=== PATIENT | female | born 2000 | race Hispanic/Latino ===

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

== ENCOUNTER 2023-02-23 15:10 | Inpatient (IN) | payer SELFPAY ==
--- OUTSIDE RECORDS SUMMARY | 2023-02-23 15:19 | XMS REPORT | Continuity of Care Document ---
:2000 Author Organization [facility] t Address [address] [place] [address] Care Team Providers Name Role Phone Pcp, Patient Does Not Have A Primary Care Physician [phone] CONCEPCION ALDANA Attending Clinician Unavailable 2, [facility] Attending Clinician Unavailable Concepcion Aldana MD Attending Clinician Doctor Unassigned, [place] Attending Clinician Unavailable JEANCARLOS ROQUE Attending Clinician Unavailable JEANCARLOS ROQUE Attending Clinician Unavailable Jose Angel Aragon MD Attending Clinician 1, Lk Nst Room Attending Clinician Unavailable MARILU ROOT Attending Clinician Unavailable MARILU ROOT Attending Clinician Unavailable Room, [facility] Nst Attending Clinician Unavailable 3, [facility] Room Attending Clinician Unavailable Mike Hernandez MD Attending Clinician MIKE HERNANDEZ Attending Clinician Unavailable Nurse, [facility] Attending Clinician Unavailable Ultrasound, [facility] Attending Clinician Unavailable Umberto Farrar MD Attending Clinician UMBERTO FARRAR Attending Clinician Unavailable Pob, [facility] Lab Main Attending Clinician Unavailable Zoila Henry MA Attending Clinician Unavailable Freddy CAMERON, Shania Tavera Attending Clinician Unavailable 1, [facility] Room Attending Clinician Unavailable Jayesh Larios MD Attending Clinician [phone] JAYESH LARIOS Attending Clinician Unavailable NOHEMI CANALES Attending Clinician Unavailable Nohemi Canales MD Attending Clinician Maame Alonso RN Attending Clinician Unavailable Faculty, [facility] Attending Clinician Unavailable Emmanuel Holley MD Attending Clinician EMMANUEL HOLLEY Attending Clinician Unavailable JOSHUA LEWIS Attending Clinician Unavailable LILY Attending Clinician Unavailable PETRONA LUONG S Attending Clinician Unavailable Petrona Emery S Attending Clinician Tony Attending Clinician Unavailable Wan Dorado Attending Clinician Unavailable ALEXA FINE Attending Clinician Unavailable Alexa Fine MD Attending Clinician Provider, [facility] Attending Clinician Unavailable Keily Atkinson Attending Clinician KEILY OLIVIER Attending Clinician Unavailable Joshua Lewis PA-C Attending Clinician JOSEFA BEAR Attending Clinician Unavailable CONCEPCION ALDANA Admitting Clinician Unavailable Concepcion Aldana MD Admitting Clinician NOHEMI CANALES Admitting Clinician Unavailable LILY Admitting Clinician Unavailable Tony Admitting Clinician Unavailable Wan Dorado Admitting Clinician Unavailable Payers Payer Name Policy Type Policy Number Effective Date Expiration Date [facility] [id number] 2019 CHOICE MEDICAID 00:00:00 [facility] [id number] [facility] (MEDICAID REPLACEMENT - HMO) [facility] [place] [facility] [id number] [address] [facility] 00:00:00 Problems Condition Condition Condition Status Onset Resolution Last Treating Co mments Source Name Details Category Date Date Treatment Clinician Date Diet Diet Disease Active Univers controlled controlled 3-23 it y of gestation[place] gestation[place] l diabetes l diabetes 00 Me dical mellitus mellitus Branch (GDM) in (GDM) in third third trimester trimester 39 weeks 39 weeks Disease Active Unive rs gestation gestation 3-23 ity of of of 00:00: [place] 00 [facility] Liveborn Liveborn Disease Active Unive rs , of , of 3-23 it y of [place] alt[place] 00:[place] , , 00 [place] dical born in born in [facility] by by delivery delivery Obesity in Obesity in Disease Active U nivers , , 3-07 it y of antepartum antepartum 00:00[place] , third , third 00 Medical trimester trimester Bran ch Diet Diet Disease Active Univers controlled controlled 1-27 it y of gestationa gestationa 00:[place] diabetes l diabetes 00 Me dical mellitus mellitus Branch (GDM), (GDM), antepartum antepartum Anemia of Anemia of Disease Active Uni vers mother in mother in 1-27 ity of , , [place] antepartum antepartum 00 [facility] Branch High-risk High-risk Disease Active 2021-04 Uni vers 0-07 ity of in third in third 00:00: [place] trimester trimester 00 [facility] Hx of Hx of Disease Active Univers preeclamps preeclamps 8-29 it y of ia, prior [place], prior 00:[place] , , 00 Me dical currently currently Bran ch , , third third trimester trimester Obesity Obesity Disease Active Univers (BMI (BMI 3-15 ity of 30-39.9) 30-39.9) 00:00: [place] 00 [facility] COVID-19 COVID-19 Disease Active 2019-04 Unive rs virus virus 1-03 ity of infection [place] 00:00[place] 00 [place] Allergies, Adverse Reactions, Alerts Allergy Allergy Status Severity Reaction(s) Onset Inactive Treating Comm ents Source Name Type Date Date Clinician cefaclor DA Active [facility]WELLING 2020-0 [facility] [place] sulfamet DA Active MO SWELLING 1-0 [facility] hoxazole 3-11 [facility] [place] trimetho DA Active MO SWELLING 1-0 [facility] prim 3-11 [facility] 00:[facility] [place] cefaclor DA Active U 1-0 [facility] 3-11 [facility] 00:[facility]: [facility] 00 l [...] Date Stop Date Quantity Comments Source ASSERTION 2021-10-10 University of 00:00:00 [place] [facility] History SDOH University o f Alcohol Std Drinks [place] [facility] History SDOH University o f Alcohol Binge [place] [facility] Gender identity [facility] [place] [facility] Sexual orientation Univer sity of [place] [facility] History SDOH University o f Alcohol Comment [place] Med ical [facility] History of tobacco Passive smoker Un iversity of use [place] [facility] History of Social 2022-12-04 2022-12-04 Univers ity of function 00:00:00 00:00:00 [place] [facility] Exposure to 2022-08-23 2022-09-02 Not sure [facility] SARS-CoV-2 (event) 00:00:00 13:04:00 [facility] Alcohol intake 2022-06-27 2022-06-27 Lifetime University of 00:00:00 00:00:00 non-drinker [facility] (finding) [place] Tobacco use and 2021-11-06 2021-11-06 Smokeless Universit y of exposure 00:00:00 00:00:00 tobacco non-user [facility] dical [place] History SDOH 2019-12-20 2019-12-20 1 University o f Alcohol Frequency 00:00:00 00:00:00 [facility] edical [place] Sex Assigned At [birth year] Universit y of 00:00:00 00:00:00 [facility] Smoking Status Start Date Stop Date Source Never smoked tobacco [facility] Medications Ordered Filled Start Stop Current Ordering Indication Dosage Frequency Signature Comments Components Source Medication Medication Date Date Medication? Clinician (SIG) Name Name copper 2022- No [id number] 1{IUD} Uni vers (PARAGARD T 5-17 05-17 ity of 380A) IUD 1 22:30: 21:43 [place] Intra 00 :00 Medical Uterine Branch Device copper 2022- No [id number] 1{IUD} 1 Intra Univers (PARAGARD T 5-17 05-17 Uterine ity of 380A) IUD 1 22:30: 21:43 Device, [place] Intra 00 :00 Intrauteri Medical Uterine ne, ONCE, Branch Device 1 dose, On Thu08/20/22 at 1730, Routine copper 2022- No [id number] 1{IUD} Uni vers (PARAGARD T 5-17 05-17 ity of 380A) IUD 1 22:30: 21:43 [place] Intra 00 :00 Medical Uterine Branch Device copper 2022- No [id number] 1{IUD} 1 Intra Univers (PARAGARD T 5-17 05-17 Uterine ity of 380A) IUD 1 22:30: 21:43 Device, [place] Intra 00 :00 Intrauteri Medical Uterine ne, ONCE, Branch Device 1 dose, On Thu08/20/22 at 1730, Routine copper 2022- No [id number] 1{IUD} Uni vers (PARAGARD T 5-17 05-17 ity of 380A) IUD 1 22:30: 21:43 [place] Intra 00 :00 Medical Uterine Branch Device copper 2022- No [id number] 1{IUD} 1 Intra Univers (PARAGARD T 5-17 05-17 Uterine ity of 380A) IUD 1 22:30: 21:43 Device, [place] Intra 00 :00 Intrauteri Medical Uterine ne, ONCE, Branch Device 1 dose, On Thu08/20/22 at 1730, Routine copper 0 Yes by Univers (PARAGARD T 5-17 Intrauteri it y of 380A 00:00: ne route. [place] INTRAUTERIN 00 Medical E) Branch copper 0 Yes by Univers (PARAGARD T 5-17 Intrauteri it y of 380A 00:00: ne route. [place] INTRAUTERIN 00 Medical E) Branch copper 2022-0 Yes by Univers (PARAGARD T 5-17 Intrauteri it y of 380A 00:00: ne route. [place] INTRAUTERIN 00 Medical E) Branch copper 0 Yes by Univers (PARAGARD T 5-17 Intrauteri it y of 380A 00:00: ne route. [place] INTRAUTERIN 00 Medical E) Branch copper 2022-0 Yes by Univers (PARAGARD T 5-17 Intrauteri it y of 380A 00:00: ne route. [place] INTRAUTERIN 00 Medical E) Branch copper 2022-0 Yes by Univers (PARAGARD T 5-17 Intrauteri it y of 380A 00:00: ne route. [place] INTRAUTERIN 00 Medical E) Branch Nitrofurant 0 Yes [id number] 100mg Take 1 Univers oin&Nit. 5-09 capsule by ity o f Macrocryst 00:00: mouth in [place] 100 mg 00 the Medical capsule morning Branch and 1 capsule in the evening. Nitrofurant 0 2022- No [id number] 100mg Take 1 Univers oin&Nit. 5-09 05-17 capsule by ity of Macrocryst 00:00: 00:00 mouth in [place] 100 mg 00 :00 the Medical capsule morning Branch and 1 capsule in the evening. Nitrofurant 0 2022- No [id number] 100mg Take 1 Univers oin&Nit. 08-12 capsule by ity of Macrocryst 00:00: 00:00 mouth in [place] 100 mg 00 :00 the Medical capsule morning Branch and 1 capsule in the evening. Nitrofurant 2023-0 2023- No [id number] 100mg Take 1 Univers oin&Nit. 08-12 capsule by ity of Macrocryst 00:00: 00:00 mouth in [place] 100 mg 00 :00 the Medical capsule and 1 capsule in the evening. ibuprofen 2023-0 Yes 600mg 600 mg, Univ ers (IBU) 3-25 Oral, Q6H, ity of tablet 600 03:00: First dose [place] mg 00 on Thu Medical 06/27/22 at Branch 2200, Until Discontinu ed, Routine ibuprofen 2023-0 Yes 600mg 600 mg, Univ ers (IBU) 3-25 Oral, Q6H, ity of tablet 600 03:00: First dose [place] mg 00 on Thu Medical 06/27/22 at Branch 2200, Until Discontinu ed, Routine HYDROcodone 2023-0 Yes 2{tbl} 2 tablet, Univers -acetaminop 3-25 Oral, ity of hen (NORCO 01:00: Q6HPRN, [place] 5) 5-325 mg 00 Starting Medi stephanie tablet 2 on Fri Branch tablet 06/27/22 at 1999, Until Discontinu ed, Routine, Pain (scale 7-10), Alternate with Ibuprofen HYDROcodone 2023-0 Yes 1{tbl} 1 tablet, Univers -acetaminop 3-25 Oral, ity of hen (NORCO 01:00: Q6HPRN, [place] 5) 5-325 mg 00 Starting Medi stephanie tablet 1 on Fri Branch tablet 06/27/22 at 1999, Until Discontinu ed, Routine, Pain (scale 4-6), Alternate with Ibuprofen HYDROcodone 2023-0 Yes 2{tbl} 2 tablet, Univers -acetaminop 3-25 Oral, ity of hen (NORCO 01:00: Q6HPRN, [place] 5) 5-325 mg 00 Starting Medi stephanie tablet 2 on Fri Branch tablet 06/27/22 at 1999, Until Discontinu ed, Routine, Pain (scale 7-10), Alternate with Ibuprofen HYDROcodone 2022-0 Yes 1{tbl} 1 tablet, [facility] -acetaminop 3-25 Oral, ity of hen (NORCO 01:00: Q6HPRN, [place] 5) 5-325 mg 00 Starting Medi stephanie tablet 1 on Thu Branch tablet 06/27/22 at 2000, Until Discontinu ed, Routine, Pain (scale 4-6), Alternate with Ibuprofen gabapentin 2022-0 Yes 300mg 300 mg, Uni vers (NEURONTIN) 3-24 Oral, TID, it y of capsule 300 13:00: First dose [place] mg 00 on Thu Medical 06/27/22 at Branch 0800, Until Discontinu ed, Routine gabapentin 2022-0 Yes 300mg 300 mg, Uni vers (NEURONTIN) 3-24 Oral, TID, it y of capsule 300 13:00: First dose [place] mg 00 on Thu Medical 06/27/22 at Branch 0800, Until Discontinu ed, Routine ASPIRIN 2022-0 2022- No Take by [facility] ORAL 06-27 mouth. ity of 08:32: 00:00 [place] 43 :00 [facility] PNV 2022-0 2022- No Take by Univers no.95/kari 06-27 mouth. ity o f 08:32: 00:00 [place] fum/folic 43 :00 [facility] ( ORAL) ASPIRIN 2022-0 2022- No Take by [facility] ORAL 06-27 mouth. ity of 08:32: 00:00 [place] 43 :00 [facility] PNV 2022-0 2022- No Take by Univers no.95/kari 06-27 mouth. ity o f 08:32: 00:00 [place] fum/folic 43 :00 [facility] ( ORAL) acetaminoph 2022-0 2022- No 1000mg 1,000 mg, Univers en ADULT 06-27 IV ity of (OFIRMEV) 07:00: 21:31 Infusion, [place] injection 00 :00 at 400 Medical 1,000 mg mL/hr [place] Administer over 15 Minutes, Q6H, 3 doses, First dose (after last modificati on) on Thu06/27/22 at 0200, Last dose on Thu06/27/22 at 1200, Routine
Indicatio n: Perioperat shayan Patient ketorolac 2022-0 2022- No 30mg 30 mg, Unive rs (TORADOL) 06-2724 Slow IV ity of injection 03:00: 22:59 Push, Q6H, [place] 30 mg 00 :00 4 doses, Medical First dose Branch on Thu06/26/22 at 2200, Last dose on Thu06/27/22 at 1200, Routine lactated 2022-0 2022- No 1000mL at 125 [facility] ers ringers IV 06-27 03-24 mL/hr, ity of infusion 02:00: 03:54 1,000 mL, [place] 1,000 mL 00 :55 IV Medical Infusion, Branch ONCE, 1 dose, On Thu06/26/22 at 2100, Routine diphenhydrA 2022-0 Yes 25mg 25 mg, Univ ers MINE 06-27 Slow IV ity of (BENADRYL) 01:12: Push, [place] injection 17 Q6HPRN, Medical 25 mg Starting Branch on Thu06/26/22 at 2011, Until Discontinu ed, Routine, Itching diphenhydrA 2022-0 Yes 25mg 25 mg, Univ ers MINE 06-27 Oral, ity of (BENADRYL) 01:12: Q6HPRN, [place] tablet 25 17 Starting Medica l mg on Carin Branch 06/26/22 at 2011, Until Discontinu ed, Routine, Sleep, Itching ondansetron 2022-0 Yes 4mg 4 mg, Slow Univers (ZOFRAN 24 IV Push, ity of (PF)) 01:12: Q8HPRN, [place] injection 4 17 Starting Medi stephanie mg on [place] Branch 06/26/22 at 2011, Until Discontinu ed, Routine, Nausea and Vomiting (N/V) bisacodyL 2022-0 Yes 10mg 10 mg, Univer s (DULCOLAX) 06-27 Rectal, ity of suppository 01:12: QDAILYPRN, [place] 10 mg 17 Starting Medical on [place] Branch 06/26/22 at 2011, Until Discontinu ed, Routine, Constipati on simethicone 2022-0 Yes 160mg 160 mg, Un carole (GAS RELIEF 3-24 Oral, ity of (SIMETHICON 01:12: PC+HSPRN, [place] E)) 17 Starting Medical chewable on [facility] Branch tablet 160 06/26/22 at mg 2011, Until Discontinu ed, Routine, Gas diphenhydrA 2023-0 Yes 25mg 25 mg, Univ ers MINE 3-24 Slow IV ity of (BENADRYL) 01:12: Push, [place] injection 17 Q6HPRN, Medical 25 mg Starting Branch on Carin 06/26/22 at 2011, Until Discontinu ed, Routine, Itching diphenhydrA 2023-0 Yes 25mg 25 mg, Univ ers MINE 3-24 Oral, ity of (BENADRYL) 01:12: Q6HPRN, [place] tablet 25 17 Starting Medica l mg on [facility] Branch 06/26/22 at 2011, Until Discontinu ed, Routine, Sleep, Itching ondansetron 3-0 Yes 4mg 4 mg, Slow Univers (ZOFRAN 3-24 IV Push, ity of (PF)) 01:12: Q8HPRN, [place] injection 4 17 Starting Medi stephanie mg on [facility] Branch 06/26/22 at 2011, Until Discontinu ed, Routine, Nausea and Vomiting (N/V) bisacodyL 3-0 Yes 10mg 10 mg, Univer s (DULCOLAX) 3-24 Rectal, ity of suppository 01:12: QDAILYPRN, [place] 10 mg 17 Starting Medical on [facility] Branch 06/26/22 at 2011, Until Discontinu ed, Routine, Constipati on simethicone 2023-0 Yes 160mg 160 mg, Un carole (GAS RELIEF 3-24 Oral, ity of (SIMETHICON 01:12: PC+HSPRN, [place] E)) 17 Starting Medical chewable on [facility] Branch tablet 160 06/26/22 at mg 2011, Until Discontinu ed, Routine, Gas docusate 2023-0 Yes 200mg 200 mg, Unive rs (COLACE) 3-24 Oral, ity of capsule 200 01:12: QDAILYPRN, [place] mg 16 Starting Medical on [facility] Branch 06/26/22 at 2011, Until Discontinu ed, Routine, Constipati on magnesium 2023-0 Yes 30mL 30 mL, Univer s hydroxide 3-24 Oral, ity of (MILK OF 01:12: QDAILYPRN, [place] MAGNESIA) 16 Starting Medica l 400 mg/5 mL on [place] Branch suspension 06/26/22 at 30 mL 2011, Until Discontinu ed, Routine, Constipati on lactated 2023-0 Yes 1000mL at 125 Unive rs ringers IV 3-24 mL/hr, ity of infusion 01:12: 1,000 mL, [place] 1,000 mL 16 IV Medical Infusion, Branch PRN, 1 dose, Starting on Carin 06/26/22 at 2011, Until Discontinu ed, Routine docusate 3-0 Yes 200mg 200 mg, Unive rs (COLACE) 3-24 Oral, ity of capsule 200 01:12: QDAILYPRN, [place] mg 16 Starting Medical on [place] Branch 06/26/22 at 2011, Until Discontinu ed, Routine, Constipati on magnesium 3-0 Yes 30mL 30 mL, Univer s hydroxide 3-24 Oral, ity of (MILK OF 01:12: QDAILYPRN, [place] MAGNESIA) 16 Starting Medica l 400 mg/5 mL on [place] Branch suspension 06/26/22 at 30 mL 2011, Until Discontinu ed, Routine, Constipati on lactated 3-0 Yes 1000mL at 125 Unive rs ringers IV 3-24 mL/hr, ity of infusion 01:12: 1,000 mL, [place] 1,000 mL 16 IV Medical Infusion, Branch PRN, 1 dose, Starting on Carin 06/26/22 at 2011, Until Discontinu ed, Routine morpHINE PF 2022- No Epidural, Univers (DURAMORPH- 06-2724 ONCE INTRA i ty of PF) 01:12: 01:17 PROCEDURE, [place] injection 00 :18 Starting Medica l on [place] Branch 06/26/22 at 2011, Until [place]in 06/26/22 at 2017, Routine, Intra-op morpHINE PF 2022-2022- No Epidural, Univers (DURAMORPH- 06-27-24 ONCE INTRA i ty of PF) 01:12: 01:17 PROCEDURE, [place] injection 00 :18 Starting Medica l on [place] Branch 06/26/22 at 2012, Until [place]in 06/26/22 at 2017, Routine, Intra-op ceFAZolin 2022- No 2000mg 2,000 mg, Univers (ANCEF) 06-27 IV ity of 2,000 mg in 01:00: 00:26 Piggyback, [place] NaCl 0.9% 00 :00 Q8H ABX, 1 Medi stephanie (NS) 100 mL dose, Branch MINI-BAG First dose on Carin 06/26/22 at 2000, Administer over 30 Minutes, 100 mL
Reas on for Anti-Infec tive: Surgical Prophylaxi s
Surgi stephanie Prophylaxi s: Abdominal< br>Duratio n of therapy: within 24 hours of surgery acetaminoph 2022- No IV Unive rs en ADULT 06-27 Infusion, ity o f (OFIRMEV) 00:50: 01:17 Administer [place] injection 00 :18 over 15 Medical Minutes, Branch ONCE INTRA PROCEDURE, Starting on Carin 06/26/22 at 1950, Until [place] 06/26/22 at 2017, Routine, Intra-op acetaminoph 2022- No IV Unive rs en ADULT 06-27 Infusion, ity o f (OFIRMEV) 00:50: 01:17 Administer [place] injection 00 :18 over 15 Medical Minutes, Branch ONCE INTRA PROCEDURE, Starting on Car[place] 06/26/22 at 1950, Until Carin 06/26/22 at 2017, Routine, Intra-op PHENYLephri 2022- No Slow IV Un carole ne 1000 06-27 Push, ONCE ity o f mcg/10 mL 00:38: 01:17 INTRA [place] in 0.9% 00 :18 PROCEDURE, Medica l NaCl Starting Branch syringe on Carin 06/26/22 at 1938, Until Carin 06/26/22 at 2017, Routine, Intra-op PHENYLephri 2022- No Slow IV Un carole ne 1000 06-27 Push, ONCE ity o f mcg/10 mL 00:38: 01:17 INTRA [place] in 0.9% 00 :18 PROCEDURE, Medica l NaCl Starting Branch syringe on Carin 06/26/22 at 1938, Until 06/26/23 at 2017, Routine, Intra-op azithromyci 2022- No IV Unive rs n 06-27 Piggyback, ity of (ZITHROMAX) 00:29: 01:17 CONTINUOUS [place] 500 mg in 00 :18 PRN, Medical NaCl 0.9% Starting Branch (NS) 250 mL on Carin IV 06/26/22 at piggyback 1929, Until Carin 06/26/22 at 2016, Administer over 60 Minutes, 250 mL, Intra-op azithromyci 2022- No IV Unive rs n 06-27 Piggyback, ity of (ZITHROMAX) 00:29: 01:17 CONTINUOUS [place] 500 mg in 00 :18 PRN, Medical NaCl 0.9% Starting Branch (NS) 250 mL on Carin IV 06/26/22 at piggyback 1929, Until Carin 06/26/22 at 2017, Administer over 60 Minutes, 250 mL, Intra-op LR 1000 mL 2022- No IV Univer s + oxytocin 06-27 Infusion, ity of 40 units 40 00:27: 01:17 CONTINUOUS [place] unit/ 1,000 00 :18 PRN, Medical mL IV Starting Branch Solution on Carin 06/26/22 at 1927, Until Carin 06/26/22 at 2017, Routine, Intra-op LR 1000 mL 2022- No IV Univer s + oxytocin 06-27 Infusion, ity of 40 units 40 00:27: 01:17 CONTINUOUS [place] unit/ 1,000 00 :18 PRN, Medical mL IV Starting Branch Solution on Carin 06/26/22 at 1927, Until Carin 06/26/22 at 2017, Routine, Intra-op lactated 2022-0 2022- No IV Univers ringers IV 06-27 Infusion, ity of infusion 00:16: 01:17 CONTINUOUS [place] 00 :18 PRN, Medical Starting Branch on Carin 06/26/22 at 1916, Until Carin 06/26/22 at 2017, Routine, Intra-op lactated 2022-0 2022- No IV Univers ringers IV 06-27 Infusion, ity of infusion 00:16: 01:17 CONTINUOUS [place] 00 :18 PRN, Medical Starting Branch on Carin 06/26/22 at 1916, Until Carin 06/26/22 at 2017, Routine, Intra-op ondansetron 2022- No Slow IV Un carole (ZOFRAN 3-24 03-24 Push, ONCE ity o f (PF)) 00:09: 01:17 INTRA [place] injection 00 :18 PROCEDURE, Medi stephanie Starting Branch on [facility] 06/26/22 at 1909, Until Carin 06/26/22 at 2017, Routine, Intra-op ondansetron 2022- No Slow IV Un carole (ZOFRAN 3-24 03-24 Push, ONCE ity o f (PF)) 00:09: 01:17 INTRA [place] injection 00 :18 PROCEDURE, [facility] stephanie Starting Branch on [facility] 06/26/22 at 1909, Until [facility] 06/26/22 at 2017, Routine, Intra-op ibuprofen Yes [id number] 800mg Take 1 Univers 800 mg 3-24 tablet by ity of tablet 00:00: mouth [place] 00 every 8 Medical (eight) Branch hours. HYDROcodone Yes [id number] 1{tbl} Take 1 Un carole -acetaminop 3-24 tablet by ity of hen 5-325 00:00: mouth [place] mg tablet 00 every 6 Medical (six) Branch hours as needed for Pain (scale 4-6) (Alternate with Ibuprofen) . Indication s: acute pain Yes [id number] 1{tbl} Take 1 Univers vitamin 3-24 tablet by ity of w/FA tablet 00:00: mouth in [place] 00 the Medical morning. Branch docusate Yes [id number] 200mg Take 2 U nivers 100 mg 3-24 capsules ity of capsule 00:00: by mouth [place] 00 once daily Medical as needed Branch for Constipati on. ferrous Yes [id number] 325mg Take 1 Un [place] sulfate 325 3-24 tablet by ity of mg (65 mg 00:00: mouth in [place] iron) 00 the Medical tablet morning Branch and 1 tablet in the evening. gabapentin Yes [id number] 300mg Take 1 Univers 300 mg 3-24 capsule by ity of capsule 00:00: mouth in [place] 00 the Medical morning Branch and 1 capsule at noon and 1 capsule in the evening. ibuprofen 2022-0 Yes [id number] 800mg Take 1 Univers 800 mg 3-24 tablet by ity of tablet 00:00: mouth [place] 00 every 8 Medical (eight) Branch hours. HYDROcodone 2022-0 Yes [id number] 1{tbl} Take 1 Un carole -acetaminop 3-24 tablet by ity of hen 5-325 00:00: mouth [place] mg tablet 00 every 6 Medical (six) Branch hours as needed for Pain (scale 4-6) (Alternate with Ibuprofen) . Indication s: acute pain 2022-0 Yes [id number] 1{tbl} Take 1 Univers vitamin 3-24 tablet by ity of w/FA tablet 00:00: mouth in [place] 00 the Medical morning. Branch docusate 0 Yes [id number] 200mg Take 2 U nivers 100 mg 3-24 capsules ity of capsule 00:00: by mouth [place] 00 once daily Medical as needed Branch for Constipati on. ferrous 2022-0 Yes [id number] 325mg Take 1 Un [place] sulfate 325 3-24 tablet by ity of mg (65 mg 00:00: mouth in [facility] s iron) 00 the Medical tablet morning Branch and 1 tablet in the evening. gabapentin 0 Yes [id number] 300mg Take 1 Univers 300 mg 3-24 capsule by ity of capsule 00:00: mouth in [place] 00 the Medical morning Branch and 1 capsule at noon and 1 capsule in the evening. ibuprofen 2022-0 2022- No [id number] 800mg Take 1 Univers 800 mg 3-24 04-12 tablet by ity of tablet 00:00: 00:00 mouth [place] 00 :00 every 8 Medical (eight) Branch hours. HYDROcodone 2022-0 2022- No [id number] 1{tbl} Take 1 U nivers -acetaminop 3-24 04-12 tablet by it y of hen 5-325 00:00: 00:00 mouth [place] mg tablet 00 :00 every 6 Medical (six) Branch hours as needed for Pain (scale 4-6) (Alternate with Ibuprofen) . Indication s: acute pain 2022-0 2022- No [id number] 1{tbl} Take 1 Univers vitamin 3-24 04-12 tablet by ity of w/FA tablet 00:00: 00:00 mouth in [place] 00 :00 the Medical morning. Branch docusate 2022- No [id number] 200mg Take 2 Univers 100 mg 06-27 capsules ity of capsule 00:00: 00:00 by mouth [place] 00 :00 once daily Medical as needed Branch for Constipati on. ferrous No [id number] 325mg Take 1 U nivers sulfate 325 06-27 tablet by it y of mg (65 mg 00:00: 00:00 mouth in [place] iron) 00 :00 the Medical tablet morning Branch and 1 tablet in the evening. gabapentin No [id number] 300mg Take 1 Univers 300 mg 06-27 capsule by ity of capsule 00:00: 00:00 mouth in [place] 00 :00 the Medical morning Branch and 1 capsule at noon and 1 capsule in the evening. lidocaine No Epidural, Un carole 2% + 06-26 CONTINUOUS ity of epinephrine 23:40: 01:17 PRN, [place] 1:1000 + 00 :18 Starting Medical fentanyl 50 on Carin Branch mcg/mL 06/26/22 at 1840, Until Carin 06/26/22 at 2017, Routine, Intra-op lidocaine 2022- No Epidural, Un car[facility] 2% + 06-26 CONTINUOUS ity of epinephrine 23:40: 01:17 PRN, [place] 1:1000 + 00 :18 Starting Medical fentanyl 50 on [place] Branch mcg/mL 06/26/22 at 1840, Until Car[place] 06/26/22 at 2017, Routine, Intra-op PIB 2022- No Epidural, [facility] fentaNYL-ro 06-26 ONCE INTRA i ty of pivacaine 2 15:08: 01:17 PROCEDURE, [place] mcg/mL-0.1 00 :18 Starting Medic al % (PF) in on [place] Branch NS 200 mL 06/26/22 at epidural 1008, infusion Until [place] RTU 06/26/22 at 2017, Routine, Intra-op PIB 2022- No Epidural, [facility] fentaNYL-ro 3-23 03-24 ONCE INTRA i ty of pivacaine 2 15:08: 01:17 PROCEDURE, [place] mcg/mL-0.1 00 :18 Starting Medic al % (PF) in on [place] Branch NS 200 mL 06/26/22 at epidural 1008, infusion Until Carin RTU 06/26/22 at 2017, Routine, Intra-op lidocaine-e 2022-2022- No Epidural, [facility] pinephrine 06-26 ONCE INTRA it y of (XYLOCAINE 15:07: 01:17 PROCEDURE, [place] W/EPINEPHRI 00 :18 Starting Medi stephanie NE) 1.5 on [place] Branch %-1:200,000 06/26/22 at injection 1007, Until Carin 06/26/22 at 2017, Routine, Intra-op lidocaine-e 2022- No Epidural, [facility] pinephrine 06-26 ONCE INTRA it y of (XYLOCAINE 15:07: 01:17 PROCEDURE, [place] W/EPINEPHRI 00 :18 Starting Medi stephanie NE) 1.5 on [place] Branch %-1:200,000 06/26/22 at injection 1007, Until Carin 06/26/22 at 2017, Routine, Intra-op lidocaine 2022- No Infiltrati U nivers 1% 06-26 on, ONCE ity of (XYLOCAINE) 14:56: 01:17 INTRA [place] 100 mg/10 00 :18 PROCEDURE, Medi stephanie mL (1 %) Starting Branch injection on Carin 06/26/22 at 0956, Until [place]in 06/26/22 at 2017, Routine, Intra-op lidocaine 2022-0 2022- No Infiltrati U nivers 1% 06-26 on, ONCE ity of (XYLOCAINE) 14:56: 01:17 INTRA [place] 100 mg/10 00 :18 PROCEDURE, Medi stephanie mL (1 %) Starting Branch injection on Carin 06/26/22 at 0956, Until [place]in 06/26/22 at 2017, Routine, Intra-op magnesium 2022-2022- No 30mL 30 mL, Unive rs hydroxide 06-26 Oral, PRN, ity of (MILK OF 07:21: 07:24 1 dose, [place] MAGNESIA) 19 :00 Starting Medica l 400 mg/5 mL on [place] [facility] suspension 06/26/22 at 30 mL 0221, Until Carin 06/26/22 at 0224, Routine, Constipati on misoprostol 2022- No 50ug 50 mcg, Un [place] (CYTOTEC) 06-26 Oral, QID, ity of quarter-tab 06:30: 06:22 1 dose, [place] 50 mcg 00 :00 First dose Med ical on [place] Branch 06/26/22 at 0130, Routine terbutaline 2022- No .25mg 0.25 mg, Univers (BRETHINE) 06-26 Subcutaneo it y of injection 05:04: 01:15 [place], Q15MIN [place] 0.25 mg 21 :28 PRN, 3 Medical doses, Branch Starting on Carin 06/26/22 at 0004, Until Carin 06/26/22 at 2014, Routine, Tachysysto le with NRFHT lactated 2022- No 1000mL at 1-125 Un carole ringers IV 06-2624 mL/hr, ity of infusion 05:04: 01:15 1,000 mL, [place] 1,000 mL 21 :28 IV Medical Infusion, Branch TITRATE, Starting on Carin 06/26/22 at 0004, Until Carin 06/26/22 at 2014, Routine oxytocin 2022- No 2mU/min at 2-40 Un [place] (PITOCIN) 06-26- mL/hr, IV ity of 30 units in 05:04: 01:15 Infusion, [place] NS 500 mL 21 :28 TITRATE, Medica l IV infusion Starting Bran ch on Carin 06/26/22 at 0004, Until Carin 06/26/22 at 2014, Routine lactated 2022- No 500mL at 999 Unive rs ringers IV 06-26 03-24 mL/hr, 500 it y of infusion 05:04: 01:15 mL, IV [place] 500 mL 21 :28 Infusion, Medical PRN - SEE Branch INSTRUCTIO NS, Starting on Carin 06/26/22 at 0004, Until Carin 06/26/22 at 2014, Routine sodium 2022- No 30mL 30 mL, Univers citrate-cit 06-26 Oral, ity of yg acid 05:04: 23:39 PRE-PROCED [place] (BICITRA) 21 :00 URE ONCE, Medic al 500-334 1 dose, Branch mg/5 mL Starting solution 30 on Carin mL 06/26/22 at 0004, Until Discontinu ed, Routine, Surgery/Pr ocedure ASPIRIN 0 Yes Take by Univers ORAL 3-22 mouth. ity of 23:58: [address] PNV 0 Yes Take by Univers no.95/kari 3-22 mouth. ity of us 23:58: [place] fum/folic 17 Medical ac Branch ( ORAL) ASPIRIN Yes Take by Univers ORAL 3-22 mouth. ity of 23:58: [address] PNV Yes Take by Univers no.95/kari 3-22 mouth. ity of 23:58: [place] fum/folic Medical ac Branch ( ORAL) Blood-Gluco Yes Check Unive rs se Meter 2-10 blood ity of (ACCU-CHEK 00:00: sugar 4 [place] GUIDE 00 times Medical GLUCOSE daily Branch METER) [facility] [place] Blood-Gluco 0 Yes Check Unive rs se Meter 2-10 blood ity of (ACCU-CHEK 00:00: sugar 4 [place] GU[place] 00 times Medical GLUCOSE daily Branch METER) Mis Blood-Gluco 2022-0 Yes Check Unive rs se Meter 2-10 blood ity of (ACCU-CHEK 00:00: sugar 4 [place] GU[place] 00 times Medical GLUCOSE daily Branch METER) Misc Blood-Gluco 2022-0 Yes Check Unive rs se Meter 2-10 blood ity of (ACCU-CHEK 00:00: sugar 4 [place] GU[place] 00 times Medical GLUCOSE daily Branch METER) Misc Blood-Gluco 2022-0 Yes Check Unive rs se Meter 2-10 blood ity of (ACCU-CHEK 00:00: sugar 4 [place] GU[place] 00 times Medical GLUCOSE daily Branch METER) Misc Blood-Gluco 2022-0 Yes Check Unive rs se Meter 2-10 blood ity of (ACCU-CHEK 00:00: sugar 4 [place] GU[place] 00 times Medical GLUCOSE daily Branch METER) Misc Blood-Gluco 2023-0 Yes Check Unive rs se Meter 2-10 blood ity of (ACCU-CHEK 00:00: sugar 4 [place] GUIDE 00 times Medical GLUCOSE daily Branch METER) Misc Blood-Gluco 0 Yes Check Unive rs se Meter 2-10 blood ity of (ACCU-CHEK 00:00: sugar 4 [place] GUIDE 00 times Medical GLUCOSE daily Branch METER) Misc Blood-Gluco Yes Check Unive rs se Meter 2-10 blood ity of (ACCU-CHEK 00:00: sugar 4 [place] GUIDE 00 times Medical GLUCOSE daily Branch METER) Misc Blood-Gluco Yes Check Unive rs se Meter 2-10 blood ity of (ACCU-CHEK 00:00: sugar 4 [place] GUIDE 00 times Medical GLUCOSE daily Branch METER) Misc Blood-Gluco Yes Check Unive rs se Meter 2-10 blood ity of (ACCU-CHEK 00:00: sugar 4 [place] GUIDE 00 times Medical GLUCOSE daily Branch METER) Misc Blood-Gluco Yes Check Unive rs se Meter 2-10 blood ity of (ACCU-CHEK 00:00: sugar 4 [place] GUIDE 00 times Medical GLUCOSE daily Branch METER) Misc Blood-Gluco 0 Yes Check Unive rs se Meter 2-10 blood ity of (ACCU-CHEK 00:00: sugar 4 [place] GUIDE 00 times Medical GLUCOSE daily Branch METER) Misc Blood-Gluco Yes Check Unive rs se Meter 2-10 blood ity of (ACCU-CHEK 00:00: sugar 4 [place] GU[place] 00 times Medical GLUCOSE daily Branch METER) Misc Blood-Gluco 2022-0 Yes Check Unive rs se Meter 2-10 blood ity of (ACCU-CHEK 00:00: sugar 4 [place] GU[place] 00 times Medical GLUCOSE daily Branch METER) Misc Blood-Gluco 2022- No Check Univ ers se Meter 2-10 03-24 blood ity of (ACCU-CHEK 00:00: 00:00 sugar 4 [place] GUIDE 00 :00 times Medical GLUCOSE daily Branch METER) Misc Blood-Gluco 2022- No Check Univ ers se Meter 2-10 03-24 blood ity of (ACCU-CHEK 00:00: 00:00 sugar 4 [place] GUIDE 00 :00 times Medical GLUCOSE daily Branch METER) Mis PNV 2022-0 Yes Take by Univers no.95/kari 1-31 mouth. ity of us 14:30: [place] fum/folic 18 Medical ac Branch ( ORAL) PNV 2022-0 Yes Take by Univers no.95/kari 1-31 mouth. ity of us 14:30: [place] fum/folic 18 Medical ac Branch ( ORAL) PNV 2022-0 Yes Take by Univers no.95/kari 1-31 mouth. ity of us 14:30: [place] fum/folic 18 Medical ac Branch ( ORAL) PNV 2022-0 Yes Take by Univers no.95/kari 1-31 mouth. ity of us 14:30: [place] fum/folic 18 Medical ac Branch ( ORAL) PNV 2022-0 Yes Take by Univers no.95/kari 1-31 mouth. ity of us 14:30: [place] fum/folic 18 Medical ac Branch ( ORAL) PNV 2022-0 Yes Take by Univers no.95/kari 1-31 mouth. ity of us 14:30: [place] fum/folic 18 Medical ac Branch ( ORAL) PNV 2022-0 Yes Take by Univers no.95/kari 1-31 mouth. ity of us 14:30: [place] fum/folic 18 Medical ac Branch ( ORAL) PNV 2022-0 Yes Take by Univers no.95/kair 1-31 mouth. ity of us 14:30: [place] fum/folic 18 Medical ac Branch ( ORAL) PNV 2022-0 Yes Take by Univers no.95/kari 1-31 mouth. ity of us 14:30: [place] fum/folic 18 Medical ac Branch ( ORAL) PNV 2022-0 Yes Take by Univers no.95/kari 1-31 mouth. ity of us 14:30: [place] fum/folic 18 Medical ac Branch ( ORAL) PNV 2022-0 Yes Take by Univers no.95/kari 1-31 mouth. ity of us 14:30: [place] fum/folic 18 Medical ac Branch ( ORAL) PNV 2022-0 Yes Take by Univers no.95/kari 1-31 mouth. ity of us 14:30: [place] fum/folic 18 Medical ac Branch ( ORAL) PNV 2022-0 Yes Take by Univers no.95/kari 05-06 mouth. ity of us 14:30: [place] fum/folic 18 Medical ac Branch ( ORAL) PNV 2022-0 Yes Take by Univers no.95/kari 05-06 mouth. ity of us 14:30: [place] fum/folic 18 Medical ac Branch ( ORAL) PNV 2022-0 Yes Take by Univers no.95/kari 05-06 mouth. ity of us 14:30: [place] fum/folic 18 Medical ac Branch ( ORAL) lancets 33 2022-0 Yes Pt will Univ ers gauge Misc - check ity of 00:00: glucose [place] 00 levels 4 x Medical per day. Branch blood sugar 0 Yes Pt will Uni vers diagnostic 05-06 check ity of (ACCU-CHEK 00:00: glucose [place] GUIDE TEST 00 levels 4 x Med ical STRIPS) per day. Branch strip lancets 33 2022-0 Yes Pt will Univ ers gauge Misc - check ity of 00:00: glucose [place] 00 levels 4 x Medical per day. Branch blood sugar 0 Yes Pt will Uni vers diagnostic 05-06 check ity of (ACCU-CHEK 00:00: glucose [place] GUIDE TEST 00 levels 4 x Med ical STRIPS) per day. Branch strip lancets 33 2022-0 Yes Pt will Univ ers gauge Misc 1- check ity of 00:00: glucose [place] 00 levels 4 x Medical per day. Branch blood sugar 2022-0 Yes Pt will Uni vers diagnostic 05-06 check ity of (ACCU-CHEK 00:00: glucose [place] GUIDE TEST 00 levels 4 x Med ical STRIPS) per day. Branch strip lancets 33 2022-0 Yes Pt will Univ ers gauge Misc - check ity of 00:00: glucose [place] 00 levels 4 x Medical per day. Branch blood sugar 2022-0 Yes Pt will Uni vers diagnostic 05-06 check ity of (ACCU-CHEK 00:00: glucose [place] GUIDE TEST 00 levels 4 x Med ical STRIPS) per day. Branch strip lancets 33 2022-0 Yes Pt will Univ ers gauge Misc 1- check ity of 00:00: glucose [place] 00 levels 4 x Medical per day. Branch blood sugar 0 Yes Pt will Uni vers diagnostic 05-06 check ity of (ACCU-CHEK 00:00: glucose [place] GUIDE TEST 00 levels 4 x Med ical STRIPS) per day. Branch strip lancets 33 2022-0 Yes Pt will Univ ers gauge Misc 05-06 check ity of 00:00: glucose [place] 00 levels 4 x Medical per day. Branch blood sugar 0 Yes Pt will Uni vers diagnostic 05-06 check ity of (ACCU-CHEK 00:00: glucose [place] GUIDE TEST 00 levels 4 x Med ical STRIPS) per day. Branch strip lancets 33 2022-0 Yes Pt will Univ ers gauge Misc 05-06 check ity of 00:00: glucose [place] 00 levels 4 x Medical per day. Branch blood sugar 0 Yes Pt will Uni vers diagnostic 05-06 check ity of (ACCU-CHEK 00:00: glucose [place] GUIDE TEST 00 levels 4 x Med ical STRIPS) per day. Branch strip lancets 2022-0 Yes Pt will Univ ers gauge Misc 05-06 check ity of 00:00: glucose [place] 00 levels 4 x Medical per day. Branch blood sugar 0 Yes Pt will Uni vers diagnostic 05-06 check ity of (ACCU-CHEK 00:00: glucose [place] GUIDE TEST 00 levels 4 x Med ical STRIPS) per day. Branch strip lancets 33 2022-0 Yes Pt will Univ ers gauge Misc 05-06 check ity of 00:00: glucose [place] 00 levels 4 x Medical per day. Branch blood sugar 0 Yes Pt will Uni vers diagnostic 05-06 check ity of (ACCU-CHEK 00:00: glucose [place] GUIDE TEST 00 levels 4 x Med ical STRIPS) per day. Branch strip lancets 33 2022-0 Yes Pt will Univ ers gauge Misc 05-06 check ity of 00:00: glucose [place] 00 levels 4 x Medical per day. Branch blood sugar 0 Yes Pt will Uni vers diagnostic 05-06 check ity of (ACCU-CHEK 00:00: glucose [place] GUIDE TEST 00 levels 4 x Med ical STRIPS) per day. Branch strip lancets 33 2022-0 Yes Pt will Univ ers gauge Misc 05-06 check ity of 00:00: glucose [place] 00 levels 4 x Medical per day. Branch blood sugar 0 Yes Pt will Uni vers diagnostic 05-06 check ity of (ACCU-CHEK 00:00: glucose [place] GUIDE TEST 00 levels 4 x Med ical STRIPS) per day. Branch strip lancets 33 2022-0 Yes Pt will Univ ers gauge Misc 05-06 check ity of 00:00: glucose [place] 00 levels 4 x Medical per day. Branch blood sugar Yes Pt will Uni vers diagnostic 05-06 check ity of (ACCU-CHEK 00:00: glucose [place] GUIDE TEST 00 levels 4 x Med ical STRIPS) per day. Branch strip lancets 0 Yes Pt will Univ ers gauge Misc 05-06 check ity of 00:00: glucose [place] 00 levels 4 x Medical per day. Branch blood sugar Yes Pt will Uni vers diagnostic 05-06 check ity of (ACCU-CHEK 00:00: glucose [place] GUIDE TEST 00 levels 4 x Med ical STRIPS) per day. Branch strip lancets 0 Yes Pt will Univ ers gauge Misc 05-06 check ity of 00:00: glucose [place] 00 levels 4 x Medical per day. Branch blood sugar Yes Pt will Uni vers diagnostic 05-06 check ity of (ACCU-CHEK 00:00: glucose [place] GUIDE TEST 00 levels 4 x Med ical STRIPS) per day. Branch strip lancets 33 2022-0 Yes Pt will Univ ers gauge Misc 05-06 check ity of 00:00: glucose [place] 00 levels 4 x Medical per day. Branch blood sugar 0 Yes Pt will Uni vers diagnostic 05-06 check ity of (ACCU-CHEK 00:00: glucose [place] GUIDE TEST 00 levels 4 x Med ical STRIPS) per day. Branch strip Blood-Gluco Yes Use as Univ ers se Meter 05-06 directed ity of (ACCU-CHEK 00:00: [place] GUIDE 00 Medical GLUCOSE Branch METER) Misc lancets 33 0 Yes Pt will Univ ers gauge Misc 05-06 check ity of 00:00: glucose [place] 00 levels 4 x Medical per day. Branch blood sugar Yes Pt will Uni vers diagnostic 05-06 check ity of (ACCU-CHEK 00:00: glucose [place] GUIDE TEST 00 levels 4 x Med ical STRIPS) per day. Branch strip lancets 2022- No Pt will Uni vers gauge Misc 05-06 check ity of 00:00: 00:00 glucose [place] 00 :00 levels 4 x Medical per day. Branch blood sugar 2022- No Pt will Un [place]ole diagnostic 05-06 check ity of (ACCU-CHEK 00:00: 00:00 glucose [place] GUIDE TEST 00 :00 levels 4 x Med ical STRIPS) per day. Branch strip lancets 2022- No Pt will Uni vers gauge Misc 05-06 check ity of 00:00: 00:00 glucose [place] 00 :00 levels 4 x Medical per day. Branch blood sugar 2022- No Pt will Un car[facility] diagnostic 05-06 check ity of (ACCU-CHEK 00:00: 00:00 glucose [place] GUIDE TEST 00 :00 levels 4 x Med ical STRIPS) per day. Branch strip Blood-Gluco 2022- No Use as Uni vers se Meter 05-06 directed ity of (ACCU-CHEK 00:00: 00:00 [place] GUIDE 00 :00 Medical GLUCOSE Branch METER) [facility] [place] ferrous Yes [id number] 325mg Take 1 Un [place] sulfate 325 1-27 tablet by ity of mg (65 mg 00:00: mouth in [place] iron) 00 the Medical tablet morning Branch and 1 tablet in the evening. ferrous Yes [id number] 325mg Take 1 [place] sulfate 325 1-27 tablet by ity of mg (65 mg 00:00: mouth in [place] iron) 00 the Medical tablet morning Branch and 1 tablet in the evening. ferrous 0 Yes [id number] 325mg Take 1 [place] sulfate 325 1-27 tablet by ity of mg (65 mg 00:00: mouth in [place] iron) 00 the Medical tablet morning Branch and 1 tablet in the evening. ferrous Yes [id number] 325mg Take 1 [place] sulfate 325 1-27 tablet by ity of mg (65 mg 00:00: mouth in [place] iron) 00 the Medical tablet morning Branch and 1 tablet in the evening. ferrous 2022-0 Yes [id number] 325mg Take 1 [place] sulfate 325 1-27 tablet by ity of mg (65 mg 00:00: mouth in [place] iron) 00 the Medical tablet morning Branch and 1 tablet in the evening. ferrous 2022-0 Yes [id number] 325mg Take 1 [place] sulfate 325 1-27 tablet by ity of mg (65 mg 00:00: mouth in [place] iron) 00 the Medical tablet morning Branch and 1 tablet in the evening. ferrous 0 Yes [id number] 325mg Take 1 [place] sulfate 325 1-27 tablet by ity of mg (65 mg 00:00: mouth in [place] iron) 00 the Medical tablet morning Branch and 1 tablet in the evening. ferrous 0 Yes [id number] 325mg Take 1 [place] sulfate 325 1-27 tablet by ity of mg (65 mg 00:00: mouth in [place] iron) 00 the Medical tablet morning Branch and 1 tablet in the evening. ferrous 0 Yes [id number] 325mg Take 1 [place] sulfate 325 1-27 tablet by ity of mg (65 mg 00:00: mouth in [place] iron) 00 the Medical tablet morning Branch and 1 tablet in the evening. ferrous 0 Yes [id number] 325mg Take 1 [place] sulfate 325 1-27 tablet by ity of mg (65 mg 00:00: mouth in [place] iron) 00 the Medical tablet morning Branch and 1 tablet in the evening. ferrous 0 Yes [id number] 325mg Take 1 [place] sulfate 325 1-27 tablet by ity of mg (65 mg 00:00: mouth in [place] iron) 00 the Medical tablet morning Branch and 1 tablet in the evening. ferrous 0 Yes [id number] 325mg Take 1 [place] sulfate 325 1-27 tablet by ity of mg (65 mg 00:00: mouth in [place] iron) 00 the Medical tablet morning Branch and 1 tablet in the evening. ferrous 0 Yes [id number] 325mg Take 1 Un [place] sulfate 325 1-27 tablet by ity of mg (65 mg 00:00: mouth in [place] iron) 00 the Medical tablet morning Branch and 1 tablet in the evening. ferrous Yes [id number] 325mg Take 1 Un [place] sulfate 325 1-27 tablet by ity of mg (65 mg 00:00: mouth in [place] iron) 00 the Medical tablet morning Branch and 1 tablet in the evening. ferrous Yes [id number] 325mg Take 1 Un [place] sulfate 325 1-27 tablet by ity of mg (65 mg 00:00: mouth in [place] iron) 00 the Medical tablet morning Branch and 1 tablet in the evening. ferrous Yes [id number] 325mg Take 1 Un [place] sulfate 325 1-27 tablet by ity of mg (65 mg 00:00: mouth in [place] iron) 00 the Medical tablet morning Branch and 1 tablet in the evening. ferrous Yes [id number] 325mg Take 1 [place] sulfate 325 1-27 tablet by ity of mg (65 mg 00:00: mouth in [place] iron) 00 the Medical tablet morning Branch and 1 tablet in the evening. ferrous Yes [id number] 325mg Take 1 [place] sulfate 325 1-27 tablet by ity of mg (65 mg 00:00: mouth in [place] iron) 00 the Medical tablet morning Branch and 1 tablet in the evening. ferrous 2022- No [id number] 325mg Take 1 U nivers sulfate 325 1-27 03-24 tablet by it y of mg (65 mg 00:00: 00:00 mouth in [place] iron) 00 :00 the Medical tablet morning Branch and 1 tablet in the evening. ferrous 2022- No [id number] 325mg Take 1 U nivers sulfate 325 1-27 03-24 tablet by it y of mg (65 mg 00:00: 00:00 mouth in [place] iron) 00 :00 the Medical tablet morning Branch and 1 tablet in the evening. No known 2021-04 No No known Unive rs medications -04 medication it y of 16:19: s [place] 09 Medical Branch NaCl 0.9% 2021-04- No 500mL at 999 Univ ers (NS) bolus 0-08 10-08 mL/hr, 500 it y of infusion 03:30: 04:12 mL, IV [place] 500 mL 00 :00 Infusion, Medical ONCE, 1 Branch dose, On Thu01/10/22 at 2230, STAT PNV 2021-04 Yes Take by [facility] no.95/kari 0-07 mouth. ity of us 16:39: [place] fum/folic 23 Medical ac Branch ( ORAL) ASPIRIN 2021-04 Yes Take by Univers ORAL 0-07 mouth. ity of 16:39: [place] 23 Medical Branch PNV 2021-04 Yes Take by Univers no.95/kari 0-07 mouth. ity of us 16:39: [place] fum/folic 23 Medical ac Branch ( ORAL) ASPIRIN 2021-04 Yes Take by Univers ORAL 0-07 mouth. ity of 16:39: [place] 23 Medical Branch PNV 2021-04 Yes Take by Univers no.95/kari 0-07 mouth. ity of us 16:39: [place] fum/folic 23 Medical ac Branch ( ORAL) ASPIRIN 2021-04 Yes Take by Univers ORAL 0-07 mouth. ity of 16:39: [place] 23 Medical Branch PNV 2021-04 Yes Take by Univers no.95/kari 0-07 mouth. ity of us 16:39: [place] fum/folic 23 Medical ac Branch ( ORAL) ASPIRIN 2021-04 Yes Take by Univers ORAL 0-07 mouth. ity of 16:39: [place] 23 Medical Branch PNV 2021-04 Yes Take by Univers no.95/kari 0-07 mouth. ity of us 16:39: [place] fum/folic 23 Medical ac Branch ( ORAL) ASPIRIN 2021-04 Yes Take by Univers ORAL 0-07 mouth. ity of 16:39: [place] 23 Medical Branch PNV 2021-04 Yes Take by Univers no.95/kari 0-07 mouth. ity of us 16:39: [place] fum/folic 23 Medical ac Branch ( ORAL) ASPIRIN 2021-04 Yes Take by Univers ORAL 0-07 mouth. ity of 16:39: [place] 23 Medical Branch PNV 2021-04 Yes Take by Univers no.95/kari 0-07 mouth. ity of us 16:39: [place] fum/folic 23 Medical ac Branch ( ORAL) ASPIRIN 2021-04 Yes Take by Univers ORAL 0-07 mouth. ity of 16:39: [place] 23 Medical Branch PNV 2022-1 Yes Take by Univers no.95/kari 0-07 mouth. ity of us 16:39: [facility] [address] Medical ac Branch ( ORAL) ASPIRIN 2021-04 Yes Take by Univers ORAL 0-07 mouth. ity of 16:39: [place] [address] Medical Branch PNV 2021-04 Yes Take by Univers no.95/kari 0-07 mouth. ity of us 16:39: [facility] [address] Medical ac Branch ( ORAL) ASPIRIN 2021-04 Yes Take by Univers ORAL 0-07 mouth. ity of 16:39: [place] [address] Medical Branch PNV 2021-04 Yes Take by Univers no.95/kari 0-07 mouth. ity of us 16:39: [facility]olic Medical ac Branch ( ORAL) ASPIRIN 2021-04 Yes Take by Univers ORAL 0-07 mouth. ity of 16:39: [address] Branch PNV 2021-04 Yes Take by Univers no.95/kari 0-07 mouth. ity of us 16:39: [facility] [address] Medical ac Branch ( ORAL) ASPIRIN 2021-04 Yes Take by Univers ORAL 0-07 mouth. ity of 16:39: [address] Branch PNV 2021-04 Yes Take by Univers no.95/kari 0-07 mouth. ity of us 16:39: [facility] [address] Medical ac Branch ( ORAL) ASPIRIN 2021-04 Yes Take by Univers ORAL 0-07 mouth. ity of 16:39: [place] [address] Medical Branch ASPIRIN 2021-04 Yes Take by Univers ORAL 0-07 mouth. ity of 16:39: [place] [address] Medical Branch ASPIRIN 2021-04 Yes Take by Univers ORAL 0-07 mouth. ity of 16:39: [place] [address] Medical Branch ASPIRIN 2021- Yes Take by Univers ORAL 0-07 mouth. ity of 16:39: [place] [address] Medical Branch ASPIRIN 2021-04 Yes Take by Univers ORAL 0-07 mouth. ity of 16:39: [place] [address] Medical Branch ASPIRIN 2021-04 Yes Take by Univers ORAL 0-07 mouth. ity of 16:39: [place] [address] Medical Branch ASPIRIN 2021-04 Yes Take by Univers ORAL 0-07 mouth. ity of 16:39: [place] [address] Medical Branch ASPIRIN 2021- Yes Take by Univers ORAL 0-07 mouth. ity of 16:39: [place] [address] Medical Branch ASPIRIN 2021- Yes Take by Univers ORAL 0-07 mouth. ity of 16:39: [place] [address] Medical Branch ASPIRIN 2021- Yes Take by Univers ORAL 0-07 mouth. ity of 16:39: [place] [address] Medical Branch ASPIRIN 2021-04 Yes Take by Univers ORAL 0-07 mouth. ity of 16:39: [place] [address] Medical Branch ASPIRIN 2021-04 Yes Take by Univers ORAL 0-07 mouth. ity of 16:39: [place] [address] Medical Branch ASPIRIN 2021-04 Yes Take by Univers ORAL 0-07 mouth. ity of 16:39: [place] [address] Medical Branch ASPIRIN 2021- Yes Take by Univers ORAL 0-07 mouth. ity of 16:39: [place] [address] Medical Branch ASPIRIN 2021-04 Yes Take by Univers ORAL 0-07 mouth. ity of 16:39: [address] Branch ASPIRIN 2021-04 Yes Take by Univers ORAL 0-07 mouth. ity of 16:39: [address] PNV 2021-04 Yes Take by Univers no.95/kari 0-07 mouth. ity of us 16:39: [place] fum/folic 23 Medical ac Branch ( ORAL) ASPIRIN 2021-04 Yes Take by Univers ORAL 0-07 mouth. ity of 16:39: [address] PNV 2021-04 Yes Take by Univers no.95/kari 0-07 mouth. ity of us 16:39: [place] fum/folic 23 Medical ac Branch ( ORAL) ASPIRIN 2021-04 Yes Take by Univers ORAL 0-07 mouth. ity of 16:39: [address] PNV 2021-04 Yes Take by Univers no.95/kari 0-07 mouth. ity of us 16:39: [place] fum/folic 23 Medical ac Branch ( ORAL) ASPIRIN 2021-04 Yes Take by Univers ORAL 0-07 mouth. ity of 16:39: [address] Branch PNV 2021-04 Yes Take by Univers no.95/kari 0-07 mouth. ity of us 16:39: [place] fum/folic 23 Medical ac Branch ( ORAL) ASPIRIN 2021-04 Yes Take by Univers ORAL 0-07 mouth. ity of 16:39: [address] PNV 2021-04 Yes Take by Univers no.95/kari 0-07 mouth. ity of us 16:39: [place] fum/folic 23 Medical Branch ( ORAL) ASPIRIN 2021-04 Yes Take by Univers ORAL 0-07 mouth. ity of 16:39: [place] 23 Medical Branch No known 2021-0 No No known Unive rs medications 9-13 medication it y of 17:00: s [address] No known 2021-0 No No known Unive rs medications 9-13 medication it y of 17:00: [address] No known 2021-0 No No known Unive rs medications 9-13 medication it y of 17:00: s [address] No known 2021-0 No No known Unive rs medications 9-13 medication it y of 17:00: [address] Nitrofurant Yes TAKE 1 Univ ers oin&Nit. 8-03 CAPSULE BY ity o f Macrocryst 00:00: MOUTH [place] 100 mg 00 EVERY 12 Medical capsule HOURS FOR Branch 7 DAYS Nitrofurant Yes TAKE 1 Univ ers oin&Nit. 8-03 CAPSULE BY ity o f Macrocryst 00:00: MOUTH [place] 100 mg 00 EVERY 12 Medical capsule HOURS FOR Branch 7 DAYS Nitrofurant Yes TAKE 1 Univ ers oin&Nit. 8-03 CAPSULE BY ity o f Macrocryst 00:00: MOUTH [place] 100 mg 00 EVERY 12 Medical capsule HOURS FOR Branch 7 DAYS Nitrofurant 2021-0 2021- No TAKE 1 Uni vers oin&Nit. 8-03 09-13 CAPSULE BY [facility] of [facility] 00:00: 00:00 MOUTH [place] 100 mg 00 :00 EVERY 12 Medical capsule HOURS FOR Branch 7 DAYS Immunizations Ordered Filled Date Status Comments Source Immunization Name Immunization Name TDAP 2022-04-18 Completed [facility] 00:00:00 [facility] TDAP 2022-04-18 Completed [facility] 00:00:00 [facility] TDAP 2022-04-18 Completed [facility] 00:00:00 [facility] TDAP 2022-04-18 Completed [facility] 00:00:00 [facility] TDAP 2022-04-18 Completed [facility] 00:00:00 [facility] TDAP 2022-04-18 Completed [facility] 00:00:00 [facility] TDAP 2022-04-18 Completed [facility] 00:00:00 [facility] TDAP 2022-04-18 Completed [facility] 00:00:00 [facility] TDAP 2022-04-18 Completed [facility] 00:00:00 [facility] TDAP 2022-04-18 Completed [facility] 00:00:00 [facility] TDAP 2022-04-18 Completed [facility] 00:00:00 [facility] TDAP 2022-04-18 Completed [facility] 00:00:00 [facility] TDAP 2022-04-18 Completed [facility] 00:00:00 [facility] TDAP 2022-04-18 Completed [facility] 00:00:00 [facility] TDAP 2022-04-18 Completed [facility] 00:00:00 [facility] TDAP 2022-04-18 Completed [facility] 00:00:00 [facility] TDAP 2022-04-18 Completed [facility] 00:00:00 [facility] TDAP 2022-04-18 Completed [facility] 00:00:00 [facility] Branch TDAP 2022-04-18 Completed [facility] 00:00:00 [facility] TDAP 2022-04-18 Completed [facility] 00:00:00 [facility] TDAP 2022-04-18 Completed [facility] 00:00:00 [facility] TDAP 2022-04-18 Completed [facility] 00:00:00 [facility] TDAP 2022-04-18 Completed [facility] 00:00:00 [facility] TDAP 2022-04-18 Completed [facility] of 00:00:00 [facility] Branch TDAP 2022-04-18 Completed [facility] of 00:00:00 [facility] Branch TDAP 2022-04-18 Completed [facility] 00:00:00 [facility] TDAP 2022-04-18 Completed [facility] 00:00:00 [facility] TDAP 2022-04-18 Completed [facility] 00:00:00 [facility] TDAP 2022-04-18 Completed [facility] 00:00:00 [facility] TDAP 2022-04-18 Completed [facility] 00:00:00 [facility] TDAP 2022-04-18 Completed [facility] 00:00:00 [facility] TDAP 2022-04-18 Completed [facility] 00:00:00 [facility] TDAP 2022-04-18 Completed [facility] 00:00:00 [facility] TDAP 2022-04-18 Completed [facility] 00:00:00 [facility] TDAP 2022-04-18 Completed [facility] 00:00:00 [facility] TDAP 2022-04-18 Completed [facility] 00:00:00 [facility] Influenza Virus 2022-02-07 Completed [facility], 00:00:00 [place] [facility] Preserv and ABX Branch Free 6 MO-64 YRS Influenza Virus 2022-02-07 Completed [facility], 00:00:00 [place] [facility] Preserv and ABX Branch Free 6 MO-64 YRS Influenza Virus 2022-02-07 Completed [facility], 00:00:00 [place] [facility] Preserv and ABX Branch Free 6 MO-64 YRS Influenza Virus 2022-02-07 Completed [facility], 00:00:00 [place] [facility] Preserv and ABX Branch Free 6 MO-64 YRS Influenza Virus 2022-02-07 Completed [facility], 00:00:00 [place] [facility] Preserv and ABX Branch Free 6 MO-64 YRS Influenza Virus 2022-02-07 Completed [facility], 00:00:00 [place] [facility] Preserv and ABX Branch Free 6 MO-64 YRS Influenza Virus 2022-02-07 Completed [facility], 00:00:00 [place] [facility] Preserv and ABX Branch Free 6 MO-64 YRS Influenza Virus 2022-02-07 Completed [facility], 00:00:00 [place] [facility] Preserv and ABX Branch Free 6 MO-64 YRS Influenza Virus 2022-02-07 Completed [facility], 00:00:00 [place] [facility] Preserv and ABX Branch Free 6 MO-64 YRS Influenza Virus 2022-02-07 Completed [facility], 00:00:00 [place] [facility] Preserv and ABX Branch Free 6 MO-64 YRS Influenza Virus 2022-02-07 Completed [facility], 00:00:00 [place] [facility] Preserv and ABX Branch Free 6 MO-64 YRS Influenza Virus 2022-02-07 Completed [facility], 00:00:00 [place] [facility] Preserv and ABX Branch Free 6 MO-64 YRS Influenza Virus 2022-02-07 Completed [facility], 00:00:00 [place] [facility] Preserv and ABX Branch Free 6 MO-64 YRS Influenza Virus 2022-02-07 Completed [facility], 00:00:00 [place] [facility] Preserv and ABX Branch Free 6 MO-64 YRS Influenza Virus 2022-02-07 Completed [facility], 00:00:00 [place] [facility] Preserv and ABX Branch Free 6 MO-64 YRS Influenza Virus 2022-02-07 Completed [facility], 00:00:00 [place] [facility] Preserv and ABX Branch Free 6 MO-64 YRS Influenza Virus 2022-02-07 Completed [facility], 00:00:00 [place] [facility] Preserv and ABX Branch Free 6 MO-64 YRS Influenza Virus 2022-02-07 Completed [facility], 00:00:00 [place] [facility] Preserv and ABX Branch Free 6 MO-64 YRS Influenza Virus 2022-02-07 Completed [facility], 00:00:00 [place] [facility] Preserv and ABX Branch Free 6 MO-64 YRS Influenza Virus 2022-02-07 Completed [facility], 00:00:00 [place] [facility] Preserv and ABX Branch Free 6 MO-64 YRS Influenza Virus 2022-02-07 Completed [facility], 00:00:00 [place] [facility] Preserv and ABX Branch Free 6 MO-64 YRS Influenza Virus 2022-02-07 Completed [facility], 00:00:00 [place] [facility] Preserv and ABX Branch Free 6 MO-64 YRS Influenza Virus 2022-02-07 Completed [facility], 00:00:00 [place] [facility] Preserv and ABX Branch Free 6 MO-64 YRS Influenza Virus 2022-02-07 Completed [facility], 00:00:00 [place] [facility] Preserv and ABX Branch Free 6 MO-64 YRS Influenza Virus 2022-02-07 Completed [facility], 00:00:00 [place] [facility] Preserv and ABX Branch Free 6 MO-64 YRS Influenza Virus 2022-02-07 Completed [facility], 00:00:00 [place] [facility] Preserv and ABX Branch Free 6 MO-64 YRS Influenza Virus 2022-02-07 Completed [facility], 00:00:00 [place] [facility] Preserv and ABX Branch Free 6 MO-64 YRS Influenza Virus 2022-02-07 Completed [facility], 00:00:00 [place] [facility] Preserv and ABX Branch Free 6 MO-64 YRS Influenza Virus 2022-02-07 Completed [facility], 00:00:00 [place] [facility] Preserv and ABX Branch Free 6 MO-64 YRS Influenza Virus 2022-02-07 Completed [facility], 00:00:00 [place] [facility] Preserv and ABX Branch Free 6 MO-64 YRS Influenza Virus 2022-02-07 Completed [facility], 00:00:00 [place] [facility] Preserv and ABX Branch Free 6 MO-64 YRS Influenza Virus 2022-02-07 Completed [facility], 00:00:00 [place] [facility] Preserv and ABX Branch Free 6 MO-64 YRS Influenza Virus 2022-02-07 Completed [facility], 00:00:00 [place] [facility] Preserv and ABX Branch Free 6 MO-64 YRS Influenza Virus 2022-02-07 Completed [facility], 00:00:00 [place] [facility] Preserv and ABX Branch Free 6 MO-64 YRS Influenza Virus 2022-02-07 Completed [facility], 00:00:00 [place] [facility] d[facility] Preserv and ABX Branch Free 6 MO-64 YRS Influenza Virus 2022-02-07 Completed [facility], 00:00:00 [place] [facility] Preserv and ABX Branch Free 6 MO-64 YRS Influenza Virus 2022-02-07 Completed [facility], 00:00:00 [place] [facility] d[facility] Preserv and ABX Branch Free 6 MO-64 YRS Influenza Virus 2022-02-07 Completed [facility], 00:00:00 [place] [facility] Preserv and ABX Branch Free 6 MO-64 YRS Influenza Virus 2022-02-07 Completed [facility], 00:00:00 [place] [facility] Preserv and ABX Branch Free 6 MO-64 YRS (FLUCELVAX) Influenza Virus 2022-02-07 Completed [facility], 00:00:00 [place] [facility] Preserv and ABX Branch Free 6 MO-64 YRS (FLUCELVAX) Influenza Virus 2022-02-07 Completed [facility], 00:00:00 [place] [facility] Preserv and ABX Branch Free 6 MO-64 YRS (FLUCELVAX) Influenza Virus 2022-02-07 Completed [facility], 00:00:00 [place] [facility] Preserv and ABX Branch Free 6 MO-64 YRS (FLUCELVAX) Influenza Virus 2022-02-07 Completed [facility], 00:00:00 [place] [facility] Preserv and ABX Branch Free 6 MO-64 YRS (FLUCELVAX) Influenza Virus 2022-02-07 Completed [facility], 00:00:00 [place] [facility] Preserv and ABX Branch Free 6 MO-64 YRS Influenza Virus 2022-02-07 Completed [facility] y [facility], [...] and ABX Branch Free 6 MO-64 YRS (FLUCELVAX) Influenza Virus 2021-05-21 Completed [facility], 00:00:00 [place] [facility] Preserv and ABX Branch Free 6 MO-64 YRS (FLUCELVAX) Influenza Virus 2021-05-21 Completed [facility], 00:00:00 [place] [facility] Preserv and ABX Branch Free 6 MO-64 YRS (FLUCELVAX) Influenza Virus 2021-05-21 Completed [facility], 00:00:00 [place] [facility] Preserv and ABX Branch Free 6 MO-64 YRS (FLUCELVAX) Influenza Virus 2021-05-21 Completed [facility], 00:00:00 [place] [facility] Preserv and ABX Branch Free 6 MO-64 YRS (FLUCELVAX) Influenza Virus 2021-05-21 Completed Universit y of [...] y of [facility] .5 mL 00:00:00 [place] [facility] 6+ MO Branch (FLUZONE/FLULAVAL/F LUARIX) Influenza Virus 2020-01-10 Completed [facility] .5 mL 00:00:00 [facility] 6+ MO Branch (FLUZONE/FLULAVAL/F LUARIX) Influenza Virus 2020-01-10 Completed [facility] .5 mL 00:00:00 [facility] 6+ MO Branch (FLUZONE/FLULAVAL/F LUARIX) Influenza Virus 2020-01-10 Completed [facility] .5 mL 00:00:00 [facility] 6+ MO Branch (FLUZONE/FLULAVAL/F LUARIX) Influenza Virus 2020-01-10 Completed [facility] .5 mL 00:00:00 [facility] 6+ MO Branch (FLUZONE/FLULAVAL/F LUARIX) Influenza Virus 2020-01-10 Completed [facility] .5 mL 00:00:00 [place] [facility] 6+ MO Branch Influenza Virus 2020-01-10 Completed [facility] .5 mL 00:00:00 [facility] 6+ MO Branch Influenza Virus 2020-01-10 Completed [facility] .5 mL 00:00:00 [facility] 6+ MO Branch Influenza Virus 2020-01-10 Completed [facility] .5 mL 00:00:00 [facility] 6+ MO Branch Influenza Virus 2020-01-10 Completed [facility] .5 mL 00:00:00 [facility] 6+ MO Branch Influenza Virus 2020-01-10 Completed [facility] .5 mL 00:00:00 [facility] 6+ MO Branch Influenza Virus 2020-01-10 Completed [facility] .5 mL 00:00:00 [facility] 6+ MO Branch Influenza Virus 2020-01-10 Completed [facility] .5 mL 00:00:00 [facility] 6+ MO Branch Influenza Virus 2020-01-10 Completed [facility] .5 mL 00:00:00 [facility] 6+ MO Branch Influenza Virus 2020-01-10 Completed [facility] .5 mL 00:00:00 [facility] 6+ MO Branch Influenza Virus 2020-01-10 Completed [facility] .5 mL 00:00:00 [facility] 6+ MO Branch Influenza Virus 2020-01-10 Completed [facility] .5 mL 00:00:00 [facility] IM 6+ MO Branch Influenza Virus 2020-01-10 Completed [facility] y [facility] .5 mL 00:00:00 [facility] 6+ MO Branch Influenza Virus Unknown Completed [facility] y [facility] .5 mL [facility] 6+ MO Branch (FLUZONE/FLULAVAL/F LUARIX) Influenza Virus Unknown Completed [facility] y [facility] , [facility] dical Preserv and ABX Branch Free 6 MO-64 YRS (FLUCELVAX) Influenza Virus Unknown Completed [facility] , [facility] dical Preserv and ABX Branch Free 6 MO-64 YRS (FLUCELVAX) TDAP Unknown Completed [facility] Vital Signs Vital Name Observation Time Observation Value Comments Source Systolic blood 2022-12-04 18:39:00 136 mm[Hg] Univer sity of pressure [facility] Diastolic blood 2022-12-04 18:39:00 89 mm[facility]Hg[facility] Heart rate 2022-12-04 18:38:00 96 /min [facility] Respiratory rate 2022-12-04 18:38:00 18 /min [facility] 2022-12-04 18:38:00 162.6 cm [facility] Body weight 2022-12-04 18:38:00 81.557 kg [facility] BMI 2022-12-04 18:38:00 30.86 kg/m2 [facility] [place] [facility] Oxygen saturation in 2022-12-04 18:38:00 98 /min [facility] of Arterial blood by [facility] stephanie Pulse oximetry Branch Systolic blood 2022-09-02 18:26:00 121 mm[Hg] Univer sity of pressure [facility] Diastolic blood 2022-09-02 18:26:00 84 mm[Hg] Unive rsity of pressure [facility] Heart rate 2022-09-02 18:26:00 85 /min [facility] [place] [facility] Body temperature 2022-09-02 18:26:00 36.72 Ally Univ ersity of [place] [facility] Respiratory rate 2022-09-02 18:26:00 16 /min Univ ersity of [place] [facility] Body height 2022-09-02 18:26:00 162.6 cm [facility] [place] [facility] Body weight 2022-09-02 18:26:00 84.052 kg [facility] [place] [facility] BMI 2022-09-02 18:26:00 31.81 kg/m2 [facility] [place] [facility] Oxygen saturation in 2022-09-02 18:26:00 99 /min [facility] of Arterial blood by [facility] Pulse oximetry Branch Systolic blood 2022-08-20 20:35:00 120 mm[Hg] Univer sity of pressure [facility] Diastolic blood 2022-08-20 20:35:00 81 mm[Hg] Unive rsity of pressure [facility] Heart rate 2022-08-20 20:33:00 108 /min [facility] [place] [facility] Respiratory rate 2022-08-20 20:33:00 18 /min Univ ersity of [place] [facility] Body height 2022-08-20 20:33:00 162.6 cm [facility] [place] [facility] Body weight 2022-08-20 20:33:00 84.369 kg [facility] [place] [facility] BMI 2022-08-20 20:33:00 31.93 kg/m2 [facility] [place] [facility] Systolic blood 2022-08-12 21:02:00 135 mm[Hg] Univer sity of pressure [facility] Diastolic blood 2022-08-12 21:02:00 95 mm[Hg] Unive rsity of pressure [facility] Heart rate 2022-08-12 20:52:00 93 /min [facility] [place] [facility] Body temperature 2022-08-12 20:52:00 36.94 Ally Univ ersity of [place] [facility] Respiratory rate 2022-08-12 20:52:00 18 /min Univ ersity of [place] [facility] Body height 2022-08-12 20:52:00 162.6 cm [facility] [place] [facility] Body weight 2022-08-12 20:52:00 84.823 kg [facility] [place] [facility] BMI 2022-08-12 20:52:00 32.10 kg/m2 [facility] [place] [facility] Systolic blood 2022-07-16 21:45:00 123 mm[Hg] Univer sity of pressure [facility] Diastolic blood 2022-07-16 21:45:00 83 mm[Hg] Unive rsity of pressure [facility] Heart rate 2022-07-16 21:32:00 82 /min [facility] [place] [facility] Body temperature 2022-07-16 21:32:00 36.83 Ally [facility] ers[facility] [place] [facility] Respiratory rate 2022-07-16 21:32:00 18 /min Univ ersity of [place] [facility] Body height 2022-07-16 21:32:00 162.6 cm [facility] [place] [facility] Body weight 2022-07-16 21:32:00 86.183 kg [facility] [place] [facility] BMI 2022-07-16 21:32:00 32.61 kg/m2 [facility] [place] [facility] Systolic blood 2022-06-28 13:20:00 132 mm[Hg] Univer sity of pressure [facility] Diastolic blood 2022-06-28 13:20:00 73 mm[Hg] Unive rsity of pressure [facility] Heart rate 2022-06-28 13:20:00 82 /min [facility] [place] [facility] Body temperature 2022-06-28 13:20:00 36.39 Ally Univ ers[facility] [place] [facility] Respiratory rate 2022-06-28 13:20:00 18 /min Univ ersity of [facility] Branch Oxygen saturation in 2022-06-28 04:37:00 100 /min [facility] of Arterial blood by [facility] Pulse oximetry Branch Body height 2022-06-26 06:39:00 162.6 cm [facility] [place] [facility] Body weight 2022-06-26 06:39:00 98.612 kg [facility] [place] [facility] BMI 2022-06-26 06:39:00 37.32 kg/m2 [facility] [place] [facility] Respiratory rate 2022-06-27 01:11:00 23 /min Univ ersity [facility] [place] [facility] Heart rate 2022-06-27 03:30:00 88 /min [facility] [place] [facility] Oxygen saturation in 2022-06-27 03:30:00 99 /min [facility] Arterial blood by [facility] Pulse oximetry Branch Systolic blood 2022-06-27 03:15:00 132 mm[Hg] Univer sity of pressure [facility] Diastolic blood 2022-06-27 03:15:00 76 mm[Hg] Unive rsity of pressure [facility] Body temperature 2022-06-26 22:00:00 37 Ally Univ ers[facility] [place] [facility] Respiratory rate 2022-06-26 22:00:00 18 /min Univ ersity of [place] [facility] Body height 2022-06-26 06:39:00 162.6 cm [facility] [place] [facility] Body weight 2022-06-26 06:39:00 98.612 kg [facility] [place] [facility] BMI 2022-06-26 06:39:00 37.32 kg/m2 [facility] [place] [facility] Systolic blood 2022-06-24 14:00:00 130 mm[Hg] Univer sity of pressure [facility] Diastolic blood 2022-06-24 14:00:00 85 mm[Hg] Unive rsity of pressure [facility] Heart rate 2022-06-24 14:00:00 98 /min [facility] [place] [facility] Respiratory rate 2022-06-24 14:00:00 18 /min Univ ersity of [place] [facility] Body height 2022-06-24 14:00:00 160 cm [facility] [place] [facility] Body weight 2022-06-24 14:00:00 98.431 kg [facility] [place] [facility] BMI 2022-06-24 14:00:00 38.44 kg/m2 [facility] Systolic blood 2022-06-20 15:45:00 134 mm[Hg] Univer sity of pressure [place] [facility] Diastolic blood 2022-06-20 15:45:00 80 mm[Hg] Unive rsity of pressure [facility] Heart rate 2022-06-20 15:45:00 89 /min [facility] [place] [facility] Body temperature 2022-06-20 15:45:00 36.5 Ally Univ [facility] [place] [facility] Respiratory rate 2022-06-20 15:45:00 18 /min Univ ersity [facility] [place] [facility] Body height 2022-06-20 15:45:00 162.6 cm [facility] [place] [facility] Body weight 2022-06-20 15:45:00 97.07 kg [facility] [place] [facility] BMI 2022-06-20 15:45:00 36.73 kg/m2 [facility] Systolic blood 2022-06-17 14:04:00 114 mm[Hg] Univer sity of pressure [place] [facility] Diastolic blood 2022-06-17 14:04:00 74 mm[Hg] Unive rsity of pressure [place] [facility] Heart rate 2022-06-17 14:04:00 81 /min [facility] [place] [facility] Body temperature 2022-06-17 14:04:00 36.72 Ally Univ ers[facility] Respiratory rate 2022-06-17 14:04:00 16 /min Univ ersity of [place] [facility] Body height 2022-06-17 14:04:00 162.6 cm [facility] [place] [facility] Body weight 2022-06-17 14:04:00 97.433 kg [facility] [place] [facility] BMI 2022-06-17 14:04:00 36.87 kg/m2 [facility] [place] [facility] Systolic blood 2022-06-13 15:20:00 131 mm[Hg] Univer sity of pressure [place] [facility] Diastolic blood 2022-06-13 15:20:00 88 mm[Hg] Unive rsity of pressure [place] [facility] Heart rate 2022-06-13 15:20:00 84 /min [facility] [place] [facility] Body temperature 2022-06-13 15:20:00 36.44 Ally [facility] [place] [facility] Respiratory rate 2022-06-13 15:20:00 18 /min Univ ersity [facility] [place] [facility] Body height 2022-06-13 15:20:00 162.6 cm [facility] Body weight 2022-06-13 15:20:00 95.709 kg [facility] [place] [facility] BMI 2022-06-13 15:20:00 36.22 kg/m2 [facility] [place] [facility] Systolic blood 2022-06-10 15:16:00 113 mm[Hg] Univer sity of pressure [facility] Diastolic blood 2022-06-10 15:16:00 75 mm[Hg] Unive rsity of pressure [facility] Heart rate 2022-06-10 15:16:00 85 /min [facility] [place] [facility] Body temperature 2022-06-10 15:16:00 36.72 Ally Univ [facility] [place] [facility] Respiratory rate 2022-06-10 15:16:00 16 /min Univ ersity [facility] [place] [facility] Body height 2022-06-10 15:16:00 162.6 cm [facility] [place] [facility] Body weight 2022-06-10 15:16:00 96.163 kg [facility] [place] [facility] BMI 2022-06-10 15:16:00 36.39 kg/m2 [facility] [place] [facility] Systolic blood 2022-06-06 22:38:00 115 mm[Hg] Univer sity of pressure [facility] Diastolic blood 2022-06-06 22:38:00 75 mm[Hg] Unive rsity of pressure [facility] Heart rate 2022-06-06 22:37:00 102 /min [facility] [place] [facility] Body temperature 2022-06-06 22:37:00 36.61 Ally [facility] [place] [facility] Body height 2022-06-06 22:37:00 162.6 cm [facility] [place] [facility] Body weight 2022-06-06 22:37:00 96.435 kg [facility] [place] [facility] BMI 2022-06-06 22:37:00 36.49 kg/m2 [facility] [place] [facility] Systolic blood 2022-05-27 19:17:00 118 mm[Hg] Univer sity of pressure [facility] Diastolic blood 2022-05-27 19:17:00 79 mm[Hg] Unive rsity of pressure [facility] Heart rate 2022-05-27 19:17:00 88 /min [facility] [place] [facility] Body temperature 2022-05-27 19:17:00 36.56 Ally Univ [facility] [place] [facility] Respiratory rate 2022-05-27 19:17:00 16 /min Univ ersity [facility] [place] [facility] Body height 2022-05-27 19:17:00 162.6 cm [facility] [place] [facility] Body weight 2022-05-27 19:17:00 94.802 kg [facility] [place] [facility] BMI 2022-05-27 19:17:00 35.87 kg/m2 [facility] Systolic blood 2022-05-23 20:38:00 123 mm[Hg] Univer sity of pressure [facility] Diastolic blood 2022-05-23 20:38:00 76 mm[Hg] Unive rsity of pressure [facility] Heart rate 2022-05-23 20:38:00 93 /min [facility] Body temperature 2022-05-23 20:38:00 36.67 Ally [facility] Respiratory rate 2022-05-23 20:38:00 18 /min Univ ersity [facility] [place] [facility] Body height 2022-05-23 20:38:00 162.6 cm [facility] [place] [facility] Body weight 2022-05-23 20:38:00 94.802 kg [facility] [place] [facility] BMI 2022-05-23 20:38:00 35.87 kg/m2 [facility] Systolic blood 2022-05-20 19:25:00 127 mm[Hg] Univer sity of pressure [facility] Diastolic blood 2022-05-20 19:25:00 79 mm[Hg] Unive rsity of pressure [facility] Heart rate 2022-05-20 19:25:00 78 /min [facility] [place] [facility] Body temperature 2022-05-20 19:25:00 36.61 Ally [facility] [place] [facility] Respiratory rate 2022-05-20 19:25:00 16 /min Univ ersity of [facility] Body height 2022-05-20 19:25:00 162.6 cm [facility] [place] [facility] Body weight 2022-05-20 19:25:00 95.255 kg [facility] [place] [facility] BMI 2022-05-20 19:25:00 36.05 kg/m2 [facility] Systolic blood 2022-05-16 20:39:00 117 mm[Hg] Univer sity of pressure [facility] Diastolic blood 2022-05-16 20:39:00 76 mm[Hg] Unive rsity of pressure [facility] Heart rate 2022-05-16 20:39:00 81 /min [facility] [place] [facility] Body temperature 2022-05-16 20:39:00 36.67 Ally [facility] [place] [facility] Respiratory rate 2022-05-16 20:39:00 18 /min Univ ersity of [place] [facility] Body height 2022-05-16 20:39:00 162.6 cm [facility] Body weight 2022-05-16 20:39:00 94.53 kg Universi ty [facility] BMI 2022-05-16 20:39:00 35.77 kg/m2 [facility] Systolic blood 2022-05-06 19:43:00 124 mm[Hg] Univer [facility] Diastolic blood 2022-05-06 19:43:00 84 mm[Hg] Unive rsity [facility] Heart rate 2022-05-06 19:43:00 105 /min [facility] Body temperature 2022-05-06 19:43:00 36.78 Ally Univ [facility] Respiratory rate 2022-05-06 19:43:00 18 /min Univ [facility] Body height 2022-05-06 19:43:00 162.6 cm [facility] Body weight 2022-05-06 19:43:00 94.802 kg [facility] BMI 2022-05-06 19:43:00 35.87 kg/m2 [facility] Systolic blood 2022-05-02 22:27:00 122 mm[Hg] [facility] Diastolic blood 2022-05-02 22:27:00 81 mm[Hg] Unive rs[facility] Heart rate 2022-05-02 22:27:00 94 /min [facility] Body height 2022-05-02 22:27:00 162.6 cm [facility] Body weight 2022-05-02 22:27:00 93.441 kg [facility] BMI 2022-05-02 22:27:00 35.36 kg/m2 [facility] Systolic blood 2022-04-18 22:02:00 113 mm[Hg] [facility] Diastolic blood 2022-04-18 22:02:00 77 mm[Hg] Unive [facility] Heart rate 2022-04-18 22:02:00 67 /min [facility] Body temperature 2022-04-18 22:02:00 36.67 Ally [facility] Respiratory rate 2022-04-18 22:02:00 18 /min [facility] Body height 2022-04-18 22:02:00 162.6 cm [facility] Body weight 2022-04-18 22:02:00 93.985 kg [facility] BMI 2022-04-18 22:02:00 35.57 kg/m2 [facility] Systolic blood 2022-04-04 21:50:00 126 mm[Hg] [facility] Diastolic blood 2022-04-04 21:50:00 84 mm[Hg] Unive [facility] Heart rate 2022-04-04 21:50:00 88 /min [facility] Body temperature 2022-04-04 21:50:00 36.78 Ally [facility] Respiratory rate 2022-04-04 21:50:00 18 /min [facility] Body height 2022-04-04 21:50:00 162.6 cm [facility] Body weight 2022-04-04 21:50:00 91.354 kg [facility] BMI 2022-04-04 21:50:00 34.57 kg/m2 [facility] Systolic blood 2022-03-07 21:52:00 125 mm[Hg] [facility] Diastolic blood 2022-03-07 21:52:00 82 mm[Hg] [facility] Heart rate 2022-03-07 21:52:00 99 /min [facility] Body temperature 2022-03-07 21:52:00 36.72 Ally [facility] Respiratory rate 2022-03-07 21:52:00 18 /min [facility] Body height 2022-03-07 21:52:00 162.6 cm [facility] Body weight 2022-03-07 21:52:00 87.544 kg [facility] BMI 2022-03-07 21:52:00 33.13 kg/m2 [facility] Systolic blood 2022-02-07 21:16:00 120 mm[Hg] [facility] Diastolic blood 2022-02-07 21:16:00 80 mm[Hg] [facility] Heart rate 2022-02-07 21:16:00 86 /min [facility] Body temperature 2022-02-07 21:16:00 36.72 Ally [facility] Respiratory rate 2022-02-07 21:16:00 18 /min [facility] Body height 2022-02-07 21:16:00 162.6 cm [facility] Body weight 2022-02-07 21:16:00 84.369 kg [facility] BMI 2022-02-07 21:16:00 31.93 kg/m2 [facility] Systolic blood 2022-01-11 04:12:59 122 mm[Hg] [facility] Diastolic blood 2022-01-11 04:12:59 81 mm[Hg] [facility] Heart rate 2022-01-11 04:12:59 90 /min [facility] Body temperature 2022-01-11 04:12:59 36.72 Ally [facility] Respiratory rate 2022-01-11 04:12:59 16 /min [facility] Oxygen saturation in 2022-01-11 04:12:59 99 /min [facility] Arterial blood by [facility] Pulse oximetry Branch Body height 2022-01-11 01:36:00 162.6 cm [facility] Body weight 2022-01-11 01:36:00 80.287 kg [facility] BMI 2022-01-11 01:36:00 30.38 kg/m2 [facility] Systolic blood 2022-01-10 21:32:00 136 mm[Hg] Univer sity of [facility] Diastolic blood 2022-01-10 21:32:00 86 mm[Hg] Unive rsity of [facility] Heart rate 2022-01-10 21:32:00 94 /min [facility] Body temperature 2022-01-10 21:32:00 37.33 Ally Univ [facility] Body height 2022-01-10 21:32:00 160 cm [facility] Body weight 2022-01-10 21:32:00 80.65 kg [facility] BMI 2022-01-10 21:32:00 31.50 kg/m2 [facility] Systolic blood 2021-12-17 21:24:00 136 mm[Hg] [facility]iver [facility] Diastolic blood 2021-12-17 21:24:00 88 mm[Hg] Unive rsity of pressure [facility] Heart rate 2021-12-17 21:24:00 106 /min [facility] Body temperature 2021-12-17 21:24:00 36.83 Ally Univ [facility] Body height 2021-12-17 21:24:00 160 cm [facility] Body weight 2021-12-17 21:24:00 80.377 kg [facility] BMI 2021-12-17 21:24:00 31.39 kg/m2 [facility] [place] Procedures Procedure Date / Time Performing Clinician Source Performed DISCLOSURE AND CONSENT 2022-12-04 05:01:00 Doctor Unassigned, Un [facility] [facility] PROCEDURES - FEMALM POCT TEST 2022-12-04 00:00:00 Adum, Concepcion L [facility] DISCLOSURE AND CONSENT 2022-08-20 05:01:00 Doctor Unassigned, Un [facility] [place] [facility] [facility] PROCEDURES - FEMALM POCT TEST 2022-08-20 00:00:00 Adum, Concepcion Anderson [facility] URINE CULTURE 2022-08-12 21:34:00 Adum, Concepcion Anderson [facility] CBC WITH DIFF 2022-06-27 09:14:00 Adum, Concepcion Anderson [facility] CBC WITH DIFF 2022-06-27 09:14:00 Adum, Concepcion Cory [facility] POCT GLUCOSE (AUTOMATED) 2022-06-26 22:14:00 Adum, Concepcion Anderson [facility] POCT GLUCOSE (AUTOMATED) 2022-06-26 22:14:00 Adum, Concepcion Anderson [facility] POCT GLUCOSE (AUTOMATED) 2022-06-26 18:06:00 Adum, Concepcion Anderson [facility] POCT GLUCOSE (AUTOMATED) 2022-06-26 18:06:00 Adum, Concepcion Anderson [facility] SGOT (ASPARTATE AMINO 2022-06-26 16:11:00 Adum, Concepcion Anderson [facility]) Medical Branch CREATININE 2022-06-26 16:11:00 Adum, Concepcion Anderson [facility] ALANINE AMINO 2022-06-26 16:11:00 Adum, Concepcion Anderson [facility] TRANSFERASE(SGPT [facility] [place] URIC ACID 2022-06-26 16:11:00 Adum, Concepcion Anderson [facility] CBC WITH DIFF 2022-06-26 16:11:00 Adum, Concepcion Anderson [facility] SGOT (ASPARTATE AMINO 2022-06-26 16:11:00 Adum, Concepcion Anderson [facility]) Medical Branch CREATININE 2022-06-26 16:11:00 Adum, Concepcion Anderson [facility] ALANINE AMINO 2022-06-26 16:11:00 Adum, Concepcion Anderson [facility] TRANSFERASE(SGPT [facility] [place] URIC ACID 2022-06-26 16:11:00 Adum, Concepcion Anderson [facility] CBC WITH DIFF 2022-06-26 16:11:00 Adum, Concepcion Anderson [facility] CENTRAL NEURAXIAL BLOCK 2022-06-26 15:34:00 Akira Estes [facility] POCT GLUCOSE (AUTOMATED) 2022-06-26 14:01:00 Adum, Concepcion Anderson [facility] POCT GLUCOSE (AUTOMATED) 2022-06-26 14:01:00 Adum, [facility]) 2022-06-26 10:09:00 Adum, Concepcion Anderson [facility] POCT GLUCOSE (AUTOMATED) 2022-06-26 10:09:00 Adum, Concepcion Anderson [facility] CBC WITH DIFF 2022-06-26 06:01:00 Adum, Concepcion Anderson [facility] HEPATITIS B SURFACE 2022-06-26 06:01:00 Adum, Concepcion Anderson [facility] HB ABO GROUPING 2022-06-26 06:01:00 Adum, Concepcion Anderson [facility] ADC OR FARSHAD ONLY - RPR 2022-06-26 06:01:00 Adum, [facility]pcion [facility] CBC WITH DIFF 2022-06-26 06:01:00 Adum, Concepcion Anderson [facility] HEPATITIS B SURFACE 2022-06-26 06:01:00 Adum, Concepcion Anderson [facility] HB ABO GROUPING 2022-06-26 06:01:00 Adum, Concepcion Anderson [facility] ADC OR FARSHAD ONLY - RPR 2022-06-26 06:01:00 Adum, [facility]SE (AUTOMATED) 2022-06-26 05:53:00 Adum, [facility] PO[facility]SE (AUTOMATED) 2022-06-26 05:53:00 Adum, Concepcion Anderson [facility] NOTICE OF PRIVACY 2022-06-25 20:34:43 Doctor Unassigned, [facility] NOTICE OF PRIVACY 2022-06-25 20:34:43 Doctor Unassigned, [facility] PRACTICES [facility] CONSENT/REFUSAL FOR 2022-06-25 20:34:01 Doctor Unassigned, [facility] DIAGNOSIS AND TREATMENT [facility] CONSENT/REFUSAL FOR 2022-06-25 20:34:01 Doctor Unassigned, [facility] DIAGNOSIS AND TREATMENT [facility] ASSIGNMENT OF BENEFITS 2022-06-25 20:33:40 Doctor Unassigned, [facility] ASSIGNMENT OF BENEFITS 2022-06-25 20:33:40 Doctor Unassigned, [facility] Name Medical Branch NON-STRESS TEST 2022-06-24 15:04:27 Adum, Concepcion Anderson [facility] POCT URINALYSIS W/O 2022-06-24 00:00:00 Adum, Concepcion Anderson [facility] NON-STRESS TEST 2022-06-20 17:20:28 Roland [facility] <14 WEEKS US 2022-06-20 17:19:35 Roland [facility] <14 WEEKS US 2022-06-20 17:19:03 Roland [facility] POCT URINALYSIS W/O 2022-06-20 00:00:00 Roland [facility] NON-STRESS TEST 2022-06-17 14:42:03 Jeancarlos Roque [facility] NON-STRESS TEST 2022-06-14 05:25:08 Adum, Concepcion Anderson [facility] POCT URINALYSIS W/O 2022-06-13 00:00:00 Adum, Concepcion Anderson [facility] GRAVITY [facility] [place] SECOND AND THIRD 2022-06-11 19:52:00 Adum, Concepcion Anderson [facility] TRIMESTER ULTRASOUND Medical Bra [facility] NON-STRESS TEST 2022-06-10 16:00:31 Jeancarlos Roque Un [facility] NON-STRESS TEST 2022-06-09 01:58:29 Jeancarlos Roque Un [facility] NON-STRESS TEST 2022-06-06 23:29:33 Adum, Concepcion Castellanos [facility] DSU PRE-OP 2022-06-06 06:01:00 Doctor Unassigned, [facility] Name [facility] POCT URINALYSIS W/O 2022-06-06 00:00:00 Adum, Concepcion Anderson [facility] NON-STRESS TEST 2022-05-23 22:16:26 Adum, Concepcion Anderson [facility] POCT URINALYSIS W/O 2022-05-23 00:00:00 Adum, Concepcion Anderson [facility] NON-STRESS TEST 2022-05-21 00:26:00 Adum, Concepcion Anderson [facility] ASSIGNMENT OF BENEFITS 2022-05-20 19:01:27 Doctor Unassigned, [facility] POCT URINALYSIS W/O 2022-05-16 20:54:00 Adum, Concepcion Anderson [facility] POCT URINALYSIS 2022-05-02 22:29:00 Adum, Concepcion Anderson [facility] 2 HR GLUCOSE TOLERANCE 2022-05-01 18:33:00 Adum, Concepcion Chaves [facility] 1 HR GLUCOSE TOLERANCE 2022-05-01 17:41:00 [facility] 2022-05-01 16:36:00 Adum, Concepcion Anderson [facility] CBC WITH DIFF 2022-05-01 16:36:00 Adum, Concepcion Anderson [facility] HIV 1/2 AG-AB WITH REFLEX 2022-05-01 16:36:00 Adum, [facility] TDAP VACCINE, >11 YRS, IM 2022-04-18 22:13:55 Adum, Concepcion L [facility] POCT URINALYSIS W/O 2022-04-18 22:07:00 Adum, Concepcion Anderson [facility] SPECIFIC ALLRED [facility] [place] POCT URINALYSIS W/O 2022-04-04 22:05:00 Adum, Concepcion Anderson [facility] [place] POCT URINALYSIS W/O 2022-03-07 00:00:00 Adum, Concepcion Anderson [facility] NOTICE OF RESEARCH 2022-02-20 06:01:00 Doctor Unasssonia, [facility] PARTICIPATION [facility] FLU VACC (), 6 2022-02-07 21:27:41 Adum, Concepcion Anderson [facility] MO-66 YRS, .5ML, IM, QUAD Medica l Branch (FLUCELVAX) POCT URINALYSIS W/O 2022-02-07 21:19:00 Adum, Concepcion Anderson [facility] US PELVIS > 14 2022-01-11 03:10:29 Nohemi Canales [facility] BASIC METABOLIC PANEL 2022-01-11 02:32:00 Nohemi Canales [facility] (NA, K, CL, CO2, GLUCOSE, Medica l Branch BUN, CREATININE, CA) CBC WITH DIFF 2022-01-11 02:32:00 Nohemi Canales [facility] URINALYSIS 2022-01-11 02:32:00 Nohemi Canales [facility] CONSENT/REFUSAL FOR 2022-01-11 01:16:35 Doctor Thelma, [facility] DIAGNOSIS AND TREATMENT [facility] [place] POCT URINALYSIS W/O 2022-01-10 00:00:00 Adum, Concepcion Anderson [facility] [place] INSURANCE CORRESPONDENCE 2022-01-02 05:01:00 Doctor Thelma, [facility] Name [facility] [place] 1 HR GLUCOSE TOLERANCE 2021-12-20 16:26:00 Adtori, Concepcion Anderson [facility] TEST [facility] GLUCOSE FASTING 2021-12-20 15:16:00 Adum, Concepcion Anderson [facility] CBC WITH DIFF 2021-12-20 15:16:00 Adum, Concepcion Anderson [facility] SCANNED LAB RESULTS 2021-12-20 05:01:00 Doctor Unassigned, [facility] POCT URINALYSIS W/O 2021-12-17 00:00:00 Adum, Concepcion Anderson [facility] SPECIFIC GRAVITY [facility] URINE DRUG (IMMUNOASSAY) 2021-11-22 16:15:00 Adum, Concepcion Anderson [facility] COMPREHENSIVE DRUG Medical [facility] SCREEN URINE CULTURE 2021-11-22 16:15:00 Adum, Concepcion Anderson [facility] GLUCOSE 1 HOUR POST 2021-11-22 15:58:00 Adum, Concepcion Anderson [facility] LACTATE DEHYDROGENASE 2021-11-22 15:58:00 Adum, Concepcion Anderson [facility] URIC ACID 2021-11-22 15:58:00 Adum, Concepcion Anderson [facility] COMP. METABOLIC PANEL 2021-11-22 15:58:00 Adum, Concepcion Anderson [facility] ([id number]) [facility] TOTAL BETA HCG ASSAY 2021-11-22 15:58:00 Adum, Concepcion Anderson [facility] RUBELLA SCREEN IGG 2021-11-22 15:58:00 Adum, Concepcion Anderson [facility] VZV ANTIBODY SCREEN 2021-11-22 15:58:00 Adum, Concepcion Anderson [facility] HEPATITIS B SURFACE 2021-11-22 15:58:00 Adum, Concepcion Anderson [facility] ANTIGEN [facility] HCV ANTIBODY 2021-11-22 15:58:00 Adum, Concepcion Anderson [facility] HB ABO GROUPING 2021-11-22 15:58:00 Adum, Concepcion Anderson [facility] ADC OR FARSH[place] ONLY - RPR 2021-11-22 15:58:00 Adum, Concepcion Verduzco [facility] HIV 1/2 AG-AB WITH REFLEX 2021-11-22 15:58:00 Adum, Concepcion Verduzco [facility] Branch CREATININE U 24 HR 2021-11-22 10:00:00 [facility] PROTEIN QUANT U/24H 2021-11-22 10:00:00 Adum, Concepcion Roblesi ty [facility] CIVIL DRAFTING TECHNICIAN CLINIC ULTRASOUND 2021-11-19 05:01:00 Doctor Unassigned, [facility] Name [facility] CIVIL DRAFTING TECHNICIAN CLINIC ULTRASOUND 2021-11-06 05:01:00 Doctor Unassigned, [facility] Name [facility] [id number] 2020-06-15 00:00:00 MONMA.05 [facility] [id number] 2020-06-15 00:00:00 MONMA.05 [facility] [id number] 2020-06-15 00:00:00 MONMA.05 [facility] SECTION Adum, Concepcion Anderson [facility] SECTION Adum, Concepcion Anderson [facility] Encounters Start End Encounter Admission Attending Care Care Encounter Source Date/Time Date/Time Type Type Clinicians Facility Department ID 2021-02-[address] [facility] [id number] Univers 18:43:19 [facility] 2022-12-12 2022-12-12 Outpatient R ADUM, [facility] [id number] Univers 13:15:00 13:15:00 CONCEPCION [facility] 2022-12-11 2022-12-11 Outpatient R ADUM, [facility] [id number] Univers 13:15:00 13:15:00 CONCEPCION [facility] 2022-12-04 2022-12-04 Shop Tech 2, Adc Lab [facility] 1.2.840.114 [id number] Univers 14:15:00 14:30:00 Visit Concepcion Aldana [id number] Jomar [id number] Bri CARRASCO [id number] [address] 2022-12-04 2022-12-04 Outpatient R ADUM, [facility] [id number] Univers 13:30:00 14:06:43 CONCEPCION hernandez [facility] 2022-12-04 2022-12-04 Office Ad, [facility] 1.2.840.114 [id number] Univers 13:30:00 14:06:43 Visit Concepcion ANGULO 350.1.13.10 ity of [facility] [id number] [phone] Nd dical [address] 2022-12-04 2022-12-04 Orders Doctor GEOVANNA 1.2.840.114 [id number] Univers 00:00:00 00:00:00 Only Unassigned, EULALIO [id number] ity of [place] [facility] [id number] N[place] as [phone] [place] [address] Branch 2022-10-21 2022-10-21 Outpatient R AD, [facility] [id number] Univers 15:30:00 15:30:00 CONCEPCION hernandez [facility] 2022-10-09 2022-10-09 Outpatient R JEANCARLOS ROQUE [facility] B [id number] Univers 00:00:00 00:00:00 MYAJEANCARLOS [facility] 2022-09-29 2022-09-29 Outpatient R JEANCARLOS ROQUE [facility] B [id number] Univers 14:30:00 14:30:00 NAYJEANCARLOS MAHONEY [facility] 2022-09-02 2022-09-02 Outpatient R JEANCARLOS ROQUE [facility] B [id number] Univers 13:15:00 13:51:11 TRIKALLIJEANCARLOS MAHONEY [facility] 2022-09-02 2022-09-02 Office [facility] 1.2.840.114 [id number] Univers 13:15:00 13:51:11 Visit Jeancarlos ROYAL 350.1.13.10 it y of [id number] [id number] [facility] 134 Branch 2022-08-20 2022-08-20 Outpatient R ADUM, [facility] [id number] Univers 15:00:00 16:37:58 CONCEPCION itgenevieve of [facility] 2022-08-20 2022-08-20 Office Adum, [facility] [id number] Univers 15:00:00 16:37:58 Visit Concepcion ROYAL 350.1.13.10 i ty [id number] [id number] [address] 2022-08-20 2022-08-20 Orders Doctor GEOVANNA 1.2.840.114 [id number] Univers 00:00:00 00:00:00 Only Unassigned, EULALIO 350.1.13.10 ity of [place] [facility] [id number] Nithin as [id number] [address] 2022-08-12 2022-08-12 Outpatient R ADUM, [facility] [id number] Univers 15:45:00 16:43:18 CONCEPCION hernandez [facility] 2022-08-12 2022-08-12 Routine Adum, [facility] 1.2.840.114 [id number] Univers 15:45:00 16:43:18 Concepcion MUSELORNA 350.1.13.10 ity of Visit [id number] [id number] [address] 2022-07-16 2022-07-16 Outpatient R ADUM, [facility] [id number] Univers 15:45:00 16:52:08 CONCEPCION itgenevieve [facility] 2022-07-16 2022-07-16 Routine Adum, [facility] 1.2.840.114 [id number] Univers 15:45:00 16:52:08 Concepcion MUSELORNA 350.1.13.10 ity of Visit [id number] [id number] [address] 2022-07-16 2022-07-16 Outpatient R ADUM, [facility] [id number] Univers 15:45:00 15:45:00 CONCEPCION hernandez [facility] 2022-07-09 2022-07-09 Patient Doctor [facility] 1.2.840.114 [id number] Univers 00:00:00 00:00:00 Secure Msg Unassigned, KEV 350.1.13.10 ity of [place] [facility] 4.2.7.2.686 [facility] [phone] Nd dical [facility] 134 [facility] 2022-06-25 2022-06-28 Inpatient P [facility] S[facility] [id number] Univers 23:58:00 14:00:00 CONCEPCION ity of [facility] 2022-06-25 2022-06-28 Hospital [facility] 1.2.840.114 [id number] Univers 23:58:00 14:00:00 Encounter Concepcion ANGULO 350.1.13.10 ity of [facility] 4.2.7.2.686 [facility] [id number] [facility] 083 [place] 2022-06-26 2022-06-26 Anesthesia [facility] 1.2.840.114 [id number] Univers 09:50:00 20:17:00 Event Jose Angel Harrington KEV 350.1.13.10 ity of [facility] 4.2.7.2.686 [facility] [address] [id number] [facility] 013 [place] 2022-06-26 2022-06-26 Surgery AdAdena [facility] 1.2.840.114 [id number] Univers 00:00:00 00:00:00 Concepcion ANGULO 350.1.13.10 ity of [facility] 4.2.7.2.686 [facility] [id number] [facility] 013 [place] 2022-06-24 2022-06-24 Outpatient R ADUM, [facility] [id number] Univers 09:00:00 10:03:27 CONCEPCION hernandez of [facility] 2022-06-24 2022-06-24 Routine 1, Lkj Nst Room [facility] 1.2.840. 114 [id number] Univers 09:00:00 10:03:27 Adum, Concepcion ROYAL 350.1.13.10 ity of [place] [id number] [address] 2022-06-20 2022-06-20 Outpatient R NORIEGA-NIGEL, MARILU [facility] U TMB [id number] Univers 10:00:00 11:51:17 NORIEGA-NIGEL, MARILU ity [facility] 2022-06-20 2022-06-20 Routine Room, [facility] 1.2.840.1 [id number] Univers 10:00:00 11:51:17 Nae-Юлия Terrazassocory ANGULO 350.1. 13.10 ity of Visit [id number] [id number] Nd dical NAL [address] [place] [address] 2022-06-17 2022-06-17 Outpatient R ADUM, [facility] [id number] Univers 09:00:00 09:39:39 CONCEPCION ity [facility] 2022-06-17 2022-06-17 Routine 1, [facility] Room [facility] 1.2.840. 114 [id number] Univers 09:00:00 09:39:39 Adum, Concepcion ROYAL 350.1.13.10 ity of [place] [id number] [address] 2022-06-13 2022-06-13 Outpatient R ADUM, [facility] [id number] Univers 09:00:00 10:18:04 CONCEPCION ity [facility] 2022-06-13 2022-06-13 Routine Room, [facility] 1.2.840.1 14 [id number] Univers 09:00:00 10:18:04 Adum, Concepcion ANGULO 350.1.13.10 ity of [place] [phone] Nd dical NAL [address] [place] [address] 2022-06-11 2022-06-11 Shop Tech 3, [facility] Room [facility] 1 .2.840.114 [id number] Univers 13:00:00 14:03:29 Visit Marques, Mike Gagan Y HEALTH 350.1.13. 10 ity of CL[place] [id number] [facility] [address] 2022-06-11 2022-06-11 Outpatient P MARQUES, [facility] [id number] Univers 13:00:00 13:00:00 MIKE itgenevieve [facility] 2022-06-10 2022-06-10 Routine 1, Lkj Nst Room [facility] 1.2.840. 114 [id number] Univers 09:00:00 09:15:00 Adum, Concepcion ROYLA 350.1.13.10 ity of [place] [id number] [address] 2022-06-10 2022-06-10 Outpatient R ADUM, [facility] [id number] Univers 09:00:00 09:00:00 [facility] 2022-06-06 2022-06-06 Outpatient R ADUM, [facility] [id number] Univers 15:45:00 17:17:10 [facility] 2022-06-06 2022-06-06 Routine Adum, [facility] 1.2.840.114 [id number] Univers 15:45:00 17:17:10 Concepcion ANGULO 350.1.13.10 ity of [place] 4.[place].7.2.[place] [phone] Nd dical [address] 2022-06-06 2022-06-06 Orders Doctor GEOVANNA 1.2.840.114 [id number] Univers 00:00:00 00:00:00 Only Unassigned, EULALIO 350.1.13.10 ity of [place] [facility] 4.2.7.2.686 Nithin as [phone] [facility] [address] 2022-06-03 2022-06-03 Outpatient R ADUM, [facility] [id number] Univers 13:00:00 13:00:00 [facility] 2022-06-02 2022-06-02 Outpatient P [facility] [id number] Univers 14:00:00 14:00:00 ity of [facility] 2022-05-30 2022-05-30 Outpatient R ADUM, [facility] [id number] Univers 14:30:00 14:30:00 CONCEPCION ity [facility] 2022-05-30 2022-05-30 Outpatient R [facility] [id number] Univers 14:00:00 14:00:00 ity [facility] 2022-05-27 2022-05-27 Outpatient R ADUM, [facility] [id number] Univers 13:00:00 13:39:43 CONCEPCION ity [facility] 2022-05-27 2022-05-27 Routine 1, [facility] Room [facility] 1.2.840. 114 [id number] Univers 13:00:00 13:39:43 Adum, Concepcion ROYAL 350.1.13.10 ity of Visit [place] [facility] [id number] [address] 2022-05-23 2022-05-23 Outpatient R ADUM, [facility] [id number] Univers 14:00:00 15:51:47 CONCEPCION ity [facility] 2022-05-23 2022-05-23 Routine Room, [facility] 1.2.840.1 14 [id number] Univers 14:00:00 15:51:47 Adum, Concepcion ANGULO 350.1.13.10 ity of Visit [place] 4.2.7.2.[place] [phone] Nd dical [address] 2022-05-23 2022-05-23 Outpatient R ADUM, [facility] [id number] Univers 14:30:00 14:30:00 CONCEPCION ity [facility] 2022-05-20 2022-05-20 Outpatient R ADUM, [facility] [id number] Univers 13:00:00 14:05:14 CONCEPCION ity [facility] 2022-05-20 2022-05-20 Routine 1, [facility] Room [facility] 1.2.840. 114 [id number] Univers 13:00:00 14:05:14 Adum, Concepcion ROYAL 350.1.13.10 it[place] [id number] [address] 2022-05-20 2022-05-20 Orders Doctor GEOVANNA 1.2.840.114 [id number] Univers 00:00:00 00:00:00 Only Unassigned, EULALIO 350.1.13.10 ity of [place] [facility] 4.2.7.2.686 [place] as [phone] [address] 2022-05-16 2022-05-16 Outpatient R ADUM, [facility] [id number] Univers 14:30:00 15:21:03 CONCEPCION hernandez [facility] 2022-05-16 2022-05-16 Routine Adum, [facility] 1.2.840.114 [id number] Univers 14:30:00 15:21:03 Concepcion Anderson KEV 350.1.13.10 ity of Visit [place] 4.2.7.2.[place] [facility] [id number] [address] 2022-05-06 2022-05-06 Nurse Nurse, [facility] 1.2.840.114 [id number] Univers 14:00:00 14:20:40 Visit Adum, Concepcion ANGULO 350.1.13.10 ity of [place] 4.2.7.2.[place] [id number] [address] 2022-05-06 2022-05-06 Outpatient R ADUM, [facility] [id number] Univers 14:00:00 14:00:00 CONCEPCION hernandez [facility] 2022-05-05 2022-05-05 Shop Tech Ultrasound, [facility] 1.2 .840.114 [id number] Univers 11:45:00 12:15:00 Visit Umberto Farrar CIVIL DRAFTING TECHNICIAN 350.1.13.10 ity of REGIONAL 4.2.7.2.686 Nithin as MATERNAL [phone] Med ical & CHILD [address] [place] [address] 2022-05-05 2022-05-05 Outpatient P ALEKS, [facility] [id number] Univers 11:45:00 11:45:00 UMBERTO hernandez [facility] 2022-05-02 2022-05-02 Outpatient R ADUM, [facility] [id number] Univers 16:00:00 16:46:42 CONCEPCION hernandez [facility] 2022-05-02 2022-05-02 Routine Ad, [facility] 1.2.840.114 [id number] Univers 16:00:00 16:46:42 Concepcion Anderson [place] 350.1.13.10 ity of Visit [facility] 4.2.[place].2.[place] [phone] Nd dical NAL 134 [facility] 2022-05-01 2022-05-01 Shop Tech Gayle, Adc Lab Main [facility] 1.2.8 40.114 [id number] Univers 10:45:00 11:00:00 Visit Adum, Concepcion Anderson [place] 350.1.13.10 ity of [facility] 4.2.7.2.[place] [phone] Nd dical NAL 353 [facility] 2022-05-01 2022-05-01 Outpatient R AD, [facility] [id number] Univers 10:45:00 10:45:00 CONCEPCION hernandez [facility] 2022-04-28 2022-04-28 Telephone [facility] 1.2.540.877 [id number] Univers 00:00:00 00:00:00 Concepcion L [place] 350.1.13.10 ity of [place] 4.2.7.2.[place] [id number] Nd dical NAL [address] [place] [address] 2022-04-24 2022-04-24 Telephone [facility] 1.2.083.611 [id number] Univers 00:00:00 00:00:00 Concepcion L [place] 350.1.13.10 ity of [place] 4[place].2.[place] [phone] Nd dical NAL 134 [facility] 2022-04-18 2022-04-18 Outpatient R ADUM, [facility] [id number] Univers 15:45:00 16:32:07 CONCEPCION ity [facility] 2022-04-18 2022-04-18 Routine Adum, [facility] 1.2.840.114 [id number] Univers 15:45:00 16:32:07 Concepcion L [place] 350.1.13.10 ity of Visit [facility] 4.2.7.2.[place] [id number] Nd dical NAL [address] [place] [address] 2022-04-09 2022-04-09 Outpatient R [facility] [id number] Univers 10:30:00 10:30:00 ity of [facility] 2022-04-04 2022-04-04 Outpatient R ADUM, [facility] [id number] Univers 16:00:00 16:39:37 CONCEPCION ity [facility] 2022-04-04 2022-04-04 Routine Ad, [facility] 1.2.840.114 [id number] Univers 16:00:00 16:39:37 Concepcion L [place] 350.1.13.10 ity of Visit [place] 4.2.7.2.[place] [phone] Nd dical NAL [address] [place] [address] 2022-03-07 2022-03-07 Outpatient R ADUM, [facility] [id number] Univers 15:45:00 16:31:34 CONCEPCION ity [facility] 2022-03-07 2022-03-07 Routine Ad, [facility] 1.2.840.114 [id number] Univers 15:45:00 16:31:34 Concepcion L [place] 350.1.13.10 ity of Visit [facility] 4.2.7.2.[place] [phone] Nd dical NAL [address] [place] [address] 2022-03-01 2022-03-01 Patient Carolannple, [facility] 1.2.840.114 [id number] Univers 00:00:00 00:00:00 Secure Msg Zoila E [place] 350.1.13.10 ity of [facility] 4.2.7.2.[place] [phone] Nd dical NAL 134 [facility] 2022-02-28 2022-02-28 Nurse GEOVANNA Hayes 1.2.840.114 [id number] Univers 00:00:00 00:00:00 Triage Chessica T EULALIO 350.1.13.10 ity of [facility] 4.2.7.2.686 Nithin as [phone] [facility] [address] 2022-02-20 2022-02-20 Shop Tech [facility] Room [facility] 1.2. 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 13.10 ity [place] [address].2.7.2.686 Nithin as MATERNAL [phone] [facility] & CHILD [address] [place] [address] 2022-02-20 2022-02-20 Outpatient P HARRIET [facility] [id number] Univers 09:30:00 09:30:00 JAYESH ity [facility] 2022-02-20 2022-02-20 Orders Doctor AUSTIN 1.2.840.114 [id number] Univers 00:00:00 00:00:00 Only Unassigned, EULALIO 350.1.13.10 ity of [place] [facility] 4.2.7.2.686 Nithin as [phone] [facility] [address] 2022-02-18 2022-02-18 Outpatient P FRANSISCO [facility] [id number] Univers 12:00:00 12:00:00 CONCEPCION hernandez [facility] 2022-02-07 2022-02-07 Shop Tech Gayle, Tony Lab Main [facility] 1.2.8 40.114 [id number] Univers 17:00:00 17:15:00 Visit Concepcion Aldana [facility].1.13.10 [facility] [place] [phone] Nd dical NAL 353 [facility] 2022-02-07 2022-02-07 Outpatient R FRANSISCO [facility] [id number] Univers 16:00:00 16:50:21 CONCEPCION hernandez [facility] 2022-02-072022-02-07 Routine Adum, [facility] 1.2.840.114 [id number] Univers 16:00:00 16:50:21 Concepcion L [place] 350.1.13.10 ity of Visit [place] 4.2.7.2.[place] [phone] Nd dical NAL [address] [place] [address] 2022-02-07 2022-02-07 Telephone Adum, [facility] 1.2.692.774 [id number] Univers 00:00:00 00:00:00 Concepcion L [place] 350.1.13.10 ity of [place] 4.2.7.2.[place] [phone] Nd dical [address] 2022-01-10 2022-01-10 Emergency [facility] [id number] Univers 21:11:00 23:15:00 NOHEMI ity of [facility] 2022-01-10 2022-01-10 Emergency [facility] 1.2.457.796 [id number] Univers 21:11:00 23:15:00 Nohemi ANGUL[place] 350.1.13.10 i ty of [place] 4.2.7.2.[place] C[place] [id number] [facility] [address] 2022-01-10 2022-01-10 Outpatient R ADUM, [facility] [id number] Univers 16:15:00 16:51:40 CONCEPCION ity of [facility] 2022-01-10 2022-01-10 Routine Adum, [facility] 1.2.840.114 [id number] Univers 16:15:00 16:51:40 Concepcion L KEV 350.1.13.10 ity of Visit [place] 4.2.7.2.[place] [phone] Nd dical NAL [address] [place] [address] 2022-01-10 2022-01-10 Maame Butler 1.2.840.114 [id number] Univers 00:00:00 00:00:00 Triage EULALIO 350.1.13.10 it y of HOSPITAL 4.2.7.2.686 Nithin as [id number] [facility] [address] 2022-01-02 2022-01-02 Orders Doctor GEOVANNA 1.2.840.114 [id number] Univers 00:00:00 00:00:00 Only Unassigned, EULALIO 350.1.13.10 ity of [place] [facility] 4.2.7.2.686 Nithin as [phone] [facility] [address] [place] 2021-12-31 2021-12-31 Telephone Ad, [facility] 1.2.116.112 [id number] Univers 00:00:00 00:00:00 Concepcion Anderson KEV 350.1.13.10 ity of [place] 4.2.7.2.[place] [phone] Nd dical NAL 134 [facility] 2021-12-20 2021-12-20 Outpatient R AD, [facility] [id number] Univers 10:00:00 10:00:00 CONCEPCION itgenevieve [facility] 2021-12-20 2021-12-20 Shop Tech Gayle, Tony Lab Main [facility] 1.2.8 40.114 [id number] Univers 09:45:00 10:00:00 Visit Adum, Concepcion Cory [place] 350.1.13.10 ity of [place] 4.2.7.2.[place] [phone] Nd dical NAL 353 [facility] 2021-12-20 2021-12-20 Outpatient R AD, [facility] [id number] Univers 09:45:00 09:45:00 CONCEPCION ity [facility] 2021-12-20 2021-12-20 Orders Doctor AUSTIN 1.2.840.114 [id number] Univers 00:00:00 00:00:00 Only Unassigned, EULALIO 350.1.13.10 ity of [place] [facility] 4.2.7.2.686 [place] as [phone] [address] 2021-12-17 2021-12-17 Outpatient R ADUM, [facility] [id number] Univers 16:00:00 16:45:18 CONCEPCION ity [facility] 2021-12-17 2021-12-17 Routine Ad, [facility] 1.2.840.114 [id number] Univers 16:00:00 16:45:18 Concepcion ANGULO 350.1.13.10 ity of Visit [place] 4.2.7.2.[place] [phone] [facility] 134 [facility] 2021-12-17 2021-12-17 Outpatient R FRANSISCO, 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 [id number] Univers 13:30:00 13:30:00 ity of [facility] 2021-12-02 2021-12-02 Outpatient R HAKEEM [facility] [id number] Univers 13:30:00 13:30:00 EMMANUEL hernandez o f [facility] 2021-11-23 2021-11-23 Case Ad, [facility] 1.2.840.114 [id number] Univers 00:00:00 00:00:00 Management Concepcion ANGULO 350.1.13.10 ity of [place] 4.2.7.2.[place] [phone] Nd dical [facility] 134 [facility] 2021-11-22 2021-11-22 Shop Tech Gayle, Adc Lab Main [facility] 1.2.8 40.114 [id number] Univers 11:15:00 11:30:00 Visit Concepcion AldanaLORNA 350.1.13.10 ity of [place] 4.2.7.2.[place] [phone] [facility] 353 [facility] 2021-11-22 2021-11-22 Shop Tech Gayle, Adc Lab Main [facility] 1.2.8 40.114 [id number] Univers 11:15:00 11:30:00 Visit Adum, Concepcion Anderson KEV 350.1.13.10 ity of [place] 4.2.7.2.[place] [phone] [facility] 353 [facility] 2021-11-22 2021-11-22 Outpatient R ADUM, [facility] [id number] Univers 11:15:00 11:15:00 CONCEPCION ity [facility] 2021-11-19 2021-11-19 Outpatient R ADUM, [facility] [id number] Univers 10:00:00 11:44:24 CONCEPCION ity [facility] 2021-11-19 2021-11-19 Routine Adum, [facility] 1.2.840.114 [id number] Univers 10:00:00 11:44:24 Concepcion ANGULO 350.1.13.10 ity of Visit [place] 4.2.7.2.[place] [phone] [facility] 134 [facility] 2021-11-19 2021-11-19 Orders Doctor GEOVANNA 1.2.840.114 [id number] Univers 00:00:00 00:00:00 Only Unassigned, EULALIO 350.1.13.10 ity of [place] [facility] 4.2.7.2.686 Nithin as [phone] [address] 2021-11-06 2021-11-06 Outpatient R ADUM, [facility] [id number] Univers 14:30:00 16:20:42 CONCEPCION ity [facility] 2021-11-06 2021-11-06 Initial Adum, [facility] 1.2.889.421 [id number] Univers 14:30:00 16:20:42 Concepcion ROYAL 350.1.13.10 ity of Visit [facility] 4[place]2.[place].2.[place] [id number] [facility] [address] [place] 2021-11-06 2021-11-06 Orders Doctor GEOVANNA 1.2.840.114 [id number] Univers 00:00:00 00:00:00 Only Unassigned, EULALIO 350.1.13.[address] [facility] 4.2.7.2.686 Nith[place] as [phone] [address] 2021-11-04 2021-11-04 Outpatient R JOSHUA, [facility] [id number] Univers 11:30:00 11:30:00 JOSHUA ity [facility] 2021-10-30 2021-10-30 Outpatient FORTINO KNOWLES [facility] [address] [place] 00:00:00 00:00:00 [facility] 2021-07-11 2021-07-11 Outpatient R [facility] [id number] Univers 15:30:00 15:30:00 ity of [facility] 2021-06-27 2021-06-27 Telephone [facility] 1.2.013.663 [id number] Univers 00:00:00 00:00:00 Concepcion ANGULO 350.1.13.10 ity of [place] 4.2.7.2.[place] [id number] Nd dical NAL 134 [facility] 2021-06-26 2021-06-26 Shop Tech Gayle, Adc Lab Main [facility] 1.2.8 40.114 [id number] Univers 16:30:00 16:45:00 Visit Concepcion Aldana 350.1.13.10 ity of [facility] 4.2.7.2.[place] [id number] Nd dical NAL 353 [facility] 2021-06-26 2021-06-26 Outpatient R ADUM, [facility] [id number] Univers 15:30:00 16:19:38 CONCEPCION itgenevieve [facility] 2021-06-26 2021-06-26 Office [facility] 1.2.840.114 [id number] Univers 15:30:00 16:19:38 Visit Concepcion ANGULO 350.1.13.10 ity of [facility] 4.2.7.2.[place] 479.7428128 Nd dical NAL 134 [facility] 2021-06-26 2021-06-26 [facility] [id number] Univers 15:30:00 15:30:00 CONCEPCION ity of [facility] 2021-06-26 2021-06-26 Orders Doctor GEOVANNA 1.2.840.114 [id number] Univers 00:00:00 00:00:00 Only Unassigned, EULALIO 350.1.13.10 ity of [place] [facility] 4.2.7.2.686 Nithin as [phone] [address] 2021-06-18 2021-06-18 Outpatient R ADUM, [facility] [id number] Univers 13:00:00 15:02:59 CONCEPCION ity [facility] 2021-06-18 2021-06-18 Office [facility] 1.2.840.114 [id number] Univers 13:00:00 15:02:59 Visit Concepcion Cory [place] 350.1.13.10 ity of [facility] 4.2.7.2.[place] [phone] Nd dical NAL [address] [place] [address] 2021-06-18 2021-06-18 Orders Doctor GEOVANNA 1.2.840.114 [id number] Univers 00:00:00 00:00:00 Only Unassigned, EULALIO 350.1.13.10 ity of [place] [facility] 4.2.7.2.686 Nithin as [id number] [address] 2021-06-06 2021-06-06 Case Adum, [facility] 1.2.840.114 [id number] Univers 00:00:00 00:00:00 Management Concepcion ANGULO 350.1.13.10 ity of [facility] 4.2.7.2.[place] [id number] Nd dical NAL 134 [facility] 2021-06-04 2021-06-04 Shop Tech 2, Adc Lab [facility] 1.2.840.114 [id number] Univers 10:30:00 10:30:00 Visit Adum, Concepcion MUSELORNA 350.1.13.10 ity of [facility] 4.2.7.2.[place] [phone] Nd dical NAL 353 [facility] 2021-06-04 2021-06-04 Outpatient R ADUM, [facility] [id number] Univers 08:45:00 10:08:01 CONCEPCION ity of [facility] 2021-06-04 2021-06-04 Routine Adum, [facility] 1.2.840.114 [id number] Univers 08:45:00 10:08:01 Concepcion Anderson [place] 350.1.13.10 ity of Visit [place] 4.2.7.2.[place] [phone] [address] 2021-06-03 2021-06-03 Telephone Ad, [facility] 1.2.937.169 [id number] Univers 00:00:00 00:00:00 Concepcion L [place] 350.1.13.10 ity of [facility] 4.2.7.2.[place] [id number] [address] 2021-05-31 2021-05-31 Emergency X [facility] ERT [id number] Univers 17:58:00 19:44:00 PETRONA ity [facility] 2021-05-31 2021-05-31 Emergency [facility] [id number] Univers 17:58:00 19:44:00 Petrona S [place] 350.1.13.10 i ty of [facility] [place] [id number] [address] 2021-05-29 2021-05-29 Telephone [facility] [id number] Univers 00:00:00 00:00:00 Concepcion L [place] 350.1.13.10 ity of [facility] 4[place] [id number] [address] 2021-05-25 2021-05-25 Shop Tech Gayle, Tony Lab Main [facility] 1.2.8 40.114 [id number] Univers 09:30:00 09:45:00 Visit Adum, Concepcion L [place] 350.1.13.10 ity of [facility] [place] [phone] Nd dical NAL 353 [facility] 2021-05-25 2021-05-25 Outpatient R ADUM, [facility] [id number] Univers 09:30:00 09:30:00 CONCEPCION itgenevieve of [facility] 2021-05-24 2021-05-24 Telephone Adum, [facility] [id number] Univers 00:00:00 00:00:00 Concepcion Cory [place] 350.1.13.10 ity of [facility] [place] [phone] Nd dical NAL 134 [facility] 2021-05-23 2021-05-23 Shop Tech Gayle, Adc Lab Main [facility] 1.2.8 40.114 [id number] [facility] 09:45:00 10:00:00 Visit Adum, Concepcion Cory [place] 350.1.13.10 ity of [facility] 4[place] [phone] Nd dical NAL 353 [facility] 2021-05-23 2021-05-23 Outpatient R ADUM, [facility] [id number] Univers 09:45:00 09:45:00 CONCEPCION itgenevieve of [facility] 2021-05-22 2021-05-22 Case Adum, [facility] [id number] [id number] Univers 00:00:00 00:00:00 Management Concepcion Cory [place] 350.1.13.10 ity of [place] [phone] Nd dical NAL [address] [place] [address] 2021-05-22 2021-05-22 Telephone Adum, [facility] [id number] Univers 00:00:00 00:00:00 Concepcion Cory [place] 350.1.13.10 ity of [facility] 4[place] [phone] Nd dical NAL 134 [facility] 2021-05-21 2021-05-21 Shop Tech 2, Adc Lab [facility] 1.2.840.114 [id number] Univers 15:00:00 15:04:20 Visit Adum, Concepcion Anderson KEV 350.1.13.10 ity of [place] [phone] Nd dical NAL 353 [facility] 2021-05-21 2021-05-21 Outpatient R ADUM, [facility] [id number] Univers 14:00:00 14:59:27 CONCEPCION ity of [facility] 2021-05-21 2021-05-21 Initial Adum, [facility] 1.2.840.114 [id number] Univers 14:00:00 14:59:27 Concepcion Anderson KEV 350.1.13.10 ity of [place] [phone] Nd dical NAL 134 [facility] 2021-05-21 2021-05-21 Orders Doctor GEOVANNA 1.2.840.114 [id number] Univers 00:00:00 00:00:00 Only Unassigned, EULALIO 350.1.13.10 ity of [place] [facility] 4.2.7.2.686 Nithin as [phone] [address] 2020-08-29 2020-08-29 Outpatient Yan_W MMG MMG [id number] [place] 03:43:00 03:43:00 [facility] 2020-08-24 2020-08-24 Outpatient Yan_W MMG MMG [id number] 021 [place] 10:05:00 10:05:00 0521 [facility] 2020-06-15 2020-06-15 Inpatient MAYURI Dorado, [facility] [id number] [facility] 12:04:17 12:04:17 Wan [facility] 2020-03-06 2020-03-06 Outpatient R ALEXA FINE [facility] [id number] Univers 13:00:00 13:00:00 ity of [facility] 2020-02-29 2020-02-29 Orders Doctor GEOVANNA 1.2.840.114 [id number] Univers 00:00:00 00:00:00 Only Unassigned, EULALIO 350.1.13.10 ity of [place] [facility] 4.2.7.2.686 Nithin as [phone] [address] 2020-02-29 2020-02-29 Orders Doctor GEOVANNA 1.2.840.114 [id number] 00:00:00 00:00:00 Only Unassigned, EULALIO 350.1.13.10 [place] [facility] 4.2.7.2.686 [phone] [facility] 2020-02-15 2020-02-15 Orders Doctor GEOVANNA 1.2.840.114 [id number] Univers 00:00:00 00:00:00 Only Unassigned, EULALIO 350.1.13.10 ity of [place] [facility] 4.2.7.2.686 Nithin as [phone] [address] 2020-02-15 2020-02-15 Orders Doctor GEOVANNA 1.2.840.114 [id number] 00:00:00 00:00:00 Only Unassigned, EULALIO 350.1.13.10 [place] [facility] 4.2.7.2.686 [phone] [facility] 2020-02-14 2020-02-14 Telephone Alexa Fine [facility] 1.2.840.114 [id number] 00:00:00 00:00:00 [place] 350.1.13.10 [place] 4.2.7.2.686 Professio [phone] [address] 2020-02-14 2020-02-14 Telephone Alexa Fine [facility] 1.2.840.114 [id number] Univers 00:00:00 00:00:00 [place] 350.1.13.10 i [place] of [place] [phone] Nd dic[address] 2020-02-13 2020-02-13 Telephone Alexa Fine [facility] 1.2.840.114 [id number] 00:00:00 00:00:00 [place] 350.1.13.10 [place] 4.2.7.2.686 Professio [phone] [address] 2020-02-13 2020-02-13 Telephone Alexa Fine [facility] 1.2.840.114 [id number] Univers 00:00:00 00:00:00 Cam [place] 350.1.13.10 i ty of [place] [phone] [address] 2020-02-07 2020-02-07 Outpatient R ALEXA FINE [facility] [id number] Univers 13:00:00 13:00:00 ity of [facility] 2020-02-07 2020-02-07 Telemedici Alexa Fine [facility] 1.2.840.114 [id number] 08:38:18 08:53:18 ne Visit Cam [place] 350.1.13.10 [place] 4.2.7.2.686 Professio [phone] [address] 2020-02-07 2020-02-07 Telemedici Alexa Fine [facility] 1.2.840.114 [id number] [facility] 08:38:18 08:53:18 ne Visit Cam [place] 350.1.13.10 ity of [place] [phone] [address] 2020-02-03 2020-02-03 Urgent Provider, [facility] 1.2.942.938 [id number] 14:19:52 15:50:17 Care [facility] 350.1.13.10 Care [place] 4.2.7.2.686 Professio [phone] [address] 2020-02-03 2020-02-03 Urgent Provider, [facility] 1.2.840.114 [id number] [facility] 14:19:52 15:50:17 Care Keily [facility] 350.1.13.10 ity of [place] 4.2.7.2.686 Nithin as Professio [phone] [address] Office Building [facility] 2020-02-03 2020-02-03 Outpatient R MICK [facility] [id number] Univers 14:20:00 14:20:00 KEILY ity of [facility] 2020-02-03 2020-02-03 Letter Doctor AUSTIN 1.2.840.114 [id number] 00:00:00 00:00:00 (Out) Unassigned, EULALIO 350.1.13.10 [place] [facility] 4.2.7.2.686 [phone] 044 2020-02-03 2020-02-03 Letter Doctor GEOVANNA 1.2.840.114 [id number] Univers 00:00:00 00:00:00 (Out) Unassigned, EULALIO 350.1.13.10 ity of [employer] [place] [facility] 4.2.7.2.686 Nithin as [phone] [address] 2020-02-01 2020-02-01 Case Alexa Fine [facility] 1.2.512.801 [id number] 00:00:00 00:00:00 Management Cam [place] 350.1.13.10 [place] 4.2.7.2.686 Professio [phone] [address] 2020-02-01 2020-02-01 Case Alexa Fine [facility] 1.2.480.499 [id number] Univers 00:00:00 00:00:00 Management Cam [place] 350.1.13.10 ity of [place] [phone] Nd dical [address] 2020-01-24 2020-01-24 Nurse Nurse, [facility] 1.2.840.114 [id number] 14:40:20 14:58:57 Visit [facility] [place] 350.1.13.10 [facility] 4.2.7.2.686 Professio [phone] [address] 2020-01-24 2020-01-24 Nurse Nurse, [facility] 1.2.840.114 [id number] Univers 14:40:20 14:58:57 Visit Alexa Fine [place] 350.1.13.10 ity of [place] [phone] Nd dical [address] 2020-01-24 2020-01-24 Outpatient R [facility] [id number] Univers 14:30:00 14:30:00 ity of [facility] 2020-01-12 2020-01-12 Outpatient R ALEXA FINE [facility] [id number] Univers 15:45:00 15:45:00 ity of [facility] 2020-01-10 2020-01-10 Routine Joshua [facility] 1.2.955.332 [id number] 16:01:52 17:19:54 Joshua Angulo 350.1.13.10 Visit [place] 4.2.7.2.686 Professio [phone] [address] 2020-01-10 2020-01-10 Routine Joshua Lewis [facility] 1.2.840.11 [id number] Univers 16:01:52 17:19:54 Alexa Fine 350.1.13.10 ity of Visit [place] [phone] Nd dical [address] 2020-01-10 2020-01-10 Outpatient R BABATUNDE [facility] [id number] Univers 16:00:00 16:00:00 ity of [facility] 2020-01-06 2020-01-06 Orders Doctor GEOVANNA 1.2.840.114 [id number] Univers 00:00:00 00:00:00 Only Unassigned, EULALIO 350.1.13.10 ity of [place] [facility] 4.2.7.2.686 Nithin as [phone] [facility] [address] [place] 2020-01-04 2020-01-04 Hospital Alexa Fine [facility] 1.2.840.114 [id number] Univers 18:00:00 23:59:00 Encounter Leland Museton 350.1.13.10 ity of [place] [phone] [facility] [address] [place] 2020-01-04 2020-01-04 Outpatient R BABATUNDE ALEXA [facility] [id number] Univers 00:00:00 00:00:00 ity of [facility] 2020-01-04 2020-01-04 Orders Doctor GEOVANNA 1.2.840.114 [id number] Univers 00:00:00 00:00:00 Only Unassigned, EULALIO 350.1.13.10 ity of [place] [facility] 4.2.7.2.686 Nithin as [phone] [facility] [address] [place] 2019-12-30 2019-12-30 Shop Tech Pob, Adc Lab Main [facility] 1.2.8 40.114 [id number] Univers 08:49:17 09:04:17 Visit Babatunde Alexaalexa [place] 350.1.13.10 ity of [place] [phone] Nd dicjeremiah nal 353 [facility] 2019-12-30 2019-12-30 Outpatient R [facility] [id number] Univers 08:45:00 08:45:00 ity of [facility] 2019-12-30 2019-12-30 Telephone Alexa Fine [facility] 1.2.840.114 [id number] Univers 00:00:00 00:00:00 Cam [place] 350.1.13.10 i ty of [place] [phone] Nd dical nal 134 [facility] 2019-12-29 2019-12-29 Telephone Alexa Fine [facility] 1.2.840.114 [id number] Univers 00:00:00 00:00:00 Leland Museton 350.1.13.10 i ty of [place] [phone] Nd dical nal 134 [facility] 2019-12-28 2019-12-28 Routine Alexa Fine [facility] 1.2.480.834 [id number] Univers 14:18:28 15:29:09 Leland Angulo 350.1.13.10 ity of Visit [place] [phone] Nd dical nal 134 [facility] 2019-12-28 2019-12-28 Shop Tech 2, Adc Lab [facility] 1.2.840.114 [id number] Univers 09:58:55 10:13:55 Visit Babatunde Alexaalexa Angulo 350.1.13.10 ity of [place]2.[place] [phone] Nd dicjeremiah fatima [address] [place] [address] 2019-12-28 2019-12-28 Outpatient R ALEXA FINE [facility] [id number] Univers 09:30:00 09:30:00 ity of [facility] 2019-12-28 2019-12-28 Telephone Alexa Fine [facility] 1.2.840.114 [id number] Univers 00:00:00 00:00:00 Cam [place] 350.1.13.10 i ty of [place] [phone] [address] 2019-12-27 2019-12-27 Emergency [facility] 1.2.917.323 [id number] Univers 03:49:00 06:51:00 Nohemi Foreman [place] 350.1.13.10 i ty of [place]2.[place] [phone] [address] 2019-12-27 2019-12-27 Telephone Alexa Fine [facility] 1.2.840.114 [id number] Univers 00:00:00 00:00:00 Cam [place] 350.1.13.10 i ty of [place] [phone] [address] 2019-12-24 2019-12-24 Shop Tech Gayle, Adc Lab Main [facility] 1.2.8 40.114 [id number] Univers 10:06:18 10:21:18 Visit Alexa Fine Leland Angulo 350.1.13.10 ity of [place] [phone] [address] 2019-12-24 2019-12-24 Outpatient R BABATUNDE [facility] [id number] Univers 10:15:00 10:15:00 ity of [facility] 2019-12-22 2019-12-22 Outpatient R BABATUNDE [facility] [id number] Univers 15:15:00 15:15:00 ity [facility] 2019-12-22 2019-12-22 Shop Tech Gayle, Adc Lab Main [facility] 1.2.8 40.114 [id number] Univers 14:26:08 14:41:08 Visit Alexa Fine [place] 350.1.13.10 ity of [place]2.[place] [phone] Nd dic[address] 2019-12-21 2019-12-21 Outpatient R CHEMA [facility] [id number] Univers 08:00:00 08:00:00 JOSEFA ity o f [facility] 2019-12-21 2019-12-21 Case Joshua [facility] 1.2.427.089 [id number] Univers 00:00:00 00:00:00 Management Joshua Angulo 350.1.13.10 ity of [place] [phone] [address] 2019-12-21 2019-12-21 Telephone Alexa Fine [facility] 1.2.840.114 [id number] Univers 00:00:00 00:00:00 Cam Kev 350.1.13.10 i ty of [place] [phone] [address] 2019-12-20 2019-12-20 Shop Tech Tony Araujo Lab Main [facility] 1.2.8 40.114 [id number] Univers 12:25:25 12:40:25 Visit Alexa Fine Leland Angulo 350.1.13.10 ity of [place] [phone] [address] 2019-12-20 2019-12-20 Initial Alexa Fine [facility] 1.2.987.759 [id number] Univers 09:56:19 12:05:25 Leland Angulo 350.1.13.10 ity of Visit [place]2.[place] [phone] [address] 2019-12-20 2019-12-20 Outpatient R ALEXA FINE [facility] [id number] Univers 10:00:00 10:00:00 ity of [facility] 2019-12-20 2019-12-20 Orders Doctor AUSTIN 1.2.840.114 [id number] Univers 00:00:00 00:00:00 Only Unassigned, EULALIO 350.1.13.10 ity of [place] [facility] 4.2.7.2.686 Nithin as [phone] [address] Results Test Description Test Time Test Comments Results Result Comments Source POCT TEST 2022-12-04 18:33:00 Test Item Value Reference Range Interpretation Comme nts POCT PREG (test code = 1605) Negative On board controls acceptable with C Line (test code = 3574) Yes POCT PREG LOT # (test code = 3575) POCT PREG TEST DATE (test code = 3576) [id number] 18:33:00 Test Item Value Reference Range Interpretation Comments POCT PREG (test code = 1605) Negative On board controls acceptable with C Yes Line (test code = 3574) POCT PREG LOT # (test code = 3575) POCT PREG TEST DATE (test code = 3576) [facility] [id number] 21:42:00 Test Item Value Reference Range Interpretation Comments POCT PREG (test code = 1605) Negative On board controls acceptable with C Yes Line (test code = 3574) POCT PREG LOT # (test code = 3575) POCT PREG TEST DATE (test code = 3576) [facility] [id number] 21:42:00 Test Item Value Reference Range Interpretation Comments POCT PREG (test code = 1605) Negative On board controls acceptable with C Yes Line (test code = 3574) POCT PREG LOT # (test code = 3575) POCT PREG TEST DATE (test code = 3576) [facility] [id number] 21:42:00 Test Item Value Reference Range Interpretation Comments POCT PREG (test code = 1605) Negative On board controls acceptable with C Yes Line (test code = 3574) POCT PREG LOT # (test code = 3575) POCT PREG TEST DATE (test code = 3576) [facility] GLUCOSE (AUTOMATED)2022-06-26 22:16:56 Test Item Value Reference Range Interpretation Comments POCT GLU (test code = 8246019894) 85 mg/dL 70-110 Lab Interpretation (test code = Normal 10177-4) [facility] GLUCOSE (AUTOMATED)2022-06-26 22:16:56 Test Item Value Reference Range Interpretation Comments POCT GLU (test code = 0077811179) 85 mg/dL 70-110 Lab Interpretation (test code = Normal 21599-1) [facility] GLUCOSE (AUTOMATED)2022-06-26 18:08:00 Test Item Value Reference Range Interpretation Comments POCT GLU (test code = 5136641802) 80 mg/dL 70-110 Lab Interpretation (test code = Normal 27852-2) [facility] GLUCOSE (AUTOMATED)2022-06-26 18:08:00 Test Item Value Reference Range Interpretation Comments POCT GLU (test code = 7261851036) 80 mg/dL 70-110 Lab Interpretation (test code = Normal 95719-0) [facility] GLUCOSE (AUTOMATED)2022-06-26 14:17:40 Test Item Value Reference Range Interpretation Comments POCT GLU (test code = 1867228324) 78 mg/dL 70-110 Lab Interpretation (test code = Normal 54125-0) [facility] GLUCOSE (AUTOMATED)2022-06-26 14:17:40 Test Item Value Reference Range Interpretation Comments POCT GLU (test code = 5427097307) 78 mg/dL 70-110 Lab Interpretation (test code = Normal 14710-4) [facility] GLUCOSE (AUTOMATED)2022-06-26 10:10:45 Test Item Value Reference Range Interpretation Comments POCT GLU (test code = 1221846419) 83 mg/dL 70-110 Lab Interpretation (test code = Normal 63650-4) [facility] GLUCOSE (AUTOMATED)2022-06-26 10:10:45 Test Item Value Reference Range Interpretation Comments POCT GLU (test code = 7580922289) 83 mg/dL 70-110 Lab Interpretation (test code = Normal 74905-6) [facility] GLUCOSE (AUTOMATED)2022-06-26 05:55:36 Test Item Value Reference Range Interpretation Comments POCT GLU (test code = 4719942954) 112 mg/dL 70-110 H Lab Interpretation (test code = Abnormal 73079-5) [facility] GLUCOSE (AUTOMATED)2022-06-26 05:55:36 Test Item Value Reference Range Interpretation Comments POCT GLU (test code = 0954048466) 112 mg/dL 70-110 H Lab Interpretation (test code = Abnormal 36610-9) [facility] URINALYSIS W/O SPECIFIC [id number] 15:01:00 Test Item Value Reference Range Interpretation Comments POCT PH U (test code = 3254) N/A 5-8 POCT U LEUK EST (test code = N/A Negative - Negative 3263) POCT U NIT (test code = 3262) N/A Negative - Negative POCT U PROT (test code = 3259) Negative Negative - Negative POCT U GLU (test code = 3256) Negative Negative - Negative POCT U KETONE (test code = 3258) N/A Negative - Negative POCT U BLD (test code = 3257) N/A Negative - Negative [facility] URINALYSIS W/O SPECIFIC [id number] 15:44:00 Test Item Value Reference Range Interpretation Comments POCT PH U (test code = 3254) n/a 5-8 POCT U LEUK EST (test code = n/a Negative - Negative 3263) POCT U NIT (test code = 3262) n/a Negative - Negative POCT U PROT (test code = 3259) negative Negative - Negative POCT U GLU (test code = 3256) negative Negative - Negative POCT U KETONE (test code = 3258) n/a Negative - Negative POCT U BLD (test code = 3257) n/a Negative - Negative [facility] URINALYSIS W/O SPECIFIC [id number] 16:26:00 Test Item Value Reference Range Interpretation Comments [...] code = 3257) n/a Negative - Negative [facility] URINALYSIS W/O SPECIFIC [id number] 22:47:00 Test Item Value Reference Range Interpretation Comments POCT PH U (test code = 3254) 7 mg/dl 5-8 POCT U LEUK EST (test code = Negative Negative - Negative 3263) POCT U NIT (test code = 3262) Negative Negative - Negative POCT U PROT (test code = 3259) Negative Negative - Negative POCT U GLU (test code = 3256) 50 Negative - Negative POCT U KETONE (test code = 3258) Negative Negative - Negative POCT U BLD (test code = 3257) Negative Negative - Negative [facility] URINALYSIS W/O SPECIFIC [id number] 21:16:00 Test Item Value Reference Range Interpretation Comments [...] code = 3257) n/a Negative - Negative [facility] URINALYSIS W/O SPECIFIC [id number] 20:54:00 Test Item Value Reference Range Interpretation Comments POCT PH U (test code = 3254) n/a 5-8 POCT U LEUK EST (test code = n/a Negative - Negative 3263) POCT U NIT (test code = 3262) n/a Negative - Negative POCT U PROT (test code = 3259) trace Negative - Negative POCT U GLU (test code = 3256) negative Negative - Negative POCT U KETONE (test code = 3258) n/a Negative - Negative POCT U BLD (test code = 3257) n/a Negative - [facility] [id number] 22:30:00 Test Item Value Reference Range Interpretation Comments POCT U SP GRAV (test code = N/A 1.005-1.025 3255) POCT PH U (test code = 3254) N/A 5-8 POCT U LEUK EST (test code = N/A Negative - Negative 3263) POCT U NIT (test code = 3262) N/A Negative - Negative POCT U PROT (test code = 3259) trace Negative - Negative POCT U GLU (test code = 3256) negative Negative - Negative POCT U KETONE (test code = 3258) N/A Negative - Negative POCT U UROBILI (test code = N/A 0.2-1 3260) POCT U BILI (test code = 3261) N/A Negative - Negative POCT U BLD (test code = 3257) N/A Negative - Negative POCT U COLOR (test code = 3266) yellow POCT U APPEAR (test code = 3267) clear [facility] HR GLUCOSE TOLERANCE [id number] 18:24:28 Test Item Value Reference Range Interpretation Comments GLUC 1 HR (test code = 5440785826) 187 mg/dL 120-170 H Lab Interpretation (test code = Abnormal 32356-0) [facility] AG-AB WITH [id number] 18:06:44 Test Item Value Reference Range Interpretation Comments HIV Negative Negative Semi-quantitative (test code = 72936-7) ABDULLAHI (test code = Non-reactive for HIV-1 ABDULLAHI) antigen and HIV-1/HIV-2 antibodies. ?No laboratory evidence of HIV infection. ?Repeat in 2-4 weeks if acute HIV infection is suspected. [facility] [id number] 17:25:16 Test Item Value Reference Range Interpretation Comments GLU FASTNG (test code = 3994575465) 97 mg/dL 70-110 Lab Interpretation (test code = Normal 05940-9) [facility] [id number] 16:41:31 Test Item Value Reference Range Interpretation Comments WBC (test code = See_Comment H [Automated 1468-2) message] The sy stem which generated this result transmitted reference range : 4.30 - 11.10 10*3/?L. The reference range was not used to interpret this result as normal/abnormal . RBC (test code = See_Comment L [Automated 427-8) message] The sy stem which generated this result transmitted reference range : 3.93 - 5.25 10*6/?L. The reference range was not used to interpret this result as normal/abnormal . HGB (test code = 9.3 g/dL 11.6-15.0 L 718-7) HCT (test code = 29.0 % 35.7-45.2 L 4544-3) MCV (test code = 77.7 fL 80.6-95.5 L 787-2) MCH (test code = 24.9 pg 25.9-32.8 L 785-6) MCHC (test code = 32.1 g/dL 31.6-35.1 786-4) RDW-SD (test code = 43.2 fL 39.0-49.9 89168-1) RDW-CV (test code = 15.4 % 12.0-15.5 788-0) PLT (test code = See_Comment H [Automated 777-3) message] The sy stem which generated this result transmitted reference range : 166 - 358 10*3/ ?L. The reference r patel was not used to interpret this result as normal/abnormal . MPV (test code = 9.6 fL 9.5-12.9 09193-7) NRBC/100 WBC (test See_Comment [Automat ed code = 7800828979) message] The system which generated this result transmitted reference range : 0.0 - 10.0 /100 WBCs. The refer ence range was not u sed to interpret th is result as normal/abnormal . NRBC x10^3 (test code See_Comment [Auto mated = 3478523644) message] The s ystem which generated this result transmitted reference range : 10*3/?L. The reference range was not used to interpret this result as normal/abnormal . GRAN MAT (NEUT) % 69.4 % (test code = 770-8) IMM GRAN % (test code 0.90 % = 6268336336) LYMPH % (test code = 22.9 % 736-9) MONO % (test code = 5.7 % 5905-5) EOS % (test code = 0.7 % 713-8) BASO % (test code = 0.4 % 706-2) GRAN MAT x10^3(ANC) 9.69 10*3/uL 1.88-7.09 H (test code = 1131766051) IMM GRAN x10^3 (test 0.12 10*3/uL 0.00-0.06 H code = 9346130833) LYMPH x10^3 (test code 3.20 10*3/uL 1.32-3.29 = 731-0) MONO x10^3 (test code 0.80 10*3/uL 0.33-0.92 = 742-7) EOS x10^3 (test code = 0.10 10*3/uL 0.03-0.39 711-2) BASO x10^3 (test code 0.05 10*3/uL 0.01-0.07 = 704-7) Lab Interpretation Abnormal (test code = 92247-4) [facility] URINALYSIS W/O SPECIFIC [id number] 22:07:00 Test Item Value Reference Range Interpretation Comments POCT PH U (test code = 3254) n/a 5-8 POCT U LEUK EST (test code = n/a Negative - Negative 3263) POCT U NIT (test code = 3262) n/a Negative - Negative POCT U PROT (test code = 3259) negative Negative - Negative POCT U GLU (test code = 3256) negative Negative - Negative POCT U KETONE (test code = 3258) n/a Negative - Negative POCT U BLD (test code = 3257) n/a Negative - Negative [facility] URINALYSIS W/O SPECIFIC [id number] 22:05:00 Test Item Value Reference Range Interpretation Comments POCT PH U (test code = 3254) n/a 5-8 POCT U LEUK EST (test code = n/a Negative - Negative 3263) POCT U NIT (test code = 3262) n/a Negative - Negative POCT U PROT (test code = 3259) negative Negative - Negative POCT U GLU (test code = 3256) negative Negative - Negative POCT U KETONE (test code = 3258) n/a Negative - Negative POCT U BLD (test code = 3257) n/a Negative - Negative [facility] URINALYSIS W/O SPECIFIC [id number] 22:09:00 Test Item Value Reference Range Interpretation [...] code = 3257) n/a Negative - Negative [facility] W/O SPECIFIC [id number] 21:19:00 Test Item Value Reference Range Interpretation Comments POCT PH U (test code = 3254) n/a 5-8 POCT U LEUK EST (test code = n/a Negative - Negative 3263) POCT U NIT (test code = 3262) n/a Negative - Negative POCT U PROT (test code = 3259) negative Negative - Negative POCT U GLU (test code = 3256) negative Negative - Negative POCT U KETONE (test code = 3258) n/a Negative - Negative POCT U BLD (test code = 3257) n/a Negative - Negative [facility] W/O SPECIFIC [id number] 21:35:00 Test Item Value Reference Range Interpretation Comments POCT PH U (test code = 3254) n/a 5-8 POCT U LEUK EST (test code = 3263) n/a Negative - Negative POCT U NIT (test code = 3262) n/a Negative - Negative POCT U PROT (test code = 3259) Trace Negative - Negative POCT U GLU (test code = 3256) Normal Negative - Negative POCT U KETONE (test code = 3258) n/a Negative - Negative POCT U BLD (test code = 3257) n/a Negative - Negative [facility] [id number] 16:55:19 Test Item Value Reference Range Interpretation Comments GLU FASTNG (test code = 9248501209) 82 mg/dL 70-110 Lab Interpretation (test code = Normal 61465-4) [facility] [place] WITH [id number] 15:32:10 Test Item Value Reference Range Interpretation Comments WBC (test code = See_Comment H [Automated 6690-2) message] The sy stem which generated this result transmitted reference range : 4.30 - 11.10 10*3/?L. The reference range was not used to interpret this result as normal/abnormal . RBC (test code = See_Comment [Automated 789-8) message] The sy stem which generated this result transmitted reference range : 3.93 - 5.25 10*6/?L. The reference range was not used to interpret this result as normal/abnormal . HGB (test code = 11.3 g/dL 11.6-15 L 718-7) HCT (test code = 33.6 % 35.7-45.2 L 4544-3) MCV (test code = 85.5 fL 80.6-95.5 787-2) MCH (test code = 28.8 pg 25.9-32.8 785-6) MCHC (test code = 33.6 g/dL 31.6-35.1 786-4) RDW-SD (test code = 39.7 fL 39-49.9 23173-1) RDW-CV (test code = 12.9 % 12-15.5 788-0) PLT (test code = See_Comment [Automated 777-3) message] The sy stem which generated this result transmitted reference range : 166 - 358 10*3/ ?L. The reference r patel was not used to interpret this result as normal/abnormal . MPV (test code = 9.3 fL 9.5-12.9 L 31129-5) NRBC/100 WBC (test See_Comment [Automat ed code = 5135907703) message] The system which generated this result transmitted reference range : 0.0 - 10.0 /100 WBCs. The refer ence range was not u sed to interpret th is result as normal/abnormal . NRBC x10^3 (test code See_Comment [Auto mated = 7234120019) message] The s ystem which generated this result transmitted reference range : 10*3/?L. The reference range was not used to interpret this result as normal/abnormal . GRAN MAT (NEUT) % 72.8 % (test code = 770-8) IMM GRAN % (test code 0.30 % = 6948104222) LYMPH % (test code = 21.4 % 736-9) MONO % (test code = 4.4 % 5905-5) EOS % (test code = 0.7 % 713-8) BASO % (test code = 0.4 % 706-2) GRAN MAT x10^3(ANC) 8.83 10*3/uL 1.88-7.09 H (test code = 3698225219) IMM GRAN x10^3 (test 0.04 10*3/uL 0-0.06 code = 3535461503) LYMPH x10^3 (test code 2.59 10*3/uL 1.32-3.29 = 731-0) MONO x10^3 (test code 0.53 10*3/uL 0.33-0.92 = 742-7) EOS x10^3 (test code = 0.09 10*3/uL 0.03-0.39 711-2) BASO x10^3 (test code 0.05 10*3/uL 0.01-0.07 = 704-7) Lab Interpretation Abnormal (test code = 43900-2) [facility]/O SPECIFIC [id number] 21:22:00 Test Item Value Reference Range Interpretation Comments POCT PH U (test code = 3254) n/a 5-8 POCT U LEUK EST (test code = n/a Negative - Negative 3263) POCT U NIT (test code = 3262) n/a Negative - Negative POCT U PROT (test code = 3259) Negative Negative - Negative POCT U GLU (test code = 3256) Normal Negative - Negative POCT U KETONE (test code = 3258) n/a Negative - Negative POCT U BLD (test code = 3257) n/a Negative - Negative [facility] [id number] 17:20:14 Test Item Value Reference Range Interpretation Comments URINE CULTURE (test 10,000 - 100,000 CFU/mL code = 630-4) mixed aerobic organisms - suggests endogenous microbial contamination [facility]aVZV ANTIBODY [id number] 15:36:55 Test Item Value Reference Range Interpretation Comments VZV IgG antibody Equivocal Negative (test code = 49382-2) ABDULLAHI (test code = ABDULLAHI) Positive - Indicates the patient was exposed to VZV through infection or vaccination.Negative - Indicates the patient could be susceptible to VZV infection.Equivocal - A second specimen should be sent for testing. [facility]aRUBELLA SCREEN [id number] 15:36:55 Test Item Value Reference Range Interpretation Comments Rubella screen IgG Positive Negative (test code = 3422357094) ABDULLAHI (test code = ABDULLAHI) Positive - Indicates the patient was exposed to Rubella through infection or vaccination.Negative - Indicates the patient could be susceptible to Rubella infection.Equivocal - A second specimen should be sent. [facility] ONLY - [id number] 04:45:51 Test Item Value Reference Range Interpretation Comments RPR (Qualitative) (test code = Nonreactive Nonreactive 49353-2) Lab Interpretation (test code = Normal 65685-0) [facility]aHCV [id number] 21:13:42 Test Item Value Reference Range Interpretation Comments HCV Ab (test code = 02574-6) Negative HCV Semi-Quantitative (test code = 78257-1) [facility]aHEPATITIS B SURFACE [id number] 20:57:38 Test Item Value Reference Range Interpretation Comments HBsAg Semi-Quantitative (test code = Negative Negative 5195-3) [facility]aPRENATAL WORKUP, BLOOD [id number] 20:44:39 Test Item Value Reference Range Interpretation Comments ABO & RH (test code A POSITIVE Performe d at [facility] = 20) Laboratory Serv [facility] [place] [address] s [address]Lcrr Free: [phone] A No. [id number] IAT (test code = Negative Performed a t [facility] 1185) Laboratory Serv [facility] [address] [place] [address] s [address]Olsj Free: [phone] A No. [id number] [facility]aHCG, QUANTITATIVE, [id number] 18:56:20 Test Item Value Reference Range Interpretation Comments BETA HCG (test See_Comment [Automated m essage] code = The system ic h 8030478578) generated this result transmit trupti reference range : Non- fe male and male patien ts: <5 mIU/mL. The reference range was not used to interpret this result as normal/abnormal . ABDULLAHI (test code Gestational Age ? ? = ABDULLAHI) ?Range (mIU/mL) 1-10 ?Weeks ?75-84550728-54 Weeks ?19602-44359216-96 Weeks ?8468-68563090-98 Weeks ?3347-761260 Biotin has been reported to cause a negative bias, interpret results relative to patient's use of biotin. [facility]aCOM. METABOLIC PANEL ([id number])2021-11-22 18:19:45 Test Item Value Reference Range Interpretation Comments NA (test code = 136 mmol/L 135-145 2411891414) K (test code = 3.7 mmol/L 3.5-5 6760067588) CL (test code = 106 mmol/L 98-108 7949800308) CO2 TOTAL (test code = 22 mmol/L 23-31 L 5265521747) AGAP (test code = 2-16 5845863143) BUN (test code = 5 mg/dL 7-23 L 7404799798) GLUCOSE (test code = 131 mg/dL 70-110 H 1025814751) CREATININE (test code = 0.52 mg/dL 0.5-1.04 6259257102) TOTAL BILI (test code = 0.1-1.1 L 6589740648) CALCIUM (test code = 8.6 mg/dL 8.6-10.6 2915177529) T PROTEIN (test code = 6.6 g/dL 6.3-8.2 7929997920) ALBUMIN (test code = 4.1 g/dL 3.5-5 6548810772) ALK PHOS (test code = 80 U/L 34-122 3670460260) ALTv (test code = 38 U/L 5-35 H 1742-6) AST(SGOT) (test code = 28 U/L 13-40 0168908188) eGFR (test code = mL/min/1.73m2 5153511920) ABDULLAHI (test code = ABDULLAHI) Association of Glomerular Filtration Rate (GFR) and Staging of Kidney Disease* + --+ --+ ------+| GFR (mL/min/1.73 m2) ?| With Kidney Damage ?| ?Without Kidney Damage+ --------+ --------+ +| ?>90 ?| ?Stage one ?| ? Normal ?+ ---+ ---+ -------+| ?60-89 ?| ?Stage two ?| ? Decreased GFR ? + --+ --+ ------+| ?30-59 ?| ?Stage three ?| ? Stage three ? + --+ --+ ------+| ?15-29 ?| ?Stage four ? | ? Stage four ?+ ---+ ---+ -------+| ?<15 (or dialysis) ? ?| ?Stage five ? | ? Stage five ?+ ---+ ---+ -------+ *Each stage assumes the associated GFR level has been in effect for at least three months. ?Stages 1 to 5, with or without kidney disease, indicate chronic kidney disease. Notes: Determination of stages one and two (with eGFR >59mL/min/1.73 m2) requires estimation of kidney damage for at least three months as defined by structural or functional abnormalities of the kidney, manifested by either:Pathological abnormalities or Markers of kidney damage (including abnormalities in the composition of the blood or urine or abnormalities in imaging tests). Lab Interpretation Abnormal (test code = 34984-9) [facility]aHIV 1/2 AG-AB WITH [id number] 18:13:21 Test Item Value Reference Range Interpretation Comments HIV Negative Negative Semi-quantitative (test code = 54235-8) ABDULLAHI (test code = Non-reactive for HIV-1 ABDULLAHI) antigen and HIV-1/HIV-2 antibodies. ?No laboratory evidence of HIV infection. ?Repeat in 2-4 weeks if acute HIV infection is suspected. [facility]aURIC [id number] 17:33:00 Test Item Value Reference Range Interpretation Comments URIC ACID (test code = 2500142271) 2.5 mg/dL 2.9-6 L Lab Interpretation (test code = Abnormal 83763-8) [facility]aGLUCOSE 1 HOUR POST [id number] 17:31:38 Test Item Value Reference Range Interpretation Comments GLUC 1 HR (test code = 0503383239) 136 mg/dL 120-170 Lab Interpretation (test code = Normal 27300-7) [facility]aLACTATE [id number] 17:23:34 Test Item Value Reference Range Interpretation Comments LDH (test code = 4783868145) 152 U/L 120-246 Lab Interpretation (test code = Normal 78470-0) [facility]INE DRUG (IMMUNOASSAY) - COMPREHENSIVE DRUG [id number] 16:53:41 Test Item Value Reference Range Interpretation Comments AMPHET (test code = Negative Negative 9170196274) HUBERT U (test code = Negative Negative 4623024280) BENZO U (test code = Negative Negative 1640667266) Cocaine Metabolite (test Negative Negative code = 4517403232) METHADONE (test code = Negative Negative 0795184869) OPIATES (test code = Negative Negative 2457758857) PCP (test code = Negative Negative 8598796617) THC (test code = Negative Negative 7176988799) ABDULLAHI (test code = ABDULLAHI) Urine Drug Cutoff Ranges Cocaine: ? 150 ng/mLBenzodiazepines: ? ? 200 ng/mLMethadone: ? 300 ng/mLAmphetamine: ? 1,000 ng/mLOpiates: ? 300 ng/mLCannabinoids: ?50 ng/mLPhencyclidine: ? ? ? 25 ng/mLBarbiturates: ?200 ng/mL The results are to be used only for medical (i.e., treatment) purposes. Unconfirmed screening results must not be used for non-medical purposes (e.g., employment testing, legal testing). Lab Interpretation (test Normal code = 71670-7) [facility]aPLACENTA THIRD [id number] 10:11:00 Test Item Value Reference Range Interpretation Comments PLACENTA THIRD TRIMESTER (test code = PLACIII) RUN DATE: 06/25/20 [facility] PAGE 1 RUN TIME: 1826 Specimen Inquiry RUN USER: INTERFACE PATIENT: MINE COLEMAN LOC: MarianoAPU2 U #: [id number] AGE/SX: 20/F ROOM: [facility]ending [facility] RE06/14/20REG DR: Wan Dorado DO : 02 BED: A DIS: 06/17/20 STATUS: DIS IN TLOC: SPEC #: [id number] RECD: 06/15/20 STATUS: VANITA RESanta #: [id number] SINDY: 06/14/20- SUBM DR: Wan Dorado DO ENTERED: 06/15/20 SP TYPE: PLACIII OTHR DR: ORDERED: LEVEL V SURGICA CODES: IG9826 - PLACENTA, NOS PROCEDURES: LEVEL V SURGICA [...] gms/expected mean 269 gms (25-50th percentile) CPT: 61411 cds/dori GROSS DESCRIPTION The specimen was received in a container, labeled with the patient's name, unit number and designated "placenta". The following attributes are observed: Cord insertion: 2 cm from margin Cord length: 40 cm Number of vessels: 3 Cord color: [place]per-white Other cord findings: None surface findings: [place]-purple, wrinkled, glistening with focal subchorionic fibrin deposition Vasculature: Unremarkable vasculature Membranes rupture site: 1 cm to margin Membrane color: [place]per-pink to galeana Other membrane findings: Focally opaque and circummarginate The trimmed placental weight: 250 gm CONTINUED ON NEXT PAGE RUN DATE: 06/25/20 [facility] PAGE 2 RUN TIME: 1825 Specimen Inquiry RUN USER: INTERFACE SPEC #: [id number] PATIENT: EVA COLEMANFaustino HOOVER #[id number] (Continued) GROSS DESCRIPTION (Continued) Disk measurement: 14 [...] Jag Frey 06/25/20 1011 END OF REPORT [id number] 10:36:00 Test Item Value Reference Range Interpretation Comments GLUBED (test code = GLUBED) 115 mg/dL 65-110 H CBC W/AUTO [id number] 05:26:00 Test Item Value Reference Range Interpretation [...] REQUIRED (test NORMAL NORMAL code = PLTMR) [id number] 05:15:00 Test Item Value Reference Range Interpretation Comments FIBRINOGEN (test code = FIB) 424 mg/dL 309-518 N PROTHROMBIN [id number] 05:15:00 Test Item Value Reference Range Interpretation Comments PROTHROMBIN TIME PATIENT (test code 10.1 secs 10.4-12.4 L = PTP) THROMBOPLASTIN TIME [id number] 05:15:00 Test Item Value Reference Range Interpretation Comments THROMBOPLASTIN TIME PARTIAL (test 25.8 secs 22-38 N code = PTT) PIH [id number] 05:14:00 Test Item Value Reference Range Interpretation Comments CREATININE (test code = CREAT) 1.0 mg/dL 0.5-1.0 N SGOT/AST (test code = AST) 39 units/L 15-37 H SGPT/ALT (test code = ALT) 30 units/L 12-78 N LACTIC DEHYDROGENASE(LDH) (test 390 units/L 81-234 H code = LDH) COMPREHENSIVE METABOLIC [id number] 05:14:00 Test Item Value Reference Range Interpretation [...] 46-116 N code = ALKP) CBC W/AUTO [id number] 05:08:00 Test Item Value Reference Range Interpretation Comments WHITE BLOOD CELL (test 20.6 K/mm3 6.5-12.3 HH RESUL TS CALLED TO code = WBC) JEN.READ B ACK & CONFIRMED? EMELYN CollazoBY F.LAB.IR1 06/16 0505.Results verified by rep eat analysis RED BLOOD [...] NORMAL NORMAL REQUIRED (test code = PLTMR) [id number] 21:53:00 Test Item Value Reference Range Interpretation Comments MAGNESIUM (test code = MAG) 4.7 mg/dL 1.8-2.4 H DRUGS OF ABUSE [id number] 07:49:00 Test Item Value Reference Range Interpretation [...] code = PHENCU) 25 ng/m L LACTIC [id number] 00:27:00 Test Item Value Reference Range Interpretation Comments LACTIC ACID (test code = LACT) 1.4 MMOL/L 0.5-2.2 N COMPREHENSIVE METABOLIC [id number] 23:11:00 Test Item Value Reference Range Interpretation [...] 81-234 H code = LDH) COMPREHENSIVE METABOLIC [id number] 22:15:00 Test Item Value Reference Range Interpretation [...] units/L 46-116 H code = ALKP) LACTIC [id number] 22:09:00 Test Item Value Reference Range Interpretation Comments LACTIC ACID (test 2.1 MMOL/L 0.5-2.2 N RESULTS CA LLED TO code = LACT) COULD NOT GET A HOLD OF NURSE.READ B ACK & CONFIRMED? NO.B Y 39BLV1183 06/14. PROTHROMBIN [id number] 22:02:00 Test Item Value Reference Range Interpretation Comments PROTHROMBIN TIME PATIENT (test code 10.5 secs 10.4-12.4 N = PTP) IS PATIENT ON ANTICOAGULANTS ? NINTERNATIONAL NORMAL [id number] 22:02:00 Test Item Value Reference Range Interpretation Comments INTERNATIONAL NORMAL 0.95 The INR is to be used RATIO (test code = INR) only for monitoring oral anticoagulantth erapy. INDICATION INR VALUE 1. Prophylaxis inc luding high risk surge ry 2.0 - 2.52. Deep veno us thrombosis. Pul monary embolism. Atria l fibrillation or bioprosthetic h eart valves 2.0 - 3. 03. Mechanical hear t valves or recurrent sy stemic embolism. 3.0 - 3.5 IS PATIENT ON ANTICOAGULANTS ? NTHROMBOPLASTIN TIME [id number] 22:02:00 Test Item Value Reference Range Interpretation Comments THROMBOPLASTIN TIME PARTIAL (test 27.4 secs 22-38 N code = PTT) IS PATIENT ON ANTICOAGULANTS ? NUA RFLX MICR CULT IF [id number] 22:00:00 Test Item Value Reference Range Interpretation [...] Temperature > 100.4 FSpecimen Description: CATHETERCBC W/AUTO [id number] 21:51:00 Test Item Value Reference Range Interpretation [...] NORMAL NORMAL code = PLTMR) URINALYSIS W/O [id number] 16:39:00 Test Item Value Reference Range Interpretation Comments UA GLUCOSE DIPSTICK (test code = NEGATIVE NEGATIVE DGLUU) UA KETONE DIPSTICK (test code = NEGATIVE NEGATIVE KETU) UA PROTEIN DIPSTICK (test code = 3+ NEGATIVE PROU) Comments to Personal Computer Specialist: IN ROOM IS NURSE PERFORMING TEST? ANA PROTEIN/CREATININE [id number] 16:34:00 Test Item Value Reference Range Interpretation Comments UR PROTEIN RANDOM (test code 1847.1 mg/dL = PROTU) UR CREATININE RANDOM (test 205.5 mg/dL code = CREATU) PROTEIN/CREATININE RATIO 8988.3 mg/gcrea <200 H (test code = P/CRATIO) UR PROTEIN/CREATININE [id number] 16:25:00 Test Item Value Reference Range Interpretation Comments UR PROTEIN RANDOM (test code = mg/dL PROTU) UR CREATININE RANDOM (test code = 205.5 mg/dL CREATU) PROTEIN/CREATININE RATIO (test mg/gcrea <200 code = P/CRATIO) AG HEPATITIS B [id number] 13:41:00 Test Item Value Reference Range Interpretation Comments AG HEPATITIS B SURFACE (test code NONREACTIVE NONREACTIVE = HBSAG) Comments to Personal Computer Specialist: IN ROOM IS CONSENT FORM SIGNED FOR HIV TESTING? NAB HEPATITIS C [id number] 13:41:00 Test Item Value Reference Range Interpretation Comments AB HEPATITIS C (test code = NONREACTIVE NONREACTIVE HCVAB) SIGNAL TO CUTOFF (test code = <0.02 <0.80 N CUTOFF) Comments to Personal Computer Specialist: IN ROOM IS CONSENT FORM SIGNED FOR HIV TESTING? NAB [id number] 13:41:00 Test Item Value Reference Range Interpretation Comments AB TREPONEMA (test code = TREPAB) NONREACTIVE NONREACTIVE Comments to Personal Computer Specialist: IN ROOM IS CONSENT FORM SIGNED FOR HIV TESTING? NAB HIV 1 13:41:00 Test Item Value Reference Range Interpretation Comments AB HIV 1 2 (test NONREACTIVE NONREACTIVE [facility] code = NHL09VU) 4th Gen HIV Ag/Ab Combo Screen Comments to Personal Computer Specialist: IN ROOM IS CONSENT FORM SIGNED FOR HIV TESTING? NAG HEPATITIS B [id number] 13:16:00 Test Item Value Reference Range Interpretation Comments AG HEPATITIS B SURFACE (test code NONREACTIVE NONREACTIVE = HBSAG) Comments to Personal Computer Specialist: IN ROOM IS CONSENT FORM SIGNED FOR HIV TESTING? NAB HEPATITIS C [id number] 13:16:00 Test Item Value Reference Range Interpretation Comments AB HEPATITIS C (test code = HCVAB) NONREACTIVE SIGNAL TO CUTOFF (test code = CUTOFF) <0.80 Comments to Personal Computer Specialist: IN ROOM IS CONSENT FORM SIGNED FOR HIV TESTING? NAB [id number] 13:16:00 Test Item Value Reference Range Interpretation Comments AB TREPONEMA (test code = TREPAB) NONREACTIVE NONREACTIVE Comments to Personal Computer Specialist: IN ROOM IS CONSENT FORM SIGNED FOR HIV TESTING? NAB HIV 1 13:16:00 Test Item Value Reference Range Interpretation Comments AB HIV 1 2 (test code = LWX44KT) NONREACTIVE Comments to Personal Computer Specialist: IN ROOM IS CONSENT FORM SIGNED FOR HIV TESTING? NPIH [id number] 12:47:00 Test Item Value Reference Range Interpretation Comments CREATININE (test code = CREAT) 1.0 mg/dL 0.5-1.0 N SGOT/AST (test code = AST) 120 units/L 15-37 H SGPT/ALT (test code = ALT) 75 units/L 12-78 N LACTIC DEHYDROGENASE(LDH) (test 517 units/L 81-234 H code = LDH) : *Comments to Personal Computer Specialist: [facility]AUTO [id number] 12:28:00 Test Item Value Reference Range Interpretation [...] code = PLTMR) COVID 19 Asymptomatic IH [id number] 11:52:00 Test Item Value Reference Range Interpretation Comments COVID 19 NEGATIVE NEGATIVE This test has b een Asymptomatic IH AG authorize d only for the (test code = detection ofpro teins from COVNONPUIAG) SARS-CoV-2, not for any other viruses orpathogens. Ne gative results should be treated as presumptive andconfirmed [...] or approved; th e test hasbeen authori kailey by FDA under an Emerge ncy Use [...] and/o r diagnosis of CO VID-19 under Whtytby80 4(b)(1) of the Act, 21 U.S .C. 360bbb-3(b)(1), unless theauthorizatio n is terminated or r evoked sooner. Comments to Personal Computer Specialist: IN ROOM Notes Date/Time Note Provider Source 2022-12-04 14:15:00 1865-58-22G31:15:00Formatting of this note [facility] is different from the original.Images from the original note were not included.Venipuncture collection performed by clean technique on the right anticubitus. Total of 1 attempts were made. Slight pressure and a bandage/dressing were applied to the site(s). The patient experienced no complications. The following specimens were processed according to instructions and sent to [facility] laboratories per lab order on 12/04/2022: LT BLUE SST 1 RED LAV PPT DK GREEN (LiHep) DK GREEN (SodH) GALEANA DK BLUE (K2) DK BLUE (S) ACD Blood Culture NIPT/NTD [place] [address]-3Zendh [id number]:12:06Nurse NoteTXT1.2.840.959322.1.13.104.2.7.2.09916 9|[id number] for patient jyao93389-1Wwukt NoteLNUT[address] Aa[id number] [id number]:12:061.2.840 .872213.1.72.3.15|1.2.840.179284.1.13.104. 2.7.2.727879_[id number] 2020-06-17 09:50:00 PRnvwsidrux394539095185-93-50C06:50:00 [facility] ([facility])OB Postpart Progr NoteREPORT#:[id number] REPORT STATUS: SignedDATE:06/17/20 TIME: 0950 PATIENT: MINE COLEMAN UNIT #: [id number]#: [id number] [address] AGE: 20 SEX: F ATTEND: Wan Dorado DOADM AUTHOR: Sheyla Hua MD * ALL edits or amendments must be made on the electronic/computer document * Subjective SubjectiveAdmission EGA: Weeks: 29 Days: 3EGA at delivery (wks/days): 29wksStatus/Day: post (day 0)Comments: DAY #2 SUBJECTIVE: No complaints. Scant lochia. Tolerating a regular diet. Ambulatory.Voiding spontaneously. BPs improved with labetalol 300mg q 6 hours OBJECTIVE: Vital signs stable. AfebrileVital Signs: Date Time Temp Pulse Resp B/P B/P Pulse O2 O2 Flow FiO2 Mean Ox Delivery Rate 06/17 506 97.0 06/17 050 97.8 93 16 130/74 06/17 0008 87.0 06/17 000 97.6 102 125/67 Fundus is firm, low and nontender. Perineum/suture sites are healing well and intact. Laboratory Tests: 06/17 514 Hematology WBC (6.5 - 12.3 K/mm3) 14.5 H RBC (3.51 - 4.69 M/mm3) 2.82 L Hgb (10.1 - 13.8 g/dL) 8.0 L Hct (32.5 - 41.8 %) 24.6 L MCV (84.6 - 96.6 fL) 87.2 MCH (27.3 - 33.9 pg) 28.4 MCHC (32.0 - 34.2 gm/dL) 32.5 RDW (12.2 - 16.3 %) 14.6 Plt Count (134 - 363 K/mm3) 149 MPV (9.2 - 12.7 fL) 10.6 Neut % (Auto) (57.9 - 77.3 %) 72.7 Lymph % (Auto) (14.5 - 29.7 %) 19.2 [place] % (Auto) (3.6 - 10.2 %) 5.8 Eos % (Auto) (0.0 - 3.0 %) 0.8 Baso % (Auto) (0.1 - 0.9 %) 0.2 Neut # (Auto) (K/mm3) 10.5 Lymph # (Auto) (K/mm3) 2.8 [place] # (Auto) (K/mm3) 0.8 Eos # (Auto) (K/mm3) 0.12 Baso # (Auto) (K/mm3) 0.0 ASSESSMENT: Recovering well after . PLAN: Doing well and ready for discharge home. RX: Ferrous sulfate 325mg 1 tab po q 8 hours #90 RX: Labetalol 300mg po q 6 hours #120 RX: Motrin 600 mg 1 tab po q 6 hours prn pain # 30 Resume PNV and iron as before delivery. Return to office in 6 weeks. Discharge instructions have been given Diagnosis, Assessment Plan Diagnosis, Assessment PlanFree text A P:s/p NVD for IUFDSevere Prw-eclampsia - improving and stableanemia - start iron TIDAssessment: s/p vaginal delivery of demise due to pre-eclampsiaPlan: routine care, discharge todayPlan discussed with: patient at 0954 RPT #:[id number] OF REPORT PRProgress Rudz1743-74-20T15:50:00F.[id number] AVAvailable for patient tkjdHYWNXZYOOKJBFQ9184-84-03V78:55:22 2020-06-16 21:43:00 IBxkfywxzin490102411780-96-24S67:43:00 [facility] ([facility])OB Postpart Progr NoteREPORT#:[id number] REPORT STATUS: SignedDATE:06/16/20 TIME: 2142 PATIENT: MINE COLEMAN UNIT #: [id number]#: [id number] [address] AGE: 20 SEX: F ATTEND: Wan Dorado DOADM AUTHOR: Lea Avila MD * ALL edits or amendments must be made on the electronic/computer document * Subjective SubjectiveAdmission EGA: Weeks: 29 Days: 3EGA at delivery (wks/days): 29wksStatus/Day: post (day 0) Objective Physical ExamAbdomen: soft, no abnormal tenderness, no guardingUterus: involution appropriate, non-tender Diagnosis, Assessment Plan Diagnosis, Assessment PlanAssessment: s/p vaginal delivery of demise due to pre-eclampsiaPlan: routine care, discharge tomorrowConsultation(s): Consultation performed: hospitalistComments:-was called to bedside for evaluation of tachycardia 100-118 new onset since 7p,pt felt palpitations, pulse Ox 99%, BP 130's/80's. Pt received 300mg labetolol and Procardia previously. Advised that is most likely a reflex tachycardia fromProcardia from vasodilation as she has not received Procardia prior. No acute treatment advised at this time.l advised vagal maneuvers. Antibiotics completed, repeat CBC in AM. at 2146 RPT #:[id number] OF REPORT PRProgress Bajg1662-04-75J19:43:00F.[id number] AVAvailable for patient [id number]:46:59 2020-06-16 07:46:00 [id number]:46:00 [facility] ([facility])OB Postpart Progr NoteREPORT#:[id number] REPORT STATUS: SignedDATE:06/16/20 TIME: 0746 PATIENT: MINE COLEMAN UNIT #: [id number]#: [id number] [address] AGE: 20 SEX: F ATTEND: Wan Dorado DOADM AUTHOR: Sheyla Hua MD * ALL edits or amendments must be made on the electronic/computer document * Subjective SubjectiveAdmission EGA: Weeks: 29 Days: 3EGA at delivery (wks/days): 29wksStatus/Day: post (day 0)Comments: DAY #1 SUBJECTIVE: No complaints. Scant lochia. Tolerating a regular diet. Ambulatory.Voiding spontaneously. Denies headache, visual chanes or abdominal pain. OBJECTIVE: Vital signs stable. AfebrileVital Signs: Date Time Temp Pulse Resp B/P B/P Pulse O2 O2 Flow FiO2 Mean Ox Delivery Rate 06/16 414 95.0 06/16 414 99.8 109 18 128/73 06/168 92.0 06/168 100 18 127/70 06/16 0030 111.0 06/16 29 94 151/82 06/16 0008 123.0 06/16 0008 99.0 93 18 163/95 100 06/15 2133 120.0 06/15 2133 80 158/91 06/16 2039 114.0 06/16 2039 81 165/83 06/16 2039 98.2 18 98 Fundus is firm, low and nontender. Perineum/suture sites are healing well and intact. Laboratory Tests: 06/16 06/15 0445 2113 Chemistry Sodium (135 - 145 mEq/L) 137 Potassium (3.5 - 5.0 mEq/L) 4.2 Chloride (100 - 115 mEq/L) 105 Carbon Dioxide (22 - 31 mEq/L) 21 L Anion Gap (10 - 20) 14.90 BUN (7 - 18 mg/dL) 11 Creatinine (0.5 - 1.0 mg/dL) 1.0 Glomerular Filtr Rate (>60 ml/min) 81 Glucose (65 - 110 mg/dL) 82 Calcium (8.4 - 10.2 mg/dL) 7.3 L Magnesium (1.8 - 2.4 mg/dL) 4.7 H Total Bilirubin (0.2 - 1.0 mg/dL) 0.2 AST (15 - 37 units/L) 39 H ALT (12 - 78 units/L) 30 Total Alk Phosphatase (46 - 116 units/L) 104 Lactate Dehydrogenase (81 - 234 units/L) 390 H Total Protein (6.3 - 8.2 gm/dL) 5.4 L Albumin (3.4 - 4.8 gm/dL) 1.8 L Coagulation PT (10.4 - 12.4 secs) 10.1 L PTT (Naomi) (22 - 38 secs) 25.8 Fibrinogen (309 - 518 mg/dL) 424 Hematology WBC (6.5 - 12.3 K/mm3) 20.6 *H RBC (3.51 - 4.69 M/mm3) 3.33 L Hgb (10.1 - 13.8 g/dL) 9.3 L Hct (32.5 - 41.8 %) 28.4 L MCV (84.6 - 96.6 fL) 85.3 MCH (27.3 - 33.9 pg) 27.9 MCHC (32.0 - 34.2 gm/dL) 32.7 RDW (12.2 - 16.3 %) 14.3 Plt Count (134 - 363 K/mm3) 156 MPV (9.2 - 12.7 fL) 9.8 Neut % (Auto) (57.9 - 77.3 %) 85.1 H Lymph % (Auto) (14.5 - 29.7 %) 9.5 L [place] % (Auto) (3.6 - 10.2 %) 4.5 Eos % (Auto) (0.0 - 3.0 %) 0.2 Baso % (Auto) (0.1 - 0.9 %) 0.1 Neut # (Auto) (K/mm3) 17.5 Lymph # (Auto) (K/mm3) 2.0 [place] # (Auto) (K/mm3) 0.9 Eos # (Auto) (K/mm3) 0.04 Baso # (Auto) (K/mm3) 0.0 ASSESSMENT: Recovering well after of IUFD - 29.3 weeks s/p 24 hours IV antibioticsfor spsis w/u. PLAN: Continue care per orders. Planning for discharge home tomorrow. Diagnosis, Assessment Plan Diagnosis, Assessment PlanFree text A P:s/p NVD for IUFD due to severe Pre-eclspsia- BPs controlled on Labetalol 300mg TIDs/p code sepsis received 24 hours of antibioticsAssessment: s/p vaginal delivery of demise due to pre-eclampsiaPlan: routine care, discharge tomorrowPlan discussed with: patient at 0750 RPT #:[id number] OF REPORT PRProgress [id number]:46:[id number] AVAvailable for patient [id number]:51:04 2020-06-15 13:04:00 [id number]:04:00 [facility])OB Postpart Progr NoteREPORT#:[id number] REPORT STATUS: SignedDATE:06/15/20 TIME: 1304 PATIENT: MINE COLEMAN UNIT #: [id number]#: [id number] [address] AGE: 20 SEX: F ATTEND: Wan Dorado DOADM AUTHOR: Wan Dorado DO * ALL edits or amendments must be made on the electronic/computer document * Subjective SubjectiveAdmission EGA: Weeks: 29 Days: 3EGA at delivery (wks/days): 29wksStatus/Day: post (day 0)Patient reports: Patient reports: Yes no complaints, Yes pain management effective, Yes tolerating po well, No nausea, No vomiting Objective GeneralVS:Vital Signs: Date Time Temp Pulse Resp B/P B/P Pulse O2 O2 Flow FiO2 Mean Ox Delivery Rate 03/ 1048 84.0 03/12 1048 74 116/62 03/12 1044 72 98 03/12 1014 80 99 03/12 0948 101.0 03/12 0948 72 139/76 03/12 0944 84 100 03/12 0915 112.0 03/12 0915 75 151/87 03/12 0912 79 100 03/12 0907 77 100 03/12 0902 95 100 03/12 0857 88 98 03/12 0855 97.9 03/12 0852 85 99 03/12 0847 90 99 03/12 0842 89 99 03/12 0837 86 99 03/12 0835 114.0 03/12 0835 98 148/91 03/12 0832 78 98 03/12 0827 82 98 03/12 0822 84 97 03/12 0820 107.0 03/12 0820 78 142/81 03/12 0817 79 100 03/12 0813 87 94 03/12 0812 84 96 03/12 0807 74 100 03/12 0805 94.0 03/12 0805 81 129/70 03/12 0802 85 100 03/12 0801 88 93 03/12 0757 83 99 03/12 0752 76 99 03/12 0750 78.0 03/12 0750 76 111/58 03/12 0747 75 98 03/12 0742 76 98 03/12 0737 75 98 03/12 0735 89.0 03/12 0735 77 120/67 03/12 0732 81 99 03/12 0727 79 98 03/12 0722 92 97 03/12 0720 78.0 03/12 0720 82 112/56 03/12 0717 83 98 03/12 0712 82 98 03/12 0707 81 98 03/12 0705 84.0 03/12 0705 84 18 116/59 03/12 0702 84 98 03/12 0657 84 98 03/12 0652 81 98 03/12 0650 81.0 03/12 0650 85 118/56 03/12 0647 83 98 03/12 0642 82 98 03/12 0637 84 98 03/12 0635 80.0 03/12 0635 98.7 92 19 118/58 03/12 0632 83 98 03/12 0627 83 98 03/12 0622 86 98 03/12 0620 86.0 03/12 0620 88 124/60 03/12 0617 88 98 03/12 0612 93 97 03/12 0607 88 98 03/12 0605 83.0 03/12 0605 93 18 122/58 03/12 0602 90 97 03/12 0557 89 98 03/12 0552 88 98 03/12 0550 82.0 03/12 0550 89 121/57 03/12 0547 88 98 03/12 0542 90 98 03/12 0537 93 98 03/12 0535 80.0 03/12 0535 90 19 119/55 03/12 0532 90 97 03/12 0527 89 97 03/12 0522 98 98 03/12 0520 80.0 03/12 0520 89 113/58 03/12 0517 91 97 03/12 0512 90 97 03/12 0507 91 97 03/12 0505 83.0 03/12 0505 88 18 115/58 03/12 0502 90 98 03/12 0457 92 97 03/12 0452 93 97 03/12 0450 82.0 03/12 0450 95 114/58 03/12 0447 91 97 03/12 0442 92 97 03/12 0437 92 97 03/12 0435 79.0 03/12 0435 91 18 115/55 03/12 0432 92 96 03/12 0427 92 98 03/12 0422 90 98 03/12 0420 81.0 03/12 0420 87 18 121/56 03/12 0417 89 97 03/12 0412 88 98 03/12 0407 97 99 03/12 0405 87.0 03/12 0405 87 130/60 93 03/12 0402 92 99 03/12 0357 96 99 03/12 0352 98 99 03/12 0350 17 03/12 0350 102.0 03/12 0350 94 143/77 03/12 0347 99 99 03/12 0342 99 99 03/12 0337 103 99 03/12 0335 18 03/12 0335 99.0 03/12 0335 104 145/65 03/12 0332 101 98 03/12 0327 92 99 03/12 0322 90 99 03/12 0320 18 03/12 0320 113.0 03/12 0320 85 158/84 03/12 0317 98 99 03/12 0312 92 99 03/12 0307 97 100 03/12 0305 18 03/12 0305 101.0 03/12 0305 86 144/74 03/12 0302 100 100 03/12 0257 88 98 03/12 0252 89 99 03/12 0250 17 03/12 0250 88.0 03/12 0250 90 126/61 03/12 0247 94 100 03/12 0242 91 99 03/12 0237 86 100 03/12 0236 101.7 03/12 0235 18 03/12 0235 86.0 03/12 0235 98 146/60 91 03/12 0232 97 100 03/12 0227 93 99 03/12 0222 93 98 03/12 0220 103.0 03/12 0220 96 137/82 03/12 0217 104 99 03/12 0212 91 98 03/12 0207 88 98 03/12 0206 105.0 03/12 0206 87 139/83 03/12 0204 99.7 03/12 0202 86 98 03/12 0157 89 98 03/12 0152 91 99 03/12 0150 112.0 03/12 0150 90 155/86 03/12 0147 97 99 03/12 0142 90 97 03/12 0137 90 97 03/12 0135 95.0 03/12 0135 86 135/72 03/12 0132 90 97 03/12 0127 88 96 03/12 0122 96 97 03/12 0120 95.0 03/12 0120 88 134/72 03/12 0117 89 97 03/12 0112 90 96 03/12 0107 94 98 03/12 0106 100.5 03/12 0105 94.0 03/12 0105 93 131/70 03/12 0102 90 97 03/12 0057 89 97 03/12 0052 107 97 03/12 0050 96.0 03/12 0050 91 132/74 03/12 0047 88 96 03/12 0042 88 96 03/12 0037 87 97 03/12 0036 96.0 03/12 0036 90 130/74 03/12 0032 88 95 03/12 0027 87 96 03/12 0022 87 97 03/12 0020 98.0 03/12 0020 89 133/79 03/12 0017 87 96 03/12 0012 84 98 03/12 0007 82 97 03/12 0005 102.0 03/12 0005 83 134/80 03/12 0002 81 98 03/11 2359 100.0 03/11 2357 84 98 03/11 2352 89 98 03/11 2349 104.0 03/11 2349 84 142/78 03/11 2347 83 98 03/11 2342 84 99 03/11 2337 107.0 03/11 2337 85 161/74 99 03/11 2332 86 100 03/11 2327 80 98 03/11 2322 83 98 03/11 2320 97.0 03/11 2320 84 154/67 03/11 2317 84 99 03/11 2312 82 99 03/11 2307 84 98 03/11 2305 97.0 03/11 2305 85 151/67 03/11 2302 89 98 03/11 2257 90 99 03/11 2252 86 99 03/11 2250 96.0 03/11 2250 86 146/67 03/11 2248 101.1 03/11 2247 86 99 03/11 2246 96.0 03/11 2246 88 142/67 03/11 2242 89 98 03/11 2241 85.0 03/11 2241 93 126/59 03/11 2237 88 99 03/11 2235 86.0 03/11 2235 82 136/60 03/11 2232 90 98 03/11 2230 90.0 03/11 2230 92 142/63 03/11 2228 95.0 03/11 2228 91 154/66 03 2227 91 98 03/ 2222 92 98 03 2221 95 91 03 2217 90 98 03 2212 106.0 03 2212 87 152/87 98 03 2211 100.9 03 2211 90 94 03/ 2207 94 99 03/ 2202 97 99 03 2200 115.0 06/14 2200 91 154/88 03 2057 99 99 03 2052 95 98 03 2051 104.0 06/14 2051 93 142/78 03 2047 97 99 03 2042 101.4 97 98 06/14 2041 107.0 06/14 2041 96 140/92 06/14 2037 92 99 06/14 203 97 98 06/14 202 111.0 06/14 202 93 154/80 03 202 95 99 06/14 202 94 99 06/14 2016 95 98 06/14 2014 117.0 06/14 2014 93 168/87 06/15 2011 92 98 06/14 2006 95 98 06/14 2001 94 98 03/1999 115.0 03 2000 93 167/80 03 1957 95 98 / 1952 96 100 06/14 1947 93 98 03 1944 121.0 06/14 1944 167/88 03 1942 89 98 03 1937 92 98 03/ 1932 112.0 06/14 1932 91 162/78 98 03/11 1931 125.0 06/14 1931 91 157/104 03 1927 91 98 03 1922 90 98 06/14 1917 87 98 03/ 1914 98.8 18 03 1914 102.0 03 1914 87 138/76 03 1912 89 98 03/ 1907 91 99 03 1902 89 99 03 1859 111.0 06/14 1859 85 147/88 03 1857 87 99 03 1852 87 99 03/ 1847 84 99 0311 1843 110.0 06/14 1843 83 151/83 03 1842 83 98 03 1830 102.0 06/14 1830 98.2 90 18 146/74 0311 1813 96.0 06/14 1813 84 148/63 06/14 1758 105.0 / 1758 83 159/73 / 1743 105.0 / 1743 78 154/72 06/14 1729 105.0 06/14 1729 83 149/75 06/14 1713 98.0 18 06/14 1713 105.0 06/14 1713 85 138/83 06/14 1658 111.0 06/14 1658 83 148/85 06/14 1644 110.0 06/14 1644 82 146/84 06/14 1629 107.0 06/14 1629 82 142/84 06/14 1614 103.0 06/14 1614 86 147/72 06/14 1600 118.0 06/14 1600 83 162/85 06/14 1545 119.0 06/14 1545 78 159/93 06/14 1530 112.0 06/14 1530 82 147/89 06/14 1516 109.0 06/14 1516 97.8 80 18 146/84 06/14 1458 102.0 06/14 1458 92 137/79 06/14 1443 106.0 06/14 1443 86 139/84 06/14 1428 117.0 06/14 1428 81 153/91 06/14 1414 114.0 06/14 1414 82 149/90 06/14 1358 125.0 06/14 1358 77 174/97 06/14 1348 117.0 06/14 1348 78 155/91 06/14 1344 123.0 06/14 1344 79 162/97 06/14 1328 111.0 06/14 1328 85 148/86 06/14 1323 119.0 06/14 1323 82 160/88 06/14 1314 136.0 06/14 1314 82 173/110 PATIENT WEIGHT: Weight (lb): 208Weight (oz): Weight (kg): 94.347 Physical ExamAbdomen: soft, no abnormal tenderness, no guardingUterus: involution appropriate, non-tenderLacerations: Perineal laceration(s): None ResultFindings/Data:Laboratory Tests: 06/15 06/14 06/14 0643 2347 2125Chemistry Lactic Acid (0.5 - 2.2 MMOL/L) 1.4Toxicology Urine Opiates Screen (NEGATIVE) NEGATIVE Ur Barbiturates, Qual (NEGATIVE) NEGATIVE Ur Phencyclidine Scrn (NEGATIVE) NEGATIVE Ur Amphetamines Screen (NEGATIVE) NEGATIVE U Benzodiazepines Scrn (NEGATIVE) NEGATIVE Urine Cocaine Screen (NEGATIVE) NEGATIVE Urine Cannabinoids (NEGATIVE) NEGATIVEUrines Urine Color (YELLOW) YELLOW Urine Appearance (CLEAR) Slightly-Cloudy Urine pH (5 - 9) 6.0 [address] Specific [place] (1.001 - 1.035) 1.031 Urine Protein (NEG) 3+ H Urine Glucose (UA) (NEG) NEGATIVE Urine Ketones (NEG) NEGATIVE Urine Blood (NEG) 3+ H Urine Nitrite (NEG) NEG Urine Bilirubin (NEG) NEGATIVE Urine Urobilinogen (NEG mg/dL) NEGATIVE Ur Leukocyte Esterase (NEG) NEG Urine RBC (NONE SEEN #/hpf) TOO NUMEROUS TO CNT H Urine WBC (NONE SEEN #/hpf) 0-2 Ur Epithelial Cells (RARE - FEW #/HPF) NONE SEEN Urine Bacteria (RARE - FEW /HPF) RARE Urine Mucus (NONE SEEN) RARE 06/14 06/14 06/14 06/14 2124 2124 1340 1340 Chemistry Sodium (135 - 145 mEq/L) 132 L Potassium (3.5 - 5.0 mEq/L) 4.3 Chloride (100 - 115 mEq/L) 102 Carbon Dioxide (22 - 31 mEq/L) 20 L Anion Gap (10 - 20) 14.10 BUN (7 - 18 mg/dL) 18 Creatinine (0.5 - 1.0 mg/dL) 1.1 H Glomerular Filtr Rate (>60 ml/min) 72 Glucose (65 - 110 mg/dL) 101 Lactic Acid (0.5 - 2.2 MMOL/L) 2.1 Calcium (8.4 - 10.2 mg/dL) 7.7 L Total Bilirubin (0.2 - 1.0 mg/dL) 0.2 AST (15 - 37 units/L) 92 H ALT (12 - 78 units/L) 75 Total Alk Phosphatase (46 - 116 units/L) 127 H Lactate Dehydrogenase (81 - 234 units/L) 607 H Total Protein (6.3 - 8.2 gm/dL) 5.7 L Albumin (3.4 - 4.8 gm/dL) 2.1 L Coagulation PT (10.4 - 12.4 secs) 10.5 INR 0.95 PTT (Naomi) (22 - 38 secs) 27.4 Hematology WBC (6.5 - 12.3 K/mm3) 17.3 H RBC (3.51 - 4.69 M/mm3) 3.96 Hgb (10.1 - 13.8 g/dL) 11.3 Hct (32.5 - 41.8 %) 33.8 MCV (84.6 - 96.6 fL) 85.4 MCH (27.3 - 33.9 pg) 28.5 MCHC (32.0 - 34.2 gm/dL) 33.4 RDW (12.2 - 16.3 %) 13.7 Plt Count (134 - 363 K/mm3) 195 MPV (9.2 - 12.7 fL) 9.6 Neut % (Auto) (57.9 - 77.3 %) 79.9 H Lymph % (Auto) (14.5 - 29.7 %) 14.5 [place] % (Auto) (3.6 - 10.2 %) 4.5 Eos % (Auto) (0.0 - 3.0 %) 0.1 Baso % (Auto) (0.1 - 0.9 %) 0.3 Neut # (Auto) (K/mm3) 13.8 Lymph # (Auto) (K/mm3) 2.5 [place] # (Auto) (K/mm3) 0.8 Eos # (Auto) (K/mm3) 0.02 Baso # (Auto) (K/mm3) 0.1 Urines Urine Protein (NEGATIVE) 3+ Urine Glucose (UA) (NEGATIVE) NEGATIVE Urine Ketones (NEGATIVE) NEGATIVE Ur Random Creatinine (mg/dL) 205.5 U Random Total Protein (mg/dL) 1847.1 Protein/Creatinin Ratio (<200 mg/gcrea) 8988.3 H Microbiology: Date/Time Procedure - Status Source Growth 06/15 2123 Blood Culture - RES BLOOD 06/15 2123 Blood Culture Gram Stain - RES BLOOD 06/14 2106 Blood Culture - ORD BLOOD 06/14 2106 Blood Culture Gram Stain - ORD BLOOD Diagnosis, Assessment Plan Diagnosis, Assessment PlanAssessment: s/p vaginal delivery of demise due to pre-eclampsiaPlan: routine care, Continue Magnesium [id number] Labetalol 300 TID Will monitor bps at this time at 1308 RPT #:[id number] OF REPORT PRProgress [id number]:04:00F.[id number] AVAvailable for patient [id number]:08:32 2020-06-15 02:29:00 [id number]:29:00 [facility] ([facility])OB Delivery NoteREPORT#:[id number] REPORT STATUS: SignedDATE:06/15/20 TIME: 228 PATIENT: MINE COLEMAN UNIT #: [id number]#: [id number] [facility] AGE: 20 SEX: F ATTEND: Wan Dorado DOADM AUTHOR: Wan Dorado DO * ALL edits or amendments must be made on the electronic/computer document * OB Delivery Nursing Documentation ReviewNursing data:The data set between the solid lines has been imported from nursing documentation. Any exceptions have been noted below under Provider comments. ROM date: ROM time: Membranes rupture method: Amniotic fluid color: Amniotic fluid amount: Steroids prior to arrival: Antibiotic prophylaxis given: Kirby evaluation at delivery: Post hemorrhage risk score: Low Risk for Hemorrhage. Delivery date infant A: Delivery time infant A: Birthweight (gm) infant A: Weight (lb) A: Weight (oz) A: Gender infant A: FemaleApgar 1 minute A: 5 minutes A: 10 minutes infant A: Cord pH obtained infant A: Vacuum time A: Vacuum # pulls infant A: Vacuum # popoffs A: QBL at delivery: Provider comments on imported nursing data: [] Pre-deliveryGBS status: GBS status: unknownAdmission EGA: Weeks: 29 Days: 3EGA at delivery (wks/days): 29wks Baby A InformationBaby A information Delivery date: 06/15/20 Delivery time: 0200 status: still born Wt of baby: not yet available Gender: female Presentation: vertexNuchal cord Baby A Nuchal cord: no Vaginal DeliveryVaginal delivery: Labor: induced Medications/Devices used: oxytocin, cytotec Vaginal delivery: spontaneous Amniotic fluid: clear Anesthesia type: epidural anesthesia Episiotomy: none Episiotomy repair: no Laceration repair: no Placenta: spontaneous, sent to pathology Post delivery meds used: oxytocin Count: correctLacerations: Perineal laceration(s): None Blood Loss/DetailsBlood loss at delivery: <1000 mlEBL at delivery (ml's): 300 at 0231 RPT #:[id number] OF REPORT OBObstetric [id number]:29:[id number] AVAvailable for patient [id number]:31:46 2020-06-14 21:56:00 [id number]:56:00 [facility] ([facility])Clinical NoteREPORT#:[id number] REPORT STATUS: SignedDATE:06/14/20 TIME: 2155 PATIENT: MINE COLEMANTALHEIDI UNIT #: [id number]#: [id number] ROOM/BED: 044-ADOB: [birth year] AGE: 20 SEX: F ATTEND: Wan Dorado DOADM AUTHOR: Elliott Fernandes MD * ALL edits or amendments must be made on the electronic/computer document * Clinical NoteNote:Called as Code Sepsis response. Her Attending is aware and is providing care andorders. Briefly she is an 20 y/o G1 now 29 weeks with thus far uncomplicated course. She was seen earlier this week and reports viability documented but was seen in office today with no FHR detectable with scan. Noted probable demise of 48 hours or less. She was also found to be hypertensive and was admitted to begin labor induction and for magnesium and labetolol therapy. First dose of cytotec was administered and shortly after magnesium started she complained of severe chills and shaking. Temp of 101.4 detected and Code Sepsis called. Sis currently in no distress although with shakes and chills. Temp was 101.4.Lungs are clear. No flank pain and no evidence of phlebitis. The abdomen and particularly the fundus are nontender. Imp: Sepsis screen is indicated and Attending jhas ordered Amp and Gent to start. Labs are drawn awaiting results.WBC was 17.3, AST is 120 but ALT is 75, platelets normal. Lactic acid pending. Plan: I am available for any further bedside attendance as needed. at 2208 RPT #:[id number] OF REPORT CLClinical [id number]:56:00F.[id number] AVAvailable for patient [id number]:08:25 2020-06-14 14:38:00 [id number]:38:00 [facility])OB Admission / H PREPORT#:[id number] REPORT STATUS: SignedDATE:06/14/20 TIME: 1438 PATIENT: MINE COLEMAN UNIT #: [id number]#: [id number] ROOM/BED: 044-ADOB: [birth year] AGE: 20 SEX: F ATTEND: Wan Dorado DOADM AUTHOR: Wan Dorado DO * ALL edits or amendments must be made on the electronic/computer document * OB History Nursing Documentation ReviewNursing data:The data set between the solid lines has been imported from nursing documentation. Any exceptions have been noted below under Provider comments. Current dataSteroids prior to arrival: ROM date: ROM time: EDC date: 08/27/20Post hemorrhage risk score: Low Risk for Hemorrhage. Prior historyGravida: 1 Para: 0 Term: : Abortions spontaneous: Abortions induced: Living children: Ectopic: Stillbirths: Live births: deaths: Number of previous C/S: Reported maternal labs/dataBlood type: UnknownRh type: UnknownRubella: Hepatitis B: UnknownHIV exposure test: VDRL: Group B beta strep: Not doneRho(D) immune globulin this preg: Monitor mode - UA: Feeding preference: Provider comments on imported nursing data: [] ____ Chief complaint: elevated blood pressureHPI: @ 29w3d transfer from [facility]. Patient presented to [facility] with complaint of back pain and abdominal pain. Pt was found to have blood pressures 190/110 with a demise. Patient was given a loading dose ofMagnesium for seziure prophylaxis and transfered. had been uncomplicated prior. history: : 1 Term: 0Current : Admission EGA (weeks) 29 Admission EGA (days) 3Conditions of : anemiaLabs: Blood type: A Rh: positive Rubella: immune Hepatitis B: negative HIV: negative STD: negative Syphilis: currently negative GBS: unknownProcedures: noneGenetic testing: nonePast medical history: denies PMHPast surgical history: denies PSHSocial history: no alcohol use, no tobacco use, no drug useAllergiesCoded Allergies:sulfamethoxazole (From BACTRIM) (Intermediate, SWELLING 06/14/20)trimethoprim (From BACTRIM) (Intermediate, SWELLING 06/14/20)cefaclor (From CECLOR) (SWELLING 06/14/20) Objective GeneralVS:Vital Signs: Date Time Temp Pulse Resp B/P B/P Pulse O2 O2 Flow FiO2 Mean Ox Delivery Rate 06/14 1358 125.0 06/14 1358 77 174/97 06/14 1348 117.0 06/14 1348 78 155/91 06/14 1344 123.0 06/14 1344 79 162/97 06/14 1328 111.0 06/14 1328 85 148/86 06/14 1323 119.0 06/14 1323 82 160/88 06/14 1314 136.0 06/14 1314 82 173/110 06/14 1243 115.0 06/14 1243 84 149/95 06/14 1228 113.0 06/14 1228 81 152/89 06/14 1213 116.0 06/14 1213 83 148/95 06/14 1158 113.0 06/14 1158 77 143/93 06/14 1137 119.0 06/14 1137 85 156/92 06/14 1132 115.0 06/14 1132 82 150/92 06/14 1128 108.0 06/14 1128 86 142/85 06/14 1120 129.0 06/14 1120 81 179/97 06/14 1102 126.0 06/14 1102 80 162/103 06/14 1057 133.0 06/14 1057 76 178/103 06/14 1051 136.0 06/14 1051 75 182/104 06/14 1047 138.0 06/14 1047 76 179/101 06/14 1042 137.0 06/14 1042 75 177/110 06/14 1035 138.0 06/14 1035 75 176/112 Physical ExamAbdomen: gravid, no abnormal tenderness, no guardingUterine activity: Monitor: tocoPelvic exam: Pelvis clinically adequate: yes, inlet appears appropriate, pubic bone configappropr, no midpelvic contraction Vulvar lesions: none, no evidence herpetic les, no evidence of other STD Vagina: normalCervical/ exam: Dilatation (cm): FT Effacement (%): 50 station: - 3 presentation: breechMembranes: Membranes: IntactLower extremities: Edema: 2+ pitting ResultFindings/Data:Laboratory Tests: 06/14 06/14 1155 1120 Chemistry Creatinine (0.5 - 1.0 mg/dL) 1.0 AST (15 - 37 units/L) 120 H ALT (12 - 78 units/L) 75 Lactate Dehydrogenase (81 - 234 units/L) 517 H Hematology WBC (6.5 - 12.3 K/mm3) 15.3 H RBC (3.51 - 4.69 M/mm3) 3.72 Hgb (10.1 - 13.8 g/dL) 10.5 Hct (32.5 - 41.8 %) 32.0 L MCV (84.6 - 96.6 fL) 86.0 MCH (27.3 - 33.9 pg) 28.2 MCHC (32.0 - 34.2 gm/dL) 32.8 RDW (12.2 - 16.3 %) 13.4 Plt Count (134 - 363 K/mm3) 212 MPV (9.2 - 12.7 fL) 9.7 Neut % (Auto) (57.9 - 77.3 %) 85.1 H Lymph % (Auto) (14.5 - 29.7 %) 10.5 L [place] % (Auto) (3.6 - 10.2 %) 3.5 L Eos % (Auto) (0.0 - 3.0 %) 0.0 Baso % (Auto) (0.1 - 0.9 %) 0.2 Neut # (Auto) (K/mm3) 13.0 Lymph # (Auto) (K/mm3) 1.6 [place] # (Auto) (K/mm3) 0.5 Eos # (Auto) (K/mm3) 0 Baso # (Auto) (K/mm3) 0.0 Serology Treponema pallidum Ab (NONREACTIVE) NONREACTIVE Hep Bs Antigen (NONREACTIVE) NONREACTIVE Hepatitis C Antibody (NONREACTIVE) NONREACTIVE Hep C Ab Signal/Cutoff (<0.80) <0.02 HIV 1 2 Antibody (NONREACTIVE) NONREACTIVE SARS-CoV-2 Ag (Rapid) (NEGATIVE) NEGATIVE Diagnosis, Assessment Plan Diagnosis, Assessment PlanAssessment/Impression: @ 29w3d with severe pre-eclampsia with demisePlan: induction of labor, magnesium sulfate, preeclampsia precautionsReason-sched induction: pre-eclampsia (PE), stillbirth at 1444 RPT #:[id number] OF REPORT HPHistory and physical [id number] VAvailable for patient [id number]
[2023-02-23] MEDS ORDERED: NA CHLORIDE 0.9% 1,000 ML ONE (16:53)
[2023-02-23] MEDS ORDERED: ONDANSETRON 4 MG/2 ML VIAL ONE (16:53)
[2023-02-23] MEDS ORDERED: KETOROLAC 30 MG/ML INJ ONE (16:53)
[2023-02-23 16:54] LABS: Absolute Lymphocytes (CBC) 2.7 K/uL (0.7-4.9); Hematocrit 34.3 % (36.0-45.0); Lymphocytes % 23.9 % (15.3-44.8); MCV 82.8 fL (80-100); MPV 7.6 fL (7.6-11.3); Platelets 337 thou/uL (152-406); RBC Red Blood Cell Count 4.14 M/uL (3.86-4.86)
[2023-02-23 16:59] LABS: Specific Gravity 1.029 (1.005-1.030)
[2023-02-23 17:01] LABS: Specific Gravity 1.029 (1.005-1.030); Urine Bacteria None Seen /HPF (<20); Urine Bilirubin NEGATIVE (Negative); Urine Blood 2+ (Negative); Urine Clarity Clear (Clear); Urine Color Yellow (Yellow); Urine Crystals Unidentified Few /HPF (None Seen); Urine Glucose NEGATIVE (Negative); Urine Mucus Slight /HPF (None Seen); Urine Protein TRACE (Negative); Urine Urobilinogen 4+ (Over) (Normal)
[2023-02-23 17:13] LABS: Albumin 3.5 g/dL (3.4-5.0); Bilirubin Total 0.8 mg/dL (0.2-1.0); Potassium 4.1 mEq/L (3.5-5.1); Protein, Total 7.7 g/dL (6.4-8.2)
--- NOTE | 2023-02-23 17:19 | RAD REPORT ---
EXAM DESCRIPTION: CTAbdomen Pelvis W Contrast - 02/23/2023 5:11 pm CLINICAL HISTORY: Abdominal pain. ABD PAIN COMPARISON: <Comparisons> TECHNIQUE: Biphasic CT imaging of the abdomen and pelvis was performed with 100 ml non-ionic IV cont rast. All CT scans are performed using dose optimization technique as appropriate and may include automated exposure control or mA/KV adjustment according to patient size. FINDINGS: The lung bases are clear.Cholelithiasis. Significant gastric distention. The liver, spleen, pancreas, adrenal glands and kidneys are within normal limits. No bowel obstruction, free air, free fluid or abscess. The appendix is normal. No evidence of signi ficant lymphadenopathy. No suspicious bony findings. IMPRESSION: Cholelithiasis.
--- NOTE | 2023-02-23 18:08 | RAD REPORT ---
EXAM DESCRIPTION: US - Abdomen Exam Limited - 02/23/2023 6:01 pm CLINICAL HISTORY: ABD PAIN COMPARISON: <Comparisons> FINDINGS: The gallbladder demonstrates contraction with numerous stones. No pericholecystic fluid or gallbladder wall thickening. The common bile duct is normal measuring 3 mm. The liver demonstrates no findings of intrahepatic biliary dilatation. IMPRESSION: Gallbladder contraction with numerous stones. No biliary dilatation.
--- NOTE | 2023-02-23 18:48 | ER ---
Nurse's Notes [facility] Name: Jana Coleman Age: 23 yrs Sex: Female : 2000 Arrival Date: 02/23/2023 Time: 15:10 Bed 8 Private MD: Diagnosis: Other cholelithiasis without obstruction;Upper abdominal pain, unspecified;Elevated LFT's Presentation: 02/23 15:49 Chief complaint: Intermittent upper abdominal pain and nausea x 3 days, diarrhea iw yesterday. Coronavirus screen: At this time, the client does not indicate any symptoms associated with coronavirus-19. Ebola Screen: No symptoms or risks identified at this time. Initial Sepsis Screen: Does the patient meet any 2 criteria? No. Patient's initial sepsis screen is negative. Does the patient have a suspected source of infection? No. Patient's initial sepsis screen is negative. Risk Assessment: Do you want to hurt yourself or someone else? Patient reports no desire to harm self or others. Onset of symptoms was February 21, 2023. 15:49 Method Of Arrival: Ambulatory iw 15:49 Acuity: LEDA 3 iw [employer]: 21:28 LMP N/A - control method, Not nw1 Historical: - Allergies: 15:50 Bactrim; iw 15:50 Ceclor; iw - Home Meds: 15:50 None [Active]; iw - PMHx: 15:50 Bipolar disorder; iw - PSHx: 15:50 section; iw - Immunization history:: Adult Immunizations up to date. - Social history:: Smoking status: Patient denies any tobacco usage or history of. Screenin:35 [facility] ED Fall Risk Assessment (Adult) History of falling in the last 3 months, tm6 including since admission No falls in past 3 months (0 pts). Abuse screen: Denies threats or abuse. Denies injuries from another. Nutritional screening: No deficits noted. Tuberculosis screening: No symptoms or risk factors identified. Assessment: 16:35 General: Appears in no apparent distress. Behavior is calm, cooperative. Neuro: Level tm6 of Consciousness is awake, alert, obeys commands, Oriented to person, place, time, situation. Cardiovascular: Capillary refill < 3 seconds Patient's skin is warm and dry. Respiratory: Airway is patent Respiratory effort is even, unlabored, Respiratory pattern is regular, symmetrical. : No signs and/or symptoms were reported regarding the genitourinary system. EENT: No signs and/or symptoms were reported regarding the EENT system. Derm: No signs and/or symptoms reported regarding the dermatologic system. Musculoskeletal: No signs and/or symptoms reported regarding the musculoskeletal system. 16:52 Pain: Complains of pain in epigastric area Pain currently is 0 out of 10 on a pain tm6 scale. at worst was 8 out of 10 on a pain scale. Quality of pain is described as crampy. 16:52 GI: Bowel sounds present X 4 quads. Abd is soft and non tender X 4 quads. tm6 17:24 Reassessment: Patient appears in no apparent distress at this time. Patient and/or tm6 family updated on plan of care and expected duration. Pain level reassessed. Patient is alert, oriented x 3, equal unlabored respirations, skin warm/dry/pink. Pain: Denies pain. 18:02 Reassessment: Patient appears in no apparent distress at this time. Patient and/or tm6 family updated on plan of care and expected duration. Pain level reassessed. Patient is alert, oriented x 3, equal unlabored respirations, skin warm/dry/pink. 19:00 Reassessment: Patient appears in no apparent distress at this time. Patient and/or tm6 family updated on plan of care and expected duration. Pain level reassessed. Patient is alert, oriented x 3, equal unlabored respirations, skin warm/dry/pink. Vital Signs: 15:49 BP 141 / 91; Pulse 94; Resp 16; Temp 98.4(TE); Pulse Ox 100% on R/A; Weight 77.11 kg; iw Height 5 ft. 3 in. ; Pain 0/10; 16:51 BP 131 / 87; Pulse 73; Resp 17; Pulse Ox 100% on R/A; Pain 0/10; tm6 17:24 BP 113 / 92; Pulse 73; Pulse Ox 100% on R/A; tm6 17:26 Pain 0/10; tm6 18:01 BP 113 / 94; Pulse 90; Pulse Ox 100% on R/A; tm6 18:33 BP 124 / 91; Pulse 83; Pulse Ox 100% on R/A; tm6 19:00 BP 115 / 72; Pulse 82; Pulse Ox 100% on R/A; tm6 20:03 BP 120 / 64; Pulse 78; Resp 15 S; Pulse Ox 100% ; nw1 15:49 Body Mass Index 30.11 (77.11 kg, 160.02 cm) iw 15:49 Pain Scale: Adult iw 16:51 Pain Scale: Adult tm6 17:26 Pain Scale: Adult tm6 ED Course: 15:14 Patient arrived in ED. mg5 15:16 Marie Perez FNP is [facility] jh7 15:16 Steven Thomas MD is Attending Physician. jh7 15:50 Triage completed. iw 16:31 Bandar Hammer, RN is Primary Nurse. tm6 16:35 Patient has correct armband on for positive identification. Bed in low position. Call tm6 light in reach. Side rails up X2. Provided Education on: need for lab draw. Door closed. Noise minimized. Warm blanket given. 16:52 No provider procedures requiring assistance completed. Inserted saline lock: 20 gauge tm6 in right antecubital area, using aseptic technique. 17:13 CT Abd/Pelvis - IV Contrast Only In Process Unspecified. EDMS 18:03 US Abdomen Limited: RUQ In Process Unspecified. EDMS 18:46 Arnoldo Nunez MD is Hospitalizing Provider. [facility] 19:00 Provided Education on: NPO at midnight. tm6 21:29 Patient none. nw1 21:32 Patient admitted, IV remains in place. nw1 Administered Medications: 16:51 Drug: NS 0.9% IV 1000 ml IV at 1 bolus Per protocol; 1000 mL bolus Route: IV; Rate: 1 tm6 bolus; Site: right antecubital; 18:08 Follow up: Response: No adverse reaction; IV Status: Completed infusion; IV Intake: tm6 1000ml 16:51 Drug: TORadol - Ketorolac IVP 15 mg IVP once Route: IVP; Site: right antecubital; tm6 18:08 Follow up: Response: No adverse reaction tm6 16:51 Drug: Ondansetron IVP 4 mg IVP once; over 2 minutes Route: IVP; Site: right antecubital;tm6 18:08 Follow up: Response: No adverse reaction tm6 18:59 Drug: Piperacillin-Tazobactam IVPB 3.375 grams IVPB once over 60 mins; (mix in NS 100 tm6 mL) Route: IVPB; Infused Over: 60 mins; Site: right antecubital; Medication: 16:35 VIS not applicable for this client. tm6 Intake: 18:08 IV: 1000ml; Total: 1000ml. tm6 Outcome: 18:47 Decision to Hospitalize by Provider. jose 21:27 Admitted to Tele accompanied by tech, room 410, Report called to RAKESH Lin nw1 21:27 Condition: stable 21:27 Instructed on the need for admit, 22:14 Patient left the ED. nw1 Signatures: Dispatcher [employer] EDLauren Holman, RAKESH RN iw Marie Perez FNP [employer] Enriqueta Felix 5 Bandar Hammer RN RN 6 Dariana Swann RN RN nw1
--- NOTE | 2023-02-23 18:48 | EDPHYS ---
Physician Documentation [facility] Name: Jana Coleman Age: 23 yrs Sex: Female : 2000 Arrival Date: 02/23/2023 Time: 15:10 Bed 8 Private MD: CORTEZ Physician Steven Thomas HPI: 02/23 15:49 This 23 yrs old Female presents to ER via Ambulatory with complaints of jh7 Abdominal Pain, Back Pain. 15:49 The patient presents with abdominal pain in the epigastric area, in the right upper jh7 quadrant. 15:49 Onset: The symptoms/episode began/occurred 3 day(s) ago. The symptoms radiate to right jh7 back. Associated signs and symptoms: Pertinent positives: diarrhea, nausea, Pertinent negatives: chest pain, dysuria, fever, headache, shortness of breath, vomiting, vomiting blood. 23-year-old female with a history of cholelithiasis presents to the ER for epigastric/right upper quadrant pain radiating to the back. She reports that symptoms have occurred for 3 days and feels like she is experiencing a gallbladder attack. Reports that she is currently on her menstrual cycle and that her only past surgery is a . Patient calm and in no distress at this time.. 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 - Social history:: Smoking status: Patient denies any tobacco usage or history of. ROS: 15:49 Constitutional: Negative for fever, chills, and weight loss, Eyes: Negative for injury, jh7 pain, redness, and discharge, Neck: Negative for injury, pain, and swelling, Cardiovascular: Negative for chest pain, palpitations, and edema, Respiratory: Negative for shortness of breath, cough, wheezing, and pleuritic chest pain, Abdomen/GI: Negative for abdominal pain, nausea, vomiting, diarrhea, and constipation, Back: Negative for injury and pain, MS/Extremity: Negative for injury and deformity, Skin: Negative for injury, rash, and discoloration, Neuro: Negative for headache, weakness, numbness, tingling, and seizure, 15:49 Abdomen/GI: Positive for abdominal pain, nausea, diarrhea, Negative for vomiting, constipation, abdominal cramps, black/tarry stool, rectal pain, rectal bleeding, 15:49 All other systems are negative, Exam: 15:49 Constitutional: This is a well developed, well nourished patient who is awake, alert, jh7 and in no acute distress. Head/Face: Normocephalic, atraumatic. Neck: Trachea midline, no thyromegaly or masses palpated, and no cervical lymphadenopathy. Supple, full range of motion without nuchal rigidity, or vertebral point tenderness. No Meningismus. Cardiovascular: Regular rate and rhythm with a normal S1 and S2. No gallops, murmurs, or rubs. Normal PMI, no JVD. No pulse deficits. Respiratory: Lungs have equal breath sounds bilaterally, clear to auscultation and percussion. No rales, rhonchi or wheezes noted. No increased work of breathing, no retractions or nasal flaring. Back: No spinal tenderness. No costovertebral tenderness. Full range of motion. Skin: Warm, dry with normal turgor. Normal color with no rashes, no lesions, and no evidence of cellulitis. MS/ Extremity: Pulses equal, no cyanosis. Neurovascular intact. Full, normal range of motion. Neuro: Awake and alert, GCS 15, oriented to person, place, time, and situation. Motor strength 5/5 in all extremities. Sensory grossly intact. Normal gait. 15:49 Abdomen/GI: Inspection: abdomen appears normal, Bowel sounds: normal, Palpation: soft, mild abdominal tenderness, in the epigastric area and right upper quadrant, Vital Signs: 15:49 BP 141 / 91; Pulse 94; Resp 16; Temp 98.4(TE); Pulse Ox 100% on R/A; Weight 77.11 kg; iw Height 5 ft. 3 in. ; Pain 0/10; 16:51 BP 131 / 87; Pulse 73; Resp 17; Pulse Ox 100% on R/A; Pain 0/10; tm6 17:24 BP 113 / 92; Pulse 73; Pulse Ox 100% on R/A; tm6 17:26 Pain 0/10; tm6 18:01 BP 113 / 94; Pulse 90; Pulse Ox 100% on R/A; tm6 18:33 BP 124 / 91; Pulse 83; Pulse Ox 100% on R/A; tm6 19:00 BP 115 / 72; Pulse 82; Pulse Ox 100% on R/A; tm6 20:03 BP 120 / 64; Pulse 78; Resp 15 S; Pulse Ox 100% ; nw1 15:49 Body Mass Index 30.11 (77.11 kg, 160.02 cm) iw 15:49 Pain Scale: Adult iw 16:51 Pain Scale: Adult tm6 17:26 Pain Scale: Adult tm6 MDM: 15:17 Patient medically screened. [facility] 18:48 Differential diagnosis: cholecystitis, Cholelithiasis, gastritis. Data reviewed: vital [facility] signs, nurses notes, lab test result(s), radiologic studies, CT scan, ultrasound. Consideration of Admission/Observation Patient was admitted/placed on observation. Management of patient was discussed with the following: Document Imaging Specialist: Dr. Nunez, General Surgery. Discussed patient's presentation, lab, and imaging results. Dr. Nunez stated that the patient should be admitted for cholecystectomy. He asked that she be n.p.o. at midnight and that he would arrive in the morning to perform the surgery. saturnino Chang debbie, was asked to notify the visiting housekeeper and the OR team.. I considered the following discharge prescriptions or medication management in the emergency department Medications were administered in the Emergency Department. See MAR. Counseling: I had a detailed discussion with the patient and/or guardian regarding the historical points, exam findings, and any diagnostic results supporting the discharge/admit diagnosis, the need for further work-up and treatment in the hospital. Response to treatment: the patient's symptoms have markedly improved after treatment. 02/23 15:30 Order name: CBC with Diff; Complete Time: 08:11 [facility] 02/23 15:30 Order name: CMP; Complete Time: 17:20 [facility] 02/23 15:30 Order name: Lipase; Complete Time: 17: [facility] 02/23 15:30 Order name: Test, Urine; Complete Time: 17:20 [facility] 02/23 15:30 Order name: Urinalysis w/ reflexes; Complete Time: 17: [facility] 02/23 18:59 Order name: PT-INR; Complete Time: 08:11 [facility] 02/23 18:59 Order name: Type And Screen; Complete Time: 08:11 [facility] 02/23 19:00 Order name: Urinalysis w/ reflexes EDMS 02/23 19:00 Order name: CBC with Automated Diff EDMS 02/23 19:00 Order name: CBC with Automated Diff EDMS 02/23 19:00 Order name: Comprehensive Metabolic Panel EDMS 02/23 19:00 Order name: Comprehensive Metabolic Panel [facility] 02/23 19:44 Order name: CBC Smear Scan; Complete Time: 08:11 [facility] 02/23 15:30 Order name: CT Abd/Pelvis - IV Contrast Only; Complete Time: 17:20 [facility] 02/23 17:20 Order name: US Abdomen Limited: RUQ; Complete Time: 18:13 [facility] 02/23 15:30 Order name: IV Saline Lock; Complete Time: 16:51 [facility] 02/23 15:30 Order name: Labs collected and sent; Complete Time: 16:51 [facility] 02/23 18:48 Order name: NPO: at midnight; Complete Time: 18:51 [facility] Administered Medications: 16:51 Drug: NS 0.9% IV 1000 ml IV at 1 bolus Per protocol; 1000 mL bolus Route: IV; Rate: 1 tm6 bolus; Site: right antecubital; 18:08 Follow up: Response: No adverse reaction; IV Status: Completed infusion; IV Intake: tm6 1000ml 16:51 Drug: TORadol - Ketorolac IVP 15 mg IVP once Route: IVP; Site: right antecubital; tm6 18:08 Follow up: Response: No adverse reaction tm6 16:51 Drug: Ondansetron IVP 4 mg IVP once; over 2 minutes Route: IVP; Site: right antecubital;tm6 18:08 Follow up: Response: No adverse reaction tm6 18:59 Drug: Piperacillin-Tazobactam IVPB 3.375 grams IVPB once over 60 mins; (mix in NS 100 tm6 mL) Route: IVPB; Infused Over: 60 mins; Site: right antecubital; Disposition: 20:55 Co-signature as Attending Physician, Steven Thomas MD I reviewed the patient's care rt provided by the Advanced Practice Provider and agree with the diagnosis and treatment plan. Disposition Summary: 02/23/23 18:47 Hospitalization Ordered Notes: Hospitalization Status: Inpatient Admission [facility] Provider: Arnoldo Nunez [facility] Location: Telemetry/MedSurg (Inpatient) [facility] Condition: Stable [facility] Problem: new [facility] Symptoms: have worsened [facility] Bed/Room Type: Standard [facility] Room Assignment: 410(02/23/23 19:55) Diagnosis - Other cholelithiasis without obstruction [facility] - Upper abdominal pain, unspecified [facility] - Elevated LFT's [facility] Forms: - Medication Reconciliation Form [facility] - SBAR form [facility] - Leadership Thank You Letter [facility] Signatures: Dispatcher [employer] Miladis Stoner RN RN Lauren Swann RN RN iw Hadash, Jennifer, FNP [employer] [facility] Steven Thomas MD MD Bandar Hammer RN RN tm6 Corrections: (The following items were deleted from the chart) 17:52 15:49 The patient presents with abdominal pain in the epigastric area, in the right [facility] upper quadrant, [facility] 19:55 18:47 [facility]
[2023-02-23] MEDS ORDERED: ONDANSETRON 4 MG/2 ML VIAL IV PRN (18:54)
[2023-02-23] MEDS ORDERED: MORPHINE 4 MG/ML SYR IV PRN (18:58)
[2023-02-23] MEDS ORDERED: NA CHLORIDE 0.9% 1,000 ML IV SCH (19:00)
[2023-02-23] MEDS ORDERED: PIPERACIL/TAZO 3.375 GM VIAL IV ONE (19:04)
[2023-02-23] MEDS ORDERED: NA CHLORIDE 0.9% 100 ML ONE (19:04)
[2023-02-23 19:44] LABS: Blood Morphology Comment NOT SEEN (NOT SEEN); Platelet Estimate ADEQ; White Blood Cell Scan OK (OK)
[2023-02-23 20:36] LABS: Protime INR 1.29
[2023-02-23] MEDS ORDERED: PIPER TAZO 3.375 GM in NA CHLORIDE 0.9% 100 ML IV SCH (21:00)
[2023-02-23 21:57] VITALS: BMI 30.1
[2023-02-23] MEDS: NA CHLORIDE 0.9% 1,000 ML IV SCH (23:00)
[2023-02-24] MEDS: PIPER TAZO 3.375 GM in NA CHLORIDE 0.9% 100 ML IV SCH ×2 (02:20→07:54)
[2023-02-24] MEDS: NA CHLORIDE 0.9% 1,000 ML IV SCH ×3 (09:00→23:22)
--- NOTE | 2023-02-24 12:45 | P.HP ---
Date of Service: 02/24/23 PC: This 23-year-old female presents the emergency room with severe right upper quadrant abdominal pain for diagnosis and treatment. HPC: Patient been experiencing right upper quadrant abdominal pain off and on since the of her child 8 months ago. Describes it as severe, located in the right upper quadrant. She was seen previously and was to follow-up with her primary physician, but this did not occur. She presents back again today with an acute episode. PSHx: Previous PMHx: Negative Social Hx: Allergic to Bactrim Sys R: No cough, wheeze, shortness of breath. No chest pain or palpitations. Denies any urinary complaints O/E: Awake alert, well comfortable at the moment HEENT: Not jaundiced Chest: Air entry equal bilaterally Abd: Tender in the right upper quadrant Mcclure: Intact Data: Has documented gallstones Impression: Acute on chronic cholecystitis with cholelithiasis, biliary colic Plan: I will take to the operating room for laparoscopic possible open cholecystectomy with cholangiogram. The risks of this procedure have been discussed. The possibility of bleeding, infection, injury to bile ducts blood vessels and intestines has been described. Possible need for an open any other further surgeries and procedures was discussed. She understands and wants to proceed.
[2023-02-24] MEDS ORDERED: FENTANYL CITR 100 MCG/2 ML ONE (13:30)
[2023-02-24] MEDS ORDERED: propofoL 200 MG/20 ML VIAL IV ONE (13:30)
[2023-02-24] MEDS ORDERED: LIDOCAINE 2% MPF 5 ML VIAL ONE (13:30)
[2023-02-24] MEDS ORDERED: MIDAZOLAM HCL 2 MG/2 ML INJ ONE (13:30)
[2023-02-24] MEDS ORDERED: ROCURONIUM 50 MG/5 ML VIAL IV ONE (13:30)
[2023-02-24] MEDS ORDERED: ONDANSETRON 4 MG/2 ML VIAL ONE (13:30)
[2023-02-24] MEDS ORDERED: KETOROLAC 30 MG/ML INJ ONE (13:59)
--- NOTE | 2023-02-24 14:10 | P.OP ---
Preoperative diagnosis: Cholecystitis with cholelithiasis, biliary colic Postoperative diagnosis: Cholecystitis with cholelithiasis biliary colic Primary procedure: Laparoscopic cholecystectomy Secondary procedure: Cholangiogram Anesthesia: General Estimated blood loss: Less than 10 cc Specimen: Gallbladder and contents Operative Technique: The patient brought the operating room placed supine on the table. After the induction of adequate general endotracheal anesthesia, the area of the abdomen was prepped with DuraPrep solution, and she was draped in the usual aseptic manner. A subumbilical incision was made. This brought down through the skin and subcutaneous tissue. The Visiport was used to enter the peritoneal cavity and created pneumoperitoneum at approximately 12 mmHg. Under direct vision a 5 mm trocar was placed in the upper midline, and 2 out of 5 on the right lateral side of the abdomen. With the patient placed in reverse Trendelenburg and the table turned towards the left we were able to visualize the right upper quadrant. We could see a distended and chronically inflamed gallbladder. A grasper was placed on the fundus. Another down by Gaytan's patient pouch. Applied lateral traction we were able to dissect and expose with the cystic duct and artery. Having obtained a critical view of clip was placed between the gallbladder and the cystic duct. An epi was made into the cystic duct through which we obtained a normal intraoperative cholangiogram the cholangiocatheter was removed. Clips were placed on the distal portion of the cystic duct which was now fully transected. The cystic artery was dealt with in a similar fashion. The gallbladder was now dissected free from the liver bed, placed into an Endo Catch, and brought out through the umbilical trocar site the umbilical trocar site was now approximated using the Endo Close and absorbable suture. After inspection of the peritoneal cavity, the irrigating fluid was aspirated after returning the patient to the neutral position on the OR table. The pneumoperitoneum was collapsed, the trocars removed, and the suture tied. At the end of the procedure she was in a stable condition with sent to the recovery room. Needle sponge instrument count were correct. The trocar sites were closed with carol. Complications: None Transferred to: Recovery Room Condition: Good
[2023-02-24] MEDS ORDERED: Ringers Lactate 1,000 ML IV ONE (14:13)
[2023-02-24] MEDS ORDERED: dexAMETHasone 4 MG/ML VIAL ONE (14:20)
[2023-02-24] MEDS ORDERED: NEOSTIGMINE 1 MG/ML -10 ML VIAL ONE (14:21)
[2023-02-24] MEDS ORDERED: GLYCOPYRROLATE 0.2 MG/ML SYR ONE (14:21)
[2023-02-24] MEDS ORDERED: HYDROCODONE/APAP 7.5/325 MG TAB PO PRN (14:23)
[2023-02-24] MEDS: HYDROMORPHONE HCL 1 MG/ML INJ ONE ×2 (14:34→14:41)
--- NOTE | 2023-02-24 15:40 | RAD REPORT ---
EXAM DESCRIPTION: RAD - Cholangiogram Oper-Xray Or - 02/24/2023 3:10 pm CLINICAL HISTORY: LAP JENS WITH IOC COMPARISON: Abdomen Exam Limited dated 02/23/2023; Abdomen Pelvis W Contrast dated 02/23/2023 FINDINGS/IMPRESSION: Three intraoperative fluoroscopic images were submitted demonstrating an intrao perative cholangiogram. Fluoro time: 12.4 seconds Cumulative dose: 1.71 mGy
[2023-02-24] MEDS: ONDANSETRON 4 MG/2 ML VIAL IV PRN ×2 (16:00→23:28)
[2023-02-24] MEDS: MORPHINE 4 MG/ML SYR IV PRN ×2 (16:00→23:21)
[2023-02-24 20:06] VITALS: O2SAT 98
[2023-02-24] MEDS: HYDROCODONE/APAP 7.5/325 MG TAB PO PRN (20:22)
[2023-02-24] MEDS ORDERED: CHLORASEPTIC LOZENGES PO PRN (21:41)
[2023-02-25] MEDS: HYDROCODONE/APAP 7.5/325 MG TAB PO PRN ×2 (04:36→14:06)
[2023-02-25] MEDS: NA CHLORIDE 0.9% 1,000 ML IV SCH ×2 (05:00→14:03)
--- NOTE | 2023-02-25 14:10 | P.DS ---
Admission Date: 02/23/23 Discharge Date: 02/25/23 Disposition: ROUTINE DISCHARGE Discharge Condition: GOOD Brief History of Present Illness: Present emergency room with severe right upper quadrant abdominal pain for diagnosis and treatment. Hospital Course: Patient was worked up in the ER, found to have cholecystitis with cholelithiasis. She was brought to the operating where she underwent a laparoscopic cholecystectomy with a normal cholangiogram. She was admitted postoperatively for observation and pain control. Today she is up ambulating, tolerating a diet, and is anxious to go home. She would prefer to take Advil or Motrin for her pain as she is currently breast-feeding. She will see me next week in my office. Vital Signs/Physical Exam: Temp Pulse Resp BP Pulse Ox 97.7 F 64 16 103/50 L 100 02/25/23 07:30 02/25/23 07:30 02/25/23 07:30 02/25/23 07:30 02/25/23 07:30 Laboratory Data at Discharge: WBC 11.10 thou/uL (4.3-10.9) H 02/23/23 16:45 Hgb 11.3 g/dL (12.0-15.0) L 02/23/23 16:45 Hct 34.3 % (36.0-45.0) L 02/23/23 16:45 Plt Count 337 thou/uL (152-406) 02/23/23 16:45 PT 14.2 SECONDS (9.5-12.5) H 02/23/23 20:03 INR 1.29 02/23/23 20:03 Sodium 137 mEq/L (136-145) 02/23/23 16:45 Potassium 4.1 mEq/L (3.5-5.1) 02/23/23 16:45 BUN 9 mg/dL (7-18) 02/23/23 16:45 Creatinine 0.84 mg/dL (0.55-1.02) 02/23/23 16:45 Glucose 90 mg/dL (74-106) 02/23/23 16:45 Total Bilirubin 0.8 mg/dL (0.2-1.0) 02/23/23 16:45 AST 321 U/L (15-37) H 02/23/23 16:45 ALT 377 U/L (13-56) H 02/23/23 16:45 Alkaline Phosphatase 285 U/L (45-117) H 02/23/23 16:45 Lipase 41 U/L (13-75) 02/23/23 16:45 Home Medications: NK [No Home Meds] 02/23/23 Physician Discharge Instructions: DC IV, DC home. You may shower. Diet as tolerated. Change dressings as needed. Advil/Tylenol for pain. Continue with incentive spirometer. Milk of magnesia as needed for constipation. Questions or problems, go to the emergency room, or contact me Diet: Regular Activity: Ad becky Followup: NONE,NONE [Primary Care Provider] -
[2023-02-25 16:05] VITALS: BP 126/65; TEMP 97.6
== END 2023-02-25 17:22 | disposition home or self-care (01) | DRG 419 ==
LOC: ER 15:10 → ERHOLD 18:53 → 4TH 21:37
PROVIDERS: ADMIT Surgery; ATTEND Surgery
PROC: BF121ZZ Fluoroscopy of Gallbladder using Low Osmolar Contrast (ICD-10-PCS; 2023-02-24)
PROC: 0FT44ZZ Resection of Gallbladder, Percutaneous Endoscopic Approach (ICD-10-PCS; principal; 2023-02-24 13:15)
DX: K80.12 Calculus of gallbladder with acute and chronic cholecystitis without obstruction (principal); R79.89 Other specified abnormal findings of blood chemistry; Z88.1 Allergy status to other antibiotic agents
CPT/HCPCS: 36415; 74177; 74300; 76705; 80053; 81001; 81025; 83690; 85025; 85610; 86850; 86900; 86901; 88304; 94010; 94760; 96361; 96374; 96375; 99285; J1100; J1170; J2001; J2250; J2405; J2543; J2704; J2710; J3010; J7030; J7120; Q9967

== ENCOUNTER 2023-11-26 19:17 | Emergency (ER) | payer OTHER ==
--- OUTSIDE RECORDS SUMMARY | 2023-11-26 19:24 | XMS REPORT | Continuity of Care Document ---
Author Name Unknown Address [address] [facility] [address] [place] [address] [facility] thconnect Address [address] [facility] [address] [place] [address] Care Team Providers Care Survey Crew Chief Name Role Phone PCP, PATIENT DOES NOT HAVE A Primary Care Physic johann Unavailable CONCEPCION ALDANA Attending Clinician Unavailable 2, [facility] Attending Clinician Unavailable Concepcion Aldana MD Attending Clinician Doctor Unassigned, [place] Attending Clinician U JEANCARLOS Leger Attending Clinician UnavailJEANCARLOS Pederson Attending Clinician UnavailJose Angel Odom MD Attending Clinician 1, [facility] Nst Room Attending Clinician Unavailable MARILU ROOT Attending Clinician MARILU Stinson Attending Clinician Aura canas Room, [facility] Nst Attending Clinician Unavailable 3, [facility] Usg Room Attending Clinician UnavailMike Menard MD Attending Clinician [phone] MIKE HERNANDEZ Attending Clinician Unavailyash marin Nurse, [facility] Attending Clinician Un available Ultrasound, [facility] Attending Clinician Unavailyash Fink MD, Umberto Mercado Attending Clinician [phone] UMBERTO FINK Attending Clinician Unavailable Pob, [facility] Lab Main Attending Clinician UnavailZoila Gooden MA Attending Clinician Unavail able Freddy RN, Shania Tavera Attending Clinician Unavaila ble 1, [facility] Us Room Attending Clinician Unavailab rubi Larios MD, Jayesh Acosta Attending Clinician + JAYESH LARIOS Attending Clinician Unav NOHEMI Soler Attending Clinician Unavailable Nohemi Canales MD Attending Clinician [phone] Maame Alonso RN Attending Clinician Unavailable Faculty, [facility] Attending Clinician UnaEmmanuel Garza MD Attending Clinician [phone] EMMANUEL PALACIO Attending Clinician UnavailJOSHUA Forrest Attending Clinician Unavailable ANNIKA_CHRISTELLE Attending Clinician Unavailable ALBA, PETRONA S Attending Clinician Unavailable Alba PAC, Petrona S Attending Clinician [phone] Yan_W Attending Clinician Unavailable Wan Dorado Attending Clinician UnavailALEXA Calloway Attending Clinician Unavailable Alexa Fine MD Attending Clinician [phone] Provider, [facility] Attending Clinician Un available Keily Atkinson Attending Clinician [phone] KEILY OLIVIER Attending Clinician Unavailable Joshua Lewis PA-C Attending Clinician [phone] JOSEFA BEAR Attending Clinician Unavailab CONCEPCION Power Admitting Clinician Unavailable Concepcion Aldana MD Admitting Clinician [phone] NOHEMI CANALES Admitting Clinician Unavailable ANNIKA_RAFYFABIOLA Admitting Clinician Unavailable Matty_Cathleen Admitting Clinician Unavailable Wan Dorado Admitting Clinician Unavailabl e Payers Payer Name Policy Type Policy Number Effective Date Expirati on Date Source [facility] MEDICAID [id number] 2019 00:00:00 [facility] (MEDICAID REPLACEMENT - HMO) [id number] [facility] [id number] 2016 00:00:00 Problems Condition Name Condition Details Condition Category Status Onset Date Resolution Date Last Treatment Date Treating Clinician Comments Source Diet controlled gestationa l diabetes mellitus (GDM) in third trimester Diet controlled gestationa l diabetes mellitus (GDM) in third trimester Disease Active 3 00:00: 00 [facility] 39 weeks gestation of 39 weeks gestation of Disease Active 06-26 00:00: 00 [facility] Liveborn , of [place] , born in hospital by delivery Liveborn infant, of [place] , born in hospital by delivery Disease Active 323 00:00: 00 [facility] Obesity in , antepartum , third trimester Obesity in , antepartum , third trimester Disease Active 3-07 00:00: 00 [facility] Diet controlled gestationa l diabetes mellitus (GDM), antepartum Diet controlled gestationa l diabetes mellitus (GDM), antepartum Disease Active 1-27 00:00: 00 [facility] Anemia of mother in , antepartum Anemia of mother in , antepartum Disease Active 1-27 00:00: 00 [facility] High-risk in third trimester High-risk in third trimester Disease Active 2021-04 0-07 00:00: 00 [facility] Hx of preeclamps ia, prior , currently , third trimester Hx of preeclamps ia, prior , currently , third trimester Disease Active 8-29 00:00: 00 [facility] Obesity (BMI 30-39.9) Obesity (BMI 30-39.9) Disease Active 3-15 00:00: 00 [facility] COVID-19 virus infection COVID-19 virus infection Disease Active 2019-04 1-03 00:00: 00 [facility] Allergies, Adverse Reactions, Alerts Allergy Name Allergy Type Status Severity Reaction(s) Onset Date Inactive Date Treating Clinician Comments Source cefaclor DA Active U SWELLING 3-11 00:00: 00 [facility] sulfamet hoxazole DA Active MO SWELLING 3-11 00:00: 00 [facility] trimetho prim DA Active MO SWELLING 0 3-11 00:00: 00 [facility] cefaclor DA Active U 3 00:00: 00 [facility] sulfamet hoxazole DA Active MO 0 3- 00:00: 00 [facility] trimetho prim DA Active MO 0 3- 00:00: 00 [facility] Cefaclor Propensi ty to adverse reaction s Active Nausea and/or Vomiting 0 9-15 00:00: 00 [facility] Sulfa (Sulfona mide Antibiot ics) Propensi ty to adverse reaction s Active Nausea and/or Vomiting 0 9-15 00:00: 00 [facility] CEFACLOR DRUG INGREDI Active N/V 0 9-15 00:00: 00 [facility] SULFA (SULFONA MIDE ANTIBIOT ICS) Drug Class Active N/V 0 9-15 00:00: 00 [facility] Social History Social Habit Start Date Stop Date Quantity Comments Source ASSERTION 2021-10-10 00:00:00 [facility] History SDOH [facility] History SDOH Alcohol Binge [facility] History SDOH Alcohol Comment [place] [facility] History of tobacco use Passive smoker [facility] History of Social function 2022-12-04 00:00:00 2022-12-04 00:00:00 [facility] Exposure to SARS-CoV-2 (event) 2022-08-23 00:00:00 2022-09-02 13:04:00 Not sure [facility] Alcohol intake 2022-06-27 00:00:00 2022-06-27 00:00:00 Lifetime non-drinker (finding) [facility] Tobacco use and exposure 2021-11-06 00:00:00 2021-11-06 00:00:00 Smokeless tobacco non-user [facility] History SDOH Alcohol Frequency 2019-12-20 00:00:00 2019-12-20 00:00:00 1 [facility] Sex Assigned At 2002 00:00:00 2000 00:00:00 [facility] Smoking Status Start Date Stop Date Source Never smoked tobacco [facility] Medications Ordered Medication Name Filled Medication Name Start Date Stop Date Current Medication? Ordering Clinician Indication Dosage Frequency Signature (SIG) Comments Components Source copper (PARAGARD T 380A) IUD 1 Intra Uterine Device 08-20 22:30: 00 08-20 21:43 :00 No [id number] 1{IUD} Univer s [facility] copper (PARAGARD T 380A INTRAUTERIN E) 08-20 00:00: 00 Yes by Intrauteri ne route. [facility] Nitrofurant oin&Nit. Macrocryst 100 mg capsule 08-12 00:00: 00 08-20 00:00 :00 No [id number] 100mg Take 1 capsule by mouth in the morning and 1 capsule in the evening. [facility] ibuprofen (IBU) tablet 600 mg 06-28 03:00: 00 Yes 600mg 600 mg, Oral, Q6H, First dose on Thu06/27/22 at 2200, Until Discontinu ed, Routine [facility] HYDROcodone -acetaminop hen (NORCO 5) 5-325 mg tablet 2 tablet 06-28 01:00: 00 Yes 2{tbl} 2 tablet, Oral, Q6HPRN, Starting on Thu06/27/22 at 2000, Until Discontinu ed, Routine, Pain (scale 7-10), Alternate with Ibuprofen [facility] HYDROcodone -acetaminop hen (NORCO 5) 5-325 mg tablet 1 tablet 06-28 01:00: 00 Yes 1{tbl} 1 tablet, Oral, Q6HPRN, Starting on Thu06/27/22 at 2000, Until Discontinu ed, Routine, Pain (scale 4-6), Alternate with Ibuprofen [facility] gabapentin (NEURONTIN) capsule 300 mg 06-27 13:00: 00 Yes 300mg 300 mg, Oral, TID, First dose on Thu06/27/22 at 0800, Until Discontinu ed, Routine [facility] ASPIRIN ORAL 06-27 08:32: 43 06-27 00:00 :00 No Take by mouth. [facility] acetaminoph en ADULT (OFIRMEV) injection 1,000 mg 06-27 07:00: 00 06-27 21:31 :00 No 1000mg 1,000 mg, IV Infusion, at 400 mL/hr Administer over 15 Minutes, Q6H, 3 doses, First dose (after last modificati on) on Thu06/27/22 at 0200, Last dose on Thu06/27/22 at 1200, Routine
Indicatio n: Perioperat shayan Patient [facility] ketorolac (TORADOL) injection 30 mg 06-27 03:00: 00 06-27 22:59 :00 No 30mg 30 mg, Slow IV Push, Q6H, 4 doses, First dose on Thu06/26/22 at 2200, Last dose on Thu06/27/22 at 1200, Routine [facility] lactated ringers IV infusion 1,000 mL 06-27 02:00: 00 06-27 03:54 :55 No 1000mL at 125 mL/hr, 1,000 mL, IV Infusion, ONCE, 1 dose, On Thu06/26/22 at 2100, Routine [facility] diphenhydrA MINE (BENADRYL) injection 25 mg 06-27 01:12: 17 Yes 25mg 25 mg, Slow IV Push, Q6HPRN, Starting on Thu06/26/22 at 2011, Until Discontinu ed, Routine, Itching [facility] diphenhydrA MINE (BENADRYL) tablet 25 mg 06-27 01:12: 17 Yes 25mg 25 mg, Oral, Q6HPRN, Starting on Thu06/26/22 at 2011, Until Discontinu ed, Routine, Sleep, Itching [facility] ondansetron (ZOFRAN (PF)) injection 4 mg 06-27 01:12: 17 Yes 4mg 4 mg, Slow IV Push, Q8HPRN, Starting on Thu06/26/22 at 2011, Until Discontinu ed, Routine, Nausea and Vomiting (N/V) [facility] bisacodyL (DULCOLAX) suppository 10 mg 06-27 01:12: 17 Yes 10mg 10 mg, Rectal, QDAILYPRN, Starting on Thu06/26/22 at 2011, Until Discontinu ed, Routine, Constipati on [facility] simethicone (GAS RELIEF (SIMETHICON E)) chewable tablet 160 mg 06-27 01:12: 17 Yes 160mg 160 mg, Oral, PC+HSPRN, Starting on Thu06/26/22 at 2011, Until Discontinu ed, Routine, Gas [facility] docusate (COLACE) capsule 200 mg 06-27 01:12: 16 Yes 200mg 200 mg, Oral, QDAILYPRN, Starting on Thu06/26/22 at 2011, Until Discontinu ed, Routine, Constipati on [facility] magnesium hydroxide (MILK OF MAGNESIA) 400 mg/5 mL suspension 30 mL 06-27 01:12: 16 Yes 30mL 30 mL, Oral, QDAILYPRN, Starting on Thu06/26/22 at 2011, Until Discontinu ed, Routine, Constipati on [facility] lactated ringers IV infusion 1,000 mL 06-27 01:12: 16 Yes 1000mL at 125 mL/hr, 1,000 mL, IV Infusion, PRN, 1 dose, Starting on Carin 06/26/22 at 2012, Until Discontinu ed, Routine [facility] morpHINE PF (DURAMORPH- PF) injection 06-27 01:12: 00 06-27 01:17 :18 No Epidural, ONCE INTRA PROCEDURE, Starting on Carin 06/26/22 at 2012, Until Carin 06/26/22 at 2016, Routine, Intra-op Univers [facility] ceFAZolin (ANCEF) 2,000 mg in NaCl 0.9% (NS) 100 mL MINI-BAG 06-27 01:00: 00 06-27 00:26 :00 No 2000mg 2,000 mg, IV Piggyback, Q8H ABX, 1 dose, First dose on Carin 06/26/22 at 2000, Administer over 30 Minutes, 100 mL
Reas on for Anti-Infec tive: Surgical Prophylaxi s
Surgi stephanie Prophylaxi s: Abdominal< br>Duratio n of therapy: within 24 hours of surgery [facility] acetaminoph en ADULT (OFIRMEV) injection 06-27 00:50: 00 06-27 01:17 :18 No IV Infusion, Administer over 15 Minutes, ONCE INTRA PROCEDURE, Starting on Carin 06/26/22 at 1950, Until Carin 06/26/22 at 2017, Routine, Intra-op [facility] PHENYLephri ne 1000 mcg/10 mL in 0.9% NaCl syringe 06-27 00:38: 00 06-27 01:17 :18 No Slow IV Push, ONCE INTRA PROCEDURE, Starting on Carin 06/26/22 at 1938, Until Carin 06/26/22 at 2017, Routine, Intra-op [facility] azithromyci n (ZITHROMAX) 500 mg in NaCl 0.9% (NS) 250 mL IV piggyback 06-27 00:29: 00 06-27 01:17 :18 No IV Piggyback, CONTINUOUS PRN, Starting on Carin 06/26/22 at 1929, Until Carin 06/26/22 at 2016, Administer over 60 Minutes, 250 mL, Intra-op Univers y [facility] LR 1000 mL + oxytocin 40 units 40 unit/ 1,000 mL IV Solution 06-27 00:27: 00 06-27 01:17 :18 No IV Infusion, CONTINUOUS PRN, Starting on Carin 06/26/22 at 1927, Until Carin 06/26/22 at 2016, Routine, [facility] lact[facility] 06-27 00:16: 00 06-27 01:17 :18 No IV Infusion, CONTINUOUS PRN, Starting on Carin 06/26/22 at 1916, Until Carin 06/26/22 at 2016, Routine, Intra-op [facility] ondansetron (ZOFRAN (PF)) injection 06-27 00:09: 00 06-27 01:17 :18 No Slow IV Push, ONCE INTRA PROCEDURE, Starting on Carin 06/26/22 at 1909, Until Carin 06/26/22 at 2016, Routine, Intra-op [facility] ibuprofen 800 mg tablet 06-27 00:00: 00 07-16 00:00 :00 No [id number] 800mg Take 1 tablet by mouth every 8 (eight) hours. [facility] HYDROcodone -acetaminop hen 5-325 mg tablet 06-27 00:00: 00 07-16 00:00 :00 No [id number] 1{tbl} Take 1 tablet by mouth every 6 (six) hours as needed for Pain (scale 4-6) (Alternate with Ibuprofen) . Indication s: acute pain [facility] vitamin w/FA tablet 06-27 00:00: 00 07-16 00:00 :00 No [id number] 1{tbl} Take 1 tablet by mouth in the morning. [facility] docusate 100 mg capsule 06-27 00:00: 00 07-16 00:00 :00 No [id number] 200mg Take 2 capsules by mouth once daily as needed for Constipati on. [facility] ferrous sulfate 325 mg (65 mg iron) tablet 06-27 00:00: 00 07-16 00:00 :00 No [id number] 325mg Take 1 tablet by mouth in the morning and 1 tablet in the evening. [facility] gabapentin 300 mg capsule 06-27 00:00: 00 07-16 00:00 :00 No [id number] 300mg Take 1 capsule by mouth in the morning and 1 capsule at noon and 1 capsule in the evening. [facility] lidocaine 2% + epinephrine 1:1000 + fentanyl 50 mcg/mL 06-26 23:40: 00 06-27 01:17 :18 No Epidural, CONTINUOUS PRN, Starting on Carin 06/26/22 at 1840, Until Carin 06/26/22 at 2016, Routine, [facility] PIB fentaNYL-ro pivacaine 2 mcg/mL-0.1 % (PF) in NS 200 mL epidural infusion RTU 06-26 15:08: 00 06-27 01:17 :18 No Epidural, ONCE INTRA PROCEDURE, Starting on Carin 06/26/22 at 1008, Until Carin 06/26/22 at 2016, Routine, Intra-op [facility] lidocaine-e pinephrine (XYLOCAINE W/EPINEPHRI NE) 1.5 %-1:200,000 injection 06-26 15:07: 00 06-27 01:17 :18 No Epidural, ONCE INTRA PROCEDURE, Starting on Carin 06/26/22 at 1007, Until Carin 06/26/22 at 2016, Routine, Intra-op [facility] lidocaine 1% (XYLOCAINE) 100 mg/10 mL (1 %) injection 06-26 14:56: 00 06-27 01:17 :18 No Infiltrati on, ONCE INTRA PROCEDURE, Starting on Carin 06/26/22 at 0956, Until Carin 06/26/22 at 2016, Routine, Intra-op [facility] magnesium hydroxide (MILK OF MAGNESIA) 400 mg/5 mL suspension 30 mL 06-26 07:21: 19 06-26 07:24 :00 No 30mL 30 mL, Oral, PRN, 1 dose, Starting on Carin 06/26/22 at 0221, Until Carin 06/26/22 at 0224, Routine, Constipati on [facility] misoprostol (CYTOTEC) quarter-tab let 50 mcg 06-26 06:30: 00 06-26 06:22 :00 No 50ug 50 mcg, Oral, QID, 1 dose, First dose on Carin 06/26/22 at 0130, Routine [facility] terbutaline (BRETHINE) injection 0.25 mg 06-26 05:04: 21 06-27 01:15 :28 No .25mg 0.25 mg, Subcutaneo us, Q15MIN PRN, 3 doses, Starting on Carin 06/26/22 at 0004, Until Carin 06/26/22 at 2014, Routine, Tachysysto le with NRFHT [facility] lactated ringers IV infusion 1,000 mL 06-26 05:04: 21 06-27 01:15 :28 No 1000mL at 1-125 mL/hr, 1,000 mL, IV Infusion, TITRATE, Starting on Carin 06/26/22 at 0004, Until Carin 06/26/22 at 2014, Routine [facility] oxytocin (PITOCIN) 30 units in NS 500 mL IV infusion 06-26 05:04: 21 06-27 01:15 :28 No 2mU/min at 2-40 mL/hr, IV Infusion, TITRATE, Starting on Carin 06/26/22 at 0004, Until Carin 06/26/22 at 2014, Routine [facility] lactated ringers IV infusion 500 mL 06-26 05:04: 21 06-27 01:15 :28 No 500mL at 999 mL/hr, 500 mL, IV Infusion, PRN - SEE INSTRUCTIO NS, Starting on Carin 06/26/22 at 0004, Until Carin 06/26/22 at 2014, Routine [facility] sodium citrate-cit yg acid (BICITRA) 500-334 mg/5 mL solution 30 mL 06-26 05:04: 21 06-26 23:39 :00 No 30mL 30 mL, Oral, PRE-PROCED URE ONCE, 1 dose, Starting on Carin 06/26/22 at 0004, Until Discontinu ed, Routine, Surgery/Pr ocedure [facility] ASPIRIN ORAL 06-25 23:58: 17 Yes Take by mouth. [facility] Blood-Gluco se Meter (ACCU-CHEK GUIDE GLUCOSE METER) [facility] 05-16 00:00: 00 06-27 00:00 :00 No Check blood sugar 4 times daily [facility] PNV no.95/kari us fum/folic ac ( ORAL) 05-06 14:30: 18 Yes Take by mouth. [facility] Blood-Gluco se Meter (ACCU-CHEK GUIDE GLUCOSE METER) [facility] 05-06 00:00: 00 Yes Use as directed [facility] lancets 33 gauge [facility] 05-06 00:00: 00 06-27 00:00 :00 No Pt will check glucose levels 4 x per day. [facility] blood sugar diagnostic (ACCU-CHEK GUIDE TEST STRIPS) strip 05-06 00:00: 00 06-27 00:00 :00 No Pt will check glucose levels 4 x per day. [facility] ferrous sulfate 325 mg (65 mg iron) tablet 05-02 00:00: 00 06-27 00:00 :00 No [id number] 325mg Take 1 tablet by mouth in the morning and 1 tablet in the evening. [facility] No known medications 2021-04 16:19: 09 No No known medication s [facility] NaCl 0.9% (NS) bolus infusion 500 mL 2021-04 03:30: 00 01-11 04:12 :00 No 500mL at 999 mL/hr, 500 mL, IV Infusion, ONCE, 1 dose, On Thu01/10/22 at 2230, STAT [facility] PNV no.95/kari us fum/folic ac ( ORAL) 2021-04 007 16:39: 23 Yes Take by mouth. [facility] No known medications 12-17 17:00: 31 No No known medication s [facility] Nitrofurant oin&Nit. Macrocryst 100 mg capsule 11-06 00:00: 00 12-17 00:00 :00 No TAKE 1 CAPSULE BY MOUTH EVERY 12 HOURS FOR 7 DAYS [facility] Immunizations Ordered Immunization Name Filled Immunization Name Date Status Comments Source TD 2022-04-18 00:00:00 Completed [facility] TDAP 2022-04-18 00:00:00 Completed [facility] TDAP 2022-04-18 00:00:00 Completed [facility] TDAP 2022-04-18 00:00:00 Completed [facility] TDAP 2022-04-18 00:00:00 Completed [facility] TDAP 2022-04-18 00:00:00 Completed [facility] TDAP 2022-04-18 00:00:00 Completed [facility] TDAP 2022-04-18 00:00:00 Completed [facility] TDAP 2022-04-18 00:00:00 Completed [facility] TDAP 2022-04-18 00:00:00 Completed [facility] TDAP 2022-04-18 00:00:00 Completed [facility] TDAP 2022-04-18 00:00:00 Completed [facility] TDAP 2022-04-18 00:00:00 Completed [facility] TDAP 2022-04-18 00:00:00 Completed [facility] TDAP 2022-04-18 00:00:00 Completed [facility] TDAP 2022-04-18 00:00:00 Completed [facility] TDAP 2022-04-18 00:00:00 Completed [facility] TDAP 2022-04-18 00:00:00 Completed [facility] TDAP 2022-04-18 00:00:00 Completed [facility] TDAP 2022-04-18 00:00:00 Completed [facility] TDAP 2022-04-18 00:00:00 Completed [facility] TDAP 2022-04-18 00:00:00 Completed [facility] TDAP 2022-04-18 00:00:00 Completed [facility] TDAP 2022-04-18 00:00:00 Completed [facility] TDAP 2022-04-18 00:00:00 Completed [facility] TDAP 2022-04-18 00:00:00 Completed [facility] TDAP 2022-04-18 00:00:00 Completed [facility] TDAP 2022-04-18 00:00:00 Completed [facility] TDAP 2022-04-18 00:00:00 Completed [facility] TDAP 2022-04-18 00:00:00 Completed [facility] TDAP 2022-04-18 00:00:00 Completed [facility] TDAP 2022-04-18 00:00:00 Completed [facility] TDAP 2022-04-18 00:00:00 Completed [facility] TDAP 2022-04-18 00:00:00 Completed [facility] TDAP 2022-04-18 00:00:00 Completed [facility] TDAP 2022-04-18 00:00:00 Completed [facility] Influenza Virus Vaccine Quad IM, Preserv and ABX Free 6 MO-64 YRS 2022-02-07 00:00:00 Completed [facility] Influenza Virus Vaccine Quad IM, Preserv and ABX Free 6 MO-64 YRS 2022-02-07 00:00:00 Completed [facility] Influenza Virus Vaccine Quad IM, Preserv and ABX Free 6 MO-64 YRS 2022-02-07 00:00:00 Completed [facility] Influenza Virus Vaccine Quad IM, Preserv and ABX Free 6 MO-64 YRS 2022-02-07 00:00:00 Completed [facility] Influenza Virus Vaccine Quad IM, Preserv and ABX Free 6 MO-64 YRS 2022-02-07 00:00:00 Completed [facility] Influenza Virus Vaccine Quad IM, Preserv and ABX Free 6 MO-64 YRS 2022-02-07 00:00:00 Completed [facility] Influenza Virus Vaccine Quad IM, Preserv and ABX Free 6 MO-64 YRS 2022-02-07 00:00:00 Completed [facility] Influenza Virus Vaccine Quad IM, Preserv and ABX Free 6 MO-64 YRS 2022-02-07 00:00:00 Completed [facility] Influenza Virus Vaccine Quad IM, Preserv and ABX Free 6 MO-64 YRS 2022-02-07 00:00:00 Completed [facility] Influenza Virus Vaccine Quad IM, Preserv and ABX Free 6 MO-64 YRS 2022-02-07 00:00:00 Completed [facility] Influenza Virus Vaccine Quad IM, Preserv and ABX Free 6 MO-64 YRS 2022-02-07 00:00:00 Completed [facility] Influenza Virus Vaccine Quad IM, Preserv and ABX Free 6 MO-64 YRS 2022-02-07 00:00:00 Completed [facility] Influenza Virus Vaccine Quad IM, Preserv and ABX Free 6 MO-64 YRS 2022-02-07 00:00:00 Completed [facility] Influenza Virus Vaccine Quad IM, Preserv and ABX Free 6 MO-64 YRS 2022-02-07 00:00:00 Completed [facility] Influenza Virus Vaccine Quad IM, Preserv and ABX Free 6 MO-64 YRS 2022-02-07 00:00:00 Completed [facility] Influenza Virus Vaccine Quad IM, Preserv and ABX Free 6 MO-64 YRS 2022-02-07 00:00:00 Completed [facility] Influenza Virus Vaccine Quad IM, Preserv and ABX Free 6 MO-64 YRS 2022-02-07 00:00:00 Completed [facility] Influenza Virus Vaccine Quad IM, Preserv and ABX Free 6 MO-64 YRS 2022-02-07 00:00:00 Completed [facility] Influenza Virus Vaccine Quad IM, Preserv and ABX Free 6 MO-64 YRS 2022-02-07 00:00:00 Completed [facility] Influenza Virus Vaccine Quad IM, Preserv and ABX Free 6 MO-64 YRS 2022-02-07 00:00:00 Completed [facility] Influenza Virus Vaccine Quad IM, Preserv and ABX Free 6 MO-64 YRS 2022-02-07 00:00:00 Completed [facility] Influenza Virus Vaccine Quad IM, Preserv and ABX Free 6 MO-64 YRS 2022-02-07 00:00:00 Completed [facility] Influenza Virus Vaccine Quad IM, Preserv and ABX Free 6 MO-64 YRS 2022-02-07 00:00:00 Completed [facility] Influenza Virus Vaccine Quad IM, Preserv and ABX Free 6 MO-64 YRS 2022-02-07 00:00:00 Completed [facility] Influenza Virus Vaccine Quad IM, Preserv and ABX Free 6 MO-64 YRS 2022-02-07 00:00:00 Completed [facility] Influenza Virus Vaccine Quad IM, Preserv and ABX Free 6 MO-64 YRS 2022-02-07 00:00:00 Completed [facility] Influenza Virus Vaccine Quad IM, Preserv and ABX Free 6 MO-64 YRS 2022-02-07 00:00:00 Completed [facility] Influenza Virus Vaccine Quad IM, Preserv and ABX Free 6 MO-64 YRS 2022-02-07 00:00:00 Completed [facility] Influenza Virus Vaccine Quad IM, Preserv and ABX Free 6 MO-64 YRS 2022-02-07 00:00:00 Completed [facility] Influenza Virus Vaccine Quad IM, Preserv and ABX Free 6 MO-64 YRS 2022-02-07 00:00:00 Completed [facility] Influenza Virus Vaccine Quad IM, Preserv and ABX Free 6 MO-64 YRS 2022-02-07 00:00:00 Completed [facility] Influenza Virus Vaccine Quad IM, Preserv and ABX Free 6 MO-64 YRS 2022-02-07 00:00:00 Completed [facility] Influenza Virus Vaccine Quad IM, Preserv and ABX Free 6 MO-64 YRS 2022-02-07 00:00:00 Completed [facility] Influenza Virus Vaccine Quad IM, Preserv and ABX Free 6 MO-64 YRS 2022-02-07 00:00:00 Completed [facility] Influenza Virus Vaccine Quad IM, Preserv and ABX Free 6 MO-64 YRS 2022-02-07 00:00:00 Completed [facility] Influenza Virus Vaccine Quad IM, Preserv and ABX Free 6 MO-64 YRS 2022-02-07 00:00:00 Completed [facility] Influenza Virus Vaccine Quad IM, Preserv and ABX Free 6 MO-64 YRS 2022-02-07 00:00:00 Completed [facility] Influenza Virus Vaccine Quad IM, Preserv and ABX Free 6 MO-64 YRS 2022-02-07 00:00:00 Completed [facility] Influenza Virus Vaccine Quad IM, Preserv and ABX Free 6 MO-64 YRS (FLUCELVAX) 2022-02-07 00:00:00 Completed [facility] Influenza Virus Vaccine Quad IM, Preserv and ABX Free 6 MO-64 YRS (FLUCELVAX) 2022-02-07 00:00:00 Completed [facility] Influenza Virus Vaccine Quad IM, Preserv and ABX Free 6 MO-64 YRS (FLUCELVAX) 2022-02-07 00:00:00 Completed [facility] Influenza Virus Vaccine Quad IM, Preserv and ABX Free 6 MO-64 YRS (FLUCELVAX) 2022-02-07 00:00:00 Completed [facility] Influenza Virus Vaccine Quad IM, Preserv and ABX Free 6 MO-64 YRS (FLUCELVAX) 2022-02-07 00:00:00 Completed [facility] Influenza Virus Vaccine Quad IM, Preserv and ABX Free 6 MO-64 YRS 2022-02-07 00:00:00 Completed [facility] Influenza Virus Vaccine Quad IM, Preserv and ABX Free 6 MO-64 YRS 2022-02-07 00:00:00 Completed [facility] Influenza Virus Vaccine Quad IM, Preserv and ABX Free 6 MO-64 YRS 2021-05-21 00:00:00 Completed [facility] Influenza Virus Vaccine Quad IM, Preserv and ABX Free 6 MO-64 YRS 2021-05-21 00:00:00 Completed [facility] Influenza Virus Vaccine Quad IM, Preserv and ABX Free 6 MO-64 YRS 2021-05-21 00:00:00 Completed [facility] Influenza Virus Vaccine Quad IM, Preserv and ABX Free 6 MO-64 YRS 2021-05-21 00:00:00 Completed [facility] Influenza Virus Vaccine Quad IM, Preserv and ABX Free 6 MO-64 YRS 2021-05-21 00:00:00 Completed [facility] Influenza Virus Vaccine Quad IM, Preserv and ABX Free 6 MO-64 YRS 2021-05-21 00:00:00 Completed [facility] Influenza Virus Vaccine Quad IM, Preserv and ABX Free 6 MO-64 YRS 2021-05-21 00:00:00 Completed [facility] Influenza Virus Vaccine Quad IM, Preserv and ABX Free 6 MO-64 YRS 2021-05-21 00:00:00 Completed [facility] Influenza Virus Vaccine Quad IM, Preserv and ABX Free 6 MO-64 YRS 2021-05-21 00:00:00 Completed [facility] Influenza Virus Vaccine Quad IM, Preserv and ABX Free 6 MO-64 YRS 2021-05-21 00:00:00 Completed [facility] Influenza Virus Vaccine Quad IM, Preserv and ABX Free 6 MO-64 YRS 2021-05-21 00:00:00 Completed [facility] Influenza Virus Vaccine Quad IM, Preserv and ABX Free 6 MO-64 YRS 2021-05-21 00:00:00 Completed [facility] Influenza Virus Vaccine Quad IM, Preserv and ABX Free 6 MO-64 YRS 2021-05-21 00:00:00 Completed [facility] Influenza Virus Vaccine Quad IM, Preserv and ABX Free 6 MO-64 YRS 2021-05-21 00:00:00 Completed [facility] Influenza Virus Vaccine Quad IM, Preserv and ABX Free 6 MO-64 YRS 2021-05-21 00:00:00 Completed [facility] Influenza Virus Vaccine Quad IM, Preserv and ABX Free 6 MO-64 YRS 2021-05-21 00:00:00 Completed [facility] Influenza Virus Vaccine Quad IM, Preserv and ABX Free 6 MO-64 YRS 2021-05-21 00:00:00 Completed [facility] Influenza Virus Vaccine Quad IM, Preserv and ABX Free 6 MO-64 YRS 2021-05-21 00:00:00 Completed [facility] Influenza Virus Vaccine Quad IM, Preserv and ABX Free 6 MO-64 YRS 2021-05-21 00:00:00 Completed [facility] Influenza Virus Vaccine Quad IM, Preserv and ABX Free 6 MO-64 YRS 2021-05-21 00:00:00 Completed [facility] Influenza Virus Vaccine Quad IM, Preserv and ABX Free 6 MO-64 YRS 2021-05-21 00:00:00 Completed [facility] Influenza Virus Vaccine Quad IM, Preserv and ABX Free 6 MO-64 YRS 2021-05-21 00:00:00 Completed [facility] Influenza Virus Vaccine Quad IM, Preserv and ABX Free 6 MO-64 YRS 2021-05-21 00:00:00 Completed [facility] Influenza Virus Vaccine Quad IM, Preserv and ABX Free 6 MO-64 YRS 2021-05-21 00:00:00 Completed [facility] Influenza Virus Vaccine Quad IM, Preserv and ABX Free 6 MO-64 YRS 2021-05-21 00:00:00 Completed [facility] Influenza Virus Vaccine Quad IM, Preserv and ABX Free 6 MO-64 YRS 2021-05-21 00:00:00 Completed [facility] Influenza Virus Vaccine Quad IM, Preserv and ABX Free 6 MO-64 YRS 2021-05-21 00:00:00 Completed [facility] Influenza Virus Vaccine Quad IM, Preserv and ABX Free 6 MO-64 YRS 2021-05-21 00:00:00 Completed [facility] Influenza Virus Vaccine Quad IM, Preserv and ABX Free 6 MO-64 YRS 2021-05-21 00:00:00 Completed [facility] Influenza Virus Vaccine Quad IM, Preserv and ABX Free 6 MO-64 YRS 2021-05-21 00:00:00 Completed [facility] Influenza Virus Vaccine Quad IM, Preserv and ABX Free 6 MO-64 YRS 2021-05-21 00:00:00 Completed [facility] Influenza Virus Vaccine Quad IM, Preserv and ABX Free 6 MO-64 YRS 2021-05-21 00:00:00 Completed [facility] Influenza Virus Vaccine Quad IM, Preserv and ABX Free 6 MO-64 YRS 2021-05-21 00:00:00 Completed [facility] Influenza Virus Vaccine Quad IM, Preserv and ABX Free 6 MO-64 YRS 2021-05-21 00:00:00 Completed [facility] Influenza Virus Vaccine Quad IM, Preserv and ABX Free 6 MO-64 YRS 2021-05-21 00:00:00 Completed [facility] Influenza Virus Vaccine Quad IM, Preserv and ABX Free 6 MO-64 YRS 2021-05-21 00:00:00 Completed [facility] Influenza Virus Vaccine Quad IM, Preserv and ABX Free 6 MO-64 YRS 2021-05-21 00:00:00 Completed [facility] Influenza Virus Vaccine Quad IM, Preserv and ABX Free 6 MO-64 YRS 2021-05-21 00:00:00 Completed [facility] Influenza Virus Vaccine Quad IM, Preserv and ABX Free 6 MO-64 YRS 2021-05-21 00:00:00 Completed [facility] Influenza Virus Vaccine Quad IM, Preserv and ABX Free 6 MO-64 YRS (FLUCELVAX) 2021-05-21 00:00:00 Completed [facility] Influenza Virus Vaccine Quad IM, Preserv and ABX Free 6 MO-64 YRS (FLUCELVAX) 2021-05-21 00:00:00 Completed [facility] Influenza Virus Vaccine Quad IM, Preserv and ABX Free 6 MO-64 YRS (FLUCELVAX) 2021-05-21 00:00:00 Completed [facility] Influenza Virus Vaccine Quad IM, Preserv and ABX Free 6 MO-64 YRS (FLUCELVAX) 2021-05-21 00:00:00 Completed [facility] Influenza Virus Vaccine Quad IM, Preserv and ABX Free 6 MO-64 YRS (FLUCELVAX) 2021-05-21 00:00:00 Completed [facility] Influenza Virus Vaccine Quad IM, Preserv and ABX Free 6 MO-64 YRS 2021-05-21 00:00:00 Completed [facility] Influenza Virus Vaccine Quad IM, Preserv and ABX Free 6 MO-64 YRS 2021-05-21 00:00:00 Completed [facility] Influenza Virus Vaccine Quad IM, Preserv and ABX Free 6 MO-64 YRS 2021-05-21 00:00:00 Completed [facility] Influenza Virus Vaccine Quad IM, Preserv and ABX Free 6 MO-64 YRS 2021-05-21 00:00:00 Completed [facility] Influenza Virus Vaccine Quad IM, Preserv and ABX Free 6 MO-64 YRS 2021-05-21 00:00:00 Completed [facility] Influenza Virus Vaccine Quad IM, Preserv and ABX Free 6 MO-64 YRS 2021-05-21 00:00:00 Completed [facility] Influenza Virus Vaccine Quad IM, Preserv and ABX Free 6 MO-64 YRS 2021-05-21 00:00:00 Completed [facility] Influenza Virus Vaccine Quad IM, Preserv and ABX Free 6 MO-64 YRS 2021-05-21 00:00:00 Completed [facility] Influenza Virus Vaccine Quad IM, Preserv and ABX Free 6 MO-64 YRS 2021-05-21 00:00:00 Completed [facility] Influenza Virus Vaccine Quad IM, Preserv and ABX Free 6 MO-64 YRS 2021-05-21 00:00:00 Completed [facility] Influenza Virus Vaccine Quad IM, Preserv and ABX Free 6 MO-64 YRS 2021-05-21 00:00:00 Completed [facility] Influenza Virus Vaccine Quad IM, Preserv and ABX Free 6 MO-64 YRS 2021-05-21 00:00:00 Completed [facility] Influenza Virus Vaccine Quad IM, Preserv and ABX Free 6 MO-64 YRS 2021-05-21 00:00:00 Completed [facility] Influenza Virus Vaccine Quad .5 mL IM 6+ MO 2020-01-10 00:00:00 Completed [facility] Influenza Virus Vaccine Quad .5 mL IM 6+ MO 2020-01-10 00:00:00 Completed [facility] Influenza Virus Vaccine Quad .5 mL IM 6+ MO 2020-01-10 00:00:00 Completed [facility] Influenza Virus Vaccine Quad .5 mL IM 6+ MO 2020-01-10 00:00:00 Completed [facility] Influenza Virus Vaccine Quad .5 mL IM 6+ MO 2020-01-10 00:00:00 Completed [facility] Influenza Virus Vaccine Quad .5 mL IM 6+ MO 2020-01-10 00:00:00 Completed [facility] Influenza Virus Vaccine Quad .5 mL IM 6+ MO 2020-01-10 00:00:00 Completed [facility] Influenza Virus Vaccine Quad .5 mL IM 6+ MO 2020-01-10 00:00:00 Completed [facility] Influenza Virus Vaccine Quad .5 mL IM 6+ MO 2020-01-10 00:00:00 Completed [facility] Influenza Virus Vaccine Quad .5 mL IM 6+ MO 2020-01-10 00:00:00 Completed [facility] Influenza Virus Vaccine Quad .5 mL IM 6+ MO 2020-01-10 00:00:00 Completed [facility] Influenza Virus Vaccine Quad .5 mL IM 6+ MO 2020-01-10 00:00:00 Completed [facility] Influenza Virus Vaccine Quad .5 mL IM 6+ MO 2020-01-10 00:00:00 Completed [facility] Influenza Virus Vaccine Quad .5 mL IM + MO 2020-01-10 00:00:00 Completed [facility] Influenza Virus Vaccine Quad .5 mL IM 6+ MO 2020-01-10 00:00:00 Completed [facility] Influenza Virus Vaccine Quad .5 mL IM + MO 2020-01-10 00:00:00 Completed [facility] Influenza Virus Vaccine Quad .5 mL IM 6+ MO 2020-01-10 00:00:00 Completed [facility] Influenza Virus Vaccine Quad .5 mL IM + MO 2020-01-10 00:00:00 Completed [facility] Influenza Virus Vaccine Quad .5 mL IM + MO 2020-01-10 00:00:00 Completed [facility] Influenza Virus Vaccine Quad .5 mL IM 6+ MO 2020-01-10 00:00:00 Completed [facility] Influenza Virus Vaccine Quad .5 mL IM 6+ MO 2020-01-10 00:00:00 Completed [facility] Influenza Virus Vaccine Quad .5 mL IM 6+ MO 2020-01-10 00:00:00 Completed [facility] Influenza Virus Vaccine Quad .5 mL IM 6+ MO 2020-01-10 00:00:00 Completed [facility] Influenza Virus Vaccine Quad .5 mL IM 6+ MO 2020-01-10 00:00:00 Completed [facility] Influenza Virus Vaccine Quad .5 mL IM 6+ MO 2020-01-10 00:00:00 Completed [facility] Influenza Virus Vaccine Quad .5 mL IM 6+ MO 2020-01-10 00:00:00 Completed [facility] Influenza Virus Vaccine Quad .5 mL IM 6+ MO 2020-01-10 00:00:00 Completed [facility] Influenza Virus Vaccine Quad .5 mL IM 6+ MO 2020-01-10 00:00:00 Completed [facility] Influenza Virus Vaccine Quad .5 mL IM 6+ MO 2020-01-10 00:00:00 Completed [facility] Influenza Virus Vaccine Quad .5 mL IM 6+ MO 2020-01-10 00:00:00 Completed [facility] Influenza Virus Vaccine Quad .5 mL IM 6+ MO 2020-01-10 00:00:00 Completed [facility] Influenza Virus Vaccine Quad .5 mL IM 6+ MO 2020-01-10 00:00:00 Completed [facility] Influenza Virus Vaccine Quad .5 mL IM 6+ MO 2020-01-10 00:00:00 Completed [facility] Influenza Virus Vaccine Quad .5 mL IM 6+ MO 2020-01-10 00:00:00 Completed [facility] Influenza Virus Vaccine Quad .5 mL IM 6+ MO 2020-01-10 00:00:00 Completed [facility] Influenza Virus Vaccine Quad .5 mL IM 6+ MO 2020-01-10 00:00:00 Completed [facility] Influenza Virus Vaccine Quad .5 mL IM 6+ MO 2020-01-10 00:00:00 Completed [facility] Influenza Virus Vaccine Quad .5 mL IM 6+ MO 2020-01-10 00:00:00 Completed [facility] Influenza Virus Vaccine Quad .5 mL IM 6+ MO 2020-01-10 00:00:00 Completed [facility] Influenza Virus Vaccine Quad .5 mL IM 6+ MO (FLUZONE/FLULAVAL/F LUARIX) 2020-01-10 00:00:00 Completed [facility] Influenza Virus Vaccine Quad .5 mL IM 6+ MO (FLUZONE/FLULAVAL/F LUARIX) 2020-01-10 00:00:00 Completed [facility] Influenza Virus Vaccine Quad .5 mL IM 6+ MO (FLUZONE/FLULAVAL/F LUARIX) 2020-01-10 00:00:00 Completed [facility] Influenza Virus Vaccine Quad .5 mL IM 6+ MO (FLUZONE/FLULAVAL/F LUARIX) 2020-01-10 00:00:00 Completed [facility] Influenza Virus Vaccine Quad .5 mL IM 6+ MO (FLUZONE/FLULAVAL/F LUARIX) 2020-01-10 00:00:00 Completed [facility] Influenza Virus Vaccine Quad .5 mL IM 6+ MO 2020-01-10 00:00:00 Completed [facility] Influenza Virus Vaccine Quad .5 mL IM 6+ MO 2020-01-10 00:00:00 Completed [facility] Influenza Virus Vaccine Quad .5 mL IM 6+ MO 2020-01-10 00:00:00 Completed [facility] Influenza Virus Vaccine Quad .5 mL IM 6+ MO 2020-01-10 00:00:00 Completed [facility] Influenza Virus Vaccine Quad .5 mL IM 6+ MO 2020-01-10 00:00:00 Completed [facility] Influenza Virus Vaccine Quad .5 mL IM 6+ MO 2020-01-10 00:00:00 Completed [facility] Influenza Virus Vaccine Quad .5 mL IM 6+ MO 2020-01-10 00:00:00 Completed [facility] Influenza Virus Vaccine Quad .5 mL IM 6+ MO 2020-01-10 00:00:00 Completed [facility] Influenza Virus Vaccine Quad .5 mL IM 6+ MO 2020-01-10 00:00:00 Completed [facility] Influenza Virus Vaccine Quad .5 mL IM 6+ MO 2020-01-10 00:00:00 Completed [facility] Influenza Virus Vaccine Quad .5 mL IM 6+ MO 2020-01-10 00:00:00 Completed [facility] Influenza Virus Vaccine Quad .5 mL IM 6+ MO 2020-01-10 00:00:00 Completed [facility] Influenza Virus Vaccine Quad .5 mL IM 6+ MO 2020-01-10 00:00:00 Completed [facility] Influenza Virus Vaccine Quad .5 mL IM 6+ MO (FLUZONE/FLULAVAL/F LUARIX) Unknown Completed [facility] Influenza Virus Vaccine Quad IM, Preserv and ABX Free 6 MO-64 YRS (FLUCELVAX) Unknown Completed [facility] Influenza Virus Vaccine Quad IM, Preserv and ABX Free 6 MO-64 YRS (FLUCELVAX) Unknown Completed [facility] TDAP Unknown Completed [facility] Vital Signs Vital Name Observation Time Observation Value Comments S ource Systolic blood pressure 2022-12-04 18:39:00 136 mm[Hg] [facility] Diastolic blood pressure 2022-12-04 18:39:00 89 mm[Hg] [facility] Heart rate 2022-12-04 18:38:00 96 /min [facility] Respiratory rate 2022-12-04 18:38:00 18 /min [facility] Body height 2022-12-04 18:38:00 162.6 cm [facility] Body weight 2022-12-04 18:38:00 81.557 kg [facility] BMI 2022-12-04 18:38:00 30.86 kg/m2 [facility] Oxygen saturation in Arterial blood by Pulse oximetry 2022-12-04 18:38:00 98 /min [facility] Systolic blood pressure 2022-09-02 18:26:00 121 mm[Hg] [facility] Diastolic blood pressure 2022-09-02 18:26:00 84 mm[Hg] [facility] Heart rate 2022-09-02 18:26:00 85 /min [facility] Body temperature 2022-09-02 18:26:00 36.72 Ally [facility] Respiratory rate 2022-09-02 18:26:00 16 /min [facility] Body height 2022-09-02 18:26:00 162.6 cm [facility] Body weight 2022-09-02 18:26:00 84.052 kg [facility] BMI 2022-09-02 18:26:00 31.81 kg/m2 [facility] Oxygen saturation in Arterial blood by Pulse oximetry 2022-09-02 18:26:00 99 /min [facility] Systolic blood pressure 2022-08-20 20:35:00 120 mm[Hg] [facility] Diastolic blood pressure 2022-08-20 20:35:00 81 mm[Hg] [facility] Heart rate 2022-08-20 20:33:00 108 /min [facility] Respiratory rate 2022-08-20 20:33:00 18 /min [facility] Body height 2022-08-20 20:33:00 162.6 cm [facility] Body weight 2022-08-20 20:33:00 84.369 kg [facility] BMI 2022-08-20 20:33:00 31.93 kg/m2 [facility] Systolic blood pressure 2022-08-12 21:02:00 135 mm[Hg] [facility] Diastolic blood pressure 2022-08-12 21:02:00 95 mm[Hg] [facility] Heart rate 2022-08-12 20:52:00 93 /min [facility] Body temperature 2022-08-12 20:52:00 36.94 Ally [facility] Respiratory rate 2022-08-12 20:52:00 18 /min [facility] Body height 2022-08-12 20:52:00 162.6 cm [facility] Body weight 2022-08-12 20:52:00 84.823 kg [facility] BMI 2022-08-12 20:52:00 32.10 kg/m2 [facility] Systolic blood pressure 2022-07-16 21:45:00 123 mm[Hg] [facility] [facility] Di[facility] blood pressure 2022-07-16 21:45:00 83 mm[Hg] [facility] Heart rate 2022-07-16 21:32:00 82 /min Un[facility] Body temperature 2022-07-16 21:32:00 36.83 Ally [facility] Respiratory rate 2022-07-16 21:32:00 18 /min [facility] Body height 2022-07-16 21:32:00 162.6 cm Univ [facility] Body weight 2022-07-16 21:32:00 86.183 kg [facility] BMI 2022-07-16 21:32:00 32.61 kg/m2 [facility] Systolic blood pressure 2022-06-28 13:20:00 132 mm[Hg] [facility] Diastolic blood pressure 2022-06-28 13:20:00 73 mm[Hg] [facility] Heart rate 2022-06-28 13:20:00 82 /min [facility] Body temperature 2022-06-28 13:20:00 36.39 Ally [facility] Respiratory rate 2022-06-28 13:20:00 18 /min [facility] Oxygen saturation in Arterial blood by Pulse oximetry 2022-06-28 04:37:00 100 /min [facility] Body height 2022-06-26 06:39:00 162.6 cm [facility] Body weight 2022-06-26 06:39:00 98.612 kg [facility] BMI 2022-06-26 06:39:00 37.32 kg/m2 [facility] Respiratory rate 2022-06-27 01:11:00 23 /min [facility] Heart rate 2022-06-27 03:30:00 88 /[facility] in Arterial blood by Pulse oximetry 2022-06-27 03:30:00 99 /min [facility] Systolic blood pressure 2022-06-27 03:15:00 132 mm[Hg] [facility] Diastolic blood pressure 2022-06-27 03:15:00 76 mm[Hg] [facility] Body temperature 2022-06-26 22:00:00 37 Ally [facility] Respiratory rate 2022-06-26 22:00:00 18 /min [facility] Body height 2022-06-26 06:39:00 162.6 cm [facility] Body weight 2022-06-26 06:39:00 98.612 kg [facility] BMI 2022-06-26 06:39:00 37.32 kg/m2 [facility] Sy[facility] blood [facility] 2022-06-24 14:00:00 130 mm[Hg] [facility] Diastolic blood pressure 2022-06-24 14:00:00 85 mm[Hg] [facility] Heart rate 2022-06-24 14:00:00 98 /min [facility] Res[facility] 2022-06-24 14:00:00 18 /min [facility] Body height 2022-06-24 14:00:00 160 cm [facility] Body weight 2022-06-24 14:00:00 98.431 kg [facility] BMI 2022-06-24 14:00:00 38.44 kg/m2 [facility] Systolic blood pressure 2022-06-20 15:45:00 134 mm[Hg] [facility] Diastolic blood pressure 2022-06-20 15:45:00 80 mm[Hg] [facility] Heart rate 2022-06-20 15:45:00 89 /min [facility] Body temperature 2022-06-20 15:45:00 36.5 Ally [facility] Respiratory rate 2022-06-20 15:45:00 18 /min [facility] Body height 2022-06-20 15:45:00 162.6 cm [facility] Body weight 2022-06-20 15:45:00 97.07 kg [facility] BMI 2022-06-20 15:45:00 36.73 kg/m2 [facility] Body temperature 2022-06-17 14:04:00 36.72 Ally [facility] Respiratory rate 2022-06-17 14:04:00 16 /min [facility] Body height 2022-06-17 14:04:00 162.6 cm [facility] Body weight 2022-06-17 14:04:00 97.433 kg [facility] BMI 2022-06-17 14:04:00 36.87 kg/m2 [facility] Systolic blood pressure 2022-06-17 14:04:00 114 mm[Hg] [facility] Diastolic blood pressure 2022-06-17 14:04:00 74 mm[Hg] [facility] Heart rate 2022-06-17 14:04:00 81 /min [facility] Systolic blood pressure 2022-06-13 15:20:00 131 mm[Hg] [facility] Diastolic blood pressure 2022-06-13 15:20:00 88 mm[Hg] [facility] Heart rate 2022-06-13 15:20:00 84 /min [facility] Body temperature 2022-06-13 15:20:00 36.44 Ally [facility] Respiratory rate 2022-06-13 15:20:00 18 /min [facility] Body height 2022-06-13 15:20:00 162.6 cm [facility] Body weight 2022-06-13 15:20:00 95.709 kg [facility] BMI 2022-06-13 15:20:00 36.22 kg/m2 [facility] Systolic blood pressure 2022-06-10 15:16:00 113 mm[Hg] [facility] Diastolic blood pressure 2022-06-10 15:16:00 75 mm[Hg] [facility] Heart rate 2022-06-10 15:16:00 85 /min [facility] Body temperature 2022-06-10 15:16:00 36.72 Ally [facility] Respiratory rate 2022-06-10 15:16:00 16 /min [facility] Body height 2022-06-10 15:16:00 162.6 cm [facility] Body weight 2022-06-10 15:16:00 96.163 kg [facility] BMI 2022-06-10 15:16:00 36.39 kg/m2 [facility] Systolic blood pressure 2022-06-06 22:38:00 115 mm[Hg] [facility] Diastolic blood pressure 2022-06-06 22:38:00 75 mm[Hg] [facility] Heart rate 2022-06-06 22:37:00 102 /min [facility] Body temperature 2022-06-06 22:37:00 36.61 Ally [facility] Body height 2022-06-06 22:37:00 162.6 cm [facility] Body weight 2022-06-06 22:37:00 96.435 kg [facility] BMI 2022-06-06 22:37:00 36.49 kg/m2 [facility] Systolic blood pressure 2022-05-27 19:17:00 118 mm[Hg] [facility] Diastolic blood pressure 2022-05-27 19:17:00 79 mm[Hg] [facility] Heart rate 2022-05-27 19:17:00 88 /min [facility] Body temperature 2022-05-27 19:17:00 36.56 Ally [facility] Respiratory rate 2022-05-27 19:17:00 16 /min [facility] Body height 2022-05-27 19:17:00 162.6 cm [facility] Body weight 2022-05-27 19:17:00 94.802 kg [facility] BMI 2022-05-27 19:17:00 35.87 kg/m2 [facility] Systolic blood pressure 2022-05-23 20:38:00 123 mm[Hg] [facility] Diastolic blood pressure 2022-05-23 20:38:00 76 mm[Hg] [facility] Heart rate 2022-05-23 20:38:00 93 /min [facility] Body temperature 2022-05-23 20:38:00 36.67 Ally [facility] Respiratory rate 2022-05-23 20:38:00 18 /min [facility] Body height 2022-05-23 20:38:00 162.6 cm [facility] Body weight 2022-05-23 20:38:00 94.802 kg [facility] BMI 2022-05-23 20:38:00 35.87 kg/m2 [facility] Systolic blood pressure 2022-05-20 19:25:00 127 mm[Hg] [facility] Diastolic blood pressure 2022-05-20 19:25:00 79 mm[Hg] [facility] Heart rate 2022-05-20 19:25:00 78 /min [facility] Body temperature 2022-05-20 19:25:00 36.61 Ally [facility] Respiratory rate 2022-05-20 19:25:00 16 /min [facility] Body height 2022-05-20 19:25:00 162.6 cm [facility] Body weight 2022-05-20 19:25:00 95.255 kg [facility] BMI 2022-05-20 19:25:00 36.05 kg/m2 [facility] Systolic blood pressure 2022-05-16 20:39:00 117 mm[Hg] [facility] Diastolic blood pressure 2022-05-16 20:39:00 76 mm[Hg] [facility] Heart rate 2022-05-16 20:39:00 81 /min [facility] Body temperature 2022-05-16 20:39:00 36.67 Ally [facility] Respiratory rate 2022-05-16 20:39:00 18 /min [facility] Body height 2022-05-16 20:39:00 162.6 cm [facility] Body weight 2022-05-16 20:39:00 94.53 kg [facility] BMI 2022-05-16 20:39:00 35.77 kg/m2 [facility] Systolic blood pressure 2022-05-06 19:43:00 124 mm[Hg] [facility] Diastolic blood pressure 2022-05-06 19:43:00 84 mm[Hg] [facility] Heart rate 2022-05-06 19:43:00 105 /min [facility] Body temperature 2022-05-06 19:43:00 36.78 Ally [facility] Respiratory rate 2022-05-06 19:43:00 18 /min [facility] Body height 2022-05-06 19:43:00 162.6 cm [facility] [place] Body weight 2022-05-06 19:43:00 94.802 kg [facility] BMI 2022-05-06 19:43:00 35.87 kg/m2 [facility] Systolic blood pressure 2022-05-02 22:27:00 122 mm[Hg] [facility] Diastolic blood pressure 2022-05-02 22:27:00 81 mm[Hg] [facility] Heart rate 2022-05-02 22:27:00 94 /min [facility] Body height 2022-05-02 22:27:00 162.6 cm [facility] Body weight 2022-05-02 22:27:00 93.441 kg Univ [facility] [place] BMI 2022-05-02 22:27:00 35.36 kg/m2 [facility] Systolic blood pressure 2022-04-18 22:02:00 113 mm[Hg] [facility] [place] Diastolic blood pressure 2022-04-18 22:02:00 77 mm[Hg] [facility] Heart rate 2022-04-18 22:02:00 67 /min [facility] Body temperature 2022-04-18 22:02:00 36.67 Ally [facility] Respiratory rate 2022-04-18 22:02:00 18 /min [facility] Body height 2022-04-18 22:02:00 162.6 cm [facility] Body weight 2022-04-18 22:02:00 93.985 kg Univ [facility] BMI 2022-04-18 22:02:00 35.57 kg/m2 [facility] Systolic blood pressure 2022-04-04 21:50:00 126 mm[Hg] [facility] [place] Diastolic blood pressure 2022-04-04 21:50:00 84 mm[Hg] [facility] Heart rate 2022-04-04 21:50:00 88 /min [facility] Body temperature 2022-04-04 21:50:00 36.78 Ally [facility] Respiratory rate 2022-04-04 21:50:00 18 /min [facility] Body height 2022-04-04 21:50:00 162.6 cm [facility] Body weight 2022-04-04 21:50:00 91.354 kg [facility] BMI 2022-04-04 21:50:00 34.57 kg/m2 [facility] Systolic blood pressure 2022-03-07 21:52:00 125 mm[Hg] [place] [facility] Diastolic blood pressure 2022-03-07 21:52:00 82 mm[Hg] [facility] Heart rate 2022-03-07 21:52:00 99 /min [facility] Body temperature 2022-03-07 21:52:00 36.72 Ally [facility] Respiratory rate 2022-03-07 21:52:00 18 /min [facility] Body height 2022-03-07 21:52:00 162.6 cm [facility] Body weight 2022-03-07 21:52:00 87.544 kg [facility] BMI 2022-03-07 21:52:00 33.13 kg/m2 [facility] Systolic blood pressure 2022-02-07 21:16:00 120 mm[Hg] [facility] Diastolic blood pressure 2022-02-07 21:16:00 80 mm[Hg] [facility] Heart rate 2022-02-07 21:16:00 86 /min [facility] Body temperature 2022-02-07 21:16:00 36.72 Ally [facility] Respiratory rate 2022-02-07 21:16:00 18 /min [facility] Body height 2022-02-07 21:16:00 162.6 cm [facility] Body weight 2022-02-07 21:16:00 84.369 kg [facility] BMI 2022-02-07 21:16:00 31.93 kg/m2 [facility] Systolic blood pressure 2022-01-11 04:12:59 122 mm[Hg] [facility] Diastolic blood pressure 2022-01-11 04:12:59 81 mm[Hg] [facility] Heart rate 2022-01-11 04:12:59 90 /min [facility] Body temperature 2022-01-11 04:12:59 36.72 Ally [facility] Respiratory rate 2022-01-11 04:12:59 16 /min [facility] Oxygen saturation in Arterial blood by Pulse oximetry 2022-01-11 04:12:59 99 /min [facility] Body height 2022-01-11 01:36:00 162.6 cm [facility] Body weight 2022-01-11 01:36:00 80.287 kg [facility] BMI 2022-01-11 01:36:00 30.38 kg/m2 [facility] Systolic blood pressure 2022-01-10 21:32:00 136 mm[Hg] [facility] Diastolic blood pressure 2022-01-10 21:32:00 86 mm[Hg] [facility] Heart rate 2022-01-10 21:32:00 94 /min [facility] Body temperature 2022-01-10 21:32:00 37.33 Ally [facility] Body height 2022-01-10 21:32:00 160 cm [facility] Body weight 2022-01-10 21:32:00 80.65 kg [facility] BMI 2022-01-10 21:32:00 31.50 kg/m2 [facility] Systolic blood pressure 2021-12-17 21:24:00 136 mm[Hg] [facility] Diastolic blood pressure 2021-12-17 21:24:00 88 mm[Hg] [facility] Heart rate 2021-12-17 21:24:00 106 /min Un[facility] Body temperature 2021-12-17 21:24:00 36.83 Ally [facility] Body height 2021-12-17 21:24:00 160 cm [facility] Body weight 2021-12-17 21:24:00 80.377 kg [facility] BMI 2021-12-17 21:24:00 31.39 kg/m2 [facility] Procedures Procedure Date / Time Performed Performing Clinician Source DISCLOSURE AND CONSENT MEDICAL & SURGICAL PROCEDURES - FEMAL 2022-12-04 05:01:00 Doctor [place]assigned, [place] [facility] POCT TEST 2022-12-04 00:00:00 Adum, Concepcion Anderson [facility]CLOS[facility] 05:01:00 [place] Unassigned, [place] [facility] POCT TEST 2022-08-20 00:00:00 Adum, Concepcion Anderson [facility] URINE CULTURE 2022-08-12 21:34:00 Adum, [facility] CBC WITH DIFF 2022-06-27 09:14:00 Adum, [facility] CBC WITH DIFF 2022-06-27 09:14:00 Adum, [facility]ion [facility] POCT GLUCOSE (AUTOMATED) 2022-06-26 22:14:00 Adum, Darcy Anderson [facility] POCT GLUCOSE (AUTOMATED) 2022-06-26 22:14:00 Adum, Darcy Anderson [facility] POCT GLUCOSE (AUTOMATED) 2022-06-26 18:06:00 Adum, Darcy Anderson [facility] POCT GLUCOSE (AUTOMATED) 2022-06-26 18:06:00 Adum, Darcy Anderson [facility] SGOT (ASPARTATE AMINO TRANSFER) 2022-06-26 16:11:00 Adum, Concepcion Anderson [facility] CREATININE 2022-06-26 16:11:00 Adum, Concepcion Anderson [facility] ALANINE AMINO TRANSFERASE(SGPT 2022-06-26 16:11:00 Adum, Concepcion Anderson [facility] URIC ACID 2022-06-26 16:11:00 Adum, Concepcion Anderson [facility] CBC WITH DIFF 2022-06-26 16:11:00 Adum, Concepcion Chaves [facility] SGOT (ASPARTATE AMINO TRANSFER) 2022-06-26 16:11:00 Adum, Concepcion L [facility] CREATININE 2022-06-26 16:11:00 Adum, [facility]cepcion Justin [facility] ALANINE AMINO TRANSFERASE(SGPT 2022-06-26 16:11:00 Adum, Concepcion Anderson [facility] URIC ACID 2022-06-26 16:11:00 Adum, Concepcion Castellanos [facility] CBC WITH DIFF 2022-06-26 16:11:00 Adum, Concepcion Chaves [facility] CENTRAL NEURAXIAL BLOCK 2022-06-26 15:34:00 Tianna Estes [facility] POCT GLUCOSE (AUTOMATED) 2022-06-26 14:01:00 Adum, Darcy Anderson [facility] POCT GLUCOSE (AUTOMATED) 2022-06-26 14:01:00 Adum, Darcy Anderson [facility] POCT GLUCOSE (AUTOMATED) 2022-06-26 10:09:00 Adum, Darcy Anderson [facility] POCT GLUCOSE (AUTOMATED) 2022-06-26 10:09:00 Adum, Darcy Anderson [facility] CBC WITH DIFF 2022-06-26 06:01:00 Adum, Concepcion Chaves [facility] HEPATITIS B SURFACE ANTIGEN 2022-06-26 06:01:00 Adum, Concepcion Anderson [facility] HB ABO GROUPING 2022-06-26 06:01:00 Adum, Concepcion Anderson [facility] OR FARSHAD ONLY - RPR 2022-06-26 06:01:00 Adum, Liseth Anderson [facility] CBC WITH DIFF 2022-06-26 06:01:00 Adum, Concepcion Chaves [facility] HEPATITIS B SURFACE ANTIGEN 2022-06-26 06:01:00 Adum, Concepcion Anderson [facility] HB ABO GROUPING 2022-06-26 06:01:00 Adum, Concepcion Anderson [facility] OR FARSHAD ONLY - RPR 2022-06-26 06:01:00 Adum, Liseth Anderson [facility] POCT GLUCOSE (AUTOMATED) 2022-06-26 05:53:00 Adum, Darcy whiteimani Anderson [facility] POCT GLUCOSE (AUTOMATED) 2022-06-26 05:53:00 Adum, Darcy whiten Justin [facility] NOTICE OF PRIVACY PRACTICES 2022-06-25 20:34:43 Doctor Unassigned, [place] [facility] NOTICE OF PRIVACY PRACTICES 2022-06-25 20:34:43 Doctor Unassigned, [place] [facility] CONSENT/REFUSAL FOR DIAGNOSIS AND TREATMENT 2022-06-25 20:34:01 Doctor Unassigned, [place] [facility] CONSENT/REFUSAL FOR DIAGNOSIS AND TREATMENT 2022-06-25 20:34:01 Doctor Unassigned, [place] [facility] ASSIGNMENT OF BENEFITS 2022-06-25 20:33:40 Docto r Unassigned, [place] [facility] ASSIGNMENT OF BENEFITS 2022-06-25 20:33:40 Docto r Unassigned, [place] [facility] NON-STRESS TEST 2022-06-24 15:04:27 Adum, Concepcion Anderson [facility] POCT URINALYSIS W/O SPECIFIC GRAVITY 2022-06-24 00:00:00 Adum, Concepcion Anderson [facility] NON-STRESS TEST 2022-06-20 17:20:28 Nae [facility] US LIMITED 2022-06-20 17:19:35 [facility] W[facility] US LIMITED 2022-06-20 17:19:03 [facility] POCT URINALYSIS W/O SPECIFIC GRAVITY 2022-06-20 00:00:00 [facility] NON-STRESS TEST 2022-06-17 14:42:03 Jeancarlos Roque [facility] NON-STRESS TEST 2022-06-14 05:25:08 Adum, Concepcion Anderson [facility] POCT URINALYSIS W/O SPECIFIC GRAVITY 2022-06-13 00:00:00 Adum, Concepcion Anderson [facility] SECOND AND THIRD TRIMESTER ULTRASOUND 2022-06-11 19:52:00 Adum, Concepcion Anderson [facility] NON-STRESS TEST 2022-06-10 16:00:31 [facility] Jeancarlos [facility] NON-STRESS TEST 2022-06-09 01:58:29 [facility] NON-STRESS TEST 2022-06-06 23:29:33 Adum, Concepcion Anderson [facility] DSU PRE-OP 2022-06-06 06:01:00 Doctor Unass igned, [place] [facility] POCT URINALYSIS W/O SPECIFIC GRAVITY 2022-06-06 00:00:00 Adum, Concepcion Anderson [facility] NON-STRESS TEST 2022-05-23 22:16:26 Adum, Concepcion Anderson [facility] POCT URINALYSIS W/O SPECIFIC GRAVITY 2022-05-23 00:00:00 Adum, Concepcion Anderson [facility] NON-STRESS TEST 2022-05-21 00:26:00 Adum, Concepcion Anderson [facility] ASSIGNMENT OF BENEFITS 2022-05-20 19:01:27 Docto r Unassigned, [place] [facility] POCT URINALYSIS W/O SPECIFIC GRAVITY 2022-05-16 20:54:00 Adum, Concepcion Anderson [facility] POCT URINALYSIS 2022-05-02 22:29:00 Adum, Concepcion Anderson [facility] 2 HR GLUCOSE TOLERANCE TEST 2022-05-01 18:33:00 Adum, Concepcion Anderson [facility] 1 HR GLUCOSE TOLERANCE TEST 2022-05-01 17:41:00 Adum, Concepcion Anderson [facility] GLUCOSE FASTING 2022-05-01 16:36:00 Adum, Concepcion Anderson [facility] CBC WITH DIFF 2022-05-01 16:36:00 Adum, Concepcion Anderson [facility] HIV 1/2 AG-AB WITH REFLEX 2022-05-01 16:36:00 Adum, Liseth Anderson [facility] TDAP VACCINE, >11 YRS, IM 2022-04-18 22:13:55 Adum, Liseth Anderson [facility] POCT URINALYSIS W/O SPECIFIC GRAVITY 2022-04-18 22:07:00 Adum, Concepcion Anderson [facility] POCT URINALYSIS W/O SPECIFIC GRAVITY 2022-04-04 22:05:00 Adum, Concepcion Anderson [facility] POCT URINALYSIS W/O SPECIFIC GRAVITY 2022-03-07 00:00:00 Adum, [facility] [place] NOTICE OF RESEARCH PARTICIPATION 2022-02-20 06:01:00 Doctor Unassigned, [place] [facility] [place] FLU VACC (), 6 MO-64 YRS, .5ML, IM, QUAD (FLUCELVAX) 2022-02-07 21:27:41 Adum, Concepcion Anderson [facility] [place] POCT URINALYSIS W/O SPECIFIC GRAVITY 2022-02-07 21:19:00 Adum, Concepcion Anderson [facility] [place] US PELVIS > 14 WEEKS 2022-01-11 03:10:29 Nohemi Canales [facility] [place] BASIC METABOLIC PANEL (NA, K, CL, CO2, GLUCOSE, BUN, CREATININE, CA) 2022-01-11 02:32:00 Nohemi Canales [facility] [place] CBC WITH DIFF 2022-01-11 02:32:00 Nohemi Canales [facility] URINALYSIS 2022-01-11 02:32:00 Nohemi Canales [facility] CONSENT/REFUSAL FOR DIAGNOSIS AND TREATMENT 2022-01-11 01:16:35 Doctor Unassigned, [place] [facility] [place] POCT URINALYSIS W/O SPECIFIC GRAVITY 2022-01-10 00:00:00 Adum, Concepcion Anderson [facility] [place] INSURANCE CORRESPONDENCE 2022-01-02 05:01:00 Doc tor Unassigned, [place] [facility] [place] 1 HR GLUCOSE TOLERANCE TEST 2021-12-20 16:26:00 Adum, Concepcion Anderson [facility] [place] GLUCOSE FASTING 2021-12-20 15:16:00 Adum, Concepcion Anderson [facility] CBC WITH DIFF 2021-12-20 15:16:00 Adum, Concepcion Chaves [facility] SCANNED LAB RESULTS 2021-12-20 05:01:00 Doctor David ward, [place] [facility] [place] POCT URINALYSIS W/O SPECIFIC GRAVITY 2021-12-17 00:00:00 Adum, Concepcion Anderson [facility] [place] URINE DRUG (IMMUNOASSAY) - COMPREHENSIVE DRUG SCREEN 2021-11-22 16:15:00 Adum, Concepcion Anderson [facility] [place] URINE CULTURE 2021-11-22 16:15:00 Adum, Concepcion Chaves [facility] GLUCOSE 1 HOUR POST PRANDIAL 2021-11-22 15:58:00 Adum, Concepcion Anderson [facility] [place] LACTATE DEHYDROGENASE 2021-11-22 15:58:00 Adum, Concepcion Anderson [facility] [place] URIC ACID 2021-11-22 15:58:00 Adum, Concepcion Anderson [facility] COMP. METABOLIC PANEL ([id number]) 2021-11-22 15:58:00 Adum, Concepcion Anderson [facility] [place] TOTAL BETA HCG ASSAY 2021-11-22 15:58:00 Adum, Concepcion Anderson [facility] [place] RUBELLA SCREEN IGG 2021-11-22 15:58:00 Adum, Concepcion Anderson [facility] [place] VZV ANTIBODY SCREEN 2021-11-22 15:58:00 Adum, Concepcion Anderson [facility] [place] HEPATITIS B SURFACE ANTIGEN 2021-11-22 15:58:00 Adum, Concepcion Anderson [facility] [place] HCV ANTIBODY 2021-11-22 15:58:00 Adum, Concepcion Anderson [facility] HB ABO GROUPING 2021-11-22 15:58:00 [facility]um, [facility] - RPR 2021-11-22 15:58:00 Adum, Liseth Anderson [facility] [place] HIV 1/2 AG-AB WITH REFLEX 2021-11-22 15:58:00 Adum, Liseth Anderson [facility] [place] CREATININE U 24 HR 2021-11-22 10:00:00 Adum, Concepcion Anderson [facility] [place] PROTEIN QUANT U/24H 2021-11-22 10:00:00 Adum, Concepcion Anderson [facility] [place] [facility] 2021-11-19 05:01:00 Doc tor Unassigned, [place] [facility] [place] [facility] 2021-11-06 05:01:00 Doc tor Unassigned, [place] [facility] [place] [id number] 2020-06-15 00:00:00 MONMA.05 [facility] [id number] 2020-06-15 00:00:00 MONMA.05 [facility] [id number] 2020-06-15 00:00:00 MONMA.05 [facility] SECTION Adum, Concepcion Anderson [facility] SECTION Adum, Concepcion L [facility] acute hospital Encounters Start Date/Time End Date/Time Encounter Type Admission Type Attending Clinicians Care Facility Care Department Encounter ID Source 2021-02-01 18:43:19 Emergency [facility] [id number] [facility] 2023-03-05 13:46:24 2023-03-05 13:46:24 Outpatient [facility] [id number] Borjas 2022-12-12 13:15:00 2022-12-12 13:15:00 Outpatient R KATYA [facility] [id number] [facility] 2022-12-11 13:15:00 2022-12-11 13:15:00 Outpatient R CONCEPCION ALDANA [facility] [id number] [facility] 2022-12-04 14:15:00 2022-12-04 14:30:00 Finish Mixer Visit 2, Adc Lab Katya Concepcion [facility] 1.2.840.114 350.1.13.10 4.2.7.2.686 [id number] [facility] 2022-12-04 13:30:00 2022-12-04 14:06:43 Outpatient R KATYA [facility] [id number] [facility] 2022-12-04 13:30:00 2022-12-04 14:06:43 Office Visit Concepcion [facility] 1.2840.114 350.1.13.10 4.2.7.2.686 [id number] [facility] 2022-12-04 00:00:00 2022-12-04 00:00:00 Orders Only Doctor Unassigned, [place] [facility] 1.840.114 350.1.13.10 4.2.7.2.686 [id number] [facility] 2022-10-21 15:30:00 2022-10-21 15:30:00 Outpatient CONCEPCION FLORES [facility] [id number] [facility] 2022-10-09 00:00:00 2022-10-09 00:00:00 Outpatient R JEANCARLOS ROQUE CHERYAL [facility] [id number] [facility] 2022-09-29 14:30:00 2022-09-29 14:30:00 Outpatient R JEANCARLOS ROQUE CHERYAL [facility] [id number] [facility] 2022-09-02 13:15:00 2022-09-02 13:51:11 Outpatient R JEANCARLOS ROQUE CHERYAL [facility] [id number] [facility] 2022-09-02 13:15:00 2022-09-02 13:51:11 Office Visit Jeancarlos Roque MDJOSE DE JESUS [facility] 1.840.114 350.1.13.10 4.2.7.2.686 [id number] 134 [id number] [facility] 2022-08-20 15:00:00 2022-08-20 16:37:58 Outpatient R CONCEPCION ALDANA [facility] [id number] [facility] 2022-08-20 15:00:00 2022-08-20 16:37:58 Office Visit Adum, Concepcion Anderson [facility] 1.2840.114 350.1.13.10 4.2.7.2.686 [id number] [facility] 2022-08-20 00:00:00 2022-08-20 00:00:00 Orders Only Doctor Unassigned, [place] [facility] 1.2840.114 350.1.13.10 4.2.7.2.686 [id number] [facility] 2022-08-12 15:45:00 2022-08-12 16:43:18 Outpatient R ADUM, CONCEPCION [facility] [id number] [facility] 2022-08-12 15:45:00 2022-08-12 16:43:18 Routine Visit Adum, Concepcion [facility] 1.2.840.114 350.1.13.10 4.2.7.2.686 [id number] [facility] 2022-07-16 15:45:00 2022-07-16 16:52:08 Outpatient R ADUM, [facility] [id number] [facility] 2022-07-16 15:45:00 2022-07-16 16:52:08 [facility] 1.2.840.114 350.1.13.10 4.2.7.2.686 [id number] [facility] 2022-07-16 15:45:00 2022-07-16 15:45:00 Outpatient R ADUM, [facility] [id number] [facility] 2022-07-09 00:00:00 2022-07-09 00:00:00 Patient Secure Msg Doctor Unassigned, [place] [facility] 1.2.840.114 350.1.13.10 4.2.7.2.686 [id number] [facility] 2022-06-25 23:58:00 2022-06-28 14:00:00 Inpatient P ADCONCEPCION VALLE [facility] [id number] [facility] 2022-06-25 23:58:00 2022-06-28 14:00:00 Hospital Encounter AdConcepcion valle [facility] 1.2.840.114 350.1.13.10 4.2.7.2.686 [id number] [facility] 2022-06-26 09:50:00 2022-06-26 20:17:00 Anesthesia Event Jose Angel Aargon [facility] 1.2.840.114 350.1.13.10 4.2.7.2.686 [id number] [facility] 2022-06-26 00:00:00 2022-06-26 00:00:00 Surgery Adtori, Concepcion Anderson [facility] 1.2.840.114 350.1.13.10 4.2.7.2.686 [id number] [facility] 2022-06-24 09:00:00 2022-06-24 10:03:27 Outpatient R KATYA CONCEPCION [facility] [id number] [facility] 2022-06-24 09:00:00 2022-06-24 10:03:27 Routine Visit 1, Lkj Nst Room AdConcepcion valle [facility] 1.2.840.114 350.1.13.10 4.2.7.2.686 [id number] 134 [id number] [facility] 2022-06-20 10:00:00 2022-06-20 11:51:17 Outpatient MARILU ARIZAJOSLYN S, MARILU [facility] [id number] [facility] 2022-06-20 10:00:00 2022-06-20 11:51:17 Routine Visit Room, [facility] Nae-Joslyn s, Marilu [facility] 1.2.840.114 350.1.13.10 4.2.7.2.686 [id number] 134 [id number] [facility] 2022-06-17 09:00:00 2022-06-17 09:39:39 Outpatient R ADUM, [facility] [id number] [facility] 2022-06-17 09:00:00 2022-06-17 09:39:39 Routine Visit 1, [facility] Room Ad, [facility] 1.0.114 350.1.13.10 4.2.7.2.686 [id number] [facility] 2022-06-13 09:00:00 2022-06-13 10:18:04 Outpatient R ADUM, [facility] [id number] [facility] 2022-06-13 09:00:00 2022-06-13 10:18:04 Routine Visit Room, [facility] Ad, [facility] 1.2840.114 350.1.13.10 4.2.7.2.686 [id number] 134 [id number] [facility] 2022-06-11 13:00:00 2022-06-11 14:03:29 Finish Mixer Visit 3, [facility] Us Room [facility] 1.2840.114 350.1.13.10 4.2.7.2.686 [id number] [facility] 2022-06-11 13:00:00 2022-06-11 13:00:00 Outpatient P HERNANDEZ, MIKE [facility] [id number] [facility] 2022-06-10 09:00:00 2022-06-10 09:15:00 Routine Visit 1, Lkj Nst Room AdConcepcion valle [facility] 1.2840.114 350.1.13.10 4.2.7.2.686 [id number] 134 [id number] [facility] 2022-06-10 09:00:00 2022-06-10 09:00:00 Outpatient R ADTORI [facility] [id number] [facility] 2022-06-06 15:45:00 2022-06-06 17:17:10 Outpatient R ADTORI [facility] [id number] [facility] 2022-06-06 15:45:00 2022-06-06 17:17:10 Routine Visit Ad, Concepcion [facility] 1.2840.114 350.1.13.10 4.2.7.2.686 [id number] [facility] 2022-06-06 00:00:00 2022-06-06 00:00:00 Orders Only Doctor Unassigned, [place] [facility] 1.2.840.114 350.1.13.10 4.2.7.2.686 [id number] [facility] 2022-06-03 13:00:00 2022-06-03 13:00:00 Outpatient R ADTORI [facility] [id number] [facility] 2022-06-02 14:00:00 2022-06-02 14:00:00 Outpatient P [facility] [id number] [facility] 2022-05-30 14:30:00 2022-05-30 14:30:00 Outpatient R ADUM, [facility] [id number] [facility] 2022-05-30 14:00:00 2022-05-30 14:00:00 Outpatient R [facility] [id number] [facility] 2022-05-27 13:00:00 2022-05-27 13:39:43 Outpatient R ADCONCEPCION VALLE [facility] [id number] [facility] 2022-05-27 13:00:00 2022-05-27 13:39:43 Routine Visit 1, [facility] Room Ad [facility] 1.840.114 350.1.13.10 4.2.7.2.686 [id number] 134 [id number] [facility] 2022-05-23 14:00:00 2022-05-23 15:51:47 Outpatient R ADUM, [facility] [id number] [facility] 2022-05-23 14:00:00 2022-05-23 15:51:47 Routine Visit Room, [facility] 1..840.114 350.1.13.10 4.2.7.2.686 [id number] 134 [id number] [facility] 2022-05-23 14:30:00 2022-05-23 14:30:00 Outpatient R ADTORI [facility] [id number] [facility] 2022-05-20 13:00:00 2022-05-20 14:05:14 Outpatient R ADUM [facility] [id number] [facility] 2022-05-20 13:00:00 2022-05-20 14:05:14 Routine Visit 1, [facility] 1.840.114 350.1.13.10 4.2.7.2.686 [id number] 134 [id number] [facility] 2022-05-20 00:00:00 2022-05-20 00:00:00 Orders Only Doctor Unassigned, [place] [facility] 1.2.840.114 350.1.13.10 4.2.7.2.686 [id number] [facility] 2022-05-16 14:30:00 2022-05-16 15:21:03 Outpatient R ADUM, [facility] [id number] [facility] 2022-05-16 14:30:00 2022-05-16 15:21:03 Routine Visit Adum, [facility] 1.2.840.114 350.1.13.10 4.2.7.2.686 [id number] 134 [id number] [facility] 2022-05-06 14:00:00 2022-05-06 14:20:40 Nurse Visit Nurse, [facility] Adum, [facility] 1.2.840.114 350.1.13.10 4.2.7.2.686 [id number] 134 [id number] [facility] 2022-05-06 14:00:00 2022-05-06 14:00:00 Outpatient R ADUM, [facility] [id number] [facility] 2022-05-05 11:45:00 2022-05-05 12:15:00 Finish Mixer Visit Ultrasound, Morales-Umberto Aguilar [facility] SAMPLE PATTERNMAKER [facility] 1.2.840.114 350.1.13.10 4.2.7.2.686 [id number] [facility] 2022-05-05 11:45:00 2022-05-05 11:45:00 Outpatient UMBERTO GUZMAN [facility] [id number] [facility] 2022-05-02 16:00:00 2022-05-02 16:46:42 Outpatient R ADUM [facility] [id number] [facility] 2022-05-02 16:00:00 2022-05-02 16:46:42 Routine Visit Adum, Concepcion [facility] 1.2.840.114 350.1.13.10 4.2.7.2.686 [id number] 134 [id number] [facility] 2022-05-01 10:45:00 2022-05-01 11:00:00 Finish Mixer Visit Pob, Adc Lab Main Adum, Concepcion Anderson MDJOSE DE JESUS [facility] 1.2.840.114 350.1.13.10 4.2.7.2.686 [id number] [facility] 2022-05-01 10:45:00 2022-05-01 10:45:00 Outpatient R ADUM, CONCEPCION [facility] [id number] [facility] 2022-04-28 00:00:00 2022-04-28 00:00:00 Telephone Adum, Concepcion Anderson [facility] 1.2.840.114 350.1.13.10 4.2.7.2.686 [id number] 134 [id number] [facility] 2022-04-24 00:00:00 2022-04-24 00:00:00 Telephone Adum, Concepcion Anderson [facility] 1.2.840.114 350.1.13.10 4.2.7.2.686 [id number] [facility] 2022-04-18 15:45:00 2022-04-18 16:32:07 Outpatient R ADUM, CONCEPCION [facility] [id number] [facility] 2022-04-18 15:45:00 2022-04-18 16:32:07 Routine Visit Adum, Concepcion Anderson [facility] 1.2.840.114 350.1.13.10 4.2.7.2.686 [id number] [facility] 2022-04-09 10:30:00 2022-04-09 10:30:00 Outpatient R [facility] [id number] [facility] 2022-04-04 16:00:00 2022-04-04 16:39:37 [facility] [id number] [facility] 2022-04-04 16:00:00 2022-04-04 16:39:37 Routine Visit Adum, [facility] 1.2.840.114 350.1.13.10 4.2.7.2.686 [id number] 134 [id number] [facility] 2022-03-07 15:45:00 2022-03-07 16:31:34 Outpatient R ADUM, [facility] [id number] [facility] 2022-03-07 15:45:00 2022-03-07 16:31:34 Routine Visit Adum, [facility] 1.2.840.114 350.1.13.10 4.2.7.2.686 [id number] 134 [id number] [facility] 2022-03-01 00:00:00 2022-03-01 00:00:00 Patient Secure Msg Zoila Henry E [facility] 1.2.840.114 350.1.13.10 4.2.7.2.686 [id number] 134 [id number] [facility] 2022-02-28 00:00:00 2022-02-28 00:00:00 Nurse Triage Shania Hayes [facility] 1.2840.114 350.1.13.10 4.2.7.2.686 [id number] [facility] 2022-02-20 09:30:00 2022-02-20 10:45:00 Finish Mixer [facility] SAMPLE PATTERNMAKER [facility] 1..114 350.1.13.10 4.2.7.2.686 [id number] [facility] 2022-02-20 09:30:00 2022-02-20 09:30:00 Outpatient P JAYESH LARIOS [facility] [id number] [facility] 2022-02-20 00:00:00 2022-02-20 00:00:00 Orders Only Doctor Unassigned, [place] [facility] 1..114 350.1.13.10 4.2.7.2.686 [id number] [facility] 2022-02-18 12:00:00 2022-02-18 12:00:00 Outpatient P ADUM, [facility] [id number] [facility] 2022-02-07 17:00:00 2022-02-07 17:15:00 Finish Mixer Visit Pob, Adc Lab Main Adum, Concepcion [facility] 1..114 350.1.13.10 4.2.7.2.686 [id number] [facility] 2022-02-07 16:00:00 2022-02-07 16:50:21 [facility] [id number] 2022-02-07 16:00:00 2022-02-07 16:50:21 Routine Visit Adum, Concepcion Anderson [facility] 1..114 350.1.13.10 4.2.7.2.686 [id number] 134 [id number] [facility] 2022-02-07 00:00:00 2022-02-07 00:00:00 Telephone Adum, Concepcion Anderson [facility] 1..114 350.1.13.10 4.2.7.2.686 [id number] 134 [id number] [facility] 2022-01-10 21:11:00 2022-01-10 23:15:00 Emergency X NOHEMI CANALES [facility] ERT [id number] [facility] 2022-01-10 21:11:00 2022-01-10 23:15:00 Emergency Nohemi Canales [facility] 1.2.840.114 350.1.13.10 4.2.7.2.686 [id number] [facility] 2022-01-10 16:15:00 2022-01-10 16:51:40 Outpatient R CONCEPCION ALDANA [facility] [id number] [facility] 2022-01-10 16:15:00 2022-01-10 16:51:40 Routine Visit AdConcepcion valle [facility] 1.2840.114 350.1.13.10 4.2.7.2.686 [id number] 134 [id number] [facility] 2022-01-10 00:00:00 2022-01-10 00:00:00 Nurse Triage Maame Alonso [facility] 1.2.840.114 350.1.13.10 4.2.7.2.686 [id number] [facility] 2022-01-02 00:00:00 2022-01-02 00:00:00 Orders Only Doctor Unassigned, [place] [facility] 1.2.840.114 350.1.13.10 4.2.7.2.686 [id number] [facility] 2021-12-31 00:00:00 2021-12-31 00:00:00 Telephone AdumConcepcion [facility] 1.2840.114 350.1.13.10 4.2.7.2.686 [id number] 134 [id number] [facility] 2021-12-20 10:00:00 2021-12-20 10:00:00 Outpatient R ADTORI CONCEPCION [facility] [id number] [facility] 2021-12-20 09:45:00 2021-12-20 10:00:00 Finish Mixer Visit Pob, Adc Lab Main Adtori Concepcion [facility] 1..840.114 350.1.13.10 4.2.7.2.686 [id number] [facility] 2021-12-20 09:45:00 2021-12-20 09:45:00 Outpatient R ADTORI [facility] [id number] [facility] 2021-12-20 00:00:00 2021-12-20 00:00:00 Orders Only Doctor Unassigned, [place] [facility] .840.114 350.1.13.10 4.2.7.2.686 [id number] [facility] 2021-12-17 16:00:00 2021-12-17 16:45:18 Outpatient R ADUM, [facility] [id number] [facility] 2021-12-17 16:00:00 2021-12-17 16:45:18 Routine Visit Seng [facility] 1..840.114 350.1.13.10 4.2.7.2.686 [id number] [facility] 2021-12-17 16:00:00 2021-12-17 16:00:00 Outpatient R ADTORI [facility] [id number] [facility] 2021-12-02 13:30:00 2021-12-02 14:00:00 Telemedici ne Visit Faculty, Emmanuel Barnes [facility] SAMPLE PATTERNMAKER [facility] 1.840.114 350.1.13.10 4.2.7.2.686 [id number] [facility] 2021-12-02 13:30:00 2021-12-02 13:30:00 Outpatient R [facility] [id number] [facility] 2021-12-02 13:30:00 2021-12-02 13:30:00 Outpatient R EMMANUEL PALACIO [facility] [id number] [facility] 2021-11-23 00:00:00 2021-11-23 00:00:00 Case Management Adum, Concepcion [facility] 1.2.840.114 350.1.13.10 4.2.7.2.686 [id number] [facility] 2021-11-22 11:15:00 2021-11-22 11:30:00 Finish Mixer Visit Pob, Adc Lab Main Adum, [facility] 1.2.840.114 350.1.13.10 4.2.7.2.686 [id number] [facility] 2021-11-22 11:15:00 2021-11-22 11:30:00 Finish Mixer Visit Pob, Adc Lab Main Ad, [facility] BU[facility] 1.2.840.114 350.1.13.10 4.2.7.2.686 [id number] [facility] 2021-11-22 11:15:00 2021-11-22 11:15:00 Outpatient R KATYA [facility] [id number] [facility] 2021-11-19 10:00:00 2021-11-19 11:44:24 Outpatient R KATYA AULTMAN [facility] [id number] [facility] 2021-11-19 10:00:00 2021-11-19 11:44:24 Routine Visit Katya Concepcion [facility] 1.2840.114 350.1.13.10 4.2.7.2.686 [id number] [facility] 2021-11-19 00:00:00 2021-11-19 00:00:00 Orders Only Doctor Unassigned, [place] [facility] 1.2840.114 350.1.13.10 4.2.7.2.686 [id number] [facility] 2021-11-06 14:30:00 2021-11-06 16:20:42 Outpatient R CONCEPCION ALDANA [facility] [id number] [facility] 2021-11-06 14:30:00 2021-11-06 16:20:42 Initial Visit AdConcepcion valle [facility] 1.840.114 350.1.13.10 4.2.7.2.686 [id number] [facility] 2021-11-06 00:00:00 2021-11-06 00:00:00 Orders Only Doctor Unassigned, [place] [facility] 1.2840.114 350.1.13.10 4.2.7.2.686 [id number] [facility] 2021-11-04 11:30:00 2021-11-04 11:30:00 Outpatient R JOSHUA LEWIS [facility] [id number] [facility] 2021-10-30 00:00:00 2021-10-30 00:00:00 Outpatient ANNIKA_ISAAC [facility] [id number] 0727 Tari [facility] Program 2021-07-11 15:30:00 2021-07-11 15:30:00 Outpatient R [facility] [id number] [facility] 2021-06-27 00:00:00 2021-06-27 00:00:00 Telephone AdumConcepcion [facility] 1.114 350.1.13.10 4.2.7.2.686 [id number] 134 [id number] [facility] 2021-06-26 16:30:00 2021-06-26 16:45:00 Finish Mixer Visit Pob, Adc Lab Main Adtori Concepcion Anderson [facility] 1.114 350.1.13.10 4.2.7.2.686 [id number] [facility] 2021-06-26 15:30:00 2021-06-26 16:19:38 Outpatient R KATYA CONCEPCION [facility] [id number] [facility] 2021-06-26 15:30:00 2021-06-26 16:19:38 Office Visit Katya Concepcion [facility] 1.114 350.1.13.10 4.2.7.2.686 [id number] 134 [id number] [facility] 2021-06-26 15:30:00 2021-06-26 15:30:00 Outpatient R KATYA CONCEPCION [facility] [id number] [facility] 2021-06-26 00:00:00 2021-06-26 00:00:00 Orders Only Doctor Unassigned, [place] [facility] 1.114 350.1.13.10 4.2.7.2.686 [id number] [facility] 2021-06-18 13:00:00 2021-06-18 15:02:59 Outpatient R KATYA CONCEPCION [facility] [id number] [facility] 2021-06-18 13:00:00 2021-06-18 15:02:59 Office Visit Katya Concepcion Anderson [facility] 1..114 350.1.13.10 4.2.7.2.686 [id number] [facility] 2021-06-18 00:00:00 2021-06-18 00:00:00 Orders Only Doctor Unassigned, [place] [facility] 1.2840.114 350.1.13.10 4.2.7.2.686 [id number] [id number] [facility] 2021-06-06 00:00:00 2021-06-06 00:00:00 Case Management Adum, Concepcion Anderson [facility] 1.2.840.114 350.1.13.10 4.2.7.2.686 [id number] 134 [id number] [facility] 2021-06-04 10:30:00 2021-06-04 10:30:00 Finish Mixer Visit 2, Adc Lab Adum, Concepcion Anderson [facility] 1.2.840.114 350.1.13.10 4.2.7.2.686 [id number] [facility] 2021-06-04 08:45:00 2021-06-04 10:08:01 Outpatient R CONCEPCION ALDANA [facility] [id number] [facility] 2021-06-04 08:45:00 2021-06-04 10:08:01 Routine Visit Adtori, Concepcion L [facility] 1.2.840.114 350.1.13.10 4.2.7.2.686 [id number] 134 [id number] [facility] 2021-06-03 00:00:00 2021-06-03 00:00:00 Telephone Adum, Concepcion Anderson [facility] 1.2.840.114 350.1.13.10 4.2.7.2.686 [id number] 134 [id number] [facility] 2021-05-31 17:58:00 2021-05-31 19:44:00 Emergency X PETRONA ALBA [facility] E[facility] [id number] [facility] 2021-05-31 17:58:00 2021-05-31 19:44:00 Emergency Petrona Alba [facility] 1.2.840.114 350.1.13.10 4.2.7.2.686 [id number] [facility] 2021-05-29 00:00:00 2021-05-29 00:00:00 Telephone Adtori Concepcion Anderson [facility] 1.2.840.114 350.1.13.10 4.2.7.2.686 [id number] 134 [id number] [facility] 2021-05-25 09:30:00 2021-05-25 09:45:00 Finish Mixer Visit Pob, [facility] 1.2.840.114 350.1.13.10 4.2.7.2.686 [id number] [facility] 2021-05-25 09:30:00 2021-05-25 09:30:00 Outpatient R CONCEPCION ALDANA [facility] [id number] [facility] 2021-05-24 00:00:00 2021-05-24 00:00:00 Telephone Adtori Concepcion Anderson [facility] 1.2.840.114 350.1.13.10 4.2.7.2.686 [id number] 134 [id number] [facility] 2021-05-23 09:45:00 2021-05-23 10:00:00 Finish Mixer Visit Pob, Adc Lab Main Adum, Concepcion [facility] 1.2.840.114 350.1.13.10 4.2.7.2.686 [id number] [facility] 2021-05-23 09:45:00 2021-05-23 09:45:00 Outpatient R ADUM, CONCEPCION [facility] [id number] [facility] 2021-05-22 00:00:00 2021-05-22 00:00:00 Case Management Adum, Concepcion Anderson [facility] 1.2.840.114 350.1.13.10 4.2.7.2.686 [id number] [facility] 2021-05-22 00:00:00 2021-05-22 00:00:00 Telephone Adum, Concepcion Anderson [facility] 1.2.840.114 350.1.13.10 4.2.7.2.686 [id number] [facility] 2021-05-21 15:00:00 2021-05-21 15:04:20 Finish Mixer Visit 2, Adc Lab Adum, Concepcion Anderson [facility] 1.2.840.114 350.1.13.10 4.2.7.2.686 [id number] [facility] 2021-05-21 14:00:00 2021-05-21 14:59:27 Outpatient R ADUM, CONCEPCION [facility] [id number] [facility] 2021-05-21 14:00:00 2021-05-21 14:59:27 Initial Visit Adum, Concepcion Anderson [facility] 1.2.840.114 350.1.13.10 4.2.7.2.686 [id number] 134 [id number] [facility] 2021-05-21 00:00:00 2021-05-21 00:00:00 Orders Only Doctor Unassigned, [place] [facility] 1.2.840.114 350.1.13.10 4.2.7.2.686 [id number] [facility] 2020-08-29 03:43:00 2020-08-29 03:43:00 [facility] [id number] [facility] 2020-08-24 10:05:00 2020-08-24 10:05:00 Outpatient Yan_W [facility] [id number] [facility] 2020-06-15 12:04:17 2020-06-15 12:04:17 Inpatient Wan Varma [facility] [id number] [facility] 2020-03-06 13:00:00 2020-03-06 13:00:00 Outpatient R ALEXA FINE [facility] [id number] [facility] 2020-02-29 00:00:00 2020-02-29 00:00:00 Orders Only Doctor Unassigned, [place] [facility] 1.0.114 350.1.13.10 4.2.7.2.686 [id number] [id number] [facility] 2020-02-29 00:00:00 2020-02-29 00:00:00 Orders Only Doctor Unassigned, [place] [address].0.114 350.1.13.10 4.2.7.2.686 [id number] [id number] 2020-02-15 00:00:00 2020-02-15 00:00:00 Orders Only Doctor Unassigned, [place] [address].2840.114 350.1.13.10 4.2.7.2.686 [id number] 009 [id number] 2020-02-15 00:00:00 2020-02-15 00:00:00 Orders Only Doctor Unassigned, [place] [facility] 1.0.114 350.1.13.10 4.2.7.2.686 [id number] [id number] [facility] 2020-02-14 00:00:00 2020-02-14 00:00:00 Alexa Espino [facility] 1.284.114 350.1.13.10 4.2.7.2.686 [id number] 134 [id number] 2020-02-14 00:00:00 2020-02-14 00:00:00 Telephone Alexa Fine [facility] Building 1.2.114 350.1.13.10 4.2.7.2.686 [id number] 134 [id number] [facility] 2020-02-13 00:00:00 2020-02-13 00:00:00 Telephone Alexa Fine [facility] Building 1.2840.114 350.1.13.10 4.2.7.2.686 [id number] 134 [id number] 2020-02-13 00:00:00 2020-02-13 00:00:00 Telephone Alexa Fine [facility] Building 1.2.114 350.1.13.10 4.2.7.2.686 [id number] 134 [id number] [facility] 2020-02-07 13:00:00 2020-02-07 13:00:00 Outpatient R ALEXA FINE [facility] [id number] [facility] 2020-02-07 08:38:18 2020-02-07 08:53:18 Telemedici ne Visit Alexa Fine [facility] Building 1..114 350.1.13.10 4.2.7.2.686 [id number] 134 [id number] 2020-02-07 08:38:18 2020-02-07 08:53:18 Telemedici ne Visit Alexa Fine [facility] Building 1.2.114 350.1.13.10 4.2.7.2.686 [id number] 134 [id number] [facility] 2020-02-03 14:19:52 2020-02-03 15:50:17 Urgent Care Provider, [facility] Office Building [facility] 1.2.114 350.1.13.10 4.2.7.2.686 [id number] [id number] 2020-02-03 14:19:52 2020-02-03 15:50:17 Urgent Care Provider, [facility] Keily Olivier [facility] 1.114 350.1.13.10 4.2.7.2.686 [id number] [facility] 2020-02-03 14:20:00 2020-02-03 14:20:00 [facility] [id number] 2020-02-03 00:00:00 2020-02-03 00:00:00 Letter (Out) Doctor Unassigned, [place] [facility] 1.0.114 350.1.13.10 4.2.7.2.686 [id number] [id number] 2020-02-03 00:00:00 2020-02-03 00:00:00 Letter (Out) Doctor Unassigned, [place] [facility] 1.20.114 350.1.13.10 4.2.7.2.686 [id number] [facility] 2020-02-01 00:00:00 2020-02-01 00:00:00 Case Management Alexa Fine [facility] Building 1.114 350.1.13.10 4.2.7.2.686 [id number] 134 [id number] 2020-02-01 00:00:00 2020-02-01 00:00:00 Case Management Alexa Fine [facility] Building 1.114 350.1.13.10 4.2.7.2.686 [id number] [facility] 2020-01-24 14:40:20 2020-01-24 14:58:57 Nurse Visit Nurse, [facility] Building 1.2.840.114 350.1.13.10 4.2.7.2.686 [id number] 134 [id number] 2020-01-24 14:40:20 2020-01-24 14:58:57 Nurse Visit Nurse, [facility] Choco Alexa [facility] 1.2.840.114 350.1.13.10 4.2.7.2.686 [id number] 134 [id number] [facility] 2020-01-24 14:30:00 2020-01-24 14:30:00 Outpatient R [facility] [id number] [facility] 2020-01-12 15:45:00 2020-01-12 15:45:00 Outpatient R ALEXA FINE [facility] [id number] [facility] 2020-01-10 16:01:52 2020-01-10 17:19:54 Routine Visit Uzair Joshua [facility] 1.2.840.114 350.1.13.10 4.2.7.2.686 [id number] 134 [id number] 2020-01-10 16:01:52 2020-01-10 17:19:54 Routine Visit Joshua Lewis Alexa [facility] 1.2.840.114 350.1.13.10 4.2.7.2.686 [id number] 134 [id number] [facility] 2020-01-10 16:00:00 2020-01-10 16:00:00 Outpatient R ALEXA FINE [facility] [id number] [facility] 2020-01-06 00:00:00 2020-01-06 00:00:00 Orders Only Doctor Unassigned, [place] [facility] 1.2.840.114 350.1.13.10 4.2.7.2.686 [id number] [facility] 2020-01-04 18:00:00 2020-01-04 23:59:00 Hospital Encounter Alexa Fine [facility] 1.2840.114 350.1.13.10 4.2.7.2.686 [id number] [facility] 2020-01-04 00:00:00 2020-01-04 00:00:00 Outpatient R ALEXA FINE [facility] [id number] [facility] 2020-01-04 00:00:00 2020-01-04 00:00:00 Orders Only Doctor Unassigned, [place] [facility] 1.2840.114 350.1.13.10 4.2.7.2.686 [id number] [facility] 2019-12-30 08:49:17 2019-12-30 09:04:17 Finish Mixer Visit Pob, Adc Lab Main Alexa Fine [facility] Building 1.2.114 350.1.13.10 4.2.7.2.686 [id number] [facility] 2019-12-30 08:45:00 2019-12-30 08:45:00 Outpatient R [facility] [id number] [facility] 2019-12-30 00:00:00 2019-12-30 00:00:00 Telephone Alexa Fine [facility] Building 1.2.114 350.1.13.10 4.2.7.2.686 [id number] 134 [id number] [facility] 2019-12-29 00:00:00 2019-12-29 00:00:00 Telephone [facility] 1.20.114 350.1.13.10 4.2.7.2.686 [id number] [facility] 2019-12-28 14:18:28 2019-12-28 15:29:09 Routine Visit [facility] 1.20.114 350.1.13.10 4.2.7.2.686 [id number] 134 [id number] [facility] 2019-12-28 09:58:55 2019-12-28 10:13:55 Finish Mixer Visit 2, Adc Lab Alexa Fine [facility] 1.2.840.114 350.1.13.10 4.2.7.2.686 [id number] [facility] 2019-12-28 09:30:00 2019-12-28 09:30:00 Outpatient R ALEXA FINE [facility] [id number] [facility] 2019-12-28 00:00:00 2019-12-28 00:00:00 Telephone Alexa Fine [facility] Building 1.2.840.114 350.1.13.10 4.2.7.2.686 [id number] [facility] 2019-12-27 03:49:00 2019-12-27 06:51:00 Emergency Nohemi Canales [facility] 1.2.840.114 350.1.13.10 4.2.7.2.686 [id number] [facility] 2019-12-27 00:00:00 2019-12-27 00:00:00 Telephone Alexa Fine [facility] Building 1.2.840.114 350.1.13.10 4.2.7.2.686 [id number] [facility] 2019-12-24 10:06:18 2019-12-24 10:21:18 Finish Mixer Visit Pob, Adc Lab Main Alexa Fine [facility] Building 1.2.840.114 350.1.13.10 4.2.7.2.686 [id number] [facility] 2019-12-24 10:15:00 2019-12-24 10:15:00 Outpatient R ALEXA FINE [facility] [id number] [facility] 2019-12-22 15:15:00 2019-12-22 15:15:00 Outpatient R ALEXA IFNE [facility] [id number] [facility] 2019-12-22 14:26:08 2019-12-22 14:41:08 Finish Mixer Visit Pob, [facility] 1.284.114 350.1.13.10 4.2.7.2.686 [id number] [facility] 2019-12-21 08:00:00 2019-12-21 08:00:00 Outpatient R JOSEFA BEAR [facility] [id number] [facility] 2019-12-21 00:00:00 2019-12-21 00:00:00 Case Management Joshua Lewis [facility] Building 1.84.114 350.1.13.10 4.2.7.2.686 [id number] [facility] 2019-12-21 00:00:00 2019-12-21 00:00:00 Telephone Alexa Fine [facility] Building 1.284.114 350.1.13.10 4.2.7.2.686 [id number] [facility] 2019-12-20 12:25:25 2019-12-20 12:40:25 Finish Mixer Visit Pob, Adc Lab [facility] 1.284.114 350.1.13.10 4.2.7.2.686 [id number] [facility] 2019-12-20 09:56:19 2019-12-20 12:05:25 Initial Visit Alexa Fine [facility] nal Building 1.284.114 350.1.13.10 4.2.7.2.686 [id number] [facility] 2019-12-20 10:00:00 2019-12-20 10:00:00 Outpatient R ALEXA FINE [facility] [id number] [facility] 2019-12-20 00:00:00 2019-12-20 00:00:00 Orders Only Doctor Unassigned, [place] [facility] 1.2.840.114 350.1.13.10 4.2.7.2.686 [id number] [facility] Results Test Description Test Time Test Comments Results Result Co mments Source [facility] [id number] 18:33:00* Test Item Value Reference Range Interpretation Comme nts POCT PREG (test code = 1605) Negative On board controls acceptable with C Line (test code = 3574) Yes POCT PREG LOT # (test code = 3575) POCT PREG TEST DATE ( test code = 3576) [facility] [id number] 21:42:00* Test Item Value Reference Range Interpretation Comme nts POCT PREG (test code = 1605) Negative On board controls acceptable with C Line (test code = 3574) Yes POCT PREG LOT # (test code = 3575) POCT PREG TEST DATE ( test code = 3576) [facility] [id number] 21:42:00* Test Item Value Reference Range Interpretation Comme nts POCT PREG (test code = 1605) Negative On board controls acceptable with C Line (test code = 3574) Yes POCT PREG LOT # (test code = 3575) POCT PREG TEST DATE ( test code = 3576) [facility] [id number] 21:42:00* Test Item Value Reference Range Interpretation Comme nts POCT PREG (test code = 1605) Negative On board controls acceptable with C Line (test code = 3574) Yes POCT PREG LOT # (test code = 3575) POCT PREG TEST DATE ( test code = 3576) [facility] GLUCOSE (AUTOMATED)2022-06-26 22:16:56* Test Item Value Reference Range Interpretation Comme nts POCT GLU (test code = 8918384211) 85 mg/dL 70-110 Lab Interpretation (test cod e = 27949-2) Normal [facility] GLUCOSE (AUTOMATED)2022-06-26 22:16:56* Test Item Value Reference Range Interpretation Comme nts POCT GLU (test code = 2848510728) 85 mg/dL 70-110 Lab Interpretation (test cod e = 22811-7) Normal [facility] GLUCOSE (AUTOMATED)2022-06-26 18:08:00* Test Item Value Reference Range Interpretation Comme nts POCT GLU (test code = 9354636540) 80 mg/dL 70-110 Lab Interpretation (test cod e = 40940-1) Normal [facility] GLUCOSE (AUTOMATED)2022-06-26 18:08:00* Test Item Value Reference Range Interpretation Comme nts POCT GLU (test code = 7167612994) 80 mg/dL 70-110 Lab Interpretation (test cod e = 30816-8) Normal [facility] GLUCOSE (AUTOMATED)2022-06-26 14:17:40* Test Item Value Reference Range Interpretation Comme nts POCT GLU (test code = 1209200471) 78 mg/dL 70-110 Lab Interpretation (test cod e = 83218-1) Normal [facility] GLUCOSE (AUTOMATED)2022-06-26 14:17:40* Test Item Value Reference Range Interpretation Comme nts POCT GLU (test code = 3053793929) 78 mg/dL 70-110 Lab Interpretation (test cod e = 59815-3) Normal [facility] GLUCOSE (AUTOMATED)2022-06-26 10:10:45* Test Item Value Reference Range Interpretation Comme nts POCT GLU (test code = 3493263654) 83 mg/dL 70-110 Lab Interpretation (test cod e = 10332-3) Normal [facility] GLUCOSE (AUTOMATED)2022-06-26 10:10:45* Test Item Value Reference Range Interpretation Comme nts POCT GLU (test code = 6224443627) 83 mg/dL 70-110 Lab Interpretation (test cod e = 71959-3) Normal [facility] GLUCOSE (AUTOMATED)2022-06-26 05:55:36* Test Item Value Reference Range Interpretation Comme nts POCT GLU (test code = 7944228051) 112 mg/dL 70-110 H Lab Interpretation (test cod e = 81082-8) Abnormal [facility] GLUCOSE (AUTOMATED)2022-06-26 05:55:36* Test Item Value Reference Range Interpretation Comme nts POCT GLU (test code = 8857618589) 112 mg/dL 70-110 H Lab Interpretation (test cod e = 55679-9) Abnormal [facility] URINALYSIS W/O SPECIFIC [id number] 15:01:00* Test Item Value Reference Range Interpretation Comme nts POCT PH U (test code = 3254) N/A 5-8 POCT U LEUK EST (test code = 3263) N/A Negative - Negative POCT U NIT (test code = 3262) N/A Negative - Negati ve POCT U PROT (test code = 3259) Negative Negative - Negat shayan POCT U GLU (test code = 3256) Negative Negative - Negati ve POCT U KETONE (test code = 3258) N/A Negative - Neg ative POCT U BLD (test code = 3257) N/A Negative - Negati ve [facility] URINALYSIS W/O SPECIFIC [id number] 15:44:00* Test Item Value Reference Range Interpretation Comme nts POCT PH U (test code = 3254) n/a 5-8 POCT U LEUK EST (test code = 3263) n/a Negative - Negative POCT U NIT (test code = 3262) n/a Negative - Negati ve POCT U PROT (test code = 3259) negative Negative - Negat shayan POCT U GLU (test code = 3256) negative Negative - Negati ve POCT U KETONE (test code = 3258) n/a Negative - Neg ative POCT U BLD (test code = 3257) n/a Negative - Negati ve [facility] URINALYSIS W/O SPECIFIC [id number] 16:26:00* Test Item Value Reference Range Interpretation Comme nts POCT PH U (test code = 3254) n/a 5-8 POCT U LEUK EST (test code = 3263) n/a Negative - N egative POCT U NIT (test code = 3262) n/a Negative - Negati ve POCT U PROT (test code = 3259) neg Negative - Negat shayan POCT U GLU (test code = 3256) neg Negative - Negati ve POCT U KETONE (test code = 3258) n/a Negative - Neg ative POCT U BLD (test code = 3257) n/a Negative - Negati ve [facility] URINALYSIS W/O SPECIFIC [id number] 22:47:00* Test Item Value Reference Range Interpretation Comme nts POCT PH U (test code = 3254) 7 mg/dl 5-8 POCT U LEUK EST (test code = 3263) Negative Negative - Negative POCT U NIT (test code = 3262) Negative Negative - Negati ve POCT U PROT (test code = 3259) Negative Negative - Negat shayan POCT U GLU (test code = 3256) 50 Negative - Negati ve POCT U KETONE (test code = 3258) Negative Negative - Neg ative POCT U BLD (test code = 3257) Negative Negative - Negati ve [facility] URINALYSIS W/O SPECIFIC [id number] 21:16:00* Test Item Value Reference Range Interpretation Comme nts POCT PH U (test code = 3254) n/a 5-8 POCT U LEUK EST (test code = 3263) n/a Negative - N egative POCT U NIT (test code = 3262) n/a Negative - Negati ve POCT U PROT (test code = 3259) neg Negative - Negat shayan POCT U GLU (test code = 3256) neg Negative - Negati ve POCT U KETONE (test code = 3258) n/a Negative - Neg ative POCT U BLD (test code = 3257) n/a Negative - Negati ve [facility] URINALYSIS W/O SPECIFIC [id number] 20:54:00* Test Item Value Reference Range Interpretation Comme nts POCT PH U (test code = 3254) n/a 5-8 POCT U LEUK EST (test code = 3263) n/a Negative - Negative POCT U NIT (test code = 3262) n/a Negative - Negati ve POCT U PROT (test code = 3259) trace Negative - Negat shayan POCT U GLU (test code = 3256) negative Negative - Negati ve POCT U KETONE (test code = 3258) n/a Negative - Neg ative POCT U BLD (test code = 3257) n/a Negative - Negati ve [facility] W SPECIFIC [id number] 22:30:00* Test Item Value Reference Range Interpretation Comme nts POCT U SP GRAV (test code = 3255) N/A 1.005-1.025 POCT PH U (test code = 3254) N/A 5-8 POCT U LEUK EST (test code = 3263) N/A Negative - Negative POCT U NIT (test code = 3262) N/A Negative - Negati ve POCT U PROT (test code = 3259) trace Negative - Negat shayan POCT U GLU (test code = 3256) negative Negative - Negati ve POCT U KETONE (test code = 3258) N/A Negative - Neg ative POCT U UROBILI (test code = 3260) N/A 0.2-1 POCT U BILI (test code = 3261) N/A Negative - Negat shayan POCT U BLD (test code = 3257) N/A Negative - Negati ve POCT U COLOR (test code = 3266) yellow POCT U APPEAR (test code = 3267) clear [facility] HR GLUCOSE TOLERANCE [id number] 18:24:28 * Test Item Value Reference Range Interpretation Comme nts GLUC 1 HR (test code = 6095305608) 187 mg/dL 120-170 H Lab Interpretation (test cod e = 47430-0) Abnormal [facility] AG-AB WITH [id number] 18:06:44* Test Item Value Reference Range Interpretation Comme nts HIV Semi-quantitative (test code = 81153-8) Negative Negative ABDULLAHI (test code = ABDULLAHI) Non-reactive for HIV-1 antigen and HIV-1/HIV-2 antibodies. ?No laboratory evidence of HIV infection. ?Repeat in 2-4 weeks if acute HIV infection is suspected. [facility] [id number] 17:25:16* Test Item Value Reference Range Interpretation Comme nts GLU FASTNG (test code = 4947964520) 97 mg/dL 70-110 Lab Interpretation (test cod e = 78696-7) [facility] [id number] 16:41:31* Test Item Value Reference Range Interpretation Comme nts WBC (test code = 6690-2) See_Comment H [Automated messa ge] The system which generated this result transmitted reference range: 4.30 - 11.10 10*3/?L. The reference range was not used to interpret this result as normal/abnormal. RBC (test code = 789-8) See_Comment L [Automated messa ge] The system which generated this result transmitted reference range: 3.93 - 5.25 10*6/?L. The reference range was not used to interpret this result as normal/abnormal. HGB (test code = 718-7) 9.3 g/dL 11.6-15.0 L HCT (test code = 4544-3) 29.0 % 35.7-45.2 L MCV (test code = 787-2) 77.7 fL 80.6-95.5 L MCH (test code = 785-6) 24.9 pg 25.9-32.8 L MCHC (test code = 786-4) 32.1 g/dL 31.6-35.1 RDW-SD (test code = 40192-0) 43.2 fL 39.0-49.9 RDW-CV (test code = 788-0) 15.4 % 12.0-15.5 PLT (test code = 777-3) See_Comment H [Automated messa ge] The system which generated this result transmitted reference range: 166 - 358 10*3/?L. The reference range was not used to interpret this result as normal/abnormal. MPV (test code = 66699-6) 9.6 fL 9.5-12.9 NRBC/100 WBC (test code = 3146732877) See_Comment [Automated me ssage] The system which generated this result transmitted reference range: 0.0 - 10.0 /100 WBCs. The reference range was not used to interpret this result as normal/abnormal. NRBC x10^3 (test code = 0858117446) See_Comment [Automated messa ge] The system which generated this result transmitted reference range: 10*3/?L. The reference range was not used to interpret this result as normal/abnormal. GRAN MAT (NEUT) % (test code = 770-8) 69.4 % IMM GRAN % (test code = 0406360639) 0.90 % LYMPH % (test code = 736-9) 22.9 % MONO % (test code = 5905-5) 5.7 % EOS % (test code = 713-8) 0.7 % BASO % (test code = 706-2) 0.4 % GRAN MAT x10^3(ANC) (test code = 8119002188) 9.69 10*3/uL 1.88-7.09 H IMM GRAN x10^3 (test code = 7279037005) 0.12 10*3/uL 0.00-0.06 H LYMPH x10^3 (test code = 731-0) 3.20 10*3/uL 1.32-3.29 MONO x10^3 (test code = 742-7) 0.80 10*3/uL 0.33-0.92 EOS x10^3 (test code = 711-2) 0.10 10*3/uL 0.03-0.39 BASO x10^3 (test code = 704-7) 0.05 10*3/uL 0.01-0.07 Lab Interpretation (test code = 16170-7) Abnormal [facility] URINALYSIS W/O SPECIFIC [id number] 22:07:00* Test Item Value Reference Range Interpretation Comme nts POCT PH U (test code = 3254) n/a 5-8 POCT U LEUK EST (test code = 3263) n/a Negative - Negative POCT U NIT (test code = 3262) n/a Negative - Negati ve POCT U PROT (test code = 3259) negative Negative - Negat shayan POCT U GLU (test code = 3256) negative Negative - Negati ve POCT U KETONE (test code = 3258) n/a Negative - Neg ative POCT U BLD (test code = 3257) n/a Negative - Negati ve [facility] URINALYSIS W/O SPECIFIC [id number] 22:05:00* Test Item Value Reference Range Interpretation Comme nts POCT PH U (test code = 3254) n/a 5-8 POCT U LEUK EST (test code = 3263) n/a Negative - Negative POCT U NIT (test code = 3262) n/a Negative - Negati ve POCT U PROT (test code = 3259) negative Negative - Negat shayan POCT U GLU (test code = 3256) negative Negative - Negati ve POCT U KETONE (test code = 3258) n/a Negative - Neg ative POCT U BLD (test code = 3257) n/a Negative - Negati ve [facility] URINALYSIS W/O SPECIFIC [id number] 22:09:00* Test Item Value Reference Range Interpretation Comme nts POCT PH U (test code = 3254) n/a 5-8 POCT U LEUK EST (test code = 3263) n/a Negative - N egative POCT U NIT (test code = 3262) n/a Negative - Negati ve POCT U PROT (test code = 3259) neg Negative - Negat shayan POCT U GLU (test code = 3256) neg Negative - Negati ve POCT U KETONE (test code = 3258) n/a Negative - Neg ative POCT U BLD (test code = 3257) n/a Negative - Negati ve [facility] URINALYSIS W/O SPECIFIC [id number] 21:19:00* Test Item Value Reference Range Interpretation Comme nts POCT PH U (test code = 3254) n/a 5-8 POCT U LEUK EST (test code = 3263) n/a Negative - Negative POCT U NIT (test code = 3262) n/a Negative - Negati ve POCT U PROT (test code = 3259) negative Negative - Negat shayan POCT U GLU (test code = 3256) negative Negative - Negati ve POCT U KETONE (test code = 3258) n/a Negative - Neg ative POCT U BLD (test code = 3257) n/a Negative - [facility]ati [facility] [id number] 21:35:00* Test Item Value Reference Range Interpretation Comme nts POCT PH U (test code = 3254) n/a 5-8 POCT U LEUK EST (test code = 3263) n/a Negative - N egative POCT U NIT (test code = 3262) n/a Negative - Negati ve POCT U PROT (test code = 3259) Trace Negative - Negat shayan POCT U GLU (test code = 3256) Normal Negative - Negati ve POCT U KETONE (test code = 3258) n/a Negative - Neg ative POCT U BLD (test code = 3257) n/a Negative - Negati ve [facility]villeGLUCOSE [id number] 16:55:19* Test Item Value Reference Range Interpretation Comme nts GLU FASTNG (test code = 7147737473) 82 mg/dL 70-110 Lab Interpretation (test cod e = 32911-2) Normal [facility]villeCBC WITH [id number] 15:32:10* Test Item Value Reference Range Interpretation Comme nts WBC (test code = 6690-2) See_Comment H [Automated [employer]] The system which generated this result transmitted reference range: 4.30 - 11.10 10*3/?L. The reference range was not used to interpret this result as normal/abnormal. RBC (test code = 789-8) See_Comment [Automated [employer]] The system which generated this result transmitted reference range: 3.93 - 5.25 10*6/?L. The reference range was not used to interpret this result as normal/abnormal. HGB (test code = 718-7) 11.3 g/dL 11.6-15 L HCT (test code = 4544-3) 33.6 % 35.7-45.2 L MCV (test code = 787-2) 85.5 fL 80.6-95.5 MCH (test code = 785-6) 28.8 pg 25.9-32.8 MCHC (test code = 786-4) 33.6 g/dL 31.6-35.1 RDW-SD (test code = 73655-4) 39.7 fL 39-49.9 RDW-CV (test code = 788-0) 12.9 % 12-15.5 PLT (test code = 777-3) See_Comment [Automated [employer]] The system which generated this result transmitted reference range: 166 - 358 10*3/?L. The reference range was not used to interpret this result as normal/abnormal. MPV (test code = 95972-0) 9.3 fL 9.5-12.9 L NRBC/100 WBC (test code = 9503718894) See_Comment [Automated [place] ssage] The system which generated this result transmitted reference range: 0.0 - 10.0 /100 WBCs. The reference range was not used to interpret this result as normal/abnormal. NRBC x10^3 (test code = 1203875177) See_Comment [Automated [employer]] The system which generated this result transmitted reference range: 10*3/?L. The reference range was not used to interpret this result as normal/abnormal. GRAN MAT (NEUT) % (test code = 770-8) 72.8 % IMM GRAN % (test code = 1122015697) 0.30 % LYMPH % (test code = 736-9) 21.4 % MONO % (test code = 5905-5) 4.4 % EOS % (test code = 713-8) 0.7 % BASO % (test code = 706-2) 0.4 % GRAN MAT x10^3(ANC) (test code = 0746614212) 8.83 10*3/uL 1.88-7.09 H IMM GRAN x10^3 (test code = 1651960095) 0.04 10*3/uL 0-0.06 LYMPH x10^3 (test code = 731-0) 2.59 10*3/uL 1.32-3.29 MONO x10^3 (test code = 742-7) 0.53 10*3/uL 0.33-0.92 EOS x10^3 (test code = 711-2) 0.09 10*3/uL 0.03-0.39 BASO x10^3 (test code = 704-7) 0.05 10*3/uL 0.01-0.07 Lab Interpretation (test code = 46665-5) Abnormal [facility] W/O SPECIFIC [id number] 21:22:00* Test Item Value Reference Range Interpretation Comme nts POCT PH U (test code = 3254) n/a 5-8 POCT U LEUK EST (test code = 3263) n/a Negative - Negative POCT U NIT (test code = 3262) n/a Negative - Negati ve POCT U PROT (test code = 3259) Negative Negative - Negat shayan POCT U GLU (test code = 3256) Normal Negative - Negati ve POCT U KETONE (test code = 3258) n/a Negative - Neg ative POCT U BLD (test code = 3257) n/a Negative - Negati ve [facility]villeURINE [id number] 17:20:14* Test Item Value Reference Range Interpretation Comme nts URINE CULTURE (test code = 630-4) 10,000 - 100,000 CFU/mL mixed aerobic organisms - suggests endogenous microbial contamination [facility] StephenvilleVZV ANTIBODY [id number] 15:36:55* Test Item Value Reference Range Interpretation Comme [facility] VZV IgG antibody (test code = 72760-9) Equivocal Negative ABDULLAHI (test code = ABDULLAHI) Positive - Indicat es the patient was exposed to VZV through infection or vaccination.Negative - Indicates the patient could be susceptible to VZV infection.Equivocal - A second specimen should be sent for testing. [facility] StephenvilleRUBELLA SCREEN [id number] 15:36:55* Test Item Value Reference Range Interpretation Comme [facility] Rubella screen IgG (test code = 5308677091) Positive Negative ABDULLAHI (test code = ABDULLAHI) Positive - Indicat es the patient was exposed to Rubella through infection or vaccination.Negative - Indicates the patient could be susceptible to Rubella infection.Equivocal - A second specimen should be sent. [facility] StephenvilleADC OR FARSHAD ONLY - [id number] 04:45:51* Test Item Value Reference Range Interpretation Comme nts RPR (Qualitative) (test code = 21409-4) Nonreactive Nonreactive Lab Interpretation (test cod e = 14344-0) Normal [facility] StephenvilleHCV [id number] 21:13:42* Test Item Value Reference Range Interpretation Comme nts HCV Ab (test code = 51209-6) Negative HCV Semi-Quantitative (test code = 26454-6) [facility] StephenvilleHEPATITIS B SURFACE [id number] 20:57:38 * Test Item Value Reference Range Interpretation Comme nts HBsAg Semi-Quantitative (alyssa t code = 5195-3) Negative Negative [facility] StephenvillePRENATAL WORKUP, BLOOD [id number] 20:44:39 * Test Item Value Reference Range Interpretation Comme nts ABO & RH (test code = 20) A POSITIVE Performed at [facility] Laboratory [facility] Blood [place] [id number] Free: [phone] No. [id number] IAT (test code = 1185) Negative Performed at [facility] Laboratory [facility] Blood [address] Free: [phone] No. [id number] [facility] StephenvilleHCG, QUANTITATIVE, [id number] 18:56:20* Test Item Value Reference Range Interpretation Comme nts BETA HCG (test code = 9391814018) See_Comment [Automated messa ge] The system which generated this result transmitted reference range: Non- female and male patients: <5 mIU/mL. The reference range was not used to interpret this result as normal/abnormal. ABDULLAHI (test code = ABDULLAHI) Gestational Age ?Range (mIU/mL) 1-10 ?Weeks ?12-84369364-15 Weeks ?04730-42529971-63 Weeks ?7908-48861848-65 Weeks ?8061-873733 Biotin has been reported to cause a negative bias, interpret results relative to patient's use of biotin. [facility]. METABOLIC PANEL (97507)2021-11-22 18:19:45* Test Item Value Reference Range Interpretation Comme nts NA (test code = 8638880279) 136 mmol/L 135-145 K (test code = 5107543950) 3.7 mmol/L 3.5-5 CL (test code = 7292548259) 106 mmol/L 98-108 CO2 TOTAL (test code = 4457980433) 22 mmol/L 23-31 L AGAP (test code = 1919582073) 2-16 BUN (test code = 2346380894) 5 mg/dL 7-23 L GLUCOSE (test code = 5373916087) 131 mg/dL 70-110 H CREATININE (test code = 5636267856) 0.52 mg/dL 0.5-1.04 TOTAL BILI (test code = 8115673714) 0.1-1.1 L CALCIUM (test code = 5411256866) 8.6 mg/dL 8.6-10.6 T PROTEIN (test code = 5661396839) 6.6 g/dL 6.3-8.2 ALBUMIN (test code = 4342518742) 4.1 g/dL 3.5-5 ALK PHOS (test code = 8555170426) 80 U/L 34-122 ALTv (test code = 1742-6) 38 U/L 5-35 H AST(SGOT) (test code = 2022196951) 28 U/L 13-40 eGFR (test code = 7718064692) mL/min/1.73m2 ABDULLAHI (test code = ABDULLAHI) Association of [...] or abnormalities in imaging tests). Lab Interpretation (test code = 79926-4) Abnormal [facility] StephenvilleHIV 1/2 AG-AB WITH [id number] 18:13:21* Test Item Value Reference Range Interpretation Comme [facility] HIV Semi-quantitative (test code = 00132-5) Negative Negative ABDULLAHI (test code = ABDULLAHI) Non-reactive for HIV-1 antigen and HIV-1/HIV-2 antibodies. ?No laboratory evidence of HIV infection. ?Repeat in 2-4 weeks if acute HIV infection is suspected. [facility] StephenvilleURIC [id number] 17:33:00* Test Item Value Reference Range Interpretation Comme [facility] URIC ACID (test code = 8134215959) 2.5 mg/dL 2.9-6 L Lab Interpretation (test cod e = 98516-1) Abnormal [facility] StephenvilleGLUCOSE 1 HOUR POST [id number] 17:31:38* Test Item Value Reference Range Interpretation Comme nts GLUC 1 HR (test code = 8562899306) 136 mg/dL 120-170 Lab Interpretation (test cod e = 16426-2) Normal [facility] StephenvilleLACTATE [id number] 17:23:34* Test Item Value Reference Range Interpretation Comme [facility] LDH (test code = 3512212450) 152 U/L 120-246 Lab Interpretation (test cod e = 75840-5) Normal [facility]villeURINE DRUG (IMMUNOASSAY) - COMPREHENSIVE DRUG [id number] 16:53:41* Test Item Value Reference Range Interpretation Comme nts AMPHET (test code = 3212762422) Negative Negative HUBERT U (test code = 2167003563) Negative Negative BENZO U (test code = 6131662403) Negative Negative Cocaine Metabolite (test code = 9992227745) Negative Negative METHADONE (test code = 9097070325) Negative Negative OPIATES (test code = 1203967130) Negative Negative PCP (test code = 5153749935) Negative Negative THC (test code = 1677256524) Negative Negative ABDULLAHI (test code = ABDULLAHI) Urine Drug [...] employment testing, legal testing). Lab Interpretation (test code = 63370-9) Normal [facility] THIRD [id number] 10:11:00* Test Item Value Reference Range Interpretation Comme nts PLACENTA THIRD TRIMESTER (test code = PLACIII) RUN DATE: 06/25/20 [facility] PAGE 1 RUN TIME: 6 Specimen Inquiry RUN USER: INTERFACE PATIENT: MINE BAÑUELOS LOC: MarianoAPU2 U #: [id number] AGE/SX: 20/F ROOM: [facility] RE06/14/20REG DR: Wan Dorado DO : 02 BED: A DIS: 06/17/20 STATUS: DIS IN TLOC: SPEC #: [id number] RECD: 06/15/20 STATUS: VANITA RESanta #: [id number] SINDY: 06/14/20- SUBM DR: Wan Dorado DO ENTERED: 06/15/20 SP TYPE: PLACIII OTHR DR: ORDERED: LEVEL V SURGICA CODES: LA3885 - PLACENTA, NOS PROCEDURES: LEVEL V SURGICA [...] gms/expected mean 269 gms (25-50th percentile) CPT: 25314 cds/dori GROSS DESCRIPTION The specimen was received in a container, labeled with the patient's name, unit number and designated "placenta". The following attributes are observed: Cord insertion: 2 cm from margin Cord length: 40 cm Number of vessels: 3 Cord color: Piper-white Other cord findings: None surface findings: [place]-purple, wrinkled, glistening with focal subchorionic fibrin deposition Vasculature: Unremarkable vasculature Membranes rupture site: 1 cm to margin Membrane color: [place]per-pink to galeana Other membrane findings: Focally opaque and circummarginate The trimmed placental weight: 250 gm CONTINUED ON NEXT PAGE RUN DATE: 06/25/20 [facility] PAGE 2 RUN TIME: 1825 Specimen Inquiry RUN USER: INTERFACE SPEC #: [id number] PATIENT: MINE BAÑUELOS #[id number] (Continued) GROSS DESCRIPTION (Continued) Disk measurement: 14 [...] through A4 jayshree/gilbert 06/15/20 Signed Jag Frey Bassem 06/25/20 1011 END OF REPORT [id number] 10:36:00* Test Item Value Reference Range Interpretation Comme nts GLUBED (test code = GLUBED) 115 mg/dL 65-110 H CBC W/AUTO [id number] 05:26:00* Test Item Value Reference Range Interpretation Comme nts WHITE BLOOD CELL (test code = WBC) [...] pg 27.3-33.9 N MEAN CELL HGB CONCETRATION ( test code = MCHC) 32.5 gm/dL 32.0-34.2 N RED CELL DISTRIBUTION WIDTH (test code = RDW) 14.6 % 12.2-16.3 N PLATELET COUNT (test code = PLT) 149 K/mm3 134-363 N MEAN PLATELET VOLUME (test c ode = MPV) 10.6 fL 9.2-12.7 N NEUTROPHIL % (test code = NT%) 72.7 [...] = BA#) 0.0 K/mm3 RBC MORPHOLOGY REQUIRED (alyssa t code = RBCM) NORMAL NORMAL PLATELET MORPHOLOGY REQUIRED (test code = PLTMR) NORMAL NORMAL [id number] 05:15:00* Test Item Value Reference Range Interpretation Comme nts FIBRINOGEN (test code = FIB) 424 mg/dL 309-518 N PROTHROMBIN [id number] 05:15:00* Test Item Value Reference Range Interpretation Comme nts PROTHROMBIN TIME PATIENT (te st code = PTP) 10.1 secs 10.4-12.4 L THROMBOPLASTIN TIME [id number] 05:15:00* Test Item Value Reference Range Interpretation Comme nts THROMBOPLASTIN TIME PARTIAL (test code = PTT) 25.8 secs 22-38 N PIH [id number] 05:14:00* Test Item Value Reference Range Interpretation Comme nts CREATININE (test code = CREAT) 1.0 mg/dL 0.5-1.0 N SGOT/AST (test code = AST) 39 units/L 15-37 H SGPT/ALT (test code = ALT) 30 units/L 12-78 N LACTIC DEHYDROGENASE(LDH) (t est code = LDH) 390 units/L 81-234 H COMPREHENSIVE METABOLIC [id number] 05:14:00* Test Item Value Reference Range Interpretation Comme nts SODIUM (test code = NA) 137 mEq/L 135-145 N POTASSIUM (test code = K) 4.2 mEq/L 3.5-5.0 N CHLORIDE (test code = CL) 105 mEq/L 100-115 N CARBON DIOXIDE (test code = CO2) 21 mEq/L 22-31 L ANION GAP (test code = GAP) 14.90 10-20 N GLUCOSE (test code = GLU) 82 mg/dL 65-110 N BLOOD UREA NITROGEN (test co de = BUN) 11 mg/dL 7-18 N GLOMERULAR FILTRATION RATE ( test code = GFR) 81 ml/min >60 N TOTAL PROTEIN (test code = PROT) 5.4 gm/dL 6.3-8.2 L ALBUMIN (test code = ALB) 1.8 gm/dL 3.4-4.8 L CALCIUM (test code = CA) 7.3 mg/dL 8.4-10.2 L BILIRUBIN TOTAL (test code = BILT) 0.2 mg/dL 0.2-1.0 N ALKALINE PHOSPHATASE TOTAL ( test code = ALKP) 104 units/L 46-116 N CBC W/AUTO [id number] 05:08:00* Test Item Value Reference Range Interpretation Comme nts WHITE BLOOD CELL (test code = WBC) 20.6 K/mm3 6.5-12.3 HH RESULTS CALLED T O JEN.READ BACK & CONFIRMED? YES.BY HAFSA.IR1 06/16/20 0503.Results verified by repeat analysis RED BLOOD CELL (test code = RBC) 3.33 M/mm3 3.51-4.69 L HEMOGLOBIN (test code = HGB) 9.3 g/dL 10.1-13.8 L HEMATOCRIT (test code = HCT) 28.4 % 32.5-41.8 L MEAN CELL VOLUME (test code = MCV) 85.3 fL 84.6-96.6 N MEAN CELL HGB (test code = MCH) 27.9 pg 27.3-33.9 N MEAN CELL HGB CONCETRATION (test code = MCHC) 32.7 gm/dL 32.0-34.2 N RED CELL DISTRIBUTION WIDTH (test code = RDW) 14.3 % 12.2-16.3 N PLATELET COUNT (test code = PLT) 156 K/mm3 134-363 N MEAN PLATELET VOLUME (test code = MPV) 9.8 fL 9.2-12.7 N NEUTROPHIL % (test code = NT%) 85.1 % 57.9-77.3 H LYMPHOCYTE % (test code = LY%) 9.5 % 14.5-29.7 L MONOCYTE % (test code = MO%) 4.5 % 3.6-10.2 N EOSINOPHIL % (test code = EO%) 0.2 % 0.0-3.0 N BASOPHIL % (test code = BA%) 0.1 % 0.1-0.9 N NEUTROPHIL # (test code = NT#) 17.5 K/mm3 LYMPHOCYTE # (test code = LY#) 2.0 K/mm3 MONOCYTE # (test code = MO#) 0.9 K/mm3 EOSINOPHIL # (test code = EO#) 0.04 K/mm3 BASOPHIL # (test code = BA#) 0.0 K/mm3 RBC MORPHOLOGY REQUIRED (test code = RBCM) NORMAL NORMAL PLATELET MORPHOLOGY REQUIRED (test code = PLTMR) NORMAL NORMAL [id number] 21:53:00* Test Item Value Reference Range Interpretation Comme nts MAGNESIUM (test code = MAG) 4.7 mg/dL 1.8-2.4 H DRUGS OF ABUSE [id number] 07:49:00* Test Item Value Reference Range Interpretation Comme nts UR COCAINE (test code = COCAU) NEGATIVE NEGATIVE DETECTION CUT OF F: 150 ng/mL UR CANNABINOIDS (test code = CANU) NEGATIVE NEGATIVE DETECTION CUT OF F: 50 ng/mL UR AMPHETAMINE (test code = AMPHU) NEGATIVE NEGATIVE DETECTION CUT OF F: 500 ng/mL UR BARBITURATE QUAL (test code = BARBQLU) NEGATIVE NEGATIVE DETECTION CUT OF F: 200 ng/mL UR BENZODIAZEPINE (test code = BENZU) NEGATIVE NEGATIVE DETECTION CUT OF F: 150 ng/mL UR OPIATES QUAL (test code = OPIAQLU) NEGATIVE NEGATIVE DETECTION CUT OF F: 100 ng/mL UR PHENCYCLIDINE (PCP) (test code = PHENCU) NEGATIVE NEGATIVE DETECTION C UT OFF: 25 ng/mL LACTIC [id number] 00:27:00* Test Item Value Reference Range Interpretation Comme nts LACTIC ACID (test code = LACT) 1.4 MMOL/L 0.5-2.2 N COMPREHENSIVE METABOLIC [id number] 23:11:00* Test Item Value Reference Range Interpretation Comme nts SODIUM (test code = NA) 132 mEq/L 135-145 L POTASSIUM (test code = K) 4.3 mEq/L 3.5-5.0 N CHLORIDE (test code = CL) 102 mEq/L 100-115 N CARBON DIOXIDE (test code = CO2) 20 mEq/L 22-31 L ANION GAP (test code = GAP) 14.10 10-20 N GLUCOSE (test code = GLU) 101 mg/dL 65-110 N BLOOD UREA NITROGEN (test co de = BUN) 18 mg/dL 7-18 N GLOMERULAR FILTRATION RATE ( test code = GFR) 72 ml/min >60 N CREATININE (test code = CREAT) 1.1 mg/dL 0.5-1.0 H TOTAL PROTEIN (test code = PROT) 5.7 gm/dL 6.3-8.2 L ALBUMIN (test code = ALB) 2.1 gm/dL 3.4-4.8 L CALCIUM (test code = CA) 7.7 mg/dL 8.4-10.2 L BILIRUBIN TOTAL (test code = BILT) 0.2 mg/dL 0.2-1.0 N SGOT/AST (test code = AST) 92 units/L 15-37 H SGPT/ALT (test code = ALT) 75 units/L 12-78 N ALKALINE PHOSPHATASE TOTAL ( test code = ALKP) 127 units/L 46-116 H LACTIC DEHYDROGENASE(LDH)2020-06-14 23:11:00* Test Item Value Reference Range Interpretation Comme nts LACTIC DEHYDROGENASE(LDH) (t est code = LDH) 607 units/L 81-234 H COMPREHENSIVE METABOLIC [id number] 22:15:00* Test Item Value Reference Range Interpretation Comme nts SODIUM (test code = NA) 132 mEq/L 135-145 L POTASSIUM (test code = K) 4.3 mEq/L 3.5-5.0 N CHLORIDE (test code = CL) 102 mEq/L 100-115 N CARBON DIOXIDE (test code = CO2) 20 mEq/L 22-31 L ANION GAP (test code = GAP) 14.10 10-20 N GLUCOSE (test code = GLU) 101 mg/dL 65-110 N BLOOD UREA NITROGEN (test co de = BUN) 18 mg/dL 7-18 N GLOMERULAR FILTRATION RATE ( test code = GFR) 72 ml/min >60 N CREATININE (test code = CREAT) 1.1 mg/dL 0.5-1.0 H TOTAL PROTEIN (test code = PROT) 5.7 gm/dL 6.3-8.2 L ALBUMIN (test code = ALB) 2.1 gm/dL 3.4-4.8 L CALCIUM (test code = CA) 7.7 mg/dL 8.4-10.2 L BILIRUBIN TOTAL (test code = BILT) 0.2 mg/dL 0.2-1.0 N SGOT/AST (test code = AST) 92 units/L 15-37 H SGPT/ALT (test code = ALT) 75 units/L 12-78 N ALKALINE PHOSPHATASE TOTAL ( test code = ALKP) 127 units/L 46-116 H LACTIC [id number] 22:09:00* Test Item Value Reference Range Interpretation Comme nts LACTIC ACID (test code = LACT) 2.1 MMOL/L 0.5-2.2 N RESULTS CALLED T O COULD NOT GET A HOLD OF NURSE.READ BACK & CONFIRMED? NO.BY [id number] 06/14/202206. PROTHROMBIN [id number] 22:02:00* Test Item Value Reference Range Interpretation Comme nts PROTHROMBIN TIME PATIENT (te st code = PTP) 10.5 secs 10.4-12.4 N IS PATIENT ON ANTICOAGULANTS ? NINTERNATIONAL NORMAL [id number] 22:02:00* Test Item Value Reference Range Interpretation Comme nts INTERNATIONAL NORMAL RATIO (test code = INR) 0.95 The INR is to be used only for monitoring oral anticoagulanttherapy. INDICATION INR VALUE 1. Prophylaxis including high risk surgery 2.0 - 2.52. Deep venous thrombosis. Pulmonary embolism. Atrial fibrillation or bioprosthetic heart valves 2.0 - 3.03. Mechanical heart valves or recurrent systemic embolism. 3.0 - 3.5 IS PATIENT ON ANTICOAGULANTS ? NTHROMBOPLASTIN TIME [id number] 22:02:00* Test Item Value Reference Range Interpretation Comme nts THROMBOPLASTIN TIME PARTIAL (test code = PTT) 27.4 secs 22-38 N IS PATIENT ON ANTICOAGULANTS ? NUA RFLX MICR CULT IF [id number] 22:00:00* Test Item Value Reference Range Interpretation Comme nts UA COLOR (test code = COLU) YELLOW YELLOW UA APPEARANCE (test code = APPU) Slightly-Cloudy CLEAR UA GLUCOSE DIPSTICK (test code = DGLUU) NEGATIVE NEG UA BILIRUBIN DIPSTICK (test code = BILU) NEGATIVE NEG UA KETONE DIPSTICK (test code = KETU) NEGATIVE NEG UA SPECIFIC GRAVITY (test code = SGU) 1.031 1.001-1.035 N UA BLOOD DIPSTICK (test code = MIRA) 3+ NEG A UA PH DIPSTICK (test code = TELLO) 6.0 5-9 UA PROTEIN DIPSTICK (test code = PROU) 3+ NEG A UA UROBILINIOGEN DIPSTICK (test code = URO) NEGATIVE mg/dL NEG UA NITRITE DIPSTICK (test code = ALHAJI) NEG NEG UA LEUKOCYTE ESTERASE DIPSTICK (test code = LEUU) NEG NEG UA WBC (test code = WBCU) 0-2 #/hpf NONE SEEN UA RBC (test code = RBCU) TOO NUMEROUS T O CNT #/hpf NONE SEEN A UA EPITHELIAL CELLS (test code = EPIU) NONE SEEN #/HPF RARE-FEW UA BACTERIA (test code = BACU) RARE /HPF RARE-FEW UA MUCUS (test code = MUCU) RARE NONE SEEN Indication for culture: RiskForSepsis-no oth src Temperature > 100.4 FSpecimen Description: CATHETERCBC W/AUTO [id number] 21:51:00* Test Item Value Reference Range Interpretation Comme nts WHITE BLOOD CELL (test code = WBC) [...] pg 27.3-33.9 N MEAN CELL HGB CONCETRATION ( test code = MCHC) 33.4 gm/dL 32.0-34.2 N RED CELL DISTRIBUTION WIDTH (test code = RDW) 13.7 % 12.2-16.3 N PLATELET COUNT (test code = PLT) 195 K/mm3 134-363 N MEAN PLATELET VOLUME (test c ode = MPV) 9.6 fL 9.2-12.7 N NEUTROPHIL % (test code = NT%) 79.9 [...] = BA#) 0.1 K/mm3 RBC MORPHOLOGY REQUIRED (alyssa t code = RBCM) NORMAL NORMAL PLATELET MORPHOLOGY REQUIRED (test code = PLTMR) NORMAL NORMAL URINALYSIS W/O [id number] 16:39:00* Test Item Value Reference Range Interpretation Comme nts UA GLUCOSE DIPSTICK (test co de = DGLUU) NEGATIVE NEGATIVE UA KETONE DIPSTICK (test cod e = KETU) NEGATIVE NEGATIVE UA PROTEIN DIPSTICK (test co de = PROU) 3+ NEGATIVE Comments to Rn Manager: IN ROOM IS NURSE PERFORMING TEST? ANA PROTEIN/CREATININE [id number] 16:34:00* Test Item Value Reference Range Interpretation Comme nts UR PROTEIN RANDOM (test code = PROTU) 1847.1 mg/dL UR CREATININE RANDOM (test code = CREATU) 205.5 mg/dL PROTEIN/CREATININE RATIO (test code = P/CRATIO) 8988.3 mg/gcrea <200 H UR PROTEIN/CREATININE [id number] 16:25:00* Test Item Value Reference Range Interpretation Comme nts UR PROTEIN RANDOM (test code = PROTU) mg/dL UR CREATININE RANDOM (test c ode = CREATU) 205.5 mg/dL PROTEIN/CREATININE RATIO (te st code = P/CRATIO) mg/gcrea <200 AG HEPATITIS B [id number] 13:41:00* Test Item Value Reference Range Interpretation Comme nts AG HEPATITIS B SURFACE (test code = HBSAG) NONREACTIVE NONREACTIVE Comments to Rn Manager: IN ROOM IS CONSENT FORM SIGNED FOR HIV TESTING? NAB HEPATITIS C [id number] 13:41:00* Test Item Value Reference Range Interpretation Comme nts AB HEPATITIS C (test code = HCVAB) NONREACTIVE NONREACTIVE SIGNAL TO CUTOFF (test code = CUTOFF) <0.02 <0.80 N Comments to Rn Manager: IN ROOM IS CONSENT FORM SIGNED FOR HIV TESTING? NAB [id number] 13:41:00* Test Item Value Reference Range Interpretation Comme nts AB TREPONEMA (test code = TREPAB) NONREACTIVE NONREACTIVE Comments to Rn Manager: IN ROOM IS CONSENT FORM SIGNED FOR HIV TESTING? NAB HIV 1 13:41:00* Test Item Value Reference Range Interpretation Comme nts AB HIV 1 2 (test code = [id number]) NONREACTIVE NONREACTIVE Done by [employer] HIV Ag/Ab Combo Screen Comments to Rn Manager: IN ROOM IS CONSENT FORM SIGNED FOR HIV TESTING? NAG HEPATITIS B [id number] 13:16:00* Test Item Value Reference Range Interpretation Comme nts AG HEPATITIS B SURFACE (test code = HBSAG) NONREACTIVE NONREACTIVE Comments to Rn Manager: IN ROOM IS CONSENT FORM SIGNED FOR HIV TESTING? NAB HEPATITIS C [id number] 13:16:00* Test Item Value Reference Range Interpretation Comme nts AB HEPATITIS C (test code = HCVAB) NONREACTIVE SIGNAL TO CUTOFF (test code = CUTOFF) <0.80 Comments to Rn Manager: IN ROOM IS CONSENT FORM SIGNED FOR HIV TESTING? NAB [id number] 13:16:00* Test Item Value Reference Range Interpretation Comme nts AB TREPONEMA (test code = TREPAB) NONREACTIVE NONREACTIVE Comments to Rn Manager: IN ROOM IS CONSENT FORM SIGNED FOR HIV TESTING? NAB HIV 1 13:16:00* Test Item Value Reference Range Interpretation Comme nts AB HIV 1 2 (test code = [id number]) NONREACTIVE Comments to Rn Manager: IN ROOM IS CONSENT FORM SIGNED FOR HIV TESTING? NPIH [id number] 12:47:00* Test Item Value Reference Range Interpretation Comme nts CREATININE (test code = CREAT) 1.0 mg/dL 0.5-1.0 N SGOT/AST (test code = AST) 120 units/L 15-37 H SGPT/ALT (test code = ALT) 75 units/L 12-78 N LACTIC DEHYDROGENASE(LDH) (t est code = LDH) 517 units/L 81-234 H : *Comments to Rn Manager: IN ROOMCBC W/AUTO [id number] 12:28:00* Test Item Value Reference Range Interpretation Comme nts WHITE BLOOD CELL (test code = WBC) [...] pg 27.3-33.9 N MEAN CELL HGB CONCETRATION ( test code = MCHC) 32.8 gm/dL 32.0-34.2 N RED CELL DISTRIBUTION WIDTH (test code = RDW) 13.4 % 12.2-16.3 N PLATELET COUNT (test code = PLT) 212 K/mm3 134-363 N MEAN PLATELET VOLUME (test c ode = MPV) 9.7 fL 9.2-12.7 N NEUTROPHIL % (test code = NT%) 85.1 [...] = BA#) 0.0 K/mm3 RBC MORPHOLOGY REQUIRED (alyssa t code = RBCM) NORMAL NORMAL PLATELET MORPHOLOGY REQUIRED (test code = PLTMR) NORMAL NORMAL COVID 19 Asymptomatic IH [id number] 11:52:00* Test Item Value Reference Range Interpretation Comme nts COVID 19 Asymptomatic IH AG (test code = COVNONPUIAG) NEGATIVE NEGATIVE This test has be en authorized only for the detection ofproteins from SARS-CoV-2, not for any other viruses orpathogens. Negative results should be treated as presumptive andconfirmed with a molecular assay, if necessary for patientmanagement. Negative results do not rule out COVID-19 andshould not be used as the sole basis for treatment orpatient management decisions, including infection controldecisions. Negative results should be considered in thecontext of a patient's recent exposures, history and thepresence of clinical signs and symptoms consistent withCOVID-19. This test has not been FDA cleared or approved; the test hasbeen authorized by FDA under an Emergency Use Authorization(EUA) for use by laboratories certified under the CLIA thatmeet the requirements to perform moderate, high or waivedcomplexity tests. This test is authorized for use at thePoint of Care (POC), i.e., in patient care settingsoperating under a CLIA Certificate of Waiver, Certificate ofCompliance, or Certificate of Accreditation. This test is only authorized for the duration of thedeclaration that circumstances exist justifying theauthorization of emergency use of in vitro diagnostic testsfor detection and/or diagnosis of COVID-19 under Nddpwra988(b)(1) of the Act, 21 U.S.C. 360bbb-3(b)(1), unless theauthorization is terminated or revoked sooner. Comments to Rn Manager: IN ROOM Notes Date/Time Note Provider Source 2022-12-04 14:15:00 Formatting of this n ote is different from the original. Images from the original note were not included. Venipuncture collection performed by clean technique on the right anticubitus. Total of 1 attempts were made. Slight pressure and a bandage/dressing were applied to the site(s). The patient experienced no complications. The following specimens were processed according to instructions and sent to [facility] laboratories per lab order on 12/04/2022 : LT BLUE SST 1 RED LAV PPT DK GREEN (LiHep) DK GREEN (SodH) GALEANA DK BLUE (K2) DK BLUE (S) ACD Blood Culture NIPT/NTD Only hcg to be done per pt [facility] - Health 2020-06-17 09:50:00 [facility] ([facility]) OB Postpart Progr Note REPORT#:[id number] REPORT STATUS: Signed DATE:06/17/20 TIME: 0950 PATIENT: MINE BAÑUELOS UNIT #: [id number] ROOM/BED: [facility]-A : 02 AGE: 20 SEX: F ATTEND: Wan Dorado DO ADM AUTHOR: Sheyla Hua MD * ALL edits or amendments must be made on the electronic/computer document * Subjective Subjective Admission EGA: Weeks: 29 Days: 3 EGA at delivery (wks/days): 29wks Status/Day: post (day 0) Comments: DAY #2 SUBJECTIVE: No complaints. Scant lochia. Tolerating a regular diet. Ambulatory. Voiding spontaneously. BPs improved with labetalol 300mg q 6 hours OBJECTIVE: Vital signs stable. Afebrile Vital Signs: Date Time Temp Pulse Resp B/P B/P Pulse O2 O2 Flow FiO2 Mean Ox Delivery Rate 06/17 506 97.0 06/17 050 97.8 93 16 130/74 06/17 0008 87.0 06/17 0008 97.6 102 125/67 Fundus is firm, low [...] % (Auto) (14.5 - 29.7 %) 19.2 [place] % (Auto) (3.6 - 10.2 %) 5.8 Eos % (Auto) (0.0 - 3.0 %) 0.8 Baso % (Auto) (0.1 - 0.9 %) 0.2 Neut # (Auto) (K/mm3) 10.5 Lymph # (Auto) (K/mm3) 2.8 [place] # (Auto) (K/mm3) 0.8 Eos # (Auto) (K/mm3) 0.12 Baso # (Auto) (K/mm3) 0.0 ASSESSMENT: Recovering well after . PLAN: Doing well and ready for discharge home. RX: Ferrous sulfate 325mg 1 tab po q 8 hours #90 RX: Labetalol 300mg po q 6 hours # 120 RX: Motrin 600 mg 1 tab po q 6 hours prn pain # 30 Resume PNV and iron as before delivery. Return to office in 6 weeks. Discharge instructions have been given Diagnosis, Assessment Plan Diagnosis, Assessment Plan Free text A P: s/p NVD for IUFD Severe Prw-eclampsia - improving and stable anemia - start iron TID Assessment: s/p vaginal delivery of demise due to pre-eclampsia Plan: routine care, discharge today Plan discussed with: patient at 0954 RPT #:[id number] END OF REPORT [facility] 2020-06-16 21:43:00 [facility]) OB Postpart Progr Note REPORT#:[id number] REPORT STATUS: Signed DATE:06/16/20 TIME: 2142 PATIENT: MINE BAÑUELOS UNIT #: [id number] ROOM/BED: [address] : 02 AGE: 20 SEX: F ATTEND: Wan Dorado DO ADM AUTHOR: Lea Avila MD * ALL edits or amendments must be made on the electronic/computer document * Subjective Subjective Admission EGA: Weeks: 29 Days: 3 EGA at delivery (wks/days): 29wks Status/Day: post (day 0) Objective Physical Exam Abdomen: soft, no abnormal tenderness, no guarding Uterus: involution appropriate, non-tender Diagnosis, Assessment Plan Diagnosis, Assessment Plan Assessment: s/p vaginal delivery of demise due to pre-eclampsia Plan: routine care, discharge tomorrow Consultation(s): Consultation performed: hospitalist Comments: -was called to bedside for evaluation of tachycardia 100-118 new onset since 7p, pt felt palpitations, pulse Ox 99%, BP 130's/80's. Pt received 300mg labetolol and Procardia previously. Advised that is most likely a reflex tachycardia from Procardia from vasodilation as she has not received Procardia prior. No acute treatment advised at this time.l advised vagal maneuvers. Antibiotics completed, repeat CBC in AM. at 2146 RPT #:[id number] END OF REPORT [facility] 2020-06-16 07:46:00 [facility]) OB Postpart Progr Note REPORT#:[id number] REPORT STATUS: Signed DATE:06/16/20 TIME: 07 PATIENT: MINE BAÑUELOS UNIT #: [id number] ROOM/BED: [address] : 02 AGE: 20 SEX: F ATTEND: Wan Dorado DO ADM AUTHOR: Sheyla Hua MD * ALL edits or amendments must be made on the electronic/computer document * Subjective Subjective Admission EGA: Weeks: 29 Days: 3 EGA at delivery (wks/days): 29wks Status/Day: post (day 0) Comments: DAY #1 SUBJECTIVE: No complaints. Scant lochia. Tolerating a regular diet. Ambulatory. Voiding spontaneously. Denies headache, visual chanes or abdominal pain. OBJECTIVE: Vital signs stable. Afebrile Vital Signs: Date Time Temp Pulse Resp B/P B/P Pulse O2 O2 Flow FiO2 Mean Ox Delivery Rate 06/16 414 95.0 06/16 414 99.8 109 18 128/73 06/168 92.0 06/168 100 18 127/70 06/16 0030 111.0 06/16 0030 94 151/82 06/16 0008 123.0 06/16 000 99.0 93 18 163/95 100 06/15 2133 120.0 06/15 2133 80 158/91 06/16 2039 114.0 06/16 2039 81 165/83 06/16 2039 98.2 18 98 Fundus is firm, low and nontender. Perineum/suture sites are healing well and intact. Laboratory Tests: 06/165 3 Chemistry Sodium (135 - 145 mEq/L) 137 [...] (Auto) (14.5 - 29.7 %) 9.5 L [place] % (Auto) (3.6 - 10.2 %) 4.5 Eos % (Auto) (0.0 - 3.0 %) 0.2 Baso % (Auto) (0.1 - 0.9 %) 0.1 Neut # (Auto) (K/mm3) 17.5 Lymph # (Auto) (K/mm3) 2.0 [place] # (Auto) (K/mm3) 0.9 Eos # (Auto) (K/mm3) 0.04 Baso # (Auto) (K/mm3) 0.0 ASSESSMENT: Recovering well after of IUFD - 29.3 weeks s/p 24 hours IV antibioticsfor spsis w/u. PLAN: Continue care per orders. Planning for discharge home tomorrow. Diagnosis, Assessment Plan Diagnosis, Assessment Plan Free text A P: s/p NVD for IUFD due to severe Pre-eclspsia- BPs controlled on Labetalol 300mg TID s/p code sepsis received 24 hours of antibiotics Assessment: s/p vaginal delivery of demise due to pre-eclampsia Plan: routine care, discharge tomorrow Plan discussed with: patient at 0750 RPT #:[id number] END OF REPORT [facility] 2020-06-15 13:04:00 [facility] ([facility]) OB Postpart Progr Note REPORT#:[id number] REPORT STATUS: Signed DATE:06/15/20 TIME: 1304 PATIENT: MINE BAÑUELOS UNIT #: [id number] ROOM/BED: [address] : 02 AGE: 20 SEX: F ATTEND: Wan Dorado DO ADM AUTHOR: Wan Dorado DO * ALL edits or amendments must be made on the electronic/computer document * Subjective Subjective Admission EGA: Weeks: 29 Days: 3 EGA at delivery (wks/days): 29wks Status/Day: post (day 0) Patient reports: Patient reports: Yes no complaints, Yes pain management effective, Yes tolerating po well, No nausea, No vomiting Objective General VS: Vital Signs: Date Time Temp Pulse Resp B/P B/P Pulse O2 O2 Flow FiO2 Mean Ox Delivery Rate 06/15 1048 84.0 03/ 1048 74 116/62 03/ 1044 72 98 03/12 1014 80 99 [...] 03/11 2228 95.0 03/11 2228 91 154/66 03/11 2227 91 98 03/11 2222 92 98 03/11 2221 95 91 03/11 2217 90 98 03/11 2212 106.0 03/11 2212 87 152/87 98 03/11 2211 100.9 03/11 2211 90 94 03/11 2207 94 99 03/11 2202 97 99 03/11 2200 115.0 03/ 2200 91 154/88 06/14 2056 99 99 06/14 205 95 98 06/14 205 104.0 06/14 205 93 142/78 06/14 2047 97 99 06/14 2041 101.4 97 98 03/ 204 107.0 06/14 204 96 140/92 06/14 203 92 99 06/14 203 97 98 03/ 202 111.0 06/14 2028 93 154/80 06/14 2026 95 99 06/14 2021 94 99 06/14 2016 95 98 /2014 117.0 06/14 2015 93 168/87 06/14 2012 92 98 / 2007 95 98 / 2002 94 98 06/14 2000 115.0 06/14 2000 93 167/80 06/14 1957 95 98 03/ 1952 96 100 / 1947 93 98 03 1944 121.0 06/14 1944 167/88 06/14 1942 89 98 03/ 1937 92 98 03/ 1932 112.0 06/14 1932 91 162/78 98 03/11 1931 125.0 06/14 1931 91 157/104 03 1927 91 98 03/ 1922 90 98 03/ 1917 87 98 03/ 1914 98.8 18 06/14 1914 102.0 06/14 1914 87 138/76 03/ 1912 89 98 03/11 1907 91 99 03/ 1902 89 99 03/ 1859 111.0 06/14 1859 85 147/88 06/14 1857 87 99 03 1852 87 99 03 1847 84 99 03/11 1843 110.0 03/11 1843 83 151/83 03/ 1842 83 98 03/ 1830 102.0 / 1830 98.2 90 18 146/74 03/11 1813 96.0 06/14 1813 84 148/63 06/14 1758 105.0 03/ 1758 83 159/73 03/11 1743 105.0 03/ 1743 78 154/72 03/ 1729 105.0 03/11 1729 83 149/75 03/11 1713 98.0 18 03 1713 105.0 03/11 1713 85 138/83 03/11 1658 111.0 06/14 1658 83 148/85 06/14 [...] 1314 82 173/110 PATIENT WEIGHT: Weight (lb): 208 Weight (oz): Weight (kg): 94.347 Physical Exam Abdomen: soft, no abnormal tenderness, no guarding Uterus: involution appropriate, non-tender Lacerations: Perineal laceration(s): None Result Findings/Data: Laboratory Tests: 06/15 06/14 06/14 0643 2347 2125 Chemistry Lactic Acid (0.5 - 2.2 MMOL/L) 1.4 Toxicology Urine Opiates Screen (NEGATIVE) NEGATIVE Ur Barbiturates, Qual (NEGATIVE) NEGATIVE Ur Phencyclidine Scrn (NEGATIVE) NEGATIVE Ur Amphetamines Screen (NEGATIVE) NEGATIVE U Benzodiazepines Scrn (NEGATIVE) NEGATIVE Urine Cocaine Screen (NEGATIVE) NEGATIVE Urine Cannabinoids (NEGATIVE) NEGATIVE Urines Urine Color (YELLOW) YELLOW Urine Appearance (CLEAR) Slightly-Cloudy Urine pH (5 - 9) 6.0 Ur Specific [place] (1.001 - 1.035) 1.031 Urine Protein (NEG) [...] - 12.4 secs) 10.5 INR 0.95 PTT ([place]) (22 - 38 secs) 27.4 Hematology WBC [...] % (Auto) (14.5 - 29.7 %) 14.5 [place] % (Auto) (3.6 - 10.2 %) 4.5 Eos % (Auto) (0.0 - 3.0 %) 0.1 Baso % (Auto) (0.1 - 0.9 %) 0.3 Neut # (Auto) (K/mm3) 13.8 Lymph # (Auto) (K/mm3) 2.5 [place] # (Auto) (K/mm3) 0.8 Eos # (Auto) [...] ORD BLOOD Diagnosis, Assessment Plan Diagnosis, Assessment Plan Assessment: s/p vaginal delivery of demise due to pre-eclampsia Plan: routine care, Continue Magnesium [id number] Labetalol 300 TID Will monitor bps at this time at 1308 RPT #:[id number] END OF REPORT [facility] 2020-06-15 02:29:00 [facility] ([facility]) OB Delivery Note REPORT#:[id number] REPORT STATUS: Signed DATE:06/15/20 TIME: 022 PATIENT: MINE BAÑUELOS UNIT #: [id number] ROOM/BED: [facility] : 02 AGE: 20 SEX: F ATTEND: Wan Dorado DO ADM AUTHOR: Wan Dorado DO * ALL edits or amendments must be made on the electronic/computer document * OB Delivery Nursing Documentation Review Nursing data: The data set between the solid lines has been imported from nursing documentation. Any exceptions have been noted below under Provider comments. _ ROM date: ROM time: Membranes rupture method: Amniotic fluid color: Amniotic fluid amount: Steroids prior to arrival: Antibiotic prophylaxis given: [place] evaluation at delivery: Post hemorrhage risk score: Low Risk for Hemorrhage. Delivery date A: Delivery time infant A: Birthweight (gm) infant A: Weight (lb) infant A: Weight (oz) A: Gender A: Female 1 minute infant A: 5 minutes A: 10 minutes infant A: Cord pH obtained infant A: Vacuum time infant A: Vacuum # pulls A: Vacuum # popoffs A: QBL at delivery: __ Provider comments on imported nursing data: [] ___ Pre-delivery GBS status: GBS status: unknown Admission EGA: Weeks: 29 Days: 3 EGA at delivery (wks/days): 29wks Baby A Information Baby A information Delivery date: 06/15/20 Delivery time: 0200 status: still born Wt of baby: not yet available Gender: female Presentation: vertex Nuchal cord Baby A Nuchal cord: no Vaginal Delivery Vaginal delivery: Labor: induced Medications/Devices used: oxytocin, cytotec Vaginal delivery: spontaneous Amniotic fluid: clear Anesthesia type: epidural anesthesia Episiotomy: none Episiotomy repair: no Laceration repair: no Placenta: spontaneous, sent to pathology Post delivery meds used: oxytocin Count: correct Lacerations: Perineal laceration(s): None Blood Loss/Details Blood loss at delivery: <1000 ml EBL at delivery (ml's): 300 at 0231 RPT #:[id number] END OF REPORT [facility] 2020-06-14 21:56:00 [facility] ([facility]) Clinical Note REPORT#:[id number] REPORT STATUS: Signed DATE:06/14/20 TIME: 2155 PATIENT: MINE BAÑUELOS UNIT #: [id number] ROOM/BED: [address] : 02 AGE: 20 SEX: F ATTEND: Wan Dorado DO ADM AUTHOR: Elliott Fernandes MD * ALL edits or amendments must be made on the electronic/computer document * Clinical Note Note: Called as Code Sepsis response. Her Attending is aware and is providing care and orders. Briefly she is an 20 y/o G1 [...] although with shakes and chills. Temp was 101.4. Lungs are clear. No flank pain and no [...] bedside attendance as needed. at 2208 RPT #:[id number] END OF REPORT [facility] 2020-06-14 14:38:00 [facility] ([facility]) OB Admission / H P REPORT#:[id number] REPORT STATUS: Signed DATE:06/14/20 TIME: 1438 PATIENT: MINE BAÑUELOS UNIT #: [id number] ROOM/BED: [address] : 02 AGE: 20 SEX: F ATTEND: Wan Dorado DO ADM AUTHOR: Wan Dorado DO * ALL edits or amendments must be made on the electronic/computer document * OB History Nursing Documentation Review Nursing data: The data set between the solid lines has been imported from nursing documentation. Any exceptions have been noted below under Provider comments. Current data Steroids prior to arrival: ROM date: ROM time: EDC date: 08/27/20 Post hemorrhage risk score: Low Risk for Hemorrhage. Prior history : 1 Para: 0 Term: : Abortions spontaneous: Abortions induced: Living children: Ectopic: Stillbirths: Live births: deaths: Number of previous C/S: Reported maternal labs/data Blood type: Unknown Rh type: Unknown Rubella: Hepatitis B: Unknown HIV exposure test: VDRL: Group B beta strep: Not done Rho(D) immune globulin this preg: Monitor mode - UA: Feeding preference: Provider comments on imported nursing data: [] __ Chief complaint: elevated blood pressure HPI: @ 29w3d transfer from [facility]. Patient presented to [facility] with complaint of back pain and abdominal pain. Pt was found to have blood pressures 190/110 with a demise. Patient was given a loading dose of Magnesium for seziure prophylaxis and transfered. had been uncomplicated prior. history: : 1 Term: 0 Current : Admission EGA (weeks) 29 Admission EGA (days) 3 Conditions of : anemia Labs: Blood type: A Rh: positive Rubella: immune Hepatitis B: negative HIV: negative STD: negative Syphilis: currently negative GBS: unknown Procedures: none Genetic testing: none Past medical history: denies PMH Past surgical history: denies PSH Social history: no alcohol use, no tobacco use, no drug use Allergies Coded Allergies: sulfamethoxazole (From BACTRIM) (Intermediate, SWELLING 06/14/20) trimethoprim (From BACTRIM) (Intermediate, SWELLING 06/14/20) cefaclor (From CECLOR) (SWELLING 06/14/20) Objective General VS: Vital Signs: Date Time Temp Pulse Resp B/P [...] 1035 138.0 06/14 1035 75 176/112 Physical Exam Abdomen: gravid, no abnormal tenderness, no guarding Uterine activity: Monitor: toco Pelvic exam: Pelvis clinically adequate: yes, inlet appears appropriate, pubic bone config appropr, no midpelvic contraction Vulvar lesions: none, no evidence herpetic les, no evidence of other STD Vagina: normal Cervical/ exam: Dilatation (cm): FT Effacement (%): 50 station: - 3 presentation: breech Membranes: Membranes: Intact Lower extremities: Edema: 2+ pitting Result Findings/Data: Laboratory Tests: 06/14 06/14 1155 1120 Chemistry Creatinine [...] (Auto) (14.5 - 29.7 %) 10.5 L [place] % (Auto) (3.6 - 10.2 %) 3.5 L Eos % (Auto) (0.0 - 3.0 %) 0.0 Baso % (Auto) (0.1 - 0.9 %) 0.2 Neut # (Auto) (K/mm3) 13.0 Lymph # (Auto) (K/mm3) 1.6 [place] # (Auto) (K/mm3) 0.5 Eos # (Auto) (K/mm3) 0 Baso # (Auto) (K/mm3) 0.0 Serology Treponema pallidum Ab (NONREACTIVE) NONREACTIVE Hep Bs Antigen (NONREACTIVE) NONREACTIVE Hepatitis C Antibody (NONREACTIVE) NONREACTIVE Hep C Ab Signal/Cutoff (<0.80) <0.02 HIV 1 2 Antibody (NONREACTIVE) NONREACTIVE SARS-CoV-2 Ag (Rapid) (NEGATIVE) NEGATIVE Diagnosis, Assessment Plan Diagnosis, Assessment Plan Assessment/Impression: @ 29w3d with severe pre-eclampsia with demise Plan: induction of labor, magnesium sulfate, preeclampsia precautions Reason-sched induction: pre-eclampsia (PE), stillbirth at 1444 RPT #:[id number] END OF REPORT [facility]
[2023-11-26 20:39] LABS: Absolute Basophils 0.1 K/uL (0-0.5); Absolute Lymphocytes (CBC) 1.7 K/uL (0.7-4.9); Absolute Monocytes 0.3 K/uL (0.1-1.3); Absolute Neutrophil 9.5 K/uL (1.8-8.0); Basophils % 0.6 % (0-1.3); Eosinophils % 0.1 % (0-4.4); Hemoglobin 11.8 g/dL (12.0-15.0); Lymphocytes % 14.3 % (15.3-44.8); MCH 28.7 pg (27.0-35.0); MCHC 32.7 g/dL (32.0-36.0); MCV 87.7 fL (80-100); Monocytes % 2.6 % (3.3-12.3); Neutrophils % 82.4 % (41.7-73.7); Platelets 305 thou/uL (152-406); Red Cell Distribution Width 15.1 % (12.1-15.2)
[2023-11-26 20:42] LABS: Specific Gravity 1.026 (1.005-1.030)
[2023-11-26 20:48] LABS: Sqamous Epithelial <5 /HPF (None Seen); Urine Bacteria <20 /HPF (<20); Urine Microscopic Reflex YN ORDER UMIC; Urine Mucus 4+ /HPF (None Seen); Urine RBC <5 /HPF (None Seen); Urine WBC <5 /HPF (<5)
[2023-11-26 20:49] LABS: Specific Gravity 1.026 (1.005-1.030); Urine Bilirubin NEGATIVE (Negative); Urine Blood Negative (Negative); Urine Clarity Extremely Turbid (Clear); Urine Color Yellow (Yellow); Urine Glucose NEGATIVE (Negative); Urine Ketones 1+ (Negative); Urine Nitrite NEGATIVE (Negative); Urine Protein TRACE (Negative); Urine Urobilinogen Normal (Normal); Urine pH 7.5 (5.0-7.0)
[2023-11-26 21:01] LABS: Anion Gap 12.7 mEq/L (5.0-15.0); Potassium 3.7 mEq/L (3.5-5.1)
--- NOTE | 2023-11-26 21:39 | RAD REPORT ---
EXAM DESCRIPTION: US - OB Limited - 11/26/2023 8:22 pm CLINICAL HISTORY: ABD CRAMPING, COMPARISON: 1St Trimest Single 1St Fetus dated 05/17/2021; Transvaginal OB dated 11/05/2021 TECHNIQUE: Sonographic grayscale and color flow images of a second -trimester were obtaine d through transabdominal approach. FINDINGS: A single live intrauterine is identified. Presentation is variable. Cervix is cl osed with canal measuring 4.2 cm in length. heart rate: 151 BPM. Femur length measures 12.2 millimeters, corresponding to gestational age of 13 weeks, 4 days. Placenta has formed anteriorly. Vascular spaces at the depth of the placenta suggesting vascular lacu yancy. No abnormal collections. Maternal ovaries were not visualized. No free fluid. IMPRESSION: 1. Single live intrauterine . 2. Calculated gestational age: 13 weeks, 4 days. Estimated due date by ultrasound: 05/29/2024.
--- NOTE | 2023-11-26 21:45 | ER ---
Nurse's Notes [facility] Name: Jana Coleman Age: 23 yrs Sex: Female : 2000 Arrival Date: 11/26/2023 Time: 19:17 Bed 19 Private MD: Diagnosis: Encounter for supervision of normal , unspecified, second trimester Presentation: 11/25 19:33 Chief complaint: Patient states: Abdominal cramping onset today. Pt reports being cm10 approximately 14 weeks . No vaginal bleeding or discharge. Pt does not have an OB at this time. Coronavirus screen: Client denies travel out of the [place] in the last 14 days. At this time, the client does not indicate any symptoms associated with coronavirus-19. Ebola Screen: Patient denies travel to an Ebola-affected area in the 21 days before illness onset. No symptoms or risks identified at this time. Initial Sepsis Screen: Does the patient meet any 2 criteria? HR > 90 bpm. Does the patient have a suspected source of infection? No. Patient's initial sepsis screen is negative. Risk Assessment: Do you want to hurt yourself or someone else? Patient reports no desire to harm self or others. Onset of symptoms was November 26, 2023. 19:33 Method Of Arrival: Ambulatory cm10 19:33 Acuity: LEDA 3 cm10 Triage Assessment: 19:35 General: Appears in no apparent distress. comfortable, Behavior is calm, cooperative. cm10 Neuro: No deficits noted. Level of Consciousness is awake, alert, obeys commands, Oriented to person, place, time, situation, Appropriate for age. Respiratory: No deficits noted. Airway is patent Respiratory effort is even, unlabored, Respiratory pattern is regular, symmetrical. MANAGER BUSINESS SYSTEMS: 19:36 3, 1, Living 1, LMP 08/18/2023, Verified, EDC 05/24/2024, cm10 Gestational age from LMP: 14 weeks 3 days 19:49 3, Full Term 1, 1, Living 1, Verified sb4 Historical: - Allergies: 19:35 Bactrim; cm10 19:35 Ceclor; cm10 - PMHx: 19:35 Bipolar disorder; Pre- eclampsia; cm10 - PSHx: 19:35 section; Cholecystectomy; cm10 - Immunization history:: Adult Immunizations up to date. - Infectious Disease History:: Denies. - Social history:: Smoking status: Patient denies any tobacco usage or history of. Screenin:15 [facility] ED Fall Risk Assessment (Adult) History of falling in the last 3 months, jm12 including since admission No falls in past 3 months (0 pts) Confusion or Disorientation No (0 pts) Intoxicated or Sedated No (0 pts) Impaired Gait No (0 pts) Mobility Assist Device Used No (0 pt) Altered Elimination No (0 pt) Score/Fall Risk Level 0 - 2 = Low Risk. Abuse screen: Denies threats or abuse. Denies injuries from another. Nutritional screening: No deficits noted. Tuberculosis screening: No symptoms or risk factors identified. Assessment: 20:14 General: Appears in no apparent distress. Behavior is calm, cooperative. Pain: jm12 Complains of pain in abdomen Quality of pain is described as crampy. Neuro: No deficits noted. Cardiovascular: No deficits noted. Respiratory: No deficits noted. GI: Reports cramping. : No deficits noted. No signs and/or symptoms were reported regarding the genitourinary system. EENT: No deficits noted. No signs and/or symptoms were reported regarding the EENT system. Derm: No deficits noted. No signs and/or symptoms reported regarding the dermatologic system. Musculoskeletal: No deficits noted. No signs and/or symptoms reported regarding the musculoskeletal system. Vital Signs: 19:33 BP 135 / 90; Pulse 99; Resp 18; Temp 98.4; Pulse Ox 99% on R/A; Weight 81.65 kg; Height cm10 5 ft. 3 in. ; Pain 7/10; 21:09 BP 132 / 89; Pulse 92; Resp 16; Temp 98.2; Pulse Ox 99% ; jm12 19:33 Body Mass Index 31.89 (81.65 kg, 160.02 cm) cm10 19:33 Pain Scale: Adult cm10 ED Course: 19:22 Patient arrived in ED. im 19:24 Lena Ridley PA-C is PHCP. sb4 19:24 Hermann Kingston MD is Attending Physician. sb4 19:35 Triage completed. cm10 19:36 Arm band placed on Patient placed in an exam room, on a stretcher. cm10 20:15 Patient has correct armband on for positive identification. Bed in low position. Call alex light in reach. 20:24 US OB Limited In Process Unspecified. EDMS 21:08 Missed attempt(s): 22 gauge in right antecubital area. Bleeding controlled, band aid jm12 applied, catheter tip intact. Administered Medications: No medications were administered Outcome: :44 Discharge ordered by . tayo 22:08 Discharged to home ambulatory, jm12 22:08 Condition: stable 22:08 Discharge instructions given to patient, Instructed on discharge instructions, follow up and referral plans. Demonstrated understanding of instructions, follow-up care, 22:09 Patient left the ED. jm12 Signatures: Dispatcher [employer] EDLena Sanz PA-C PAKevin sb4 Elly Colin Clarissa, RN RN cm10 Jen Barger, RN RN jm12
--- NOTE | 2023-11-26 21:45 | EDPHYS ---
Physician Documentation [facility] Name: Jana Coleman Age: 23 yrs Sex: Female : 2000 Arrival Date: 11/26/2023 Time: 19:17 Bed 19 Private MD: ED Physician Hermann Kingston HPI: 11/25 19:49 This 23 yrs old Female presents to ER via Ambulatory with complaints of 14 sb4 weeks , Abdominal Cramping. 19:49 The patient presents to the emergency department with abdominal pain, of the suprapubic sb4 area, described as crampy. The estimated gestational age is 14 weeks. course: care: none, Leakage of Fluid: none appreciated, Ultrasound: the patient has not had an ultrasound, Risk/complications: previous complications- preeclampsia, miscarriage. Previous pregnancies: in previous pregnancies patient has had . Associated signs and symptoms: The patient has no apparent associated signs or symptoms. The patient has not experienced similar symptoms in the past. The patient has not recently seen a physician, and does not have an established primary care provider, no insurance. [employer]: 19:36 3, 1, Living 1, LMP 08/18/2023, Verified, EDC 05/24/2024, cm10 Gestational age from LMP: 14 weeks 3 days 19:49 3, Full Term 1, 1, Living 1, Verified sb4 Historical: - Allergies: 19:35 Bactrim; cm10 19:35 Ceclor; cm10 - PMHx: 19:35 Bipolar disorder; Pre- eclampsia; cm10 - PSHx: 19:35 section; Cholecystectomy; cm10 - Immunization history:: Adult Immunizations up to date. - Infectious Disease History:: Denies. - Social history:: Smoking status: Patient denies any tobacco usage or history of. ROS: 19:49 Constitutional: Negative for fever, chills, and weight loss, sb4 19:49 Abdomen/GI: Positive for abdominal cramps, 19:49 All other systems are negative, Exam: 19:49 Constitutional: This is a well developed, well nourished patient who is awake, alert, sb4 and in no acute distress. Head/Face: Normocephalic, atraumatic. Eyes: Extra-ocular motions intact. Periorbital areas with no swelling, redness, or edema. ENT: Mucous membranes moist. Cardiovascular: Regular rate and rhythm with a normal S1 and S2. Respiratory: Lungs have equal breath sounds bilaterally, clear to auscultation and percussion. No rales, rhonchi or wheezes noted. No increased work of breathing, no retractions or nasal flaring. Abdomen/GI: Soft, non-tender, no distension. Skin: Warm, dry with normal turgor. Normal color with no rashes, no lesions, and no evidence of cellulitis. MS/ Extremity: Pulses equal, no cyanosis. Neurovascular intact. Full, normal range of motion. Neuro: Awake and alert, GCS 15, oriented to person, place, time, and situation. Motor strength 5/5 in all extremities. Sensory grossly intact. Vital Signs: 19:33 BP 135 / 90; Pulse 99; Resp 18; Temp 98.4; Pulse Ox 99% on R/A; Weight 81.65 kg; Height cm10 5 ft. 3 in. ; Pain 7/10; 21:09 BP 132 / 89; Pulse 92; Resp 16; Temp 98.2; Pulse Ox 99% ; jm12 19:33 Body Mass Index 31.89 (81.65 kg, 160.02 cm) cm10 19:33 Pain Scale: Adult cm10 MDM: 19:38 Patient medically screened. sb4 19:50 Care significantly affected by the following Social Determinants of Health: Poor access sb4 to healthcare and/or lack of insurance. 21:45 Data reviewed: vital signs, nurses notes, lab test result(s), radiologic studies, and sb4 as a result, I will discharge patient. Counseling: I had a detailed discussion with the patient and/or guardian regarding the historical points, exam findings, and any diagnostic results supporting the discharge/admit diagnosis, lab results, radiology results, the need for outpatient follow up, an OB/Gyne specialist, to return to the emergency department if symptoms worsen or persist or if there are any questions or concerns that arise at home. 11/25 19:48 Order name: Basic Metabolic Panel; Complete Time: 21:30 sb4 11/25 19:48 Order name: CBC with Diff; Complete Time: 20:43 sb4 11/25 19:48 Order name: Test, Urine; Complete Time: 20:43 sb4 08/22 19:48 Order name: Quantitative Hcg; Complete Time: 21:30 sb4 11/25 19:48 Order name: Urinalysis w/ reflexes; Complete Time: 20:50 sb4 11/25 19:48 Order name: US OB Limited; Complete Time: 21:40 sb4 11/25 19:48 Order name: Labs collected and sent; Complete Time: 21:07 sb4 Administered Medications: No medications were administered Disposition Summary: 11/26/23 21:44 Discharge Ordered Notes: Location: Home sb4 Problem: an ongoing problem sb4 Symptoms: are unchanged sb4 Condition: Stable sb4 Diagnosis - Encounter for supervision of normal , unspecified, second trimester sb4 Followup: sb4 - With: Private Physician - When: 1 week - Reason: Recheck today's complaints, Re-evaluation by your physician Discharge Instructions: - Discharge Summary Sheet sb4 - Abdominal Pain During sb4 - Second Trimester of sb4 Forms: - Patient Portal Instructions sb4 - Leadership Thank You Letter sb4 Addendum: 11/30/2023 16:10 I was immediately available for consultation during this patient's visit. I did not e c2 personally see the patient or discuss the patient with the DIONNA. . Signatures: Dispatcher [employer] Lena Reynolds PA-C PA-C sb4 Nicolle Rae RN RN cm10 Hermann Kingston MD MD ec2 Corrections: (The following items were deleted from the chart) 11/25 19:48 19:48 BASIC METABOLIC PANEL+C.LAB.BRZ ordered. EDMS EDMS 19:48 19:48 CBC+H.LAB.BRZ ordered. EDMS EDMS 19:48 19:48 Test, Urine+UC.LAB.BRZ ordered. EDMS EDMS 19:48 19:48 QUANTITATIVE HCG+C.LAB.BRZ ordered. EDMS EDMS 19:48 19:48 Urinalysis+U.LAB.BRZ ordered. EDMS EDMS 19:48 19:48 OB Limited+US.RAD.BRZ ordered. EDMS EDMS
[2023-11-26 22:14] VITALS: O2SAT 99
[2023-11-26 22:15] VITALS: BP 132/89; TEMP 98.2
== END 2023-11-26 22:09 | disposition home or self-care (01) ==
LOC: ER 19:17
DX: Z34.92 Encounter for supervision of normal pregnancy, unspecified, second trimester (principal); Z3A.14 14 weeks gestation of pregnancy; Z88.1 Allergy status to other antibiotic agents
CPT/HCPCS: 36415; 76815; 80048; 81001; 81025; 84702; 85025; 99283

== ENCOUNTER 2023-12-30 15:27 | Emergency (ER) | payer OTHER ==
--- OUTSIDE RECORDS SUMMARY | 2023-12-30 15:34 | XMS REPORT | Continuity of Care Document ---
Author Name Unknown Address [address] [facility] [address] [place] [address] [facility] thconnect Address [address] [facility] [place] [address] Care Team Providers Care Social Problems Specialist Name Role Phone PCP, PATIENT DOES NOT HAVE A Primary Care Physic johann Unavailable CONCEPCION ALDANA Attending Clinician Unavailable 2, [facility] Attending Clinician Unavailable Concepcion Aldana MD Attending Clinician Doctor Unassigned, Trent Attending Clinician JEANCARLOS Galan Attending Clinician JEANCARLOS Jackson Attending Clinician Jose Angel Fonseca MD Attending Clinician [phone] 1, [facility] Nst Room Attending Clinician Unavailable MEGHAN ROOT Attending Clinician MEGHAN Stinson Attending Clinician Aura canas Room, [facility] Nst Attending Clinician Unavailable 3, [facility] Usg Room Attending Clinician UnavailMike Menard MD Attending Clinician [phone] MIKE HERNANDEZ Attending Clinician Unavailyash marin Nurse, [facility] Attending Clinician Un available Ultrasound, [facility] Attending Clinician Unavailyash Fink MD, Umberto Mercado Attending Clinician [phone] UMBERTO FINK Attending Clinician Unavailable Po, [facility] Lab [facility] Attending Clinician UnavailZoila Gooden MA Attending Clinician Unavail able Freddy RN, Shania Tavera Attending Clinician Unavailyash marin 1, [facility] Us Room Attending Clinician Unavailab Jayesh Diaz MD Attending Clinician + JAYESH LARIOS Attending Clinician UnaNOHEMI Dupree Attending Clinician Unavailable Nohemi Canales MD Attending Clinician [phone] Maame Alonso RN Attending Clinician Unavailable Morales Campos [facility] Attending Clinician Emmanuel Persaud MD Attending Clinician [phone] EMMANUEL PALACIO Attending Clinician UnavailJOSHUA Forrest Attending Clinician Unavailable ANNIKA_CHRISTELLE Attending Clinician Unavailable PETRONA ALBA S Attending Clinician Unavailable Parth WIN Petrona S Attending Clinician [phone] Yan_W Attending Clinician Unavailable Wan Dorado Attending Clinician UnavailALEXA Calloway Attending Clinician Unavailable Alexa Fine MD Attending Clinician [phone] [facility] Attending Clinician Un available Keily Atkinson Attending Clinician [phone] KEILY OLVIIER Attending Clinician Unavailable Joshua Lewis PA-C Attending Clinician [phone] JOSEFA BEAR Attending Clinician Unavailab CONCEPCION Power Admitting Clinician Unavailable Concepcion Aldana MD Admitting Clinician NOHEMI CANALES Admitting Clinician Unavailable LILY Admitting Clinician Unavailable Tony Admitting Clinician Unavailable Wan Dorado Admitting Clinician Unavailabl e Payers Payer Name Policy Type Policy Number Effective Date Expirati on Date Source [facility] MEDICAID [id number] 2019 00:00:00 [facility] (MEDICAID REPLACEMENT - HMO) [id number] [facility] [id number] 2016 00:00:00 Problems Condition Name Condition Details Condition Category Status Onset Date Resolution Date Last Treatment Date Treating Clinician Comments Source Diet controlled gestationa l diabetes mellitus (GDM) in third trimester Diet controlled gestationa l diabetes mellitus (GDM) in third trimester Disease Active 3 00:00: 00 [facility] 39 weeks gestation of 39 weeks gestation of Disease Active 06-26 00:00: 00 [facility] Liveborn infant, of [place] , born in hospital by delivery Liveborn infant, of [place] , born in hospital by delivery Disease Active 323 00:00: 00 [facility] Obesity in , antepartum , third trimester Obesity in , antepartum , third trimester Disease Active 3-07 00:00: 00 [facility] Diet controlled gestationa l diabetes mellitus (GDM), antepartum Diet controlled gestationa l diabetes mellitus (GDM), antepartum Disease Active 1-27 00:00: 00 [facility] Anemia of mother in , antepartum Anemia of mother in , antepartum Disease Active 1-27 00:00: 00 [facility] High-risk in third trimester High-risk in third trimester Disease Active 2021-04 0-07 00:00: 00 [facility] Hx of preeclamps ia, prior , currently , third trimester Hx of preeclamps ia, prior , currently , third trimester Disease Active 8-29 00:00: 00 [facility] Obesity (BMI 30-39.9) Obesity (BMI 30-39.9) Disease Active 3-15 00:00: 00 [facility] COVID-19 virus infection COVID-19 virus infection Disease Active 2019-04 1- 00:00: 00 [facility] Allergies, Adverse Reactions, Alerts Allergy Name Allergy Type Status Severity Reaction(s) Onset Date Inactive Date Treating Clinician Comments Source cefaclor DA Active U SWELLING 3- 00:00: 00 [facility] sulfamet hoxazole DA Active MO SWELLING 3- 00:00: 00 [facility] trimetho prim DA Active MO SWELLING 3 00:00: 00 [facility] cefaclor DA Active U 06-14 00:00: 00 [facility] sulfamet hoxazole DA Active MO 3 00:00: 00 [facility] trimetho prim DA Active MO 3 00:00: 00 [facility] Cefaclor Propensi ty to adverse reaction s Active Nausea and/or Vomiting 9-15 00:00: 00 [facility] Sulfa (Sulfona mide Antibiot ics) Propensi ty to adverse reaction s Active Nausea and/or Vomiting 9-15 00:00: 00 [facility] CEFACLOR DRUG INGREDI Active N/V 0 9-15 00:00: 00 [facility] SULFA (SULFONA MIDE ANTIBIOT ICS) Drug Class Active N/V 0 9-15 00:00: 00 [facility] Social History Social Habit Start Date Stop Date Quantity Comments Source ASSERTION 2021-10-10 00:00:00 [facility] History SDOH Alcohol Std Drinks [facility] History SDOH Alcohol Binge [facility] SDOH Alcohol Comment [facility] History of tobacco use Passive smoker [facility] History of Social function 2022-12-04 00:00:00 2022-12-04 00:00:00 [facility] Exposure to SARS-CoV-2 (event) 2022-08-23 00:00:00 2022-09-02 13:04:00 Not sure [facility] Alcohol intake 2022-06-27 00:00:00 2022-06-27 00:00:00 Lifetime non-drinker (finding) [facility] Tobacco use and exposure 2021-11-06 00:00:00 2021-11-06 00:00:00 Smokeless tobacco non-user [facility] History SDOH Alcohol Frequency 2019-12-20 00:00:00 2019-12-20 00:00:00 1 [facility] Sex Assigned At 2002 00:00:00 2000 00:00:00 [facility] Smoking Status Start Date Stop Date Source Never smoked tobacco [facility] Medications Ordered Medication Name Filled Medication Name Start Date Stop Date Current Medication? Ordering Clinician Indication Dosage Frequency Signature (SIG) Comments Components Source copper (PARAGARD T 380A) IUD 1 Intra Uterine Device 08-20 22:30: 00 08-20 21:43 :00 No [id number] 1{IUD} Univer s [facility] copper (PARAGARD T 380A INTRAUTERIN E) 08-20 00:00: 00 Yes by Intrauteri ne route. [facility] Nitrofurant oin&Nit. Macrocryst 100 mg capsule 08-12 00:00: 00 08-20 00:00 :00 No [id number] 100mg Take 1 capsule by mouth in the morning and 1 capsule in the evening. [facility] ibuprofen (IBU) tablet 600 mg 06-28 03:00: 00 Yes 600mg 600 mg, Oral, Q6H, First dose on Thu06/27/22 at 2200, Until Discontinu ed, Routine [facility] HYDROcodone -acetaminop hen (NORCO 5) 5-325 mg tablet 2 tablet 06-28 01:00: 00 Yes 2{tbl} 2 tablet, Oral, Q6HPRN, Starting on Thu06/27/22 at 2000, Until Discontinu ed, Routine, Pain (scale 7-10), Alternate with Ibuprofen [facility] HYDROcodone -acetaminop hen (NORCO 5) 5-325 mg tablet 1 tablet 06-28 01:00: 00 Yes 1{tbl} 1 tablet, Oral, Q6HPRN, Starting on Thu06/27/22 at 2000, Until Discontinu ed, Routine, Pain (scale 4-6), Alternate with Ibuprofen [facility] gabapentin (NEURONTIN) capsule 300 mg 06-27 13:00: 00 Yes 300mg 300 mg, Oral, TID, First dose on Thu06/27/22 at 0800, Until Discontinu ed, Routine [facility] ASPIRIN ORAL 06-27 08:32: 43 06-27 00:00 :00 No Take by mouth. [facility] acetaminoph en ADULT (OFIRMEV) injection 1,000 mg 06-27 07:00: 00 06-27 21:31 :00 No 1000mg 1,000 mg, IV Infusion, at 400 mL/hr Administer over 15 Minutes, Q6H, 3 doses, First dose (after last modificati on) on Thu06/27/22 at 0200, Last dose on Thu06/27/22 at 1200, Routine
Indicatio n: Perioperat shayan Patient [facility] ketorolac (TORADOL) injection 30 mg 06-27 03:00: 00 06-27 22:59 :00 No 30mg 30 mg, Slow IV Push, Q6H, 4 doses, First dose on Thu06/26/22 at 2200, Last dose on Thu06/27/22 at 1200, Routine [facility] lactated ringers IV infusion 1,000 mL 06-27 02:00: 00 06-27 03:54 :55 No 1000mL at 125 mL/hr, 1,000 mL, IV Infusion, ONCE, 1 dose, On Thu06/26/22 at 2100, Routine [facility] diphenhydrA MINE (BENADRYL) injection 25 mg 06-27 01:12: 17 Yes 25mg 25 mg, Slow IV Push, Q6HPRN, Starting on Thu06/26/22 at 2011, Until Discontinu ed, Routine, Itching [facility] diphenhydrA MINE (BENADRYL) tablet 25 mg 06-27 01:12: 17 Yes 25mg 25 mg, Oral, Q6HPRN, Starting on Thu06/26/22 at 2011, Until Discontinu ed, Routine, Sleep, Itching [facility] ondansetron (ZOFRAN (PF)) injection 4 mg 06-27 01:12: 17 Yes 4mg 4 mg, Slow IV Push, Q8HPRN, Starting on Thu06/26/22 at 2011, Until Discontinu ed, Routine, Nausea and Vomiting (N/V) [facility] bisacodyL (DULCOLAX) suppository 10 mg 06-27 01:12: 17 Yes 10mg 10 mg, Rectal, QDAILYPRN, Starting on Thu06/26/22 at 2011, Until Discontinu ed, Routine, Constipati on [facility] simethicone (GAS RELIEF (SIMETHICON E)) chewable tablet 160 mg 06-27 01:12: 17 Yes 160mg 160 mg, Oral, PC+HSPRN, Starting on Thu06/26/22 at 2011, Until Discontinu ed, Routine, Gas [facility] docusate (COLACE) capsule 200 mg 06-27 01:12: 16 Yes 200mg 200 mg, Oral, QDAILYPRN, Starting on Thu06/26/22 at 2011, Until Discontinu ed, Routine, Constipati on [facility] magnesium hydroxide (MILK OF MAGNESIA) 400 mg/5 mL suspension 30 mL 06-27 01:12: 16 Yes 30mL 30 mL, Oral, QDAILYPRN, Starting on Thu06/26/22 at 2011, Until Discontinu ed, Routine, Constipati on [facility] lactated ringers IV infusion 1,000 mL 06-27 01:12: 16 Yes 1000mL at 125 mL/hr, 1,000 mL, IV Infusion, PRN, 1 dose, Starting on Carin 06/26/22 at 2011, Until Discontinu ed, Routine [facility] morpHINE PF (DURAMORPH- PF) injection 06-27 01:12: 00 06-27 01:17 :18 No Epidural, ONCE INTRA PROCEDURE, Starting on Carin 06/26/22 at 2012, Until Carin 06/26/22 at 2016, Routine, Intra-op [facility] ceFAZolin (ANCEF) 2,000 mg in NaCl 0.9% (NS) 100 mL MINI-BAG 06-27 01:00: 00 06-27 00:26 :00 No 2000mg 2,000 mg, IV Piggyback, Q8H ABX, 1 dose, First dose on Carin 06/26/22 at 2000, Administer over 30 Minutes, 100 mL
Reas on for Anti-Infec tive: Surgical Prophylaxi s
Surgi stephanie Prophylaxi s: Abdominal< br>Duratio n of therapy: within 24 hours of surgery [facility] acetaminoph en ADULT (OFIRMEV) injection 06-27 00:50: 00 06-27 01:17 :18 No IV Infusion, Administer over 15 Minutes, ONCE INTRA PROCEDURE, Starting on Carin 06/26/22 at 1950, Until Carin 06/26/22 at 2016, Routine, Intra-op [facility] PHENYLephri ne 1000 mcg/10 mL in 0.9% NaCl syringe 06-27 00:38: 00 06-27 01:17 :18 No Slow IV Push, ONCE INTRA PROCEDURE, Starting on Carin 06/26/22 at 1938, Until Carin 06/26/22 at 2016, Routine, Intra-op [facility] azithromyci n (ZITHROMAX) 500 mg in NaCl 0.9% (NS) 250 mL IV piggyback 06-27 00:29: 00 06-27 01:17 :18 No IV Piggyback, CONTINUOUS PRN, Starting on Carin 06/26/22 at 1929, Until Carin 06/26/22 at 2016, Administer over 60 Minutes, 250 mL, Intra-op [facility] LR 1000 mL + oxytocin 40 units 40 unit/ 1,000 mL IV Solution 06-27 00:27: 00 06-27 01:17 :18 No IV Infusion, CONTINUOUS PRN, Starting on Carin 06/26/22 at 1927, Until Carin 06/26/22 at 2016, Routine, Intra-op [facility] lactated ringers IV infusion 06-27 00:16: 00 06-27 01:17 :18 No IV Infusion, CONTINUOUS PRN, Starting on Carin 06/26/22 at 1916, Until Carin 06/26/22 at 2017, Routine, Intra-op [facility] ondansetron (ZOFRAN (PF)) injection 06-27 00:09: 00 06-27 01:17 :18 No Slow IV Push, ONCE INTRA PROCEDURE, Starting on Carin 06/26/22 at 1909, Until Carin 06/26/22 at 2017, Routine, Intra-op [facility] ibuprofen 800 mg tablet 06-27 00:00: 00 07-16 00:00 :00 No [id number] 800mg Take 1 tablet by mouth every 8 (eight) hours. [facility] HYDROcodone -acetaminop hen 5-325 mg tablet 06-27 00:00: 00 07-16 00:00 :00 No [id number] 1{tbl} Take 1 tablet by mouth every 6 (six) hours as needed for Pain (scale 4-6) (Alternate with Ibuprofen) . Indication s: acute pain [facility] vitamin w/FA tablet 06-27 00:00: 00 07-16 00:00 :00 No [id number] 1{tbl} Take 1 tablet by mouth in the morning. [facility] docusate 100 mg capsule 06-27 00:00: 00 07-16 00:00 :00 No [id number] 200mg Take 2 capsules by mouth once daily as needed for Constipati on. [facility] ferrous sulfate 325 mg (65 mg iron) tablet 06-27 00:00: 00 07-16 00:00 :00 No [id number] 325mg Take 1 tablet by mouth in the morning and 1 tablet in the evening. [facility] gabapentin 300 mg capsule 06-27 00:00: 00 07-16 00:00 :00 No [id number] 300mg Take 1 capsule by mouth in the morning and 1 capsule at noon and 1 capsule in the evening. [facility] lidocaine 2% + epinephrine 1:1000 + fentanyl 50 mcg/mL 06-26 23:40: 00 06-27 01:17 :18 No Epidural, CONTINUOUS PRN, Starting on Carin 06/26/22 at 1840, Until Carin 06/26/22 at 2016, Routine, [facility] PIB fentaNYL-ro pivacaine 2 mcg/mL-0.1 % (PF) in NS 200 mL epidural infusion RTU 06-26 15:08: 00 06-27 01:17 :18 No Epidural, ONCE INTRA PROCEDURE, Starting on Carin 06/26/22 at 1008, Until Carin 06/26/22 at 2016, Routine, Intra-op [facility] lidocaine-e pinephrine (XYLOCAINE W/EPINEPHRI NE) 1.5 %-1:200,000 injection 06-26 15:07: 00 06-27 01:17 :18 No Epidural, ONCE INTRA PROCEDURE, Starting on Carin 06/26/22 at 1007, Until Carin 06/26/22 at 2016, Routine, Intra-op [facility] lidocaine 1% (XYLOCAINE) 100 mg/10 mL (1 %) injection 06-26 14:56: 00 06-27 01:17 :18 No Infiltrati on, ONCE INTRA PROCEDURE, Starting on Carin 06/26/22 at 0956, Until Carin 06/26/22 at 2016, Routine, Intra-op [facility] magnesium hydroxide (MILK OF MAGNESIA) 400 mg/5 mL suspension 30 mL 06-26 07:21: 19 06-26 07:24 :00 No 30mL 30 mL, Oral, PRN, 1 dose, Starting on Carin 06/26/22 at 0221, Until Carin 06/26/22 at 0224, Routine, Constipati on [facility] misoprostol (CYTOTEC) quarter-tab let 50 mcg 06-26 06:30: 00 06-26 06:22 :00 No 50ug 50 mcg, Oral, QID, 1 dose, First dose on Carin 06/26/22 at 0130, Routine [facility] terbutaline (BRETHINE) injection 0.25 mg 06-26 05:04: 21 06-27 01:15 :28 No .25mg 0.25 mg, Subcutaneo us, Q15MIN PRN, 3 doses, Starting on Carin 06/26/22 at 0004, Until Carin 06/26/22 at 2014, Routine, Tachysysto le with NRFHT [facility] lactated ringers IV infusion 1,000 mL 06-26 05:04: 21 06-27 01:15 :28 No 1000mL at 1-125 mL/hr, 1,000 mL, IV Infusion, TITRATE, Starting on Carin 06/26/22 at 0004, Until Carin 06/26/22 at 2014, Routine [facility] oxytocin (PITOCIN) 30 units in NS 500 mL IV infusion 06-26 05:04: 21 06-27 01:15 :28 No 2mU/min at 2-40 mL/hr, IV Infusion, TITRATE, Starting on Carin 06/26/22 at 0004, Until Carin 06/26/22 at 2014, Routine [facility] lactated ringers IV infusion 500 mL 06-26 05:04: 21 06-27 01:15 :28 No 500mL at 999 mL/hr, 500 mL, IV Infusion, PRN - SEE INSTRUCTIO NS, Starting on Carin 06/26/22 at 0004, Until Carin 06/26/22 at 2015, Routine [facility] sodium citrate-cit yg acid (BICITRA) 500-334 mg/5 mL solution 30 mL 06-26 05:04: 21 06-26 23:39 :00 No 30mL 30 mL, Oral, PRE-PROCED URE ONCE, 1 dose, Starting on Carin 06/26/22 at 0004, Until Discontinu ed, Routine, Surgery/Pr ocedure [facility] ASPIRIN ORAL 06-25 23:58: 17 Yes Take by mouth. [facility] Blood-Gluco se Meter (ACCU-CHEK GUIDE GLUCOSE METER) [facility] 05-16 00:00: 00 06-27 00:00 :00 No Check blood sugar 4 times daily [facility] PNV no.95/kari us fum/folic ac ( ORAL) 05-06 14:30: 18 Yes Take by mouth. [facility] Blood-Gluco se Meter (ACCU-CHEK GUIDE GLUCOSE METER) [facility] 05-06 00:00: 00 Yes Use as directed [facility] lancets 33 gauge [facility] 05-06 00:00: 00 06-27 00:00 :00 No Pt will check glucose levels 4 x per day. [facility] blood sugar diagnostic (ACCU-CHEK GUIDE TEST STRIPS) strip 05-06 00:00: 00 06-27 00:00 :00 No Pt will check glucose levels 4 x per day. [facility] ferrous sulfate 325 mg (65 mg iron) tablet 05-02 00:00: 00 06-27 00:00 :00 No [id number] 325mg Take 1 tablet by mouth in the morning and 1 tablet in the evening. [facility] No known medications 2021-04 16:19: 09 No No known medication s [facility] NaCl 0.9% (NS) bolus infusion 500 mL 2021-04 03:30: 00 01-11 04:12 :00 No 500mL at 999 mL/hr, 500 mL, IV Infusion, ONCE, 1 dose, On Thu01/10/22 at 2230, STAT [facility] PNV no.95/kari us fum/folic ac ( ORAL) 2021-04 0-07 16:39: 23 Yes Take by mouth. [facility] No known medications 12-17 17:00: 31 No No known medication s [facility] Nitrofurant oin&Nit. Macrocryst 100 mg capsule 8 00:00: 00 12-17 00:00 :00 No TAKE 1 CAPSULE BY MOUTH EVERY 12 HOURS FOR 7 DAYS [facility] Immunizations Ordered Immunization Name Filled Immunization Name Date Status Comments Source TDAP 2022-04-18 00:00:00 Completed [facility] TDAP 2022-04-18 00:00:00 Completed [facility] TDAP 2022-04-18 00:00:00 Completed [facility] TDAP 2022-04-18 00:00:00 Completed [facility] TDAP 2022-04-18 00:00:00 Completed [facility] TDAP 2022-04-18 00:00:00 Completed [facility] TDAP 2022-04-18 00:00:00 Completed [facility] TDAP 2022-04-18 00:00:00 Completed [facility] TDAP 2022-04-18 00:00:00 Completed [facility] TDAP 2022-04-18 00:00:00 Completed [facility] TDAP 2022-04-18 00:00:00 Completed [facility] TDAP 2022-04-18 00:00:00 Completed [facility] TDAP 2022-04-18 00:00:00 Completed [facility] TDAP 2022-04-18 00:00:00 Completed [facility] TDAP 2022-04-18 00:00:00 Completed [facility] TDAP 2022-04-18 00:00:00 Completed [facility] TDAP 2022-04-18 00:00:00 Completed [facility] TDAP 2022-04-18 00:00:00 Completed [facility] TDAP 2022-04-18 00:00:00 Completed [facility] TDAP 2022-04-18 00:00:00 Completed [facility] TDAP 2022-04-18 00:00:00 Completed [facility] TDAP 2022-04-18 00:00:00 Completed [facility] TDAP 2022-04-18 00:00:00 Completed [facility] TDAP 2022-04-18 00:00:00 Completed [facility] TDAP 2022-04-18 00:00:00 Completed [facility] TDAP 2022-04-18 00:00:00 Completed [facility] TDAP 2022-04-18 00:00:00 Completed [facility] TDAP 2022-04-18 00:00:00 Completed [facility] TDAP 2022-04-18 00:00:00 Completed [facility] TDAP 2022-04-18 00:00:00 Completed [facility] TDAP 2022-04-18 00:00:00 Completed [facility] TDAP 2022-04-18 00:00:00 Completed [facility] TDAP 2022-04-18 00:00:00 Completed [facility] TDAP 2022-04-18 00:00:00 Completed [facility] TDAP 2022-04-18 00:00:00 Completed [facility] TDAP 2022-04-18 00:00:00 Completed [facility] Influenza Virus Vaccine Quad IM, Preserv and ABX Free 6 MO-64 YRS 2022-02-07 00:00:00 Completed [facility] Influenza Virus Vaccine Quad IM, Preserv and ABX Free 6 MO-64 YRS 2022-02-07 00:00:00 Completed [facility] Influenza Virus Vaccine Quad IM, Preserv and ABX Free 6 MO-64 YRS 2022-02-07 00:00:00 Completed [facility] Influenza Virus Vaccine Quad IM, Preserv and ABX Free 6 MO-64 YRS 2022-02-07 00:00:00 Completed [facility] Influenza Virus Vaccine Quad IM, Preserv and ABX Free 6 MO-64 YRS 2022-02-07 00:00:00 Completed [facility] Influenza Virus Vaccine Quad IM, Preserv and ABX Free 6 MO-64 YRS 2022-02-07 00:00:00 Completed [facility] Influenza Virus Vaccine Quad IM, Preserv and ABX Free 6 MO-64 YRS 2022-02-07 00:00:00 Completed [facility] Influenza Virus Vaccine Quad IM, Preserv and ABX Free 6 MO-64 YRS 2022-02-07 00:00:00 Completed [facility] Influenza Virus Vaccine Quad IM, Preserv and ABX Free 6 MO-64 YRS 2022-02-07 00:00:00 Completed [facility] Influenza Virus Vaccine Quad IM, Preserv and ABX Free 6 MO-64 YRS 2022-02-07 00:00:00 Completed [facility] Influenza Virus Vaccine Quad IM, Preserv and ABX Free 6 MO-64 YRS 2022-02-07 00:00:00 Completed [facility] Influenza Virus Vaccine Quad IM, Preserv and ABX Free 6 MO-64 YRS 2022-02-07 00:00:00 Completed [facility] Influenza Virus Vaccine Quad IM, Preserv and ABX Free 6 MO-64 YRS 2022-02-07 00:00:00 Completed [facility] Influenza Virus Vaccine Quad IM, Preserv and ABX Free 6 MO-64 YRS 2022-02-07 00:00:00 Completed [facility] Influenza Virus Vaccine Quad IM, Preserv and ABX Free 6 MO-64 YRS 2022-02-07 00:00:00 Completed [facility] Influenza Virus Vaccine Quad IM, Preserv and ABX Free 6 MO-64 YRS 2022-02-07 00:00:00 Completed [facility] Influenza Virus Vaccine Quad IM, Preserv and ABX Free 6 MO-64 YRS 2022-02-07 00:00:00 Completed [facility] Influenza Virus Vaccine Quad IM, Preserv and ABX Free 6 MO-64 YRS 2022-02-07 00:00:00 Completed [facility] Influenza Virus Vaccine Quad IM, Preserv and ABX Free 6 MO-64 YRS 2022-02-07 00:00:00 Completed [facility] Influenza Virus Vaccine Quad IM, Preserv and ABX Free 6 MO-64 YRS 2022-02-07 00:00:00 Completed [facility] Influenza Virus Vaccine Quad IM, Preserv and ABX Free 6 MO-64 YRS 2022-02-07 00:00:00 Completed [facility] Influenza Virus Vaccine Quad IM, Preserv and ABX Free 6 MO-64 YRS 2022-02-07 00:00:00 Completed [facility] Influenza Virus Vaccine Quad IM, Preserv and ABX Free 6 MO-64 YRS 2022-02-07 00:00:00 Completed [facility] Influenza Virus Vaccine Quad IM, Preserv and ABX Free 6 MO-64 YRS 2022-02-07 00:00:00 Completed [facility] Influenza Virus Vaccine Quad IM, Preserv and ABX Free 6 MO-64 YRS 2022-02-07 00:00:00 [facility]pleted [facility] [facility] Vaccine Quad IM, Preserv and ABX Free 6 MO-64 YRS 2022-02-07 00:00:00 Completed [facility] Influenza Virus Vaccine Quad IM, Preserv and ABX Free 6 MO-64 YRS 2022-02-07 00:00:00 Completed [facility] Influenza Virus Vaccine Quad IM, Preserv and ABX Free 6 MO-64 YRS 2022-02-07 00:00:00 Completed [facility] Influenza Virus Vaccine Quad IM, Preserv and ABX Free 6 MO-64 YRS 2022-02-07 00:00:00 Completed [facility] Influenza Virus Vaccine Quad IM, Preserv and ABX Free 6 MO-64 YRS 2022-02-07 00:00:00 Completed [facility] Influenza Virus Vaccine Quad IM, Preserv and ABX Free 6 MO-64 YRS 2022-02-07 00:00:00 Completed [facility] Influenza Virus Vaccine Quad IM, Preserv and ABX Free 6 MO-64 YRS 2022-02-07 00:00:00 Completed [facility] Influenza Virus Vaccine Quad IM, Preserv and ABX Free 6 MO-64 YRS 2022-02-07 00:00:00 Completed [facility] Influenza Virus Vaccine Quad IM, Preserv and ABX Free 6 MO-64 YRS 2022-02-07 00:00:00 Completed [facility] Influenza Virus Vaccine Quad IM, Preserv and ABX Free 6 MO-64 YRS 2022-02-07 00:00:00 Completed [facility] Influenza Virus Vaccine Quad IM, Preserv and ABX Free 6 MO-64 YRS 2022-02-07 00:00:00 Completed [facility] Influenza Virus Vaccine Quad IM, Preserv and ABX Free 6 MO-64 YRS 2022-02-07 00:00:00 Completed [facility] Influenza Virus Vaccine Quad IM, Preserv and ABX Free 6 MO-64 YRS 2022-02-07 00:00:00 Completed [facility] Influenza Virus Vaccine Quad IM, Preserv and ABX Free 6 MO-64 YRS (FLUCELVAX) 2022-02-07 00:00:00 Completed [facility] Influenza Virus Vaccine Quad IM, Preserv and ABX Free 6 MO-64 YRS (FLUCELVAX) 2022-02-07 00:00:00 Completed [facility] Influenza Virus Vaccine Quad IM, Preserv and ABX Free 6 MO-64 YRS (FLUCELVAX) 2022-02-07 00:00:00 Completed [facility] Influenza Virus Vaccine Quad IM, Preserv and ABX Free 6 MO-64 YRS (FLUCELVAX) 2022-02-07 00:00:00 Completed [facility] Influenza Virus Vaccine Quad IM, Preserv and ABX Free 6 MO-64 YRS (FLUCELVAX) 2022-02-07 00:00:00 Completed [facility] Influenza Virus Vaccine Quad IM, Preserv and ABX Free 6 MO-64 YRS 2022-02-07 00:00:00 Completed [facility] Influenza Virus Vaccine Quad IM, Preserv and ABX Free 6 MO-64 YRS 2022-02-07 00:00:00 Completed [facility] Influenza Virus Vaccine Quad IM, Preserv and ABX Free 6 MO-64 YRS 2021-05-21 00:00:00 Completed [facility] Influenza Virus Vaccine Quad IM, Preserv and ABX Free 6 MO-64 YRS 2021-05-21 00:00:00 Completed [facility] Influenza Virus Vaccine Quad IM, Preserv and ABX Free 6 MO-64 YRS 2021-05-21 00:00:00 Completed [facility] Influenza Virus Vaccine Quad IM, Preserv and ABX Free 6 MO-64 YRS 2021-05-21 00:00:00 Completed [facility] Influenza Virus Vaccine Quad IM, Preserv and ABX Free 6 MO-64 YRS 2021-05-21 00:00:00 Completed [facility] Influenza Virus Vaccine Quad IM, Preserv and ABX Free 6 MO-64 YRS 2021-05-21 00:00:00 Completed [facility] Influenza Virus Vaccine Quad IM, Preserv and ABX Free 6 MO-64 YRS 2021-05-21 00:00:00 Completed [facility] Influenza Virus Vaccine Quad IM, Preserv and ABX Free 6 MO-64 YRS 2021-05-21 00:00:00 Completed [facility] Influenza Virus Vaccine Quad IM, Preserv and ABX Free 6 MO-64 YRS 2021-05-21 00:00:00 Completed [facility] Influenza Virus Vaccine Quad IM, Preserv and ABX Free 6 MO-64 YRS 2021-05-21 00:00:00 Completed [facility] Influenza Virus Vaccine Quad IM, Preserv and ABX Free 6 MO-64 YRS 2021-05-21 00:00:00 Completed [facility] Influenza Virus Vaccine Quad IM, Preserv and ABX Free 6 MO-64 YRS 2021-05-21 00:00:00 Completed [facility] Influenza Virus Vaccine Quad IM, Preserv and ABX Free 6 MO-64 YRS 2021-05-21 00:00:00 Completed [facility] Influenza Virus Vaccine Quad IM, Preserv and ABX Free 6 MO-64 YRS 2021-05-21 00:00:00 Completed [facility] Influenza Virus Vaccine Quad IM, Preserv and ABX Free 6 MO-64 YRS 2021-05-21 00:00:00 Completed [facility] Influenza Virus Vaccine Quad IM, Preserv and ABX Free 6 MO-64 YRS 2021-05-21 00:00:00 Completed [facility] Influenza Virus Vaccine Quad IM, Preserv and ABX Free 6 MO-64 YRS 2021-05-21 00:00:00 Completed [facility] Influenza Virus Vaccine Quad IM, Preserv and ABX Free 6 MO-64 YRS 2021-05-21 00:00:00 Completed [facility] Influenza Virus Vaccine Quad IM, Preserv and ABX Free 6 MO-64 YRS 2021-05-21 00:00:00 Completed [facility] Influenza Virus Vaccine Quad IM, Preserv and ABX Free 6 MO-64 YRS 2021-05-21 00:00:00 Completed [facility] Influenza Virus Vaccine Quad IM, Preserv and ABX Free 6 MO-64 YRS 2021-05-21 00:00:00 Completed [facility] Influenza Virus Vaccine Quad IM, Preserv and ABX Free 6 MO-64 YRS 2021-05-21 00:00:00 Completed [facility] Influenza Virus Vaccine Quad IM, Preserv and ABX Free 6 MO-64 YRS 2021-05-21 00:00:00 Completed [facility] Influenza Virus Vaccine Quad IM, Preserv and ABX Free 6 MO-64 YRS 2021-05-21 00:00:00 Completed [facility] Influenza Virus Vaccine Quad IM, Preserv and ABX Free 6 MO-64 YRS 2021-05-21 00:00:00 Completed [facility] Influenza Virus Vaccine Quad IM, Preserv and ABX Free 6 MO-64 YRS 2021-05-21 00:00:00 Completed [facility] Influenza Virus Vaccine Quad IM, Preserv and ABX Free 6 MO-64 YRS 2021-05-21 00:00:00 Completed [facility] Influenza Virus Vaccine Quad IM, Preserv and ABX Free 6 MO-64 YRS 2021-05-21 00:00:00 Completed [facility] Influenza Virus Vaccine Quad IM, Preserv and ABX Free 6 MO-64 YRS 2021-05-21 00:00:00 Completed [facility] Influenza Virus Vaccine Quad IM, Preserv and ABX Free 6 MO-64 YRS 2021-05-21 00:00:00 Completed [facility] Influenza Virus Vaccine Quad IM, Preserv and ABX Free 6 MO-64 YRS 2021-05-21 00:00:00 Completed [facility] Influenza Virus Vaccine Quad IM, Preserv and ABX Free 6 MO-64 YRS 2021-05-21 00:00:00 Completed [facility] Influenza Virus Vaccine Quad IM, Preserv and ABX Free 6 MO-64 YRS 2021-05-21 00:00:00 Completed [facility] Influenza Virus Vaccine Quad IM, Preserv and ABX Free 6 MO-64 YRS 2021-05-21 00:00:00 Completed [facility] Influenza Virus Vaccine Quad IM, Preserv and ABX Free 6 MO-64 YRS 2021-05-21 00:00:00 Completed [facility] Influenza Virus Vaccine Quad IM, Preserv and ABX Free 6 MO-64 YRS 2021-05-21 00:00:00 Completed [facility] Influenza Virus Vaccine Quad IM, Preserv and ABX Free 6 MO-64 YRS 2021-05-21 00:00:00 Completed [facility] Influenza Virus Vaccine Quad IM, Preserv and ABX Free 6 MO-64 YRS 2021-05-21 00:00:00 Completed [facility] Influenza Virus Vaccine Quad IM, Preserv and ABX Free 6 MO-64 YRS 2021-05-21 00:00:00 Completed [facility] Influenza Virus Vaccine Quad IM, Preserv and ABX Free 6 MO-64 YRS (FLUCELVAX) 2021-05-21 00:00:00 Completed [facility] Influenza Virus Vaccine Quad IM, Preserv and ABX Free 6 MO-64 YRS (FLUCELVAX) 2021-05-21 00:00:00 Completed [facility] Influenza Virus Vaccine Quad IM, Preserv and ABX Free 6 MO-64 YRS (FLUCELVAX) 2021-05-21 00:00:00 Completed [facility] Influenza Virus Vaccine Quad IM, Preserv and ABX Free 6 MO-64 YRS (FLUCELVAX) 2021-05-21 00:00:00 Completed [facility] Influenza Virus Vaccine Quad IM, Preserv and ABX Free 6 MO-64 YRS (FLUCELVAX) 2021-05-21 00:00:00 Completed [facility] Influenza Virus Vaccine Quad IM, Preserv and ABX Free 6 MO-64 YRS 2021-05-21 00:00:00 Completed [facility] Influenza Virus Vaccine Quad IM, Preserv and ABX Free 6 MO-64 YRS 2021-05-21 00:00:00 Completed [facility] Influenza Virus Vaccine Quad IM, Preserv and ABX Free 6 MO-64 YRS 2021-05-21 00:00:00 Completed [facility] Influenza Virus Vaccine Quad IM, Preserv and ABX Free 6 MO-64 YRS 2021-05-21 00:00:00 Completed [facility] Influenza Virus Vaccine Quad IM, Preserv and ABX Free 6 MO-64 YRS 2021-05-21 00:00:00 Completed [facility] Influenza Virus Vaccine Quad IM, Preserv and ABX Free 6 MO-64 YRS 2021-05-21 00:00:00 Completed [facility] Influenza Virus Vaccine Quad IM, Preserv and ABX Free 6 MO-64 YRS 2021-05-21 00:00:00 Completed [facility] Influenza Virus Vaccine Quad IM, Preserv and ABX Free 6 MO-64 YRS 2021-05-21 00:00:00 Completed [facility] Influenza Virus Vaccine Quad IM, Preserv and ABX Free 6 MO-64 YRS 2021-05-21 00:00:00 Completed [facility] Influenza Virus Vaccine Quad IM, Preserv and ABX Free 6 MO-64 YRS 2021-05-21 00:00:00 Completed [facility] Influenza Virus Vaccine Quad IM, Preserv and ABX Free 6 MO-64 YRS 2021-05-21 00:00:00 Completed [facility] Influenza Virus Vaccine Quad IM, Preserv and ABX Free 6 MO-64 YRS 2021-05-21 00:00:00 Completed [facility] Influenza Virus Vaccine Quad IM, Preserv and ABX Free 6 MO-64 YRS 2021-05-21 00:00:00 Completed [facility] Influenza Virus Vaccine Quad .5 mL IM 6+ MO 2020-01-10 00:00:00 Completed [facility] Influenza Virus Vaccine Quad .5 mL IM 6+ MO 2020-01-10 00:00:00 Completed [facility] Influenza Virus Vaccine Quad .5 mL IM 6+ MO 2020-01-10 00:00:00 Completed [facility] Influenza Virus Vaccine Quad .5 mL IM 6+ MO 2020-01-10 00:00:00 Completed [facility] Influenza Virus Vaccine Quad .5 mL IM 6+ MO 2020-01-10 00:00:00 Completed [facility] Influenza Virus Vaccine Quad .5 mL IM 6+ MO 2020-01-10 00:00:00 Completed [facility] Influenza Virus Vaccine Quad .5 mL IM 6+ MO 2020-01-10 00:00:00 Completed [facility] Influenza Virus Vaccine Quad .5 mL IM 6+ MO 2020-01-10 00:00:00 Completed [facility] Influenza Virus Vaccine Quad .5 mL IM 6+ MO 2020-01-10 00:00:00 Completed [facility] Influenza Virus Vaccine Quad .5 mL IM 6+ MO 2020-01-10 00:00:00 Completed [facility] Influenza Virus Vaccine Quad .5 mL IM 6+ MO 2020-01-10 00:00:00 Completed [facility] Influenza Virus Vaccine Quad .5 mL IM 6+ MO 2020-01-10 00:00:00 Completed [facility] Influenza Virus Vaccine Quad .5 mL IM + MO 2020-01-10 00:00:00 Completed [facility] Influenza Virus Vaccine Quad .5 mL IM 6+ MO 2020-01-10 00:00:00 Completed [facility] Influenza Virus Vaccine Quad .5 mL IM 6+ MO 2020-01-10 00:00:00 Completed [facility] Influenza Virus Vaccine Quad .5 mL IM MO 2020-01-10 00:00:00 Completed [facility] Influenza Virus Vaccine Quad .5 mL IM + MO 2020-01-10 00:00:00 Completed [facility] Influenza Virus Vaccine Quad .5 mL IM + MO 2020-01-10 00:00:00 Completed [facility] Influenza Virus Vaccine Quad .5 mL IM 6+ MO 2020-01-10 00:00:00 Completed [facility] Influenza Virus Vaccine Quad .5 mL IM 6+ MO 2020-01-10 00:00:00 Completed [facility] Influenza Virus Vaccine Quad .5 mL IM 6+ MO 2020-01-10 00:00:00 Completed [facility] Influenza Virus Vaccine Quad .5 mL IM 6+ MO 2020-01-10 00:00:00 Completed [facility] Influenza Virus Vaccine Quad .5 mL IM 6+ MO 2020-01-10 00:00:00 Completed [facility] Influenza Virus Vaccine Quad .5 mL IM 6+ MO 2020-01-10 00:00:00 Completed [facility] Influenza Virus Vaccine Quad .5 mL IM 6+ MO 2020-01-10 00:00:00 Completed [facility] Influenza Virus Vaccine Quad .5 mL IM 6+ MO 2020-01-10 00:00:00 Completed [facility] Influenza Virus Vaccine Quad .5 mL IM 6+ MO 2020-01-10 00:00:00 Completed [facility] Influenza Virus Vaccine Quad .5 mL IM 6+ MO 2020-01-10 00:00:00 Completed [facility] Influenza Virus Vaccine Quad .5 mL IM 6+ MO 2020-01-10 00:00:00 Completed [facility] Influenza Virus Vaccine Quad .5 mL IM 6+ MO 2020-01-10 00:00:00 Completed [facility] Influenza Virus Vaccine Quad .5 mL IM 6+ MO 2020-01-10 00:00:00 Completed [facility] Influenza Virus Vaccine Quad .5 mL IM 6+ MO 2020-01-10 00:00:00 Completed [facility] Influenza Virus Vaccine Quad .5 mL IM 6+ MO 2020-01-10 00:00:00 Completed [facility] Influenza Virus Vaccine Quad .5 mL IM 6+ MO 2020-01-10 00:00:00 Completed [facility] Influenza Virus Vaccine Quad .5 mL IM 6+ MO 2020-01-10 00:00:00 Completed [facility] Influenza Virus Vaccine Quad .5 mL IM 6+ MO 2020-01-10 00:00:00 Completed [facility] Influenza Virus Vaccine Quad .5 mL IM 6+ MO 2020-01-10 00:00:00 Completed [facility] Influenza Virus Vaccine Quad .5 mL IM 6+ MO 2020-01-10 00:00:00 Completed [facility] Influenza Virus Vaccine Quad .5 mL IM 6+ MO 2020-01-10 00:00:00 Completed [facility] Influenza Virus Vaccine Quad .5 mL IM 6+ MO (FLUZONE/FLULAVAL/F LUARIX) 2020-01-10 00:00:00 Completed [facility] Influenza Virus Vaccine Quad .5 mL IM 6+ MO (FLUZONE/FLULAVAL/F LUARIX) 2020-01-10 00:00:00 Completed [facility] Influenza Virus Vaccine Quad .5 mL IM 6+ MO (FLUZONE/FLULAVAL/F LUARIX) 2020-01-10 00:00:00 Completed [facility] Influenza Virus Vaccine Quad .5 mL IM 6+ MO (FLUZONE/FLULAVAL/F LUARIX) 2020-01-10 00:00:00 Completed [facility] Influenza Virus Vaccine Quad .5 mL IM 6+ MO (FLUZONE/FLULAVAL/F LUARIX) 2020-01-10 00:00:00 Completed [facility] Influenza Virus Vaccine Quad .5 mL IM 6+ MO 2020-01-10 00:00:00 Completed [facility] Influenza Virus Vaccine Quad .5 mL IM 6+ MO 2020-01-10 00:00:00 Completed [facility] Influenza Virus Vaccine Quad .5 mL IM 6+ MO 2020-01-10 00:00:00 Completed [facility] Influenza Virus Vaccine Quad .5 mL IM 6+ MO 2020-01-10 00:00:00 Completed [facility] Influenza Virus Vaccine Quad .5 mL IM 6+ MO 2020-01-10 00:00:00 Completed [facility] Influenza Virus Vaccine Quad .5 mL IM 6+ MO 2020-01-10 00:00:00 Completed [facility] Influenza Virus Vaccine Quad .5 mL IM 6+ MO 2020-01-10 00:00:00 Completed [facility] Influenza Virus Vaccine Quad .5 mL IM 6+ MO 2020-01-10 00:00:00 Completed [facility] Influenza Virus Vaccine Quad .5 mL IM 6+ MO 2020-01-10 00:00:00 Completed [facility] Influenza Virus Vaccine Quad .5 mL IM 6+ MO 2020-01-10 00:00:00 Completed [facility] Influenza Virus Vaccine Quad .5 mL IM 6+ MO 2020-01-10 00:00:00 Completed [facility] Influenza Virus Vaccine Quad .5 mL IM 6+ MO 2020-01-10 00:00:00 Completed [facility] Influenza Virus Vaccine Quad .5 mL IM 6+ MO 2020-01-10 00:00:00 Completed [facility] Influenza Virus Vaccine Quad .5 mL IM 6+ MO (FLUZONE/FLULAVAL/F LUARIX) Unknown Completed [facility] Influenza Virus Vaccine Quad IM, Preserv and ABX Free 6 MO-64 YRS (FLUCELVAX) Unknown Completed [facility] Influenza Virus Vaccine Quad IM, Preserv and ABX Free 6 MO-64 YRS (FLUCELVAX) Unknown Completed [facility] TDAP Unknown Completed [facility] Vital Signs Vital Name Observation Time Observation Value Comments S ource Systolic blood pressure 2022-12-04 18:39:00 136 mm[Hg] [facility] Diastolic blood pressure 2022-12-04 18:39:00 89 mm[Hg] [facility] Heart rate 2022-12-04 18:38:00 96 /min [facility] Respiratory rate 2022-12-04 18:38:00 18 /min [facility] Body height 2022-12-04 18:38:00 162.6 cm [facility] Body weight 2022-12-04 18:38:00 81.557 kg [facility] BMI 2022-12-04 18:38:00 30.86 kg/m2 [facility] Oxygen saturation in Arterial blood by Pulse oximetry 2022-12-04 18:38:00 98 /min [facility] Systolic blood pressure 2022-09-02 18:26:00 121 mm[Hg] [facility] Diastolic blood pressure 2022-09-02 18:26:00 84 mm[Hg] [facility] Heart rate 2022-09-02 18:26:00 85 /min [facility] Body temperature 2022-09-02 18:26:00 36.72 Ally [facility] Respiratory rate 2022-09-02 18:26:00 16 /min [facility] Body height 2022-09-02 18:26:00 162.6 cm [facility] Body weight 2022-09-02 18:26:00 84.052 kg [facility] BMI 2022-09-02 18:26:00 31.81 kg/m2 [facility] Oxygen saturation in Arterial blood by Pulse oximetry 2022-09-02 18:26:00 99 /min [facility] Systolic blood pressure 2022-08-20 20:35:00 120 mm[Hg] [facility] Diastolic blood pressure 2022-08-20 20:35:00 81 mm[Hg] [facility] Heart rate 2022-08-20 20:33:00 108 /min [facility] Respiratory rate 2022-08-20 20:33:00 18 /min [facility] Body height 2022-08-20 20:33:00 162.6 cm [facility] Body weight 2022-08-20 20:33:00 84.369 kg [facility] BMI 2022-08-20 20:33:00 31.93 kg/m2 [facility] Systolic blood pressure 2022-08-12 21:02:00 135 mm[Hg] [facility] Diastolic blood pressure 2022-08-12 21:02:00 95 mm[Hg] [facility] Heart rate 2022-08-12 20:52:00 93 /min [facility] Body temperature 2022-08-12 20:52:00 36.94 Ally [facility] Respiratory rate 2022-08-12 20:52:00 18 /min [facility] Body height 2022-08-12 20:52:00 162.6 cm [facility] Body weight 2022-08-12 20:52:00 84.823 kg [facility] BMI 2022-08-12 20:52:00 32.10 kg/m2 [facility] Systolic blood pressure 2022-07-16 21:45:00 123 mm[Hg] [facility] Diastolic blood pressure 2022-07-16 21:45:00 83 mm[Hg] [facility] Heart rate 2022-07-16 21:32:00 82 /min [facility] Body temperature 2022-07-16 21:32:00 36.83 Ally [facility] Respiratory rate 2022-07-16 21:32:00 18 /min [facility] Body height 2022-07-16 21:32:00 162.6 cm [facility] Body weight 2022-07-16 21:32:00 86.183 kg [facility] BMI 2022-07-16 21:32:00 32.61 kg/m2 [facility] Systolic blood pressure 2022-06-28 13:20:00 132 mm[Hg] [facility] Diastolic blood pressure 2022-06-28 13:20:00 73 mm[Hg] [facility] Heart rate 2022-06-28 13:20:00 82 /min [facility] Body temperature 2022-06-28 13:20:00 36.39 Ally [facility] Respiratory rate 2022-06-28 13:20:00 18 /min [facility] Oxygen saturation in Arterial blood by Pulse oximetry 2022-06-28 04:37:00 100 /min [facility] Body height 2022-06-26 06:39:00 162.6 cm [facility] Body weight 2022-06-26 06:39:00 98.612 kg [facility] BMI 2022-06-26 06:39:00 37.32 kg/m2 [facility] Respiratory rate 2022-06-27 01:11:00 23 /min [facility] Heart rate 2022-06-27 03:30:00 88 [facility] Oxygen saturation in Arterial blood by Pulse oximetry 2022-06-27 03:30:00 99 /min [facility] Systolic blood pressure 2022-06-27 03:15:00 132 mm[Hg] [facility] Diastolic blood pressure 2022-06-27 03:15:00 76 mm[Hg] [facility] Body temperature 2022-06-26 22:00:00 37 Ally [facility] Respiratory rate 2022-06-26 22:00:00 18 /min [facility] Body height 2022-06-26 06:39:00 162.6 cm [facility] Body weight 2022-06-26 06:39:00 98.612 kg [facility] BMI 2022-06-26 06:39:00 37.32 kg/m2 [facility] Systolic blood pressure 2022-06-24 14:00:00 130 mm[Hg] [facility] Diastolic blood pressure 2022-06-24 14:00:00 85 mm[Hg] [facility] Heart rate 2022-06-24 14:00:00 98 /[facility] 2022-06-24 14:00:00 18 /min [facility] Body height 2022-06-24 14:00:00 160 cm [facility] Body weight 2022-06-24 14:00:00 98.431 kg [facility] BMI 2022-06-24 14:00:00 38.44 kg/m2 [facility] Systolic blood pressure 2022-06-20 15:45:00 134 mm[Hg] [facility] Diastolic blood pressure 2022-06-20 15:45:00 80 mm[Hg] [facility] Heart rate 2022-06-20 15:45:00 89 /min [facility] 2022-06-20 15:45:00 36.5 Ally [facility] Respiratory rate 2022-06-20 15:45:00 18 /min [facility] Body height 2022-06-20 15:45:00 162.6 cm [facility] Body weight 2022-06-20 15:45:00 97.07 kg [facility] BMI 2022-06-20 15:45:00 36.73 kg/m2 [facility] Body temperature 2022-06-17 14:04:00 36.72 Ally [facility] Respiratory rate 2022-06-17 14:04:00 16 /min [facility] Body height 2022-06-17 14:04:00 162.6 cm [facility] Body weight 2022-06-17 14:04:00 97.433 kg [facility] BMI 2022-06-17 14:04:00 36.87 kg/m2 [facility] Systolic blood pressure 2022-06-17 14:04:00 114 mm[Hg] [facility] Diastolic blood pressure 2022-06-17 14:04:00 74 mm[Hg] [facility] Heart rate 2022-06-17 14:04:00 81 /min [facility] Systolic blood pressure 2022-06-13 15:20:00 131 mm[Hg] [facility] Diastolic blood pressure 2022-06-13 15:20:00 88 mm[Hg] [facility] Heart rate 2022-06-13 15:20:00 84 /min [facility] Body temperature 2022-06-13 15:20:00 36.44 Ally [facility] Respiratory rate 2022-06-13 15:20:00 18 /min [facility] Body height 2022-06-13 15:20:00 162.6 cm [facility] Body weight 2022-06-13 15:20:00 95.709 kg [facility] BMI 2022-06-13 15:20:00 36.22 kg/m2 [facility] Systolic blood pressure 2022-06-10 15:16:00 113 mm[Hg] [facility] Diastolic blood pressure 2022-06-10 15:16:00 75 mm[Hg] [facility] Heart rate 2022-06-10 15:16:00 85 /min [facility] Body temperature 2022-06-10 15:16:00 36.72 Ally [facility] Respiratory rate 2022-06-10 15:16:00 16 /min [facility] Body height 2022-06-10 15:16:00 162.6 cm [facility] Body weight 2022-06-10 15:16:00 96.163 kg [facility] BMI 2022-06-10 15:16:00 36.39 kg/m2 [facility] Systolic blood pressure 2022-06-06 22:38:00 115 mm[Hg] [facility] Diastolic blood pressure 2022-06-06 22:38:00 75 mm[Hg] [facility] Heart rate 2022-06-06 22:37:00 102 /min [facility] 2022-06-06 22:37:00 36.61 Ally [facility] Body height 2022-06-06 22:37:00 162.6 cm [facility] Body weight 2022-06-06 22:37:00 96.435 kg [facility] BMI 2022-06-06 22:37:00 36.49 kg/m2 [facility] Systolic blood pressure 2022-05-27 19:17:00 118 mm[Hg] [facility] Diastolic blood pressure 2022-05-27 19:17:00 79 mm[Hg] [facility] Heart rate 2022-05-27 19:17:00 88 /min [facility] Body temperature 2022-05-27 19:17:00 36.56 Ally [facility] Respiratory rate 2022-05-27 19:17:00 16 /min [facility] Body height 2022-05-27 19:17:00 162.6 cm [facility] Body weight 2022-05-27 19:17:00 94.802 kg [facility] BMI 2022-05-27 19:17:00 35.87 kg/m2 [facility] Systolic blood pressure 2022-05-23 20:38:00 123 mm[Hg] [facility] Diastolic blood pressure 2022-05-23 20:38:00 76 mm[Hg] [facility] Heart rate 2022-05-23 20:38:00 93 /min [facility] Body temperature 2022-05-23 20:38:00 36.67 Ally [facility] Respiratory rate 2022-05-23 20:38:00 18 /min [facility] Body height 2022-05-23 20:38:00 162.6 cm [facility] Body weight 2022-05-23 20:38:00 94.802 kg [facility] BMI 2022-05-23 20:38:00 35.87 kg/m2 [facility] Systolic blood pressure 2022-05-20 19:25:00 127 mm[Hg] [facility] Diastolic blood pressure 2022-05-20 19:25:00 79 mm[Hg] [facility] Heart rate 2022-05-20 19:25:00 78 /min [facility] Body temperature 2022-05-20 19:25:00 36.61 Ally [facility] Respiratory rate 2022-05-20 19:25:00 16 /min [facility] Body height 2022-05-20 19:25:00 162.6 cm [facility] Body weight 2022-05-20 19:25:00 95.255 kg [facility] BMI 2022-05-20 19:25:00 36.05 kg/m2 [facility] Systolic blood pressure 2022-05-16 20:39:00 117 mm[Hg] [facility] Diastolic blood pressure 2022-05-16 20:39:00 76 mm[Hg] [facility] Heart rate 2022-05-16 20:39:00 81 /min [facility] Body temperature 2022-05-16 20:39:00 36.67 Ally [facility] Respiratory rate 2022-05-16 20:39:00 18 /min [facility] Body height 2022-05-16 20:39:00 162.6 cm [facility] Body weight 2022-05-16 20:39:00 94.53 kg [facility] BMI 2022-05-16 20:39:00 35.77 kg/m2 [facility] Systolic blood pressure 2022-05-06 19:43:00 124 mm[Hg] [facility] Diastolic blood pressure 2022-05-06 19:43:00 84 mm[Hg] [facility] Heart rate 2022-05-06 19:43:00 105 /min [facility] Body temperature 2022-05-06 19:43:00 36.78 Ally [facility] Respiratory rate 2022-05-06 19:43:00 18 /min [facility] Body height 2022-05-06 19:43:00 162.6 cm [facility] 2022-05-06 19:43:00 94.802 kg [facility] BMI 2022-05-06 19:43:00 35.87 kg/m2 [facility] Systolic blood pressure 2022-05-02 22:27:00 122 mm[Hg] [facility] Diastolic blood pressure 2022-05-02 22:27:00 81 mm[Hg] [facility] Heart rate 2022-05-02 22:27:00 94 /min [facility] Body height 2022-05-02 22:27:00 162.6 cm [facility] Body weight 2022-05-02 22:27:00 93.441 kg [facility] BMI 2022-05-02 22:27:00 35.36 kg/m2 [facility] Systolic blood pressure 2022-04-18 22:02:00 113 mm[Hg] [facility] Diastolic blood pressure 2022-04-18 22:02:00 77 mm[Hg] [facility] Heart rate 2022-04-18 22:02:00 67 /min [facility] Body temperature 2022-04-18 22:02:00 36.67 Ally [facility] Respiratory rate 2022-04-18 22:02:00 18 /min [facility] Body height 2022-04-18 22:02:00 162.6 cm [facility] Body weight 2022-04-18 22:02:00 93.985 kg [facility] BMI 2022-04-18 22:02:00 35.57 kg/m2 [facility] Systolic blood pressure 2022-04-04 21:50:00 126 mm[Hg] [facility] Diastolic blood pressure 2022-04-04 21:50:00 84 mm[Hg] [facility] Heart rate 2022-04-04 21:50:00 88 /min [facility] Body temperature 2022-04-04 21:50:00 36.78 Ally [facility] Respiratory rate 2022-04-04 21:50:00 18 /min [facility] Body height 2022-04-04 21:50:00 162.6 cm [facility] Body weight 2022-04-04 21:50:00 91.354 kg [facility] BMI 2022-04-04 21:50:00 34.57 kg/m2 [facility] Systolic blood pressure 2022-03-07 21:52:00 125 mm[Hg] [facility] Diastolic blood pressure 2022-03-07 21:52:00 82 mm[Hg] [facility] Heart rate 2022-03-07 21:52:00 99 /min [facility] Body temperature 2022-03-07 21:52:00 36.72 Ally [facility] Respiratory rate 2022-03-07 21:52:00 18 /min [facility] Body height 2022-03-07 21:52:00 162.6 cm [facility] Body weight 2022-03-07 21:52:00 87.544 kg [facility] BMI 2022-03-07 21:52:00 33.13 kg/m2 [facility] Systolic blood pressure 2022-02-07 21:16:00 120 mm[Hg] [facility] Diastolic blood pressure 2022-02-07 21:16:00 80 mm[Hg] [facility] Heart rate 2022-02-07 21:16:00 86 /min [facility] Body temperature 2022-02-07 21:16:00 36.72 Ally [facility] Respiratory rate 2022-02-07 21:16:00 18 /min [facility] Body height 2022-02-07 21:16:00 162.6 cm [facility] Body weight 2022-02-07 21:16:00 84.369 kg [facility] BMI 2022-02-07 21:16:00 31.93 kg/m2 [facility] Systolic blood pressure 2022-01-11 04:12:59 122 mm[Hg] [facility] Diastolic blood pressure 2022-01-11 04:12:59 81 mm[Hg] [facility] Heart rate 2022-01-11 04:12:59 90 /min [facility] Body temperature 2022-01-11 04:12:59 36.72 Ally [facility] Respiratory rate 2022-01-11 04:12:59 16 /min [facility] Oxygen saturation in Arterial blood by Pulse oximetry 2022-01-11 04:12:59 99 /min [facility] Body height 2022-01-11 01:36:00 162.6 cm [facility] Body weight 2022-01-11 01:36:00 80.287 kg [facility] BMI 2022-01-11 01:36:00 30.38 kg/m2 [facility] Systolic blood pressure 2022-01-10 21:32:00 136 mm[Hg] [facility] Diastolic blood pressure 2022-01-10 21:32:00 86 mm[Hg] [facility] Heart rate 2022-01-10 21:32:00 94 /min [facility] Body temperature 2022-01-10 21:32:00 37.33 Ally [facility] Body height 2022-01-10 21:32:00 160 cm [facility] Body weight 2022-01-10 21:32:00 80.65 kg [facility] BMI 2022-01-10 21:32:00 31.50 kg/m2 [facility] Systolic blood pressure 2021-12-17 21:24:00 136 mm[Hg] [facility] Diastolic blood pressure 2021-12-17 21:24:00 88 mm[Hg] [facility] Heart rate 2021-12-17 21:24:00 106 /min [facility] Body temperature 2021-12-17 21:24:00 36.83 Laly [facility] Body height 2021-12-17 21:24:00 160 cm [facility] Body weight 2021-12-17 21:24:00 80.377 kg [facility] BMI 2021-12-17 21:24:00 31.39 kg/m2 [facility] Procedures Procedure Date / Time Performed Performing Clinician Source DISCLOSURE AND CONSENT MEDICAL & SURGICAL PROCEDURES - [facility] 2022-12-04 05:01:00 Doctor Unassigned, Trent [facility] POCT TEST 2022-12-04 00:00:00 Adum, Concepcion Anderson [facility] DISCLOSURE AND CONSENT MEDICAL & SURGICAL PROCEDURES - [facility] 2022-08-20 05:01:00 Doctor Unassigned, Trent [facility] POCT TEST 2022-08-20 00:00:00 Adum, Concepcion Anderson [facility] URINE CULTURE 2022-08-12 21:34:00 Adum, [facility] CBC WITH DIFF 2022-06-27 09:14:00 Adum, [facility] CBC WITH DIFF 2022-06-27 09:14:00 Adum, [facility] POCT GLUCOSE (AUTOMATED) 2022-06-26 22:14:00 Adum, Mariaelena Anderson [facility] POCT GLUCOSE (AUTOMATED) 2022-06-26 22:14:00 Adum, Mariaelena Anderson [facility] POCT GLUCOSE (AUTOMATED) 2022-06-26 18:06:00 Adum, Mariaelena Anderson [facility] POCT GLUCOSE (AUTOMATED) 2022-06-26 18:06:00 Adum, Mariaelena Anderson [facility] SGOT (ASPARTATE AMINO TRANSFER) 2022-06-26 16:11:00 Adum, Concepcion Anderson [facility] CREATININE 2022-06-26 16:11:00 Adum, Concepcion Anderson [facility] ALANINE AMINO TRANSFERASE(SGPT 2022-06-26 16:11:00 Adum, Concepcion Anderson [facility] URIC ACID 2022-06-26 16:11:00 Adum, Concepcion Anderson [facility] CBC WITH DIFF 2022-06-26 16:11:00 Adum, Concepcion Chaves [facility] SGOT (ASPARTATE AMINO TRANSFER) 2022-06-26 16:11:00 Adum, Concepcion Anderson [facility] CREATININE 2022-06-26 16:11:00 Adum[facility] ALANINE AMINO TRANSFERASE(SGPT 2022-06-26 16:11:00 Adum, Concepcion Anderson [facility] URIC ACID 2022-06-26 16:11:00 Adum, Concepcion Castellanos [facility] CBC WITH DIFF 2022-06-26 16:11:00 Adum, Concepcionjohann Chaves [facility] CENTRAL NEURAXIAL BLOCK 2022-06-26 15:34:00 Tianna Estes [facility] POCT GLUCOSE (AUTOMATED) 2022-06-26 14:01:00 Adum, Mariaelena Anderson [facility] POCT GLUCOSE (AUTOMATED) 2022-06-26 14:01:00 Adum, Mariaelena Anderson [facility] POCT GLUCOSE (AUTOMATED) 2022-06-26 10:09:00 Adum, Mariaelena Anderson [facility] POCT GLUCOSE (AUTOMATED) 2022-06-26 10:09:00 Adum, Mariaelena Anderson [facility] CBC WITH DIFF 2022-06-26 06:01:00 Adum, Concepcion Chaves [facility] HEPATITIS B SURFACE ANTIGEN 2022-06-26 06:01:00 Adum, Concepcion Anderson [facility] HB ABO GROUPING 2022-06-26 06:01:00 Adum, Concepcion Jimenez [facility] ADC OR FARSHAD ONLY - RPR 2022-06-26 06:01:00 Adum, Sandrita Anderson [facility] CBC WITH DIFF 2022-06-26 06:01:00 Adum, Concepcion Chaves [facility] HEPATITIS B SURFACE ANTIGEN 2022-06-26 06:01:00 Adum, Concepcion Anderson [facility] HB ABO GROUPING 2022-06-26 06:01:00 Adum, Concepcion Anderson [facility] ADC OR FARSHAD ONLY - RPR 2022-06-26 06:01:00 Adum, Sandrita jeff Justin [facility] POCT GLUCOSE (AUTOMATED) 2022-06-26 05:53:00 Adum, Mariaelena whiteimani Anderson [facility] POCT GLUCOSE (AUTOMATED) 2022-06-26 05:53:00 Adum, Mariaelena whiteimani Anderson [facility] NOTICE OF PRIVACY PRACTICES 2022-06-25 20:34:43 Doctor Unassigned, Trent [facility] NOTICE OF PRIVACY PRACTICES 2022-06-25 20:34:43 Doctor Unassigned, Trent [facility] CONSENT/REFUSAL FOR DIAGNOSIS AND TREATMENT 2022-06-25 20:34:01 Doctor Unassigned, Trent [facility] CONSENT/REFUSAL FOR DIAGNOSIS AND TREATMENT 2022-06-25 20:34:01 Doctor Unassigned, Trent [facility] ASSIGNMENT OF BENEFITS 2022-06-25 20:33:40 Docto r Unassigned, Trent [facility] ASSIGNMENT OF BENEFITS 2022-06-25 20:33:40 Docto r Unassigned, Trent [facility] NON-STRESS TEST 2022-06-24 15:04:27 Adum, Concepcion Anderson [facility] POCT URINALYSIS W/O SPECIFIC GRAVITY 2022-06-24 00:00:00 Adum, Concepcion Anderson [facility] NON-STRESS TEST 2022-06-20 17:20:28 Nae Hoffman [facility] <14 WEEKS US LIMITED 2022-06-20 17:19:35 Roland [facility] <14 WEEKS US LIMITED 2022-06-20 17:19:03 Roland [facility] POCT URINALYSIS W/O SPECIFIC GRAVITY 2022-06-20 00:00:00 Roland [facility] NON-STRESS TEST 2022-06-17 14:42:03 Jeancarlos Roque [facility] NON-STRESS TEST 2022-06-14 05:25:08 Adum, Concepcion Anderson [facility] POCT URINALYSIS W/O SPECIFIC GRAVITY 2022-06-13 00:00:00 Adum, Concepcion Justin [facility] SECOND AND THIRD TRIMESTER ULTRASOUND 2022-06-11 19:52:00 Adum, Concepcion Justin [facility] NON-STRESS TEST 2022-06-10 16:00:31 [facility] NON-STRESS TEST 2022-06-09 01:58:29 [facility] Je[facility] NON-STRESS TEST 2022-06-06 23:29:33 Adum, Concepcion Justin [facility] DSU PRE-OP 2022-06-06 06:01:00 Doctor Unass igned, Trent [facility] POCT URINALYSIS W/O SPECIFIC GRAVITY 2022-06-06 00:00:00 Adum, Concepcion Justin [facility] NON-STRESS TEST 2022-05-23 22:16:26 Adum, Concepcion Justin [facility] POCT URINALYSIS W/O SPECIFIC GRAVITY 2022-05-23 00:00:00 Adum, Concepcion Justin [facility] NON-STRESS TEST 2022-05-21 00:26:00 Adum, Concepcion Justin [facility] ASSIGNMENT OF BENEFITS 2022-05-20 19:01:27 Docto r Unassigned, Trent [facility] POCT URINALYSIS W/O SPECIFIC GRAVITY 2022-05-16 20:54:00 Adum, Concepcion Justin [facility] POCT URINALYSIS 2022-05-02 22:29:00 Adum, Concepcion Anderson [facility] 2 HR GLUCOSE TOLERANCE TEST 2022-05-01 18:33:00 Adum, Concepcion Anderson [facility] 1 HR GLUCOSE TOLERANCE TEST 2022-05-01 17:41:00 Adum, Concepcion Anderson [facility] GLUCOSE FASTING 2022-05-01 16:36:00 Adum, Concepcion Anderson [facility] CBC WITH DIFF 2022-05-01 16:36:00 Adum, Concepcion Anderson [facility] HIV 1/2 AG-AB WITH REFLEX 2022-05-01 16:36:00 Adum, Sandrita Anderson [facility] TDAP VACCINE, >11 YRS, IM 2022-04-18 22:13:55 Adum, Sandrita Anderson [facility] POCT URINALYSIS W/O SPECIFIC GRAVITY 2022-04-18 22:07:00 Adum, Concepcion Anderson [facility] POCT URINALYSIS W/O SPECIFIC GRAVITY 2022-04-04 22:05:00 Adum, Concepcion Anderson [facility] POCT URINALYSIS W/O SPECIFIC GRAVITY 2022-03-07 00:00:00 Adum, Concepcion Anderson [facility] NOTICE OF RESEARCH PARTICIPATION 2022-02-20 06:01:00 Doctor Unassigned, Trent [facility] FLU VACC (), 6 MO-64 YRS, .5ML, IM, QUAD (FLUCELVAX) 2022-02-07 21:27:41 Adum, Concepcion Anderson [facility] POCT URINALYSIS W/O SPECIFIC GRAVITY 2022-02-07 21:19:00 Adum, Concepcion Anderson [facility] US PELVIS > 14 WEEKS 2022-01-11 03:10:29 Nohemi Canales [facility] BASIC METABOLIC PANEL (NA, K, CL, CO2, GLUCOSE, BUN, CREATININE, CA) 2022-01-11 02:32:00 Nohemi Canales [facility] CBC WITH DIFF 2022-01-11 02:32:00 [facility] URINALYSIS 2022-01-11 02:32:00 [facility] CONSENT/REFUSAL FOR DIAGNOSIS AND TREATMENT 2022-01-11 01:16:35 Doctor Unassigned, Trent [facility] POCT URINALYSIS W/O SPECIFIC GRAVITY 2022-01-10 00:00:00 Adum, Concepcion Anderson [facility] INSURANCE CORRESPONDENCE 2022-01-02 05:01:00 Doc tor Unassigned, Trent [facility] 1 HR GLUCOSE TOLERANCE TEST 2021-12-20 16:26:00 Adum, Concepcion Anderson [facility] GLUCOSE FASTING 2021-12-20 15:16:00 Adum, Concepcion Jimenez [facility] CBC WITH DIFF 2021-12-20 15:16:00 Adum, Concepcion Ch[facility] SCANNED LAB RESULTS 2021-12-20 05:01:00 Doctor David ward, Trent [facility] POCT URINALYSIS W/O SPECIFIC GRAVITY 2021-12-17 00:00:00 Adum, Concepcion Anderson [facility] URINE DRUG (IMMUNOASSAY) - COMPREHENSIVE DRUG SCREEN 2021-11-22 16:15:00 Adum, Concepcion Anderson [facility] URINE CULTURE 2021-11-22 16:15:00 Adum, Concepcion Chaves [facility] GLUCOSE 1 HOUR POST PRANDIAL 2021-11-22 15:58:00 Adum, Concepcion Anderson [facility] LACTATE DEHYDROGENASE 2021-11-22 15:58:00 Adum, Concepcion Anderson [facility] URIC ACID 2021-11-22 15:58:00 Adum, Concepcion Anderson [facility] COMP. METABOLIC PANEL (94580) 2021-11-22 15:58:00 Adum, Concepcion Anderson [facility] TOTAL BETA HCG ASSAY 2021-11-22 15:58:00 Adum, Concepcion Anderson [facility] RUBELLA SCREEN IGG 2021-11-22 15:58:00 Adum, Concepcion Anderson [facility] VZV ANTIBODY SCREEN 2021-11-22 15:58:00 Adum, Concepcion Anderson [facility] HEPATITIS B SURFACE ANTIGEN 2021-11-22 15:58:00 Adum, Concepcion Anderson [facility] HCV ANTIBODY 2021-11-22 15:58:00 Adum, Concepcion Anderson [facility] HB ABO GROUPING 2021-11-22 15:58:00 Adum, Concepcion Jimenez [facility] ADC OR FARSHAD ONLY - RPR 2021-11-22 15:58:00 Adum, Sandrita Anderson [facility] HIV 1/2 AG-AB WITH REFLEX 2021-11-22 15:58:00 Adum, Sandrita Anderson [facility] CREATININE U 24 HR 2021-11-22 10:00:00 Adum, Concepcion Anderson [facility] PROTEIN QUANT U/24H 2021-11-22 10:00:00 Adum, Concepcion Anderson [facility] [employer] [facility] ULTRASOUND 2021-11-19 05:01:00 Doc tor Unassigned, Trent [facility] [employer] [facility] ULTRASOUND 2021-11-06 05:01:00 Doc tor Unassigned, Trent [facility] [id number] 2020-06-15 00:00:00 MONMA.05 [facility] [id number] 2020-06-15 00:00:00 MONMA.05 [facility] [id number] 2020-06-15 00:00:00 MONMA.05 [facility] SECTION Adum, Concepcion Anderson [facility] SECTION Adum, Concepcion Anderson [facility] Encounters Start Date/Time End Date/Time Encounter Type Admission Type Attending Clinicians Care Facility Care Department Encounter ID Source 2021-02-01 18:43:19 Emergency [facility] [id number] [facility] 2023-03-05 13:46:24 2023-03-05 13:46:24 Outpatient [facility] [id number] Aj Borjas 2022-12-12 13:15:00 2022-12-12 13:15:00 Outpatient R KATYA CONCEPCION [facility] [id number] [facility] 2022-12-11 13:15:00 2022-12-11 13:15:00 Outpatient R ADUM CONCEPCION [facility] [id number] [facility] 2022-12-04 14:15:00 2022-12-04 14:30:00 Plastics Scientist Visit 2, Adc Lab Adtori Concepcion Justin [facility] 1.2.840.114 350.1.13.10 4.2.7.2.686 [id number] [facility] 2022-12-04 13:30:00 2022-12-04 14:06:43 Outpatient R CONCEPCION ALDANA [facility] [id number] [facility] 2022-12-04 13:30:00 2022-12-04 14:06:43 Office Visit Concepcion Aldana [facility] 1.84.114 350.1.13.10 4.2.7.2.686 [id number] [facility] 2022-12-04 00:00:00 2022-12-04 00:00:00 Orders Only Doctor Unassigned, Trent [facility] 1..114 350.1.13.10 4.2.7.2.686 [id number] [facility] 2022-10-21 15:30:00 2022-10-21 15:30:00 Outpatient R CONCEPCION ALDANA [facility] [id number] [facility] 2022-10-09 00:00:00 2022-10-09 00:00:00 Outpatient R JEANCARLOS ROQUE CHERYAL [facility] [id number] [facility] 2022-09-29 14:30:00 2022-09-29 14:30:00 Outpatient R JEANCARLOS ROQUE CHERYAL [facility] [id number] [facility] 2022-09-02 13:15:00 2022-09-02 13:51:11 Outpatient R JEANCARLOS ROQUE CHERYAL [facility] [id number] [facility] 2022-09-02 13:15:00 2022-09-02 13:51:11 Office Visit Jeancarlos Roque [facility] 1.840.114 350.1.13.10 4.2.7.2.686 [id number] [facility] 2022-08-20 15:00:00 2022-08-20 16:37:58 Outpatient R ADUM, CONCEPCION [facility] [id number] [facility] 2022-08-20 15:00:00 2022-08-20 16:37:58 Office Visit AdumConcepcion [facility] 1.2840.114 350.1.13.10 4.2.7.2.686 [id number] [facility] 2022-08-20 00:00:00 2022-08-20 00:00:00 Orders Only Doctor Unassigned, Trent [facility] 1.20.114 350.1.13.10 4.2.7.2.686 [id number] [facility] 2022-08-12 15:45:00 2022-08-12 16:43:18 Outpatient R ADUM, CONCEPCION [facility] [id number] [facility] 2022-08-12 15:45:00 2022-08-12 16:43:18 Routine Visit Adum, [facility]pcion [facility] 1.840.114 350.1.13.10 4.2.7.2.686 [id number] [facility] 2022-07-16 15:45:00 2022-07-16 16:52:08 Outpatient R ADUM, [facility] [id number] [facility] 2022-07-16 15:45:00 2022-07-16 16:52:08 Routine Visit Adum, Concepcion [facility] 1.840.114 350.1.13.10 4.2.7.2.686 [id number] [facility] 2022-07-16 15:45:00 2022-07-16 15:45:00 Outpatient R ADUM, [facility] [id number] [facility] 2022-07-09 00:00:00 2022-07-09 00:00:00 Patient Secure Msg Doctor Unassigned, Trent [facility] 1.2.840.114 350.1.13.10 4.2.7.2.686 [id number] [facility] 2022-06-25 23:58:00 2022-06-28 14:00:00 Inpatient P ADUM, [facility] [id number] [facility] 2022-06-25 23:58:00 2022-06-28 14:00:00 Hospital Encounter Ad [facility] 1.2.840.114 350.1.13.10 4.2.7.2.686 [id number] [facility] 2022-06-26 09:50:00 2022-06-26 20:17:00 Anesthesia Event DoughertyJose Angel don [facility] 1.2.840.114 350.1.13.10 4.2.7.2.686 [id number] [facility] 2022-06-26 00:00:00 2022-06-26 00:00:00 Surgery Ad, [facility] 1.2.840.114 350.1.13.10 4.2.7.2.686 [id number] [facility] 2022-06-24 09:00:00 2022-06-24 10:03:27 Outpatient R ADTORI, [facility] [id number] [facility] 2022-06-24 09:00:00 2022-06-24 10:03:27 Routine Visit 1, Roxana Nst Room AdConcepcion valle [facility] 1.2.840.114 350.1.13.10 4.2.7.2.686 [id number] [facility] 2022-06-20 10:00:00 2022-06-20 11:51:17 Outpatient R NORIEGA-JOSLYN S, MEGHAN NORIEGA-JOSLYN S, MEGHAN [facility] [id number] [facility] 2022-06-20 10:00:00 2022-06-20 11:51:17 Routine Visit Room, [facility] Nae-Joslyn s, [facility] BUILDING 1.0.114 350.1.13.10 4.2.7.2.686 [id number] 134 [id number] [facility] 2022-06-17 09:00:00 2022-06-17 09:39:39 Outpatient R ADTORI [facility] [id number] [facility] 2022-06-17 09:00:00 2022-06-17 09:39:39 Routine Visit 1, [facility] 1..114 350.1.13.10 4.2.7.2.686 [id number] [facility] 2022-06-13 09:00:00 2022-06-13 10:18:04 Outpatient R ADTORI [facility] [id number] [facility] 2022-06-13 09:00:00 2022-06-13 10:18:04 Routine Visit Room, [facility] BUILDING 1.0.114 350.1.13.10 4.2.7.2.686 [id number] 134 [id number] [facility] 2022-06-11 13:00:00 2022-06-11 14:03:29 Plastics Scientist Visit 3, [facility] Us Room [facility] 1.0.114 350.1.13.10 4.2.7.2.686 [id number] [facility] 2022-06-11 13:00:00 2022-06-11 13:00:00 Outpatient P MIKE HERNANDEZ [facility] [id number] [facility] 2022-06-10 09:00:00 2022-06-10 09:15:00 Routine Visit 1, Lkj Nst Room Adum, Concepcion Anderson [facility] 1.2840.114 350.1.13.10 4.2.7.2.686 [id number] 134 [id number] [facility] 2022-06-10 09:00:00 2022-06-10 09:00:00 Outpatient R ADUM, [facility] [id number] [facility] 2022-06-06 15:45:00 2022-06-06 17:17:10 Outpatient R ADUM, [facility] [id number] [facility] 2022-06-06 15:45:00 2022-06-06 17:17:10 Routine Visit Ad, Concepcion [facility] 1.2840.114 350.1.13.10 4.2.7.2.686 [id number] 134 [id number] [facility] 2022-06-06 00:00:00 2022-06-06 00:00:00 Orders Only Doctor Unassigned, Trent [facility] 1.2840.114 350.1.13.10 4.2.7.2.686 [id number] [id number] [facility] 2022-06-03 13:00:00 2022-06-03 13:00:00 Outpatient R ADUM, [facility] [id number] [facility] 2022-06-02 14:00:00 2022-06-02 14:00:00 Outpatient P [facility] [id number] [facility] 2022-05-30 14:30:00 2022-05-30 14:30:00 Outpatient R ADUM, [facility] [id number] [facility] 2022-05-30 14:00:00 2022-05-30 14:00:00 Outpatient R [facility] [id number] [facility] 2022-05-27 13:00:00 2022-05-27 13:39:43 Outpatient R ADUM, CONCEPCION [facility] [id number] [facility] 2022-05-27 13:00:00 2022-05-27 13:39:43 Routine Visit 1, [facility] Room AdConcepcion [facility] 1.20.114 350.1.13.10 4.2.7.2.686 [id number] 134 [id number] [facility] 2022-05-23 14:00:00 2022-05-23 15:51:47 Outpatient R ADUM, [facility] [id number] [facility] 2022-05-23 14:00:00 2022-05-23 15:51:47 Routine Visit Room, [facility] 1.2840.114 350.1.13.10 4.2.7.2.686 [id number] 134 [id number] [facility] 2022-05-23 14:30:00 2022-05-23 14:30:00 Outpatient R ADUM, [facility] [id number] [facility] 2022-05-20 13:00:00 2022-05-20 14:05:14 Outpatient R ADUM, [facility] [id number] [facility] 2022-05-20 13:00:00 2022-05-20 14:05:14 Routine Visit 1, [facility] 1.0.114 350.1.13.10 4.2.7.2.686 [id number] [facility] 2022-05-20 00:00:00 2022-05-20 00:00:00 Orders Only Doctor Unassigned, Trent [facility] 1.2.840.114 350.1.13.10 4.2.7.2.686 [id number] [id number] [facility] 2022-05-16 14:30:00 2022-05-16 15:21:03 Outpatient R ADUM, [facility] [id number] [facility] 2022-05-16 14:30:00 2022-05-16 15:21:03 Routine Visit Ad, [facility] 1.2.840.114 350.1.13.10 4.2.7.2.686 [id number] [facility] 2022-05-06 14:00:00 2022-05-06 14:20:40 Nurse Visit Nurse, [facility] Adum, [facility] 1.2.840.114 350.1.13.10 4.2.7.2.686 [id number] 134 [id number] [facility] 2022-05-06 14:00:00 2022-05-06 14:00:00 Outpatient R ADTORI [facility] [id number] [facility] 2022-05-05 11:45:00 2022-05-05 12:15:00 Plastics Scientist Visit Ultrasound, Morales-Umberto Aguilar [facility] [employer] ENGINEER [facility] 1.2.840.114 350.1.13.10 4.2.7.2.686 [id number] [facility] 2022-05-05 11:45:00 2022-05-05 11:45:00 Outpatient UMBERTO GUZMAN [facility] [id number] [facility] 2022-05-02 16:00:00 2022-05-02 16:46:42 Outpatient R ADUM [facility] [id number] [facility] 2022-05-02 16:00:00 2022-05-02 16:46:42 Routine Visit Adum, Concepcion Anderson HIJOSE DE JESUS CARRASCO [facility] BUILDING 1.2.840.114 350.1.13.10 4.2.7.2.686 [id number] 134 [id number] [facility] 2022-05-01 10:45:00 2022-05-01 11:00:00 Plastics Scientist Visit Pob, Adc Lab Main Adum, Concepcion Anderson [facility] 1.2.840.114 350.1.13.10 4.2.7.2.686 [id number] [facility] 2022-05-01 10:45:00 2022-05-01 10:45:00 Outpatient R ADUM, CONCEPCION [facility] [id number] [facility] 2022-04-28 00:00:00 2022-04-28 00:00:00 Telephone Adum, Concepcion Anderson [facility] 1.2.840.114 350.1.13.10 4.2.7.2.686 [id number] 134 [id number] [facility] 2022-04-24 00:00:00 2022-04-24 00:00:00 Telephone Adum, Concepcion Anderson [facility] [place] 1.2.840.114 350.1.13.10 4.2.7.2.686 [id number] 134 [id number] [facility] 2022-04-18 15:45:00 2022-04-18 16:32:07 Outpatient R ADUM, CONCEPCION [facility] [id number] [facility] 2022-04-18 15:45:00 2022-04-18 16:32:07 Routine Visit Adum, Concepcion Anderson [facility] [place] 1.2.840.114 350.1.13.10 4.2.7.2.686 [id number] 134 [id number] [facility] 2022-04-09 10:30:00 2022-04-09 10:30:00 Outpatient R [facility] [id number] [facility] 2022-04-04 16:00:00 2022-04-04 16:39:37 Outpatient R ADUM, [facility] [id number] [facility] 2022-04-04 16:00:00 2022-04-04 16:39:37 Routine Visit Ad, [facility] 1.2.840.114 350.1.13.10 4.2.7.2.686 [id number] 134 [id number] [facility] 2022-03-07 15:45:00 2022-03-07 16:31:34 Outpatient R ADUM, [facility] [id number] [facility] 2022-03-07 15:45:00 2022-03-07 16:31:34 Routine Visit Ad, [facility] 1.2.840.114 350.1.13.10 4.2.7.2.686 [id number] 134 [id number] [facility] 2022-03-01 00:00:00 2022-03-01 00:00:00 Patient Secure Msg Zoila Henry E [facility] BUILDING 1.2.840.114 350.1.13.10 4.2.7.2.686 [id number] 134 [id number] [facility] 2022-02-28 00:00:00 2022-02-28 00:00:00 Nurse Triage Shania Hayes [facility] 1.2840.114 350.1.13.10 4.2.7.2.686 [id number] [id number] [facility] 2022-02-20 09:30:00 2022-02-20 10:45:00 Plastics Scientist Visit 1, [facility] Jayesh Larios Ikuvbogie [facility] [employer] ENGINEER [facility] 1.840.114 350.1.13.10 4.2.7.2.686 [id number] [facility] 2022-02-20 09:30:00 2022-02-20 09:30:00 Outpatient P JAYESH LARIOS [facility] [id number] [facility] 2022-02-20 00:00:00 2022-02-20 00:00:00 Orders Only Doctor Unassigned, Trent [facility] 1.2840.114 350.1.13.10 4.2.7.2.686 [id number] [facility] 2022-02-18 12:00:00 2022-02-18 12:00:00 Outpatient P ADCONCEPCION VALLE [facility] [id number] [facility] 2022-02-07 17:00:00 2022-02-07 17:15:00 Plastics Scientist Visit Pob, Adc Lab Main Adum, Concepcion Anderson [facility] BUILDING 1.2.840.114 350.1.13.10 4.2.7.2.686 [id number] [facility] 2022-02-07 16:00:00 2022-02-07 16:50:21 Outpatient R ADCONCEPCION VALLE [facility] [id number] [facility] 2022-02-07 16:00:00 2022-02-07 16:50:21 Routine Visit AdConcepcion valle [facility] 1.2.840.114 350.1.13.10 4.2.7.2.686 [id number] 134 [id number] [facility] 2022-02-07 00:00:00 2022-02-07 00:00:00 Telephone Adum, Concecpion Anderson [facility] [place] 1.0.114 350.1.13.10 4.2.7.2.686 [id number] 134 [id number] [facility] 2022-01-10 21:11:00 2022-01-10 23:15:00 Emergency X ZENA CANALESIO [facility] ERT [id number] [facility] 2022-01-10 21:11:00 2022-01-10 23:15:00 Emergency Zena Canalesio [facility] 1.0.114 350.1.13.10 4.2.7.2.686 [id number] [facility] 2022-01-10 16:15:00 2022-01-10 16:51:40 Outpatient R ADCONCEPCION VALLE [facility] [id number] [facility] 2022-01-10 16:15:00 2022-01-10 16:51:40 Routine Visit AdConcepcion valle [facility] 1.0.114 350.1.13.10 4.2.7.2.686 [id number] 134 [id number] [facility] 2022-01-10 00:00:00 2022-01-10 00:00:00 Nurse Triage Maame Alonso [facility] 1.840.114 350.1.13.10 4.2.7.2.686 [id number] [facility] 2022-01-02 00:00:00 2022-01-02 00:00:00 Orders Only Doctor Unassigned, Trent [facility] 1.20.114 350.1.13.10 4.2.7.2.686 [id number] [id number] [facility] 2021-12-31 00:00:00 2021-12-31 00:00:00 Telephone Adum, Concepcion Anderson [facility] 1..114 350.1.13.10 4.2.7.2.686 [id number] 134 [id number] [facility] 2021-12-20 10:00:00 2021-12-20 10:00:00 Outpatient R ADUM [facility] [id number] [facility] 2021-12-20 09:45:00 2021-12-20 10:00:00 Plastics Scientist Visit Pob, Adc Lab Main Adtori [facility] 1.2.840.114 350.1.13.10 4.2.7.2.686 [id number] 353 [id number] [facility] 2021-12-20 09:45:00 2021-12-20 09:45:00 Outpatient R ADTORI [facility] [id number] [facility] 2021-12-20 00:00:00 2021-12-20 00:00:00 Orders Only Doctor Unassigned, Trent [facility] 1.2.840.114 350.1.13.10 4.2.7.2.686 [id number] [id number] [facility] 2021-12-17 16:00:00 2021-12-17 16:45:18 Outpatient R ADTORI [facility] [id number] [facility] 2021-12-17 16:00:00 2021-12-17 16:45:18 Routine Visit Katya [facility] 1.2.840.114 350.1.13.10 4.2.7.2.686 [id number] 134 [id number] [facility] 2021-12-17 16:00:00 2021-12-17 16:00:00 Outpatient R ADTORI [facility] [id number] [facility] 2021-12-02 13:30:00 2021-12-02 14:00:00 Telemedici ne Visit Faculty, Morales Barkerp [employer] [facility] [employer] ENGINEER [facility] 1.2.840.114 350.1.13.10 4.2.7.2.686 [id number] [facility] 2021-12-02 13:30:00 2021-12-02 13:30:00 Outpatient R [facility] [id number] [facility] 2021-12-02 13:30:00 2021-12-02 13:30:00 Outpatient R EMMANUEL PALACIO [facility] [id number] [facility] 2021-11-23 00:00:00 2021-11-23 00:00:00 Case Management AdConcepcion valle [facility] 1.2.840.114 350.1.13.10 4.2.7.2.686 [id number] 134 [id number] [facility] 2021-11-22 11:15:00 2021-11-22 11:30:00 Plastics Scientist Visit Pob, Adc Lab Main Ad, Concepcion [facility] 1.2.840.114 350.1.13.10 4.2.7.2.686 [id number] 353 [id number] [facility] 2021-11-22 11:15:00 2021-11-22 11:30:00 Plastics Scientist Visit Pob, Adc Lab Main [facility] 1.2.840.114 350.1.13.10 4.2.7.2.686 [id number] [facility] 2021-11-22 11:15:00 2021-11-22 11:15:00 Outpatient R CONCEPCION ALDANA [facility] [id number] [facility] 2021-11-19 10:00:00 2021-11-19 11:44:24 Outpatient R KATYA [facility] [id number] [facility] 2021-11-19 10:00:00 2021-11-19 11:44:24 Routine Visit AdConcepcion valle [facility] 1.2.840.114 350.1.13.10 4.2.7.2.686 [id number] 134 [id number] [facility] 2021-11-19 00:00:00 2021-11-19 00:00:00 Orders Only Doctor Unassigned, Trent [facility] 1.2840.114 350.1.13.10 4.2.7.2.686 [id number] [facility] 2021-11-06 14:30:00 2021-11-06 16:20:42 Outpatient R CONCEPCION ALDANA [facility] [id number] [facility] 2021-11-06 14:30:00 2021-11-06 16:20:42 Initial Visit AdMariaelena valleian [facility] 1.2.840.114 350.1.13.10 4.2.7.2.686 [id number] 134 [id number] [facility] 2021-11-06 00:00:00 2021-11-06 00:00:00 Orders Only Doctor Unassigned, Trent [facility] 1.2.840.114 350.1.13.10 4.2.7.2.686 [id number] [facility] 2021-11-04 11:30:00 2021-11-04 11:30:00 Outpatient R JOSHUA LEWIS [facility] [id number] [facility] 2021-10-30 00:00:00 2021-10-30 00:00:00 Outpatient FORTINO KNOWLES [id number] Tari [facility] 2021-07-11 15:30:00 2021-07-11 15:30:00 Outpatient R [facility] [id number] [facility] 2021-06-27 00:00:00 2021-06-27 00:00:00 Telephone Adum, Concepcion Anderson [facility] 1..840.114 350.1.13.10 4.2.7.2.686 [id number] 134 [id number] [facility] 2021-06-26 16:30:00 2021-06-26 16:45:00 Plastics Scientist Visit Pob, Adc Lab Main Adum, Concepcion Anderson [facility] 1.2840.114 350.1.13.10 4.2.7.2.686 [id number] [facility] 2021-06-26 15:30:00 2021-06-26 16:19:38 Outpatient R ADCONCEPCION VALLE [facility] [id number] [facility] 2021-06-26 15:30:00 2021-06-26 16:19:38 Office Visit AdumConcepcion [facility] 1.840.114 350.1.13.10 4.2.7.2.686 [id number] 134 [id number] [facility] 2021-06-26 15:30:00 2021-06-26 15:30:00 Outpatient R ADCONCEPCION VALLE [facility] [id number] [facility] 2021-06-26 00:00:00 2021-06-26 00:00:00 Orders Only Doctor Unassigned, Trent [facility] 1.840.114 350.1.13.10 4.2.7.2.686 [id number] [facility] 2021-06-18 13:00:00 2021-06-18 15:02:59 Outpatient R ADCONCEPCION VALLE [facility] [id number] [facility] 2021-06-18 13:00:00 2021-06-18 15:02:59 Office Visit AdConcepcion valle [facility] 1..840.114 350.1.13.10 4.2.7.2.686 [id number] 134 [id number] [facility] 2021-06-18 00:00:00 2021-06-18 00:00:00 Orders Only Doctor Unassigned, Trent [facility] 1.2.840.114 350.1.13.10 4.2.7.2.686 [id number] [facility] 2021-06-06 00:00:00 2021-06-06 00:00:00 Case Management Adum, Concepcion Anderson [facility] 1.2.840.114 350.1.13.10 4.2.7.2.686 [id number] 134 [id number] [facility] 2021-06-04 10:30:00 2021-06-04 10:30:00 Plastics Scientist Visit 2, Adc Lab Adum, Concepcion Anderson [facility] 1.2.840.114 350.1.13.10 4.2.7.2.686 [id number] 353 [id number] [facility] 2021-06-04 08:45:00 2021-06-04 10:08:01 Outpatient R ADTORI, CONCEPCION [facility] [id number] [facility] 2021-06-04 08:45:00 2021-06-04 10:08:01 Routine Visit Adum, Concepcion Anderson [facility] 1.2.840.114 350.1.13.10 4.2.7.2.686 [id number] 134 [id number] [facility] 2021-06-03 00:00:00 2021-06-03 00:00:00 Telephone Adum, Concepcion Anderson [facility] 1.2.840.114 350.1.13.10 4.2.7.2.686 [id number] 134 [id number] [facility] 2021-05-31 17:58:00 2021-05-31 19:44:00 Emergency X PETRONA ALBA [facility] [id number] [facility] 2021-05-31 17:58:00 2021-05-31 19:44:00 Emergency Petrona Alba S [facility] 1.2.840.114 350.1.13.10 4.2.7.2.686 [id number] [facility] 2021-05-29 00:00:00 2021-05-29 00:00:00 Telephone Adum, Concepcion Anderson [facility] 1.2.840.114 350.1.13.10 4.2.7.2.686 [id number] 134 [id number] [facility] 2021-05-25 09:30:00 2021-05-25 09:45:00 Plastics Scientist Visit Pob, Adc Lab Main Adum, Concepcion [facility] 1.2.840.114 350.1.13.10 4.2.7.2.686 [id number] 353 [id number] [facility] 2021-05-25 09:30:00 2021-05-25 09:30:00 Outpatient R KATYA CONCEPCION [facility] [id number] [facility] 2021-05-24 00:00:00 2021-05-24 00:00:00 Telephone Adum Concepcion Anderson [facility] 1.2.840.114 350.1.13.10 4.2.7.2.686 [id number] 134 [id number] [facility] 2021-05-23 09:45:00 2021-05-23 10:00:00 Plastics Scientist Visit Pob, Adc Lab Main Adum, Concepcion [facility] 1.2.840.114 350.1.13.10 4.2.7.2.686 [id number] 353 [id number] [facility] 2021-05-23 09:45:00 2021-05-23 09:45:00 Outpatient R ADUM, CONCEPCION [facility] [id number] [facility] 2021-05-22 00:00:00 2021-05-22 00:00:00 Case Management Adum, Concepcion Anderson [facility] 1.2.840.114 350.1.13.10 4.2.7.2.686 [id number] 134 [id number] [facility] 2021-05-22 00:00:00 2021-05-22 00:00:00 Telephone Adum, Concepcion Anderson [facility] 1.2.840.114 350.1.13.10 4.2.7.2.686 [id number] 134 [id number] [facility] 2021-05-21 15:00:00 2021-05-21 15:04:20 Plastics Scientist Visit 2, Adc Lab Adum, Concepcion Anderson [facility] 1.2.840.114 350.1.13.10 4.2.7.2.686 [id number] 353 [id number] [facility] 2021-05-21 14:00:00 2021-05-21 14:59:27 Outpatient R ADUM, CONCEPCION [facility] [id number] [facility] 2021-05-21 14:00:00 2021-05-21 14:59:27 Initial Visit Adum, Concepcion Anderson [facility] 1.2.840.114 350.1.13.10 4.2.7.2.686 [id number] [facility] 2021-05-21 00:00:00 2021-05-21 00:00:00 Orders Only Doctor Unassigned, Trent [facility] 1.2.840.114 350.1.13.10 4.2.7.2.686 [id number] [facility] 2020-08-29 03:43:00 2020-08-29 03:43:00 Outpatient Yan_W [facility] [id number] [facility] 2020-08-24 10:05:00 2020-08-24 10:05:00 Outpatient Yan_W [facility] [id number] [facility] 2020-06-15 12:04:17 2020-06-15 12:04:17 [facility] [id number] [facility] 2020-03-06 13:00:00 2020-03-06 13:00:00 Outpatient ALEXA LANIER [facility] [id number] [facility] 2020-02-29 00:00:00 2020-02-29 00:00:00 Orders Only Doctor Unassigned, Trent [facility] 1.2840.114 350.1.13.10 4.2.7.2.686 [id number] 2020-02-29 00:00:00 2020-02-29 00:00:00 Orders Only Doctor Unassigned, Trent [facility] 1.2840.114 350.1.13.10 4.2.7.2.686 [id number] [facility] 2020-02-15 00:00:00 2020-02-15 00:00:00 Orders Only Doctor Unassigned, Trent [facility] 1.2840.114 350.1.13.10 4.2.7.2.686 [id number] 009 [id number] 2020-02-15 00:00:00 2020-02-15 00:00:00 Orders Only Doctor Unassigned, Trent [facility] 1.2840.114 350.1.13.10 4.2.7.2.686 [id number] [id number] [facility] 2020-02-14 00:00:00 2020-02-14 00:00:00 Alexa Espino [facility] 1.2.840.114 350.1.13.10 4.2.7.2.686 [id number] 134 [id number] [facility] 2020-02-14 00:00:00 2020-02-14 00:00:00 Telephone Alexa Fine [facility] 1.2.840.114 350.1.13.10 4.2.7.2.686 [id number] 134 [id number] 2020-02-13 00:00:00 2020-02-13 00:00:00 Telephone Alexa Fine [facility] 1.2.840.114 350.1.13.10 4.2.7.2.686 [id number] 134 [id number] [facility] 2020-02-13 00:00:00 2020-02-13 00:00:00 Telephone Alexa Fine [facility] 1.2.840.114 350.1.13.10 4.2.7.2.686 [id number] 134 [id number] 2020-02-07 13:00:00 2020-02-07 13:00:00 Outpatient R BABATUNDE [facility] [id number] [facility] 2020-02-07 08:38:18 2020-02-07 08:53:18 Telemedici ne Visit Alexa Fine [facility] 1.2.840.114 350.1.13.10 4.2.7.2.686 [id number] 134 [id number] [facility] 2020-02-07 08:38:18 2020-02-07 08:53:18 Telemedici ne Visit Alexa Fine [facility] 1.2.840.114 350.1.13.10 4.2.7.2.686 [id number] 134 [id number] 2020-02-03 14:19:52 2020-02-03 15:50:17 Urgent Care Provider, [facility] Keily Olivier [facility] [employer] 1.2840.114 350.1.13.10 4.2.7.2.686 [id number] 044 [id number] [facility] 2020-02-03 14:19:52 2020-02-03 15:50:17 Urgent Care Provider, [facility] [employer] 1.2840.114 350.1.13.10 4.2.7.2.686 [id number] 044 [id number] 2020-02-03 14:20:00 2020-02-03 14:20:00 Outpatient R GENAROKEILY MEEKS [facility] [id number] [facility] 2020-02-03 00:00:00 2020-02-03 00:00:00 Letter (Out) Doctor Unassigned, Trent [facility] 1.2840.114 350.1.13.10 4.2.7.2.686 [id number] 044 [id number] [facility] 2020-02-03 00:00:00 2020-02-03 00:00:00 Letter (Out) Doctor Unassigned, Trent [facility] 1.2.840.114 350.1.13.10 4.2.7.2.686 [id number] 044 [id number] 2020-02-01 00:00:00 2020-02-01 00:00:00 Case Management Alexa Fine [facility] [place] 1.2840.114 350.1.13.10 4.2.7.2.686 [id number] 134 [id number] [facility] 2020-02-01 00:00:00 2020-02-01 00:00:00 Case Management Alexa Fine [facility] 1.2840.114 350.1.13.10 4.2.7.2.686 [id number] 134 [id number] 2020-01-24 14:40:20 2020-01-24 14:58:57 [facility] 1.2.840.114 350.1.13.10 4.2.7.2.686 [id number] 134 [id number] [facility] 2020-01-24 14:40:20 2020-01-24 14:58:57 Nurse Visit Nurse, [facility] 1.2840.114 350.1.13.10 4.2.7.2.686 [id number] 134 [id number] 2020-01-24 14:30:00 2020-01-24 14:30:00 Outpatient R [facility] [id number] [facility] 2020-01-12 15:45:00 2020-01-12 15:45:00 Outpatient R ALEXA FINE [facility] [id number] [facility] 2020-01-10 16:01:52 2020-01-10 17:19:54 Routine Visit Joshua Lewis Vien [facility] 1.2840.114 350.1.13.10 4.2.7.2.686 [id number] 134 [id number] [facility] 2020-01-10 16:01:52 2020-01-10 17:19:54 Routine Visit Joshua Lewis [facility] 1.2840.114 350.1.13.10 4.2.7.2.686 [id number] 134 [id number] 2020-01-10 16:00:00 2020-01-10 16:00:00 [id number] 2020-01-06 00:00:00 2020-01-06 00:00:00 Orders Only Doctor Unassigned, Trent [facility] 1.2.840.114 350.1.13.10 4.2.7.2.686 [id number] [facility] 2020-01-04 18:00:00 2020-01-04 23:59:00 Hospital Encounter Alexa Fine [facility] 1.840.114 350.1.13.10 4.2.7.2.686 [id number] [facility] 2020-01-04 00:00:00 2020-01-04 00:00:00 Outpatient R ALEXA FINE [facility] [id number] [facility] 2020-01-04 00:00:00 2020-01-04 00:00:00 Orders Only Doctor Unassigned, Trent [facility] 1.840.114 350.1.13.10 4.2.7.2.686 [id number] [facility] 2019-12-30 08:49:17 2019-12-30 09:04:17 Plastics Scientist Visit Pob, Adc Lab Main Alexa Fine [facility] 1.840.114 350.1.13.10 4.2.7.2.686 [id number] [facility] 2019-12-30 08:45:00 2019-12-30 08:45:00 Outpatient R [facility] [id number] [facility] 2019-12-30 00:00:00 2019-12-30 00:00:00 Telephone Alexa Fine [facility] 1.840.114 350.1.13.10 4.2.7.2.686 [id number] [facility] 2019-12-29 00:00:00 2019-12-29 00:00:00 [facility] 1.840.114 350.1.13.10 4.2.7.2.686 [id number] 134 [id number] [facility] 2019-12-28 14:18:28 2019-12-28 15:29:09 [facility] 1.2.840.114 350.1.13.10 4.2.7.2.686 [id number] 134 [id number] [facility] 2019-12-28 09:58:55 2019-12-28 10:13:55 Plastics Scientist Visit 2, Adc Lab Alexa Fine [facility] 1.2.840.114 350.1.13.10 4.2.7.2.686 [id number] [facility] 2019-12-28 09:30:00 2019-12-28 09:30:00 Outpatient R [facility] [id number] [facility] 2019-12-28 00:00:00 2019-12-28 00:00:00 Telephone Alexa Fine [facility] 1.2840.114 350.1.13.10 4.2.7.2.686 [id number] [facility] 2019-12-27 03:49:00 2019-12-27 06:51:00 Emergency Nohemi Canales C [facility] 1.2.840.114 350.1.13.10 4.2.7.2.686 [id number] [facility] 2019-12-27 00:00:00 2019-12-27 00:00:00 Telephone Alexa Fine [facility] 1.2.840.114 350.1.13.10 4.2.7.2.686 [id number] 134 [id number] [facility] 2019-12-24 10:06:18 2019-12-24 10:21:18 Plastics Scientist Visit Pob, Adc Lab Main Alexa Fine [facility] 1.2.840.114 350.1.13.10 4.2.7.2.686 [id number] [facility] 2019-12-24 10:15:00 2019-12-24 10:15:00 Outpatient R ALEXA FINE [facility] [id number] [facility] 2019-12-22 15:15:00 2019-12-22 15:15:00 Outpatient R ALEXA FINE [facility] [id number] [facility] 2019-12-22 14:26:08 2019-12-22 14:41:08 Plastics Scientist Visit Pob, Adc Lab Main Alexa Fine [facility] nal Building 1.284.114 350.1.13.10 4.2.7.2.686 [id number] [facility] 2019-12-21 08:00:00 2019-12-21 08:00:00 Outpatient JOSEFA MANCILLA [facility] [id number] [facility] 2019-12-21 00:00:00 2019-12-21 00:00:00 Case Management Joshua Lewis [facility] Building 1.284.114 350.1.13.10 4.2.7.2.686 [id number] [facility] 2019-12-21 00:00:00 2019-12-21 00:00:00 Telephone Alexa Fine [facility] nal Building 1.284.114 350.1.13.10 4.2.7.2.686 [id number] 134 [id number] [facility] 2019-12-20 12:25:25 2019-12-20 12:40:25 Plastics Scientist Visit Pobrian, Adc Lab Main Alexa Fine [facility] nal Building 1.284.114 350.1.13.10 4.2.7.2.686 [id number] [facility] 2019-12-20 09:56:19 2019-12-20 12:05:25 Initial Visit Alexa Fine [facility] nal Building 1.284.114 350.1.13.10 4.2.7.2.686 [id number] 134 [id number] [facility] 2019-12-20 10:00:00 2019-12-20 10:00:00 Outpatient Malcolm FINESANDRITAEN [facility] [id number] [facility] 2019-12-20 00:00:00 2019-12-20 00:00:00 Orders Only Doctor Unassigned, Trent [facility] 1.2.840.114 350.1.13.10 4.2.7.2.686 [id number] [facility] Results Test Description Test Time Test Comments Results Result Co mments Source [facility] [id number] 18:33:00* Test Item Value Reference Range Interpretation Comme nts POCT PREG (test code = 1605) Negative On board controls acceptable with C Line (test code = 3574) Yes POCT PREG LOT # (test code = 3575) POCT PREG TEST DATE ( test code = 3576) [facility] [id number] 21:42:00* Test Item Value Reference Range Interpretation Comme nts POCT PREG (test code = 1605) Negative On board controls acceptable with C Line (test code = 3574) Yes POCT PREG LOT # (test code = 3575) POCT PREG TEST DATE ( test code = 3576) [facility] [id number] 21:42:00* Test Item Value Reference Range Interpretation Comme nts POCT PREG (test code = 1605) Negative On board controls acceptable with C Line (test code = 3574) Yes POCT PREG LOT # (test code = 3575) POCT PREG TEST DATE ( test code = 3576) [facility] [id number] 21:42:00* Test Item Value Reference Range Interpretation [...] Comme nts POCT GLU (test code = 9259105684) 85 mg/dL 70-110 Lab Interpretation (test cod e = 04393-3) Normal [facility] GLUCOSE (AUTOMATED)2022-06-26 22:16:56* Test Item Value Reference Range Interpretation Comme nts POCT GLU (test code = 0753085551) 85 mg/dL 70-110 Lab Interpretation (test cod e = 11733-4) Normal [facility] GLUCOSE (AUTOMATED)2022-06-26 18:08:00* Test Item Value Reference Range Interpretation Comme nts POCT GLU (test code = 6873256455) 80 mg/dL 70-110 Lab Interpretation (test cod e = 49455-4) Normal [facility] GLUCOSE (AUTOMATED)2022-06-26 18:08:00* Test Item Value Reference Range Interpretation Comme nts POCT GLU (test code = 0521983462) 80 mg/dL 70-110 Lab Interpretation (test cod e = 50599-6) Normal [facility] GLUCOSE (AUTOMATED)2022-06-26 14:17:40* Test Item Value Reference Range Interpretation Comme nts POCT GLU (test code = 2483026550) 78 mg/dL 70-110 Lab Interpretation (test cod e = 59913-0) Normal [facility] GLUCOSE (AUTOMATED)2022-06-26 14:17:40* Test Item Value Reference Range Interpretation Comme nts POCT GLU (test code = 1453743928) 78 mg/dL 70-110 Lab Interpretation (test cod e = 06107-5) Normal [facility] GLUCOSE (AUTOMATED)2022-06-26 10:10:45* Test Item Value Reference Range Interpretation Comme nts POCT GLU (test code = 7730586721) 83 mg/dL 70-110 Lab Interpretation (test cod e = 22299-5) Normal [facility] GLUCOSE (AUTOMATED)2022-06-26 10:10:45* Test Item Value Reference Range Interpretation Comme nts POCT GLU (test code = 2618879058) 83 mg/dL 70-110 Lab Interpretation (test cod e = 06857-0) Normal [facility] GLUCOSE (AUTOMATED)2022-06-26 05:55:36* Test Item Value Reference Range Interpretation Comme nts POCT GLU (test code = 6452997046) 112 mg/dL 70-110 H Lab Interpretation (test cod e = 96721-7) Abnormal [facility] GLUCOSE (AUTOMATED)2022-06-26 05:55:36* Test Item Value Reference Range Interpretation Comme nts POCT GLU (test code = 2101524411) 112 mg/dL 70-110 H Lab Interpretation (test cod e = 29993-6) Abnormal [facility] URINALYSIS W/O SPECIFIC [id number] 15:01:00* Test Item Value Reference Range Interpretation [...] [facility] URINALYSIS W/O SPECIFIC [id number] 15:44:00* Test Item Value Reference Range Interpretation [...] [facility] URINALYSIS W/O SPECIFIC [id number] 16:26:00* Test Item Value Reference Range Interpretation [...] [facility] URINALYSIS W/O SPECIFIC [id number] 22:47:00* Test Item Value Reference Range Interpretation [...] [facility] URINALYSIS W/O SPECIFIC [id number] 21:16:00* Test Item Value Reference Range Interpretation [...] [facility] URINALYSIS W/O SPECIFIC [id number] 20:54:00* Test Item Value Reference Range Interpretation [...] = 3257) n/a Negative - Negati ve [facility]CIFIC [id number] 22:30:00* Test Item Value Reference Range Interpretation [...] U APPEAR (test code = 3267) clear [facility]1 HR GLUCOSE TOLERANCE [id number] 18:24:28 * Test Item Value Reference Range Interpretation Comme nts GLUC 1 HR (test code = 9676083423) 187 mg/dL 120-170 H Lab Interpretation (test cod e = 55538-3) Abnormal [facility] AG-AB WITH [id number] 18:06:44* Test Item Value Reference Range Interpretation Comme nts HIV Semi-quantitative (test code = 10293-3) Negative Negative ABDULLAHI (test code = ABDULLAHI) Non-reactive for HIV-1 antigen and HIV-1/HIV-2 antibodies. ?No laboratory evidence of HIV infection. ?Repeat in 2-4 weeks if acute HIV infection is suspected. [facility] HospitalGLUCOSE [id number] 17:25:16* Test Item Value Reference Range Interpretation Comme nts GLU FASTNG (test code = 6465922048) 97 mg/dL 70-110 Lab Interpretation (test cod e = 77199-0) Normal [facility] HospitalCBC WITH [id number] 16:41:31* Test Item Value Reference Range Interpretation [...] 32.1 g/dL 31.6-35.1 RDW-SD (test code = 74371-8) 43.2 fL 39.0-49.9 RDW-CV (test code = 788-0) 15.4 % 12.0-15.5 PLT (test code = 777-3) See_Comment H [Automated messa ge] The system which generated this result transmitted reference range: 166 - 358 10*3/?L. The reference range was not used to interpret this result as normal/abnormal. MPV (test code = 34196-8) 9.6 fL 9.5-12.9 NRBC/100 WBC (test code = 6927012443) See_Comment [Automated me ssage] The system which generated this result transmitted reference range: 0.0 - 10.0 /100 WBCs. The reference range was not used to interpret this result as normal/abnormal. NRBC x10^3 (test code = 8375761989) See_Comment [Automated messa ge] The system which generated this result transmitted reference range: 10*3/?L. The reference range was not used to interpret this result as normal/abnormal. GRAN MAT (NEUT) % (test code = 770-8) 69.4 % IMM GRAN % (test code = 8359145130) 0.90 % LYMPH % (test code = 736-9) 22.9 % MONO % (test code = 5905-5) 5.7 % EOS % (test code = 713-8) 0.7 % BASO % (test code = 706-2) 0.4 % GRAN MAT x10^3(ANC) (test code = 9292867528) 9.69 10*3/uL 1.88-7.09 H IMM GRAN x10^3 (test code = 4581552516) 0.12 10*3/uL 0.00-0.06 H LYMPH x10^3 (test code = 731-0) 3.20 10*3/uL 1.32-3.29 MONO x10^3 (test code = 742-7) 0.80 10*3/uL 0.33-0.92 EOS x10^3 (test code = 711-2) 0.10 10*3/uL 0.03-0.39 BASO x10^3 (test code = 704-7) 0.05 10*3/uL 0.01-0.07 Lab Interpretation (test code = 32954-5) Abnormal [facility] URINALYSIS W/O SPECIFIC [id number] 22:07:00* Test Item Value Reference Range Interpretation [...] [facility] URINALYSIS W/O SPECIFIC [id number] 22:05:00* Test Item Value Reference Range Interpretation [...] [facility] URINALYSIS W/O SPECIFIC [id number] 22:09:00* Test Item Value Reference Range Interpretation [...] [facility] URINALYSIS W/O SPECIFIC [id number] 21:19:00* Test Item Value Reference Range Interpretation [...] = 3257) n/a Negative - Negati ve [facility] W/O SPECIFIC [id number] 21:35:00* Test Item Value Reference Range Interpretation [...] = 3257) n/a Negative - Negati ve [facility] HospitalGLUCOSE [id number] 16:55:19* Test Item Value Reference Range Interpretation Comme nts GLU FASTNG (test code = 1017148940) 82 mg/dL 70-110 Lab Interpretation (test cod e = 49093-4) Normal [facility] HospitalCB WITH [id number] 15:32:10* Test Item Value Reference Range Interpretation Comme nts WBC (test code = 6690-2) See_Comment H [Automated [employer] ge] The system which generated this result transmitted reference range: 4.30 - 11.10 10*3/?L. The reference range was not used to interpret this result as normal/abnormal. RBC (test code = 789-8) See_Comment [Automated [employer]] The system which generated this result transmitted [...] 33.6 g/dL 31.6-35.1 RDW-SD (test code = 66930-0) 39.7 fL 39-49.9 RDW-CV (test code = 788-0) 12.9 % 12-15.5 PLT (test code = 777-3) See_Comment [Automated messa ge] The system which generated this result transmitted reference range: 166 - 358 10*3/?L. The reference range was not used to interpret this result as normal/abnormal. MPV (test code = 00544-0) 9.3 fL 9.5-12.9 L NRBC/100 WBC (test code = 2694524346) See_Comment [Automated [employer] ssage] The system which generated this result transmitted reference range: 0.0 - 10.0 /100 WBCs. The reference range was not used to interpret this result as normal/abnormal. NRBC x10^3 (test code = 7645753156) See_Comment [Automated [employer] ge] The system which generated this result transmitted reference range: 10*3/?L. The reference range was not used to interpret this result as normal/abnormal. GRAN MAT (NEUT) % (test code = 770-8) 72.8 % IMM GRAN % (test code = 4917235254) 0.30 % LYMPH % (test code = 736-9) 21.4 % MONO % (test code = 5905-5) 4.4 % EOS % (test code = 713-8) 0.7 % BASO % (test code = 706-2) 0.4 % GRAN MAT x10^3(ANC) (test code = 5957751398) 8.83 10*3/uL 1.88-7.09 H IMM GRAN x10^3 (test code = 5356733626) 0.04 10*3/uL 0-0.06 LYMPH x10^3 (test code = 731-0) 2.59 10*3/uL 1.32-3.29 MONO x10^3 (test code = 742-7) 0.53 10*3/uL 0.33-0.92 EOS x10^3 (test code = 711-2) 0.09 10*3/uL 0.03-0.39 BASO x10^3 (test code = 704-7) 0.05 10*3/uL 0.01-0.07 Lab Interpretation (test code = 68664-9) Abnormal [facility] W/O SPECIFIC [id number] 21:22:00* Test Item Value Reference Range Interpretation [...] = 3257) n/a Negative - Negati ve [facility] HospitalURINE [id number] 17:20:14* Test Item Value Reference Range Interpretation Comme nts URINE CULTURE (test code = 630-4) 10,000 - 100,000 CFU/mL mixed aerobic organisms - suggests endogenous microbial contamination [facility] HospitalVZV ANTIBODY [id number] 15:36:55* Test Item Value Reference Range Interpretation Comme [facility] VZV IgG antibody (test code = 33308-7) Equivocal Negative ABDULLAHI (test code = ABDULLAHI) Positive - Indicat es the patient was exposed to VZV through infection or vaccination.Negative - Indicates the patient could be susceptible to VZV infection.Equivocal - A second specimen should be sent for testing. [facility] HospitalRUBELLA SCREEN [id number] 15:36:55* Test Item Value Reference Range Interpretation Comme [facility] Rubella screen IgG (test code = 4338232538) Positive Negative ABDULLAHI (test code = ABDULLAHI) Positive - Indicat es the patient was exposed to Rubella through infection or vaccination.Negative - Indicates the patient could be susceptible to Rubella infection.Equivocal - A second specimen should be sent. [facility] HospitalADC OR FARSHAD ONLY - [id number] 04:45:51* Test Item Value Reference Range Interpretation Comme nts RPR (Qualitative) (test code = 61965-3) Nonreactive Nonreactive Lab Interpretation (test cod e = 51680-7) Normal [facility] HospitalHCV [id number] 21:13:42* Test Item Value Reference Range Interpretation Comme nts HCV Ab (test code = 35803-4) Negative HCV Semi-Quantitative (test code = 20507-1) [facility] HospitalHEPATITIS B SURFACE [id number] 20:57:38 * Test Item Value Reference Range Interpretation Comme nts HBsAg Semi-Quantitative (alyssa t code = 5195-3) Negative Negative [facility] HospitalPRENATAL WORKUP, BLOOD [id number] 20:44:39 * Test Item Value Reference Range Interpretation Comme nts ABO & RH (test code = 20) A POSITIVE Performed at [facility] Laboratory [facility] Blood [address] Free: [phone] No. [id number] IAT (test code = 1185) Negative Performed at [facility] Laboratory [facility] Blood [address] Free: [phone] No. [phone] [facility] HospitalHCG, QUANTITATIVE, [id number] 18:56:20* Test Item Value Reference Range Interpretation Comme nts BETA HCG (test code = 8486858249) See_Comment [Automated [employer]] The system which generated this result transmitted reference range: Non- female and male patients: <5 mIU/mL. The reference range was not used to interpret this result as normal/abnormal. ABDULLAHI (test code = ABDULLAHI) Gestational Age ?Range (mIU/mL) 1-10 ?Weeks ?89-02250496-92 Weeks ?08728-35768848-99 Weeks ?6452-59634508-31 Weeks ?5910-271770 Biotin has been reported to cause a negative bias, interpret results relative to patient's use of biotin. [facility]. METABOLIC PANEL (77709)2021-11-22 18:19:45* Test Item Value Reference Range Interpretation Comme nts NA (test code = 5836454999) 136 mmol/L 135-145 K (test code = 8979972054) 3.7 mmol/L 3.5-5 CL (test code = 7772099073) 106 mmol/L 98-108 CO2 TOTAL (test code = 9117452614) 22 mmol/L 23-31 L AGAP (test code = 9970496568) 2-16 BUN (test code = 4238862829) 5 mg/dL 7-23 L GLUCOSE (test code = 1263512029) 131 mg/dL 70-110 H CREATININE (test code = 2322503457) 0.52 mg/dL 0.5-1.04 TOTAL BILI (test code = 7467949234) 0.1-1.1 L CALCIUM (test code = 1471639387) 8.6 mg/dL 8.6-10.6 T PROTEIN (test code = 3602423175) 6.6 g/dL 6.3-8.2 ALBUMIN (test code = 5591867303) 4.1 g/dL 3.5-5 ALK PHOS (test code = 8701670195) 80 U/L 34-122 ALTv (test code = 1742-6) 38 U/L 5-35 H AST(SGOT) (test code = 0405224689) 28 U/L 13-40 eGFR (test code = 6376887868) mL/min/1.73m2 ABDULLAHI (test code = ABDULLAHI) Association [...] imaging tests). Lab Interpretation (test code = 86015-5) Abnormal [facility] HospitalHIV 1/2 AG-AB WITH [id number] 18:13:21* Test Item Value Reference Range Interpretation Comme [facility] HIV Semi-quantitative (test code = 43157-1) Negative Negative ABDULLAHI (test code = ABDULLAHI) Non-reactive for HIV-1 antigen and HIV-1/HIV-2 antibodies. ?No laboratory evidence of HIV infection. ?Repeat in 2-4 weeks if acute HIV infection is suspected. [facility] HospitalURIC [id number] 17:33:00* Test Item Value Reference Range Interpretation Comme [facility] URIC ACID (test code = 2457150074) 2.5 mg/dL 2.9-6 L Lab Interpretation (test cod e = 96346-4) Abnormal [facility] HospitalGLUCOSE 1 HOUR POST [id number] 17:31:38* Test Item Value Reference Range Interpretation Comme nts GLUC 1 HR (test code = 5428184863) 136 mg/dL 120-170 Lab Interpretation (test cod e = 00681-3) Normal [facility] HospitalLACTATE [id number] 17:23:34* Test Item Value Reference Range Interpretation Comme [facility] LDH (test code = 5399514328) 152 U/L 120-246 Lab Interpretation (test cod e = 29016-6) Normal [facility] HospitalURINE DRUG (IMMUNOASSAY) - COMPREHENSIVE DRUG [id number] 16:53:41* Test Item Value Reference Range Interpretation Comme nts AMPHET (test code = 4169635259) Negative Negative HUBERT U (test code = 6595833518) Negative Negative BENZO U (test code = 8254264999) Negative Negative Cocaine Metabolite (test code = 3043146257) Negative Negative METHADONE (test code = 9523896967) Negative Negative OPIATES (test code = 9574949937) Negative Negative PCP (test code = 9929318903) Negative Negative THC (test code = 5503835426) Negative Negative ABDULLAHI (test code = ABDULLAHI) [...] legal testing). Lab Interpretation (test code = 68623-6) Normal [facility] THIRD [id number] 10:11:00* Test Item Value Reference Range Interpretation Comme nts PLACENTA THIRD TRIMESTER (test code = PLACIII) RUN DATE: 06/25/20 [facility] PAGE 1 RUN TIME: 1825 Specimen Inquiry RUN USER: INTERFACE PATIENT: MINE BAÑUELOS LOC: APU2 #: [id number] AGE/SX: 20/F ROOM: [address]: 06/14/20REG DR: Wan Dorado DO : 02 BED: A DIS: 06/17/20 STATUS: DIS IN TLOC: SPEC #: [id number] RECD: 06/15/20 STATUS: VANITA ANGELES #: [id number] SINDY: 06/14/20- SUBM DR: Wan Dorado DO ENTERED: 06/15/20-811 SP TYPE: PLACIII OTHR DR: ORDERED: LEVEL V SURGICA CODES: [id number] - PLACENTA, NOS PROCEDURES: LEVEL V SURGICA [...] gms/expected mean 269 gms (25-50th percentile) CPT: 27047 [facility]/dori GROSS DESCRIPTION The specimen was received in a container, labeled with the patient's name, unit number and designated "placenta". The following attributes are observed: Cord insertion: 2 cm from margin Cord length: 40 cm Number of vessels: 3 Cord color: [place]-white Other cord findings: None surface findings: [place]-purple, wrinkled, glistening with focal subchorionic fibrin deposition Vasculature: Unremarkable vasculature Membranes rupture site: 1 cm to margin Membrane color: [place]-pink to galeana Other membrane findings: Focally opaque and circummarginate The trimmed placental weight: 250 gm CONTINUED ON NEXT PAGE RUN DATE: 06/25/20 [facility] PAGE 2 RUN TIME: 1825 Specimen Inquiry RUN USER: INTERFACE SPEC #: [id number] PATIENT: MINE BAÑUELOS #[id number] (Continued) GROSS DESCRIPTION (Continued) Disk measurement: 14 [...] Frey Bassem 06/25/20 1011 END OF REPORT [id number] 10:36:00* Test Item Value Reference Range Interpretation Comme nts GLUBED (test code = GLUBED) 115 mg/dL 65-110 H CBC W/AUTO [id number] 05:26:00* Test Item Value Reference Range Interpretation [...] REQUIRED (test code = PLTMR) NORMAL NORMAL [id number] 05:15:00* Test Item Value Reference Range Interpretation Comme nts FIBRINOGEN (test code = FIB) 424 mg/dL 309-518 N PROTHROMBIN [id number] 05:15:00* Test Item Value Reference Range Interpretation Comme nts PROTHROMBIN TIME PATIENT (te st code = PTP) 10.1 secs 10.4-12.4 L THROMBOPLASTIN TIME [id number] 05:15:00* Test Item Value Reference Range Interpretation Comme nts THROMBOPLASTIN TIME PARTIAL (test code = PTT) 25.8 secs 22-38 N PIH [id number] 05:14:00* Test Item Value Reference Range Interpretation Comme nts CREATININE (test code = CREAT) 1.0 mg/dL 0.5-1.0 N SGOT/AST (test code = AST) 39 units/L 15-37 H SGPT/ALT (test code = ALT) 30 units/L 12-78 N LACTIC DEHYDROGENASE(LDH) (t est code = LDH) 390 units/L 81-234 H COMPREHENSIVE METABOLIC [id number] 05:14:00* Test Item Value Reference Range Interpretation [...] ALKP) 104 units/L 46-116 N CBC W/AUTO [id number] 05:08:00* Test Item Value Reference Range Interpretation Comme nts WHITE BLOOD CELL (test code = WBC) 20.6 K/mm3 6.5-12.3 HH RESULTS CALLED T O JEN.READ BACK & CONFIRMED? YES.BY MarianoLAB.IR1 06/16/20 050.Results verified by repeat analysis RED BLOOD CELL [...] REQUIRED (test code = PLTMR) NORMAL NORMAL [id number] 21:53:00* Test Item Value Reference Range Interpretation Comme nts MAGNESIUM (test code = MAG) 4.7 mg/dL 1.8-2.4 H DRUGS OF ABUSE [id number] 07:49:00* Test Item Value Reference Range Interpretation [...] DETECTION C UT OFF: 25 ng/mL LACTIC [id number] 00:27:00* Test Item Value Reference Range Interpretation Comme nts LACTIC ACID (test code = LACT) 1.4 MMOL/L 0.5-2.2 N COMPREHENSIVE METABOLIC [id number] 23:11:00* Test Item Value Reference Range Interpretation [...] LDH) 607 units/L 81-234 H COMPREHENSIVE METABOLIC [id number] 22:15:00* Test Item Value Reference Range Interpretation [...] = ALKP) 127 units/L 46-116 H LACTIC [id number] 22:09:00* Test Item Value Reference Range Interpretation Comme nts LACTIC ACID (test code = LACT) 2.1 MMOL/L 0.5-2.2 N RESULTS CALLED T O COULD NOT GET A HOLD OF NURSE.READ BACK & CONFIRMED? NO.BY [id number] 06/14/202206. PROTHROMBIN [id number] 22:02:00* Test Item Value Reference Range Interpretation Comme nts PROTHROMBIN TIME PATIENT (te st code = PTP) 10.5 secs 10.4-12.4 N IS PATIENT ON ANTICOAGULANTS ? NINTERNATIONAL NORMAL [id number] 22:02:00* Test Item Value Reference Range Interpretation [...] IS PATIENT ON ANTICOAGULANTS ? NTHROMBOPLASTIN TIME [id number] 22:02:00* Test Item Value Reference Range Interpretation Comme nts THROMBOPLASTIN TIME PARTIAL (test code = PTT) 27.4 secs 22-38 N IS PATIENT ON ANTICOAGULANTS ? NUA RFLX MICR CULT IF [id number] 22:00:00* Test Item Value Reference Range Interpretation [...] Temperature > 100.4 FSpecimen Description: CATHETERCBC W/AUTO [id number] 21:51:00* Test Item Value Reference Range Interpretation [...] code = PLTMR) NORMAL NORMAL URINALYSIS W/O [id number] 16:39:00* Test Item Value Reference Range Interpretation Comme nts UA GLUCOSE DIPSTICK (test co de = DGLUU) NEGATIVE NEGATIVE UA KETONE DIPSTICK (test cod e = KETU) NEGATIVE NEGATIVE UA PROTEIN DIPSTICK (test co de = PROU) 3+ NEGATIVE Comments to Post Doctoral Fellow: IN ROOM IS NURSE PERFORMING TEST? ANA PROTEIN/CREATININE [id number] 16:34:00* Test Item Value Reference Range Interpretation Comme nts UR PROTEIN RANDOM (test code = PROTU) 1847.1 mg/dL UR CREATININE RANDOM (test code = CREATU) 205.5 mg/dL PROTEIN/CREATININE RATIO (test code = P/CRATIO) 8988.3 mg/gcrea <200 H UR PROTEIN/CREATININE [id number] 16:25:00* Test Item Value Reference Range Interpretation Comme nts UR PROTEIN RANDOM (test code = PROTU) mg/dL UR CREATININE RANDOM (test c ode = CREATU) 205.5 mg/dL PROTEIN/CREATININE RATIO (te st code = P/CRATIO) mg/gcrea <200 AG HEPATITIS B [id number] 13:41:00* Test Item Value Reference Range Interpretation Comme nts AG HEPATITIS B SURFACE (test code = HBSAG) NONREACTIVE NONREACTIVE Comments to Post Doctoral Fellow: IN ROOM IS CONSENT FORM SIGNED FOR HIV TESTING? NAB HEPATITIS C [id number] 13:41:00* Test Item Value Reference Range Interpretation Comme nts AB HEPATITIS C (test code = HCVAB) NONREACTIVE NONREACTIVE SIGNAL TO CUTOFF (test code = CUTOFF) <0.02 <0.80 N Comments to Post Doctoral Fellow: IN ROOM IS CONSENT FORM SIGNED FOR HIV TESTING? NAB [id number] 13:41:00* Test Item Value Reference Range Interpretation Comme nts AB TREPONEMA (test code = TREPAB) NONREACTIVE NONREACTIVE Comments to Post Doctoral Fellow: IN ROOM IS CONSENT FORM SIGNED FOR HIV TESTING? NAB HIV 1 13:41:00* Test Item Value Reference Range Interpretation Comme nts AB HIV 1 2 (test code = OIG70KH) NONREACTIVE NONREACTIVE Done by [employer] HIV Ag/Ab Combo Screen Comments to Post Doctoral Fellow: IN ROOM IS CONSENT FORM SIGNED FOR HIV TESTING? NAG HEPATITIS B [id number] 13:16:00* Test Item Value Reference Range Interpretation Comme nts AG HEPATITIS B SURFACE (test code = HBSAG) NONREACTIVE NONREACTIVE Comments to Post Doctoral Fellow: IN ROOM IS CONSENT FORM SIGNED FOR HIV TESTING? NAB HEPATITIS C [id number] 13:16:00* Test Item Value Reference Range Interpretation Comme nts AB HEPATITIS C (test code = HCVAB) NONREACTIVE SIGNAL TO CUTOFF (test code = CUTOFF) <0.80 Comments to Post Doctoral Fellow: IN ROOM IS CONSENT FORM SIGNED FOR HIV TESTING? NAB [id number] 13:16:00* Test Item Value Reference Range Interpretation Comme nts AB TREPONEMA (test code = TREPAB) NONREACTIVE NONREACTIVE Comments to Post Doctoral Fellow: IN ROOM IS CONSENT FORM SIGNED FOR HIV TESTING? NAB HIV 1 13:16:00* Test Item Value Reference Range Interpretation Comme nts AB HIV 1 2 (test code = EWD19TE) NONREACTIVE Comments to Post Doctoral Fellow: IN ROOM IS CONSENT FORM SIGNED FOR HIV TESTING? NPIH [id number] 12:47:00* Test Item Value Reference Range Interpretation Comme nts CREATININE (test code = CREAT) 1.0 mg/dL 0.5-1.0 N SGOT/AST (test code = AST) 120 units/L 15-37 H SGPT/ALT (test code = ALT) 75 units/L 12-78 N LACTIC DEHYDROGENASE(LDH) (t est code = LDH) 517 units/L 81-234 H : *Comments to Post Doctoral Fellow: IN ROOMCBC W/AUTO [id number] 12:28:00* Test Item Value Reference Range Interpretation [...] PLTMR) NORMAL NORMAL COVID 19 Asymptomatic IH [id number] 11:52:00* Test Item Value Reference Range Interpretation [...] testsfor detection and/or diagnosis of COVID-19 under Ujlzbdw200(b)(1) of the Act, 21 U.S.C. 360bbb-3(b)(1), unless theauthorization is terminated or revoked sooner. Comments to Post Doctoral Fellow: IN ROOM Notes Date/Time Note Provider Source [...] processed according to instructions and sent to [facility] laboratories per lab order on 12/04/2022 : LT BLUE SST 1 RED LAV PPT DK GREEN (LiHep) DK GREEN (SodH) GALEANA DK BLUE (K2) DK BLUE (S) ACD Blood Culture NIPT/NTD Only hcg to be done per pt [facility] 2020-06-17 09:50:00 [facility] ([facility]) OB Postpart Progr Note REPORT#:[id number] REPORT STATUS: Signed DATE:06/17/20 TIME: 09 PATIENT: MINE BAÑUELOS UNIT #: [id number] ROOM/BED: 5072-A : 02 AGE: 20 SEX: F ATTEND: [...] Flow FiO2 Mean Ox Delivery Rate 06/17 0507 97.0 06/17 0507 97.8 93 16 130/74 06/17 0008 87.0 [...] % (Auto) (14.5 - 29.7 %) 19.2 [place] % (Auto) (3.6 - 10.2 %) 5.8 Eos % (Auto) (0.0 - 3.0 %) 0.8 Baso % (Auto) (0.1 - 0.9 %) 0.2 Neut # (Auto) (K/mm3) 10.5 Lymph # (Auto) (K/mm3) 2.8 [place] # (Auto) (K/mm3) 0.8 Eos # (Auto) [...] Plan discussed with: patient at 0954 RPT #:[id number] END OF REPORT [facility] 2020-06-16 21:43:00 [facility] ([facility]) OB Postpart Progr Note REPORT#:[id number] REPORT STATUS: Signed DATE:06/16/20 TIME: 2142 PATIENT: MINE BAÑUELOS UNIT #: [id number] ROOM/BED: [address] : 02 AGE: 20 SEX: F [...] repeat CBC in AM. at 2146 RPT #:[id number] END OF REPORT [facility] 2020-06-16 07:46:00 [facility] ([facility]) OB Postpart Progr Note REPORT#:[id number] REPORT STATUS: Signed DATE:06/16/20 TIME: 745 PATIENT: MINE BAÑUELOS UNIT #: [id number] ROOM/BED: [address] : 02 AGE: 20 SEX: F [...] 29 94 151/82 06/16 0008 123.0 06/16 000 99.0 93 18 163/95 100 06/15 2133 120.0 06/15 2133 80 158/91 06/16 2039 114.0 06/16 2039 81 165/83 06/16 2039 98.2 18 98 Fundus is firm, low and nontender. Perineum/suture sites are healing well and intact. Laboratory Tests: 06/165 2113 Chemistry Sodium (135 - 145 mEq/L) [...] (10.4 - 12.4 secs) 10.1 L PTT ([place]) (22 - 38 secs) 25.8 Fibrinogen (309 [...] (Auto) (14.5 - 29.7 %) 9.5 L [place] % (Auto) (3.6 - 10.2 %) 4.5 Eos % (Auto) (0.0 - 3.0 %) 0.2 Baso % (Auto) (0.1 - 0.9 %) 0.1 Neut # (Auto) (K/mm3) 17.5 Lymph # (Auto) (K/mm3) 2.0 [place] # (Auto) (K/mm3) 0.9 Eos # (Auto) [...] Plan discussed with: patient at 0750 RPT #:[id number] END OF REPORT [facility] 2020-06-15 13:04:00 [facility] ([facility]) OB Postpart Progr Note REPORT#:[id number] REPORT STATUS: Signed DATE:06/15/20 TIME: 1304 PATIENT: MINE BAÑUELOS UNIT #: [id number] ROOM/BED: [facility] : 02 AGE: 20 SEX: F ATTEND: [...] O2 Flow FiO2 Mean Ox Delivery Rate / 1048 84.0 03/ 1048 74 116/62 03/ [...] 2211 90 94 03/11 2207 94 99 03/ 2202 97 99 03/ 2200 115.0 03/ 2200 91 154/88 06/14 2057 99 99 / 2052 95 98 03/ 2051 104.0 06/14 2051 93 142/78 03/ 2047 97 99 03/ 2042 101.4 97 98 03/ 2041 107.0 03/ 2041 96 140/92 06/14 2037 92 99 / 203 97 98 03/ 202 111.0 06/14 202 93 154/80 06/14 202 95 99 03/ 202 94 99 / 2017 95 98 / 2015 117.0 06/14 2015 93 168/87 06/14 2012 92 98 / 2007 95 98 / 2002 94 98 03/1999 115.0 / 2000 93 167/80 03 195 95 98 03/ 1952 96 100 03/ 1947 93 98 03/ 1944 121.0 06/14 1944 167/88 03 1942 89 98 03/ 1937 92 98 03/11 1932 112.0 03/ 1932 91 162/78 98 03/11 1931 125.0 06/14 1931 91 157/104 03/ 1927 91 98 03/11 1922 90 98 03/ 1917 87 98 03/ 1914 98.8 18 06/14 1914 102.0 03/ 1914 87 138/76 03/ 1912 89 98 03/ 1907 91 99 03/ 1902 89 99 03 1859 111.0 06/14 1859 85 147/88 03 1857 87 99 03/ 1852 87 99 03/11 1847 84 99 03/11 1843 110.0 03/ 1843 83 151/83 / 1842 83 98 03/ 1830 102.0 / 1830 98.2 90 18 146/74 03/11 1813 96.0 / 1813 84 148/63 03/11 1758 105.0 03/11 1758 83 159/73 03/11 1743 105.0 03/11 1743 78 154/72 03/ 1729 105.0 03/ 1729 83 149/75 03/11 1713 98.0 18 03/ 1713 105.0 06/14 1713 85 138/83 06/14 [...] pH (5 - 9) 6.0 Ur Specific [place] (1.001 - 1.035) 1.031 Urine Protein (NEG) [...] - 12.4 secs) 10.5 INR 0.95 PTT ([place]ier) (22 - 38 secs) 27.4 Hematology WBC [...] % (Auto) (14.5 - 29.7 %) 14.5 [place] % (Auto) (3.6 - 10.2 %) 4.5 Eos % (Auto) (0.0 - 3.0 %) 0.1 Baso % (Auto) (0.1 - 0.9 %) 0.3 Neut # (Auto) (K/mm3) 13.8 Lymph # (Auto) (K/mm3) 2.5 [place] # (Auto) (K/mm3) 0.8 Eos # (Auto) [...] to pre-eclampsia Plan: routine care, Continue Magnesium [id number] Labetalol 300 TID Will monitor bps at this time at 1308 RPT #:[id number] END OF REPORT [facility] 2020-06-15 02:29:00 [facility] ([facility]) OB Delivery Note REPORT#:[id number] REPORT STATUS: Signed DATE:06/15/20 TIME: 228 PATIENT: MINE BAÑUELOS UNIT #: [id number] ROOM/BED: [address] : 02 AGE: 20 SEX: F [...] Steroids prior to arrival: Antibiotic prophylaxis given: [place] evaluation at delivery: Post hemorrhage risk score: Low Risk for Hemorrhage. Delivery date A: Delivery time A: Birthweight (gm) infant A: Weight (lb) A: Weight (oz) A: Gender A: Female 1 minute infant A: 5 minutes infant A: 10 minutes A: Cord pH obtained A: Vacuum time infant A: Vacuum # [...] at delivery (ml's): 300 at 0231 RPT #:[id number] END OF REPORT [facility] 2020-06-14 21:56:00 [facility] ([facility]) Clinical Note REPORT#:[id number] REPORT STATUS: Signed DATE:06/14/20 TIME: 2155 PATIENT: MINE BAÑUELOS UNIT #: [id number] ROOM/BED: [address] : 02 AGE: 20 SEX: F [...] bedside attendance as needed. at 2208 RPT #:[id number] END OF RE[facility] 2020-06-14 14:38:00 [facility] ([facility]) OB Admission / H P REPORT#:[id number] REPORT STATUS: Signed DATE:06/14/20 TIME: 1438 PATIENT: MINE BAÑUELOS UNIT #: [id number] ROOM/BED: [address] : 02 AGE: 20 SEX: F [...] blood pressure HPI: @ 29w3d transfer from [facility]. Patient presented to [facility] with complaint of back pain and abdominal [...] (Auto) (14.5 - 29.7 %) 10.5 L [place] % (Auto) (3.6 - 10.2 %) 3.5 L Eos % (Auto) (0.0 - 3.0 %) 0.0 Baso % (Auto) (0.1 - 0.9 %) 0.2 Neut # (Auto) (K/mm3) 13.0 Lymph # (Auto) (K/mm3) 1.6 [place] # (Auto) (K/mm3) 0.5 Eos # (Auto) [...] induction: pre-eclampsia (PE), stillbirth at 1444 RPT #:[id number] END OF REPORT [facility]
[2023-12-30 16:55] LABS: Absolute Basophils 0.1 K/uL (0-0.5); Absolute Lymphocytes (CBC) 2.1 K/uL (0.7-4.9); Absolute Monocytes 0.6 K/uL (0.1-1.3); Absolute Neutrophil 12.2 K/uL (1.8-8.0); Basophils % 0.6 % (0-1.3); Eosinophils % 0.2 % (0-4.4); Hematocrit 34.8 % (36.0-45.0); Hemoglobin 11.7 g/dL (12.0-15.0); MCH 28.9 pg (27.0-35.0); MCHC 33.7 g/dL (32.0-36.0); MCV 85.8 fL (80-100); MPV 7.6 fL (7.6-11.3); Monocytes % 3.9 % (3.3-12.3); Neutrophils % 81.3 % (41.7-73.7); Nucleated Red Blood Cells % 0.1 % (0-0); Platelets 356 thou/uL (152-406); RBC Red Blood Cell Count 4.06 M/uL (3.86-4.86)
[2023-12-30 17:29] LABS: Albumin 2.8 g/dL (3.4-5.0); Albumin/Globulin Ratio 0.6 (1.1-1.8); Anion Gap 9.6 mEq/L (5.0-15.0); Bilirubin Total 0.3 mg/dL (0.2-1.0); Globulin 4.8 g/dL (2.3-3.5); Potassium 3.6 mEq/L (3.5-5.1); Protein, Total 7.6 g/dL (6.4-8.2)
[2023-12-30 17:40] LABS: Specific Gravity 1.029 (1.005-1.030); Sqamous Epithelial <5 /HPF (None Seen); Urine Bacteria None Seen /HPF (<20); Urine Bilirubin NEGATIVE (Negative); Urine Blood Negative (Negative); Urine Clarity Turbid (Clear); Urine Color Yellow (Yellow); Urine Culture Reflex Order NOT NEEDED; Urine Glucose NEGATIVE (Negative); Urine Ketones NEGATIVE (Negative); Urine Micro Reflex YN NO BILL MICROSCOPIC; Urine Mucus 3+ /HPF (None Seen); Urine Nitrite NEGATIVE (Negative); Urine Protein TRACE (Negative); Urine RBC <5 /HPF (None Seen); Urine Urobilinogen Normal (Normal); Urine WBC <5 /HPF (<5); Urine pH 6.5 (5.0-7.0)
--- NOTE | 2023-12-30 17:56 | RAD REPORT ---
EXAMINATION: OB Limited COMPARISON: 11/26/2023 pelvic ultrasound. HISTORY: [facility] MAIN Abd cramping, pregnan Bed: TECHNIQUE: Real-time ultrasound was performed through the pelvis through a transabdominal approach [facility] sonographer. FINDINGS: There is a single living intrauterine . There is no visible subchorionic hemorrhage. Ovaries were not well visualized bilaterally. Cervical canal is well apposed measuring 4 cm in length. heart rate: 146 BPM. There is no free fluid in the cul-de-sac. Measurements and Calculations: Femur length 28.7 millimeter, consistent with a sonographic age of 18 weeks, 6 days. The patient's LM P dates are not stated. IMPRESSION: Single living intrauterine , with a composite sonographic age of 18 weeks, 6 days. No abnorm alities identified on this exam.
--- NOTE | 2023-12-30 18:43 | EDPHYS ---
Physician Documentation [facility] Name: Jana Coleman Age: 23 yrs Sex: Female : 2000 Arrival Date: 12/30/2023 Time: 15:27 Bed 11 Private MD: ED Physician Hermann Kingston HPI: 12/29 16:02 This 23 yrs old Female presents to ER via Ambulatory with complaints of 18 ec2 weeks , Abdominal Cramping, Low Back Pain. 16:02 Patient arrives today for evaluation of abdominal cramping. Reports that she is 18 ec2 weeks . Has had ultrasonography and showed no complications or . Patient reports otherwise no vomiting, no nausea, no urinary complaints, no vaginal bleeding. 2 previous pregnancies, 1 live , previous miscarriage secondary to preeclampsia. MUCK MINER BLASTING: 16:00 4, Full Term 1, Premature 1, Living 1, unknown db Historical: - Allergies: 16:00 Bactrim; db 16:00 Ceclor; db - PMHx: 16:00 Bipolar disorder; Pre- eclampsia; db - PSHx: 16:00 section; Cholecystectomy; db - Immunization history:: Adult Immunizations unknown. - Infectious Disease History:: Denies. - Social history:: Smoking status: Patient denies any tobacco usage or history of. ROS: 16:02 Constitutional: as per hpi ec2 Exam: 16:02 Constitutional: GEN: NAD Head: atraumatic Eyes: EOMI Ears: External ears are ec2 normal. CV: regular rate LUNGS: no respiratory distress ABD: non-distended, soft, nontender, guarding, nonrigid. SKIN: no evidence of rashes MSK: no evidence of trauma Vital Signs: 15:58 BP 114 / 78; Pulse 83; Resp 16; Temp 98.6(O); Pulse Ox 100% ; db 17:30 BP 118 / 71; Pulse 72; Resp 16; Pulse Ox 100% ; me1 MDM: 15:52 Patient medically screened. ec2 16:02 Data reviewed: vital signs. ED course: Patient arrives today for evaluation of ec2 abdominal cramping. Examination remarkable for well-appearing nontoxic individuals otherwise in no acute distress. Will obtain lab work, ultrasound, urine studies. Differential includes normal , miscarriage, urinary tract infection. 18:41 ED course: Metabolic profile is nonactionable, hCG appropriately elevated at 20,800, ec2 urine is noninfectious appearing. Ultrasound shows live IUP at approximately 19 weeks. Will discharge home and have the patient follow-up with her fresh foods clerk. Return precautions given. . 12/29 15:53 Order name: CBC with Diff ec2 12/29 15:53 Order name: CMP; Complete Time: 18:41 ec2 12/29 15:53 Order name: HCG-Quantitative; Complete Time: 18:41 ec2 12/29 15:53 Order name: UAM; Complete Time: 18:41 ec2 12/29 15:53 Order name: Abo/rh Typing; Complete Time: 18:41 ec2 12/29 15:58 Order name: OB Limited; Complete Time: 18:41 EDMS Administered Medications: No medications were administered Disposition Summary: 12/30/23 18:42 Discharge Ordered Notes: Location: Home ec2 Condition: Stable ec2 Diagnosis - Abdominal Cramping ec2 - 19 weeks gestation of ec2 Followup: ec2 - With: Private Physician - When: - Reason: Re-evaluation by your physician Discharge Instructions: - Discharge Summary Sheet ec2 - Abdominal Pain During ec2 Forms: - Medication Reconciliation Form ec2 - Antibiotic Education ec2 - Prescription Opioid Use ec2 - Patient Portal Instructions ec2 - Leadership Thank You Letter ec2 Signatures: Dispatcher [employer] Rosario Claros, RAKESH RN Hermann Olvera MD MD ec2 Corrections: (The following items were deleted from the chart) 15:53 15:53 CBC+H.LAB.BRZ ordered. EDMS EDMS 15:53 15:53 COMPREHENSIVE METABOLIC PANEL+C.LAB.BRZ ordered. EDMS EDMS 15:53 15:53 QUANTITATIVE HCG+C.LAB.BRZ ordered. EDMS EDMS 15:53 15:53 Urinalysis W/Microscopic+U.LAB.BRZ ordered. EDMS EDMS 15:53 15:53 ABO/RH TYPING+BB.LAB.BRZ ordered. EDMS EDMS 15:53 15:53 Transvaginal Ob+US.RAD.BRZ ordered. EDMS EDMS
--- NOTE | 2023-12-30 18:43 | ER ---
Nurse's Notes [facility] Name: Jana Coleman Age: 23 yrs Sex: Female : 2000 Arrival Date: 12/30/2023 Time: 15:27 Bed 11 Private MD: Diagnosis: Abdominal Cramping;19 weeks gestation of Presentation: 12/29 15:58 Chief complaint: Patient states: 18 WKS STARTED HAVING CRAMPING SINCE db YESTERDAY WITH LOWER ABD PAIN RADIATING TO LOWER BACK. FEELS LIKE KIMBERLY SALAZAR. . Coronavirus screen: Client denies travel out of the [place] in the last 14 days. At this time, the client does not indicate any symptoms associated with coronavirus-19. Ebola Screen: Patient negative for fever greater than or equal to 101.5 degrees Fahrenheit, and additional compatible Ebola Virus Disease symptoms Patient denies exposure to infectious person. Patient denies travel to an Ebola-affected area in the 21 days before illness onset. No symptoms or risks identified at this time. Initial Sepsis Screen: Does the patient meet any 2 criteria? No. Patient's initial sepsis screen is negative. Does the patient have a suspected source of infection? No. Patient's initial sepsis screen is negative. Risk Assessment: Do you want to hurt yourself or someone else? Patient reports no desire to harm self or others. Onset of symptoms was December 30, 2023. 15:58 Method Of Arrival: Ambulatory db 15:58 Acuity: LEDA 3 db Triage Assessment: 16:00 General: Appears in no apparent distress. comfortable, Behavior is calm, cooperative. db Pain: Complains of pain in back and abdomen. Neuro: Level of Consciousness is awake, alert, obeys commands, Oriented to person, place, time, situation. Respiratory: Airway is patent Respiratory effort is even, unlabored, Respiratory pattern is regular, symmetrical. GI: Abdomen is non-distended, Reports lower abdominal pain. 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 - Infectious Disease History:: Denies. - Social history:: Smoking status: Patient denies any tobacco usage or history of. Screenin:30 [facility] ED Fall Risk Assessment (Adult) History of falling in the last 3 months, me1 including since admission No falls in past 3 months (0 pts) Confusion or Disorientation No (0 pts) Intoxicated or Sedated No (0 pts) Impaired Gait No (0 pts) Mobility Assist Device Used No (0 pt) Altered Elimination No (0 pt) Score/Fall Risk Level 0 - 2 = Low Risk Maintained a safe environment, Provided non-skid footwear, Hourly rounding (assess needs \T\ fall precautionary measures) done. Abuse screen: Denies threats or abuse. Nutritional screening: No deficits noted. Tuberculosis screening: No symptoms or risk factors identified. Assessment: 16:30 General: Appears comfortable, well groomed, well developed, well nourished, Behavior is me1 calm, cooperative, appropriate for age, Reports 18 WKS STARTED HAVING CRAMPING SINCE YESTERDAY WITH LOWER ABD PAIN RADIATING TO LOWER BACK. FEELS LIKE KIMBERLY SALAZAR. . Pain: Complains of pain in abdomen Pain radiates to back Pain currently is 4 out of 10 on a pain scale. Quality of pain is described as crampy, Pain began gradually, 1 day ago. Is intermittent. Neuro: Level of Consciousness is awake, alert, obeys commands, Oriented to person, place, time, situation, Appropriate for age. Cardiovascular: Patient's skin is warm and dry. Respiratory: Airway is patent Respiratory effort is even, unlabored, Respiratory pattern is regular, symmetrical. GI: Bowel sounds present X 4 quads. Abd is non tender X 4 quads. : No signs and/or symptoms were reported regarding the genitourinary system. Reports cramping, in bilateral lower quadrant(s). EENT: No signs and/or symptoms were reported regarding the EENT system. Derm: Skin is intact, is healthy with good turgor, Skin is pink, warm \T\ dry. Vital Signs: 15:58 BP 114 / 78; Pulse 83; Resp 16; Temp 98.6(O); Pulse Ox 100% ; db 17:30 BP 118 / 71; Pulse 72; Resp 16; Pulse Ox 100% ; me1 ED Course: 15:30 Patient arrived in ED. im 15:52 Hermann Kingston MD is Attending Physician. ec2 16:00 Triage completed. db 16:00 Arm band placed on right wrist. Patient placed in waiting room. db 16:24 OB Limited In Process Unspecified. EDMS 16:30 Patient has correct armband on for positive identification. Bed in low position. Call ok1 light in reach. Side rails up X 1. Provided Education on: POC. Verbalized understanding. . 16:30 Missed attempt(s): 22 gauge in right antecubital area. Bleeding controlled, band aid bc6 applied, catheter tip intact. 16:30 No provider procedures requiring assistance completed. me1 16:45 Jacque Beach, RN is Primary Nurse. ok1 16:47 Abo/rh Typing Sent. 6 16:47 HCG-Quantitative Sent. 6 16:47 CMP Sent. 6 16:47 CBC with Diff Sent. 6 16:47 Initial lab(s) drawn, by ok, sent to lab. Inserted saline lock: 20 gauge in right bc6 antecubital area, using aseptic technique. Blood collected. Flushed with 10 mL NS. 17:29 UAM Sent. me1 17:29 Urine collected: clean catch specimen, clear. me1 17:30 EKG done, by ED staff, reviewed by Hermann Kingston MD. me1 18:51 IV discontinued, intact, bleeding controlled, No redness/swelling at site. Pressure me1 dressing applied. Administered Medications: No medications were administered Medication: 16:30 VIS not applicable for this client. ok1 Outcome: 18:42 Discharge ordered by . ec2 18:51 Discharged to home ambulatory, me1 18:51 Condition: stable 18:51 Discharge instructions given to patient, significant other, Instructed on discharge instructions, follow up and referral plans. Demonstrated understanding of instructions, follow-up care, 18:52 Patient left the ED. ok1 Signatures: Dispatcher [employer] Rosario Claros, RN RN AmritagarretMarsha 6 Elly Colin Jacque Beach, RN RN ok1 Hermann Kingston MD MD ec2 Corrections: (The following items were deleted from the chart) 16:46 15:58 Chief complaint: Patient states: 18 WKS STARTED HAVING CRAMPING SINCE me1 YESTERDAY WITH LOWER ABD PAIN RADIATING TO LOWER BACK. FEELS LIKE KIMBERLY SALAZAR. db
[2023-12-30 19:37] VITALS: TEMP 98.6; O2SAT 100
[2023-12-30 19:40] VITALS: BP 118/71
== END 2023-12-30 18:52 | disposition home or self-care (01) ==
LOC: ER 15:27
DX: O26.892 Other specified pregnancy related conditions, second trimester (principal); Z3A.19 19 weeks gestation of pregnancy
CPT/HCPCS: 36415; 76815; 80053; 81001; 84702; 85025; 86900; 86901; 99284

== ENCOUNTER 2024-02-05 10:35 | Emergency (ER) | payer OTHER ==
--- OUTSIDE RECORDS SUMMARY | 2024-02-05 10:42 | XMS REPORT | Continuity of Care Document ---
Author Name Unknown Address [address] [facility] [address] [place] [address] [facility] thconnect Address [address] [facility] [address] [place] [address] Care Team Providers Care Appointment Clerk Name Role Phone PCP, PATIENT DOES NOT HAVE A Primary Care Physic johann Unavailable CONCEPCION ALDANA Attending Clinician Unavailable CONCEPCION ALDANA Attending Clinician Unavailable KASSIDY CHAPMAN Attending Clinician Unavail able 2, [facility] Attending Clinician Unavailable Doctor Unassigned, Irwin Attending Clinician U JEANCARLOS Leger Attending Clinician UnavailJEANCARLOS Pederson Attending Clinician UnavailJose Angel Odom MD Attending Clinician [phone] 1, [facility] Nst Room Attending Clinician Unavailable MARILU ROOT Attending Clinician MARILU Stinson Attending Clinician Aura canas Room, [facility] Nst Attending Clinician Unavailable 3, [facility] Usg Room Attending Clinician Unavailyash Mohan MD, Mike Farah Attending Clinician MIKE MOHAN Attending Clinician Unavailyash marin Nurse, [facility] Attending Clinician Un available Ultrasound, [facility] Attending Clinician UnavailUmberto Phan MD Attending Clinician [phone] UMBERTO FINK Attending Clinician Unavailable Pob, [facility] Lab Main Attending Clinician UnavailZoila Gooden MA Attending Clinician Unavail lucas Hayes RN, Shania Tavera Attending Clinician Unavailyash marin 1, [facility] Us Room Attending Clinician Unavailab rubi Larios MD, Jayesh Acosta Attending Clinician + JAYESH LARIOS Attending Clinician Unav NOHEMI Soler Attending Clinician Unavailable Nohemi Canales MD Attending Clinician [phone] Maame Alonso RN Attending Clinician Unavailable Faculty, [facility] Attending Clinician UnaEmmanuel Garza MD Attending Clinician [phone] EMMANUEL PALACIO Attending Clinician UnavailJOSHUA Forrest Attending Clinician Unavailable ANNIKA_CHRISTELLE Attending Clinician Unavailable ALBA, PETRONA S Attending Clinician Unavailable Alba PAC, Petrona S Attending Clinician [phone] Yan_W Attending Clinician Unavailable Wan Dorado Attending Clinician UnavailALEXA Calloway Attending Clinician Unavailable Alexa Fine MD Attending Clinician [phone] Provider, [facility] Attending Clinician Un available Keily Atkinson Attending Clinician [phone] KEILY OLIVIER Attending Clinician Unavailable Joshua Lewis PA-C Attending Clinician [phone] JOSEFA BEAR Attending Clinician Unavailab CONCEPCION Power Admitting Clinician Unavailable Concepcion Aldana MD Admitting Clinician [phone] NOHEMI CANALES Admitting Clinician Unavailable LILY Admitting Clinician Unavailable Matty_Cathleen Admitting Clinician Unavailable Wan Dorado Admitting Clinician Unavailabl e Payers Payer Name Policy Type Policy Number Effective Date Expirati on Date Source [facility] MEDICAID [id number] 2019 00:00:00 [place] [id number] 2024 00:00:00 [facility] (MEDICAID REPLACEMENT - HMO) [id number] [facility] [id number] 2016 00:00:00 Problems Condition Name Condition Details Condition Category Status Onset Date Resolution Date Last Treatment Date Treating Clinician Comments Source Diet controlled gestationa l diabetes mellitus (GDM) in third trimester Diet controlled gestationa l diabetes mellitus (GDM) in third trimester Disease Active 06-26 00:00: 00 [facility] 39 weeks gestation of 39 weeks gestation of Disease Active 06-26 00:00: 00 [facility] Liveborn , of [place] , born in hospital by delivery Liveborn , of [place] , born in hospital by delivery Disease Active 06-26 00:00: 00 [facility] Obesity in , antepartum , third trimester Obesity in , antepartum , third trimester Disease Active 3 00:00: 00 [facility] Diet controlled gestationa l diabetes mellitus (GDM), antepartum Diet controlled gestationa l diabetes mellitus (GDM), antepartum Disease Active 05-02 00:00: 00 [facility] Anemia of mother in , antepartum Anemia of mother in , antepartum Disease Active 127 00:00: 00 [facility] High-risk in third trimester High-risk in third trimester Disease Active 2021-04 0-07 00:00: 00 [facility] Hx of preeclamps ia, prior , currently , third trimester Hx of preeclamps ia, prior , currently , third trimester Disease Active 8-29 00:00: 00 [facility] Obesity (BMI 30-39.9) Obesity (BMI 30-39.9) Disease Active 3-15 00:00: 00 [facility] COVID-19 virus infection COVID-19 virus infection Disease Active 2019-04 1-03 00:00: 00 [facility] Allergies, Adverse Reactions, Alerts Allergy Name Allergy Type Status Severity Reaction(s) Onset Date Inactive Date Treating Clinician Comments Source cefaclor DA Active U SWELLING 3-11 00:00: 00 [facility] sulfamet hoxazole DA Active MO SWELLING 3-11 00:00: 00 [facility] trimetho prim DA Active MO SWELLING 3- 00:00: 00 [facility] cefaclor DA Active U 3 00:00: 00 [facility] sulfamet hoxazole DA Active MO 3-11 00:00: 00 [facility] trimetho prim DA Active MO 3- 00:00: 00 [facility] Cefaclor Propensi ty to adverse reaction s Active Nausea and/or Vomiting 0 9-15 00:00: 00 [facility] Sulfa (Sulfona mide Antibiot ics) Propensi ty to adverse reaction s Active Nausea and/or Vomiting 0 9-15 00:00: 00 [facility] CEFACLOR DRUG INGREDI Active N/V 0 9-15 00:00: 00 [facility] SULFA (SULFONA MIDE ANTIBIOT ICS) Drug Class Active N/V 0 9-15 00:00: 00 [facility] Social History Social Habit Start Date Stop Date Quantity Comments Source ASSERTION 2021-10-10 00:00:00 [facility] History SDOH [facility]inks [facility] SDOH Alcohol Binge [facility] Gender identity [facility] Sexual [facility] History SDOH Alcohol Comment [facility] History of tobacco use Passive smoker [facility] History of Social function 2022-12-04 00:00:00 2022-12-04 00:00:00 [facility] Exposure to SARS-CoV-2 (event) 2022-08-23 00:00:00 2022-09-02 13:04:00 Not sure [facility] Alcohol intake 2022-06-27 00:00:00 2022-06-27 00:00:00 Lifetime non-drinker (finding) [facility] Tobacco use and exposure 2021-11-06 00:00:00 2021-11-06 00:00:00 Smokeless tobacco non-user [facility] History SDOH Alcohol Frequency 2019-12-20 00:00:00 2019-12-20 00:00:00 1 [facility] Sex Assigned At 2002 00:00:00 2000 00:00:00 [facility] Smoking Status Start Date Stop Date Source Never smoked tobacco [facility] Medications Ordered Medication Name Filled Medication Name Start Date Stop Date Current Medication? Ordering Clinician Indication Dosage Frequency Signature (SIG) Comments Components Source copper (PARAGARD T 380A) IUD 1 Intra Uterine Device 08-20 22:30: 00 08-20 21:43 :00 No [id number] 1{IUD} [facility]iver [facility] copper (PARAGARD T 380A INTRAUTERIN E) 08-20 00:00: 00 Yes by Intrauteri ne route. [facility] Nitrofurant oin&Nit. Macrocryst 100 mg capsule 08-12 00:00: 00 08-20 00:00 :00 No [id number] 100mg Take 1 capsule by mouth in the morning and 1 capsule in the evening. [facility] ibuprofen (IBU) tablet 600 mg 06-28 03:00: 00 Yes 600mg 600 mg, Oral, Q6H, First dose on Thu06/27/22 at 2200, Until Discontinu ed, Routine [facility] HYDROcodone -acetaminop hen (NORCO 5) 5-325 mg tablet 2 tablet 06-28 01:00: 00 Yes 2{tbl} 2 tablet, Oral, Q6HPRN, Starting on Thu06/27/22 at 2000, Until Discontinu ed, Routine, Pain (scale 7-10), Alternate with Ibuprofen [facility] HYDROcodone -acetaminop hen (NORCO 5) 5-325 mg tablet 1 tablet 06-28 01:00: 00 Yes 1{tbl} 1 tablet, Oral, Q6HPRN, Starting on Thu06/27/22 at 1999, Until Discontinu ed, Routine, Pain (scale 4-6), Alternate with Ibuprofen [facility] gabapentin (NEURONTIN) capsule 300 mg 06-27 13:00: 00 Yes 300mg 300 mg, Oral, TID, First dose on Thu06/27/22 at 0800, Until Discontinu ed, Routine [facility] ASPIRIN ORAL 06-27 08:32: 43 06-27 00:00 :00 No Take by mouth. [facility] acetaminoph en ADULT (OFIRMEV) injection 1,000 mg 06-27 07:00: 00 06-27 21:31 :00 No 1000mg 1,000 mg, IV Infusion, at 400 mL/hr Administer over 15 Minutes, Q6H, 3 doses, First dose (after last modificati on) on Thu06/27/22 at 0200, Last dose on Thu06/27/22 at 1200, Routine
Indicatio n: Perioperat shayan Patient [facility] ketorolac (TORADOL) injection 30 mg 06-27 03:00: 00 06-27 22:59 :00 No 30mg 30 mg, Slow IV Push, Q6H, 4 doses, First dose on Thu06/26/22 at 2200, Last dose on Thu06/27/22 at 1200, Routine [facility] lactated ringers IV infusion 1,000 mL 06-27 02:00: 00 06-27 03:54 :55 No 1000mL at 125 mL/hr, 1,000 mL, IV Infusion, ONCE, 1 dose, On Thu06/26/22 at 2100, Routine [facility] diphenhydrA MINE (BENADRYL) injection 25 mg 06-27 01:12: 17 Yes 25mg 25 mg, Slow IV Push, Q6HPRN, Starting on Thu06/26/22 at 2011, Until Discontinu ed, Routine, Itching [facility] diphenhydrA MINE (BENADRYL) tablet 25 mg 06-27 01:12: 17 Yes 25mg 25 mg, Oral, Q6HPRN, Starting on Thu06/26/22 at 2011, Until Discontinu ed, Routine, Sleep, Itching [facility] ondansetron (ZOFRAN (PF)) injection 4 mg 06-27 01:12: 17 Yes 4mg 4 mg, Slow IV Push, Q8HPRN, Starting on Thu06/26/22 at 2011, Until Discontinu ed, Routine, Nausea and Vomiting (N/V) [facility] bisacodyL (DULCOLAX) suppository 10 mg 06-27 01:12: 17 Yes 10mg 10 mg, Rectal, QDAILYPRN, Starting on Thu06/26/22 at 2011, Until Discontinu ed, Routine, Constipati on [facility] simethicone (GAS RELIEF (SIMETHICON E)) chewable tablet 160 mg 06-27 01:12: 17 Yes 160mg 160 mg, Oral, PC+HSPRN, Starting on Thu06/26/22 at 2011, Until Discontinu ed, Routine, Gas [facility] docusate (COLACE) capsule 200 mg 06-27 01:12: 16 Yes 200mg 200 mg, Oral, QDAILYPRN, Starting on Thu06/26/22 at 2011, Until Discontinu ed, Routine, Constipati on [facility] magnesium hydroxide (MILK OF MAGNESIA) 400 mg/5 mL suspension 30 mL 06-27 01:12: 16 Yes 30mL 30 mL, Oral, QDAILYPRN, Starting on Thu06/26/22 at 2011, Until Discontinu ed, Routine, Constipati on [facility] lactated ringers IV infusion 1,000 mL 06-27 01:12: 16 Yes 1000mL at 125 mL/hr, 1,000 mL, IV Infusion, PRN, 1 dose, Starting on Carin 06/26/22 at 2012, Until Discontinu ed, Routine [facility] morpHINE PF (DURAMORPH- PF) injection 06-27 01:12: 00 06-27 01:17 :18 No Epidural, ONCE INTRA PROCEDURE, Starting on Carin 06/26/22 at 2012, Until Carin 06/26/22 at 2016, Routine, Intra-op [facility] ceFAZolin (ANCEF) 2,000 mg in [...] of therapy: within 24 hours of surgery [facility] acetaminoph en ADULT (OFIRMEV) injection 06-27 00:50: 00 06-27 01:17 :18 No IV Infusion, Administer over 15 Minutes, ONCE INTRA PROCEDURE, Starting on Carin 06/26/22 at 1950, Until Carin 06/26/22 at 2017, Routine, Intra-op [facility] PHENYLephri ne 1000 mcg/10 mL in 0.9% NaCl syringe 06-27 00:38: 00 06-27 01:17 :18 No Slow IV Push, ONCE INTRA PROCEDURE, Starting on Carin 06/26/22 at 1938, Until Carin 06/26/22 at 2016, Routine, Intra-op [facility] azithromyci n (ZITHROMAX) 500 mg in NaCl 0.9% (NS) 250 mL IV piggyback 06-27 00:29: 00 06-27 01:17 :18 No IV Piggyback, CONTINUOUS PRN, Starting on Carin 06/26/22 at 1929, Until Carin 06/26/22 at 2016, Administer over 60 Minutes, 250 mL, Intra-op [facility] LR 1000 mL + oxytocin 40 units 40 unit/ 1,000 mL IV Solution 06-27 00:27: 00 06-27 01:17 :18 No IV Infusion, CONTINUOUS PRN, Starting on Carin 06/26/22 at 1927, Until Carin 06/26/22 at 2016, Routine, Intra-op [facility] lactated ringers IV infusion 06-27 00:16: 00 06-27 01:17 :18 No IV Infusion, CONTINUOUS PRN, Starting on Carin 06/26/22 at 1916, Until Carin 06/26/22 at 2016, Routine, Intra-op [facility] ondansetron (ZOFRAN (PF)) injection 06-27 00:09: 00 06-27 01:17 :18 No Slow IV Push, ONCE INTRA PROCEDURE, Starting on Carin 06/26/22 at 1909, Until Carin 06/26/22 at 2016, Routine, Intra-op [facility] ibuprofen 800 mg tablet 06-27 00:00: 00 07-16 00:00 :00 No [id number] 800mg Take 1 tablet by mouth every 8 (eight) hours. [facility] HYDROcodone -acetaminop hen 5-325 mg tablet 06-27 00:00: 00 07-16 00:00 :00 No [id number] 1{tbl} Take 1 tablet by mouth every 6 (six) hours as needed for Pain (scale 4-6) (Alternate with Ibuprofen) . Indication s: acute pain [facility] vitamin w/FA tablet 06-27 00:00: 00 07-16 00:00 :00 No [id number] 1{tbl} Take 1 tablet by mouth in the morning. [facility] docusate 100 mg capsule 06-27 00:00: 00 07-16 00:00 :00 No [id number] 200mg Take 2 capsules by mouth once daily as needed for Constipati on. [facility] ity [facility] ferrous sulfate 325 mg (65 mg iron) tablet 06-27 00:00: 00 07-16 00:00 :00 No [id number] 325mg Take 1 tablet by mouth in the morning and 1 tablet in the evening. [facility] gabapentin 300 mg capsule 06-27 00:00: 07-16 00:00 :00 No [id number] 300mg Take 1 capsule by mouth in the morning and 1 capsule at noon and 1 capsule in the evening. [facility] ity [facility] lidocaine 2% + epinephrine 1:1000 + fentanyl 50 mcg/mL 06-26 23:40: 00 06-27 01:17 :18 No Epidural, CONTINUOUS PRN, Starting on Carin 06/26/22 at 1840, Until Carin 06/26/22 at 2016, Routine, Intra-op [facility] ity [facility] PIB fentaNYL-ro pivacaine 2 mcg/mL-0.1 % (PF) in NS 200 mL epidural infusion RTU 06-26 15:08: 00 06-27 01:17 :18 No Epidural, ONCE INTRA PROCEDURE, Starting on Carin 06/26/22 at 1008, Until Carin 06/26/22 at 2016, Routine, Intra-op [facility] ity [facility] lidocaine-e pinephrine (XYLOCAINE W/EPINEPHRI NE) 1.5 %-1:200,000 injection 06-26 15:07: 00 06-27 01:17 :18 No Epidural, ONCE INTRA PROCEDURE, Starting on Carin 06/26/22 at 1007, Until Carin 06/26/22 at 2016, Routine, Intra-op [facility] lidocaine 1% (XYLOCAINE) 100 mg/10 mL (1 %) injection 06-26 14:56: 00 06-27 01:17 :18 No Infiltrati on, ONCE INTRA PROCEDURE, Starting on Carin 06/26/22 at 0956, Until Carin 06/26/22 at 2016, Routine, Intra-op [facility] magnesium hydroxide (MILK OF MAGNESIA) 400 mg/5 mL suspension 30 mL 06-26 07:21: 19 06-26 07:24 :00 No 30mL 30 mL, Oral, PRN, 1 dose, Starting on Carin 06/26/22 at 0221, Until Carin 06/26/22 at 0224, Routine, Constipati on [facility] misoprostol (CYTOTEC) quarter-tab let 50 mcg 06-26 06:30: 00 06-26 06:22 :00 No 50ug 50 mcg, Oral, QID, 1 dose, First dose on Carin 06/26/22 at 0130, Routine [facility] terbutaline (BRETHINE) injection 0.25 mg 06-26 05:04: 21 06-27 01:15 :28 No .25mg 0.25 mg, Subcutaneo us, Q15MIN PRN, 3 doses, Starting on Carin 06/26/22 at 0004, Until Carin 06/26/22 at 2014, Routine, Tachysysto le with NRFHT [facility] lactated ringers IV infusion 1,000 mL 06-26 05:04: 06-27 01:15 :28 No 1000mL at 1-125 mL/hr, 1,000 mL, IV Infusion, TITRATE, Starting on Carin 06/26/22 at 0004, Until Carin 06/26/22 at 2014, Routine [facility] oxytocin (PITOCIN) 30 units in NS 500 mL IV infusion 06-26 05:04: 21 06-27 01:15 :28 No 2mU/min at 2-40 mL/hr, IV Infusion, TITRATE, Starting on Carin 06/26/22 at 0004, Until Carin 06/26/22 at 2014, Routine [facility] lactated ringers IV infusion 500 mL 06-26 05:04: 21 06-27 01:15 :28 No 500mL at 999 mL/hr, 500 mL, IV Infusion, PRN - SEE INSTRUCTIO NS, Starting on Carin 06/26/22 at 0004, Until Carin 06/26/22 at 2015, Routine [facility] sodium citrate-cit yg acid (BICITRA) 500-334 mg/5 mL solution 30 mL 06-26 05:04: 21 06-26 23:39 :00 No 30mL 30 mL, Oral, PRE-PROCED URE ONCE, 1 dose, Starting on Carin 06/26/22 at 0004, Until Discontinu ed, Routine, Surgery/Pr ocedure [facility] ASPIRIN ORAL 06-25 23:58: 17 Yes Take by mouth. [facility] Blood-Gluco se Meter (ACCU-CHEK GUIDE GLUCOSE METER) [facility] 05-16 00:00: 00 06-27 00:00 :00 No Check blood sugar 4 times daily [facility] PNV no.95/kari us fum/folic ac ( ORAL) 05-06 14:30: 18 Yes Take by mouth. [facility] Blood-Gluco se Meter (ACCU-CHEK GUIDE GLUCOSE METER) [facility] 05-06 00:00: 00 Yes Use as directed [facility] lancets [address] [facility] 05-06 00:00: 00 06-27 00:00 :00 No Pt will check glucose levels 4 x per day. [facility] blood sugar diagnostic (ACCU-CHEK GUIDE TEST STRIPS) strip 05-06 00:00: 00 06-27 00:00 :00 No Pt will check glucose levels 4 x per day. [facility] ferrous sulfate 325 mg (65 mg iron) tablet 05-02 00:00: 00 06-27 00:00 :00 No [id number] 325mg Take 1 tablet by mouth in the morning and 1 tablet in the evening. [facility] No known medications 2021-04 16:19: 09 No No known medication s [facility] NaCl 0.9% (NS) bolus infusion 500 mL 2021-04 03:30: 00 01-11 04:12 :00 No 500mL at 999 mL/hr, 500 mL, IV Infusion, ONCE, 1 dose, On Thu01/10/22 at 2230, STAT [facility] PNV no.95/kari us fum/folic ac ( ORAL) 2021-04 0-07 16:39: 23 Yes Take by mouth. [facility] No known medications 9- 17:00: 31 No No known medication s [facility] Nitrofurant oin&Nit. Macrocryst 100 mg capsule 8- 00:00: 00 12-17 00:00 :00 No TAKE 1 CAPSULE BY MOUTH EVERY 12 HOURS FOR 7 DAYS [facility] Immunizations Ordered Immunization Name Filled Immunization Name Date Status Comments Source TDAP 2022-04-18 00:00:00 Completed [facility] TDAP 2022-04-18 00:00:00 Completed [facility] TDAP 2022-04-18 00:00:00 Completed [facility] TDAP 2022-04-18 00:00:00 Completed [facility] TDAP 2022-04-18 00:00:00 Completed [facility] TDAP 2022-04-18 00:00:00 Completed [facility] TDAP 2022-04-18 00:00:00 Completed [facility] TDAP 2022-04-18 00:00:00 Completed [facility] TDAP 2022-04-18 00:00:00 Completed [facility] TDAP 2022-04-18 00:00:00 Completed [facility] TDAP 2022-04-18 00:00:00 Completed [facility] TDAP 2022-04-18 00:00:00 Completed [facility] TDAP 2022-04-18 00:00:00 Completed [facility] TDAP 2022-04-18 00:00:00 Completed [facility] TDAP 2022-04-18 00:00:00 Completed [facility] TDAP 2022-04-18 00:00:00 Completed [facility] TDAP 2022-04-18 00:00:00 Completed [facility] TDAP 2022-04-18 00:00:00 Completed [facility] TDAP 2022-04-18 00:00:00 Completed [facility] TDAP 2022-04-18 00:00:00 Completed [facility] TDAP 2022-04-18 00:00:00 Completed [facility] TDAP 2022-04-18 00:00:00 Completed [facility] TDAP 2022-04-18 00:00:00 Completed [facility] TDAP 2022-04-18 00:00:00 Completed [facility] TDAP 2022-04-18 00:00:00 Completed [facility] TDAP 2022-04-18 00:00:00 Completed [facility] TDAP 2022-04-18 00:00:00 Completed [facility] TDAP 2022-04-18 00:00:00 Completed [facility] TDAP 2022-04-18 00:00:00 Completed [facility] TDAP 2022-04-18 00:00:00 Completed [facility] TDAP 2022-04-18 00:00:00 Completed [facility] Influenza Virus Vaccine Quad IM, Preserv and ABX Free 6 MO-64 YRS 2022-02-07 00:00:00 Completed [facility] Influenza Virus Vaccine Quad IM, Preserv and ABX Free 6 MO-64 YRS 2022-02-07 00:00:00 Completed [facility] Influenza Virus Vaccine Quad IM, Preserv and ABX Free 6 MO-64 YRS 2022-02-07 00:00:00 Completed [facility] Influenza Virus Vaccine Quad IM, Preserv and ABX Free 6 MO-64 YRS 2022-02-07 00:00:00 Completed [facility] Influenza Virus Vaccine Quad IM, Preserv and ABX Free 6 MO-64 YRS 2022-02-07 00:00:00 Completed [facility] Influenza Virus Vaccine Quad IM, Preserv and ABX Free 6 MO-64 YRS 2022-02-07 00:00:00 Completed [facility] Influenza Virus Vaccine Quad IM, Preserv and ABX Free 6 MO-64 YRS 2022-02-07 00:00:00 Completed [facility] Influenza Virus Vaccine Quad IM, Preserv and ABX Free 6 MO-64 YRS 2022-02-07 00:00:00 Completed [facility] Influenza Virus Vaccine Quad IM, Preserv and ABX Free 6 MO-64 YRS 2022-02-07 00:00:00 Completed [facility] Influenza Virus Vaccine Quad IM, Preserv and ABX Free 6 MO-64 YRS 2022-02-07 00:00:00 Completed [facility] Influenza Virus Vaccine Quad IM, Preserv and ABX Free 6 MO-64 YRS 2022-02-07 00:00:00 Completed [facility] Influenza Virus Vaccine Quad IM, Preserv and ABX Free 6 MO-64 YRS 2022-02-07 00:00:00 Completed [facility] Influenza Virus Vaccine Quad IM, Preserv and ABX Free 6 MO-64 YRS 2022-02-07 00:00:00 Completed [facility] Influenza Virus Vaccine Quad IM, Preserv and ABX Free 6 MO-64 YRS 2022-02-07 00:00:00 Completed [facility] Influenza Virus Vaccine Quad IM, Preserv and ABX Free 6 MO-64 YRS 2022-02-07 00:00:00 Completed [facility] Influenza Virus Vaccine Quad IM, Preserv and ABX Free 6 MO-64 YRS 2022-02-07 00:00:00 Completed [facility] Influenza Virus Vaccine Quad IM, Preserv and ABX Free 6 MO-64 YRS 2022-02-07 00:00:00 Completed [facility] Influenza Virus Vaccine Quad IM, Preserv and ABX Free 6 MO-64 YRS 2022-02-07 00:00:00 Completed [facility] Influenza Virus Vaccine Quad IM, Preserv and ABX Free 6 MO-64 YRS 2022-02-07 00:00:00 Completed [facility] Influenza Virus Vaccine Quad IM, Preserv and ABX Free 6 MO-64 YRS 2022-02-07 00:00:00 Completed [facility] Influenza Virus Vaccine Quad IM, Preserv and ABX Free 6 MO-64 YRS 2022-02-07 00:00:00 Completed [facility] Influenza Virus Vaccine Quad IM, Preserv and ABX Free 6 MO-64 YRS 2022-02-07 00:00:00 Completed [facility] Influenza Virus Vaccine Quad IM, Preserv and ABX Free 6 MO-64 YRS 2022-02-07 00:00:00 Completed [facility] Influenza Virus Vaccine Quad IM, Preserv and ABX Free 6 MO-64 YRS 2022-02-07 00:00:00 Completed [place] [facility] Influenza Virus Vaccine Quad IM, Preserv and ABX Free 6 MO-64 YRS 2022-02-07 00:00:00 Completed [facility] Influenza Virus Vaccine Quad IM, Preserv and ABX Free 6 MO-64 YRS 2022-02-07 00:00:00 Completed [facility] Influenza Virus Vaccine Quad IM, Preserv and ABX Free 6 MO-64 YRS 2022-02-07 00:00:00 Completed [facility] Influenza Virus Vaccine Quad IM, Preserv and ABX Free 6 MO-64 YRS 2022-02-07 00:00:00 Completed [facility] Influenza Virus Vaccine Quad IM, Preserv and ABX Free 6 MO-64 YRS 2022-02-07 00:00:00 Completed [facility] Influenza Virus Vaccine Quad IM, Preserv and ABX Free 6 MO-64 YRS 2022-02-07 00:00:00 Completed [facility] Influenza Virus Vaccine Quad IM, Preserv and ABX Free 6 MO-64 YRS 2022-02-07 00:00:00 Completed [facility] Influenza Virus Vaccine Quad IM, Preserv and ABX Free 6 MO-64 YRS 2022-02-07 00:00:00 Completed [facility] Influenza Virus Vaccine Quad IM, Preserv and ABX Free 6 MO-64 YRS 2022-02-07 00:00:00 Completed [facility] Influenza Virus Vaccine Quad IM, Preserv and ABX Free 6 MO-64 YRS 2022-02-07 00:00:00 Completed [facility] Influenza Virus Vaccine Quad IM, Preserv and ABX Free 6 MO-64 YRS 2022-02-07 00:00:00 Completed [facility] Influenza Virus Vaccine Quad IM, Preserv and ABX Free 6 MO-64 YRS (FLUCELVAX) 2022-02-07 00:00:00 Completed [facility] Influenza Virus Vaccine Quad IM, Preserv and ABX Free 6 MO-64 YRS (FLUCELVAX) 2022-02-07 00:00:00 Completed [facility] Influenza Virus Vaccine Quad IM, Preserv and ABX Free 6 MO-64 YRS (FLUCELVAX) 2022-02-07 00:00:00 Completed [facility] Influenza Virus Vaccine Quad IM, Preserv and ABX Free 6 MO-64 YRS 2022-02-07 00:00:00 Completed [facility] Influenza Virus Vaccine Quad IM, Preserv and ABX Free 6 MO-64 YRS 2022-02-07 00:00:00 Completed [facility] Influenza Virus Vaccine Quad IM, Preserv and ABX Free 6 MO-64 YRS 2021-05-21 00:00:00 Completed [facility] Influenza Virus Vaccine Quad IM, Preserv and ABX Free 6 MO-64 YRS 2021-05-21 00:00:00 Completed [facility] Influenza Virus Vaccine Quad IM, Preserv and ABX Free 6 MO-64 YRS 2021-05-21 00:00:00 Completed [facility] Influenza Virus Vaccine Quad IM, Preserv and ABX Free 6 MO-64 YRS 2021-05-21 00:00:00 Completed [facility] Influenza Virus Vaccine Quad IM, Preserv and ABX Free 6 MO-64 YRS 2021-05-21 00:00:00 Completed [facility] Influenza Virus Vaccine Quad IM, Preserv and ABX Free 6 MO-64 YRS 2021-05-21 00:00:00 Completed [facility] Influenza Virus Vaccine Quad IM, Preserv and ABX Free 6 MO-64 YRS 2021-05-21 00:00:00 Completed [facility] Influenza Virus Vaccine Quad IM, Preserv and ABX Free 6 MO-64 YRS 2021-05-21 00:00:00 Completed [facility] Influenza Virus Vaccine Quad IM, Preserv and ABX Free 6 MO-64 YRS 2021-05-21 00:00:00 Completed [facility] Influenza Virus Vaccine Quad IM, Preserv and ABX Free 6 MO-64 YRS 2021-05-21 00:00:00 Completed [facility] Influenza Virus Vaccine Quad IM, Preserv and ABX Free 6 MO-64 YRS 2021-05-21 00:00:00 Completed [facility] Influenza Virus Vaccine Quad IM, Preserv and ABX Free 6 MO-64 YRS 2021-05-21 00:00:00 Completed [facility] Influenza Virus Vaccine Quad IM, Preserv and ABX Free 6 MO-64 YRS 2021-05-21 00:00:00 Completed [facility] Influenza Virus Vaccine Quad IM, Preserv and ABX Free 6 MO-64 YRS 2021-05-21 00:00:00 Completed [facility] Influenza Virus Vaccine Quad IM, Preserv and ABX Free 6 MO-64 YRS 2021-05-21 00:00:00 Completed [facility] Influenza Virus Vaccine Quad IM, Preserv and ABX Free 6 MO-64 YRS 2021-05-21 00:00:00 Completed [facility] Influenza Virus Vaccine Quad IM, Preserv and ABX Free 6 MO-64 YRS 2021-05-21 00:00:00 Completed [facility] Influenza Virus Vaccine Quad IM, Preserv and ABX Free 6 MO-64 YRS 2021-05-21 00:00:00 Completed [facility] Influenza Virus Vaccine Quad IM, Preserv and ABX Free 6 MO-64 YRS 2021-05-21 00:00:00 Completed [facility] Influenza Virus Vaccine Quad IM, Preserv and ABX Free 6 MO-64 YRS 2021-05-21 00:00:00 Completed [facility] Influenza Virus Vaccine Quad IM, Preserv and ABX Free 6 MO-64 YRS 2021-05-21 00:00:00 Completed [facility] Influenza Virus Vaccine Quad IM, Preserv and ABX Free 6 MO-64 YRS 2021-05-21 00:00:00 Completed [facility] Influenza Virus Vaccine Quad IM, Preserv and ABX Free 6 MO-64 YRS 2021-05-21 00:00:00 Completed [facility] Influenza Virus Vaccine Quad IM, Preserv and ABX Free 6 MO-64 YRS 2021-05-21 00:00:00 Completed [facility] Influenza Virus Vaccine Quad IM, Preserv and ABX Free 6 MO-64 YRS 2021-05-21 00:00:00 Completed [facility] Influenza Virus Vaccine Quad IM, Preserv and ABX Free 6 MO-64 YRS 2021-05-21 00:00:00 Completed [facility] Influenza Virus Vaccine Quad IM, Preserv and ABX Free 6 MO-64 YRS 2021-05-21 00:00:00 Completed [facility] Influenza Virus Vaccine Quad IM, Preserv and ABX Free 6 MO-64 YRS 2021-05-21 00:00:00 Completed [facility] Influenza Virus Vaccine Quad IM, Preserv and ABX Free 6 MO-64 YRS 2021-05-21 00:00:00 Completed [facility] Influenza Virus Vaccine Quad IM, Preserv and ABX Free 6 MO-64 YRS 2021-05-21 00:00:00 Completed [facility] Influenza Virus Vaccine Quad IM, Preserv and ABX Free 6 MO-64 YRS 2021-05-21 00:00:00 Completed [facility] Influenza Virus Vaccine Quad IM, Preserv and ABX Free 6 MO-64 YRS 2021-05-21 00:00:00 Completed [facility] Influenza Virus Vaccine Quad IM, Preserv and ABX Free 6 MO-64 YRS 2021-05-21 00:00:00 Completed [facility] Influenza Virus Vaccine Quad IM, Preserv and ABX Free 6 MO-64 YRS 2021-05-21 00:00:00 Completed [facility] Influenza Virus Vaccine Quad IM, Preserv and ABX Free 6 MO-64 YRS 2021-05-21 00:00:00 Completed [facility] Influenza Virus Vaccine Quad IM, Preserv and ABX Free 6 MO-64 YRS 2021-05-21 00:00:00 Completed [facility] Influenza Virus Vaccine Quad IM, Preserv and ABX Free 6 MO-64 YRS (FLUCELVAX) 2021-05-21 00:00:00 Completed [facility] Influenza Virus Vaccine Quad IM, Preserv and ABX Free 6 MO-64 YRS (FLUCELVAX) 2021-05-21 00:00:00 Completed [facility] Influenza Virus Vaccine Quad IM, Preserv and ABX Free 6 MO-64 YRS (FLUCELVAX) 2021-05-21 00:00:00 Completed [facility] Influenza Virus Vaccine Quad IM, Preserv and ABX Free 6 MO-64 YRS 2021-05-21 00:00:00 Completed [facility] Influenza Virus Vaccine Quad IM, Preserv and ABX Free 6 MO-64 YRS 2021-05-21 00:00:00 Completed [facility] Influenza Virus Vaccine Quad IM, Preserv and ABX Free 6 MO-64 YRS 2021-05-21 00:00:00 Completed [facility] Influenza Virus Vaccine Quad IM, Preserv and ABX Free 6 MO-64 YRS 2021-05-21 00:00:00 Completed [facility] Influenza Virus Vaccine Quad IM, Preserv and ABX Free 6 MO-64 YRS 2021-05-21 00:00:00 Completed [facility] Influenza Virus Vaccine Quad IM, Preserv and ABX Free 6 MO-64 YRS 2021-05-21 00:00:00 Completed [facility] Influenza Virus Vaccine Quad IM, Preserv and ABX Free 6 MO-64 YRS 2021-05-21 00:00:00 Completed [facility] Influenza Virus Vaccine Quad IM, Preserv and ABX Free 6 MO-64 YRS 2021-05-21 00:00:00 Completed [facility] Influenza Virus Vaccine Quad IM, Preserv and ABX Free 6 MO-64 YRS 2021-05-21 00:00:00 Completed [facility] Influenza Virus Vaccine Quad IM, Preserv and ABX Free 6 MO-64 YRS 2021-05-21 00:00:00 Completed [facility] Influenza Virus Vaccine Quad IM, Preserv and ABX Free 6 MO-64 YRS 2021-05-21 00:00:00 Completed [facility] Influenza Virus Vaccine Quad IM, Preserv and ABX Free 6 MO-64 YRS 2021-05-21 00:00:00 Completed [facility] Influenza Virus Vaccine Quad IM, Preserv and ABX Free 6 MO-64 YRS 2021-05-21 00:00:00 Completed [facility] Influenza Virus Vaccine Quad .5 mL IM 6+ MO 2020-01-10 00:00:00 Completed [facility] Influenza Virus Vaccine Quad .5 mL IM 6+ MO 2020-01-10 00:00:00 Completed [facility] Influenza Virus Vaccine Quad .5 mL IM 6+ MO 2020-01-10 00:00:00 Completed [facility] Influenza Virus Vaccine Quad .5 mL IM 6+ MO 2020-01-10 00:00:00 Completed [facility] Influenza Virus Vaccine Quad .5 mL IM 6+ MO 2020-01-10 00:00:00 Completed [facility] Influenza Virus Vaccine Quad .5 mL IM 6+ MO 2020-01-10 00:00:00 Completed [facility] Influenza Virus Vaccine Quad .5 mL IM 6+ MO 2020-01-10 00:00:00 Completed [facility] Influenza Virus Vaccine Quad .5 mL IM 6+ MO 2020-01-10 00:00:00 Completed [facility] Influenza Virus Vaccine Quad .5 mL IM 6+ MO 2020-01-10 00:00:00 Completed [facility] Influenza Virus Vaccine Quad .5 mL IM 6+ MO 2020-01-10 00:00:00 Completed [facility] Influenza Virus Vaccine Quad .5 mL IM 6+ MO 2020-01-10 00:00:00 Completed [facility] Influenza Virus Vaccine Quad .5 mL IM + MO 2020-01-10 00:00:00 Completed [facility] Influenza Virus Vaccine Quad .5 mL IM 6+ MO 2020-01-10 00:00:00 Completed [facility] Influenza Virus Vaccine Quad .5 mL IM + MO 2020-01-10 00:00:00 Completed [facility] Influenza Virus Vaccine Quad .5 mL IM 6+ MO 2020-01-10 00:00:00 Completed [facility] Influenza Virus Vaccine Quad .5 mL IM + MO 2020-01-10 00:00:00 Completed [facility] Influenza Virus Vaccine Quad .5 mL IM + MO 2020-01-10 00:00:00 Completed [facility] Influenza Virus Vaccine Quad .5 mL IM 6+ MO 2020-01-10 00:00:00 Completed [facility] Influenza Virus Vaccine Quad .5 mL IM 6+ MO 2020-01-10 00:00:00 Completed [facility] Influenza Virus Vaccine Quad .5 mL IM 6+ MO 2020-01-10 00:00:00 Completed [facility] Influenza Virus Vaccine Quad .5 mL IM 6+ MO 2020-01-10 00:00:00 Completed [facility] Influenza Virus Vaccine Quad .5 mL IM 6+ MO 2020-01-10 00:00:00 Completed [facility] Influenza Virus Vaccine Quad .5 mL IM 6+ MO 2020-01-10 00:00:00 Completed [facility] Influenza Virus Vaccine Quad .5 mL IM 6+ MO 2020-01-10 00:00:00 Completed [facility] Influenza Virus Vaccine Quad .5 mL IM 6+ MO 2020-01-10 00:00:00 Completed [facility] Influenza Virus Vaccine Quad .5 mL IM 6+ MO 2020-01-10 00:00:00 Completed [facility] Influenza Virus Vaccine Quad .5 mL IM 6+ MO 2020-01-10 00:00:00 Completed [facility] Influenza Virus Vaccine Quad .5 mL IM 6+ MO 2020-01-10 00:00:00 Completed [facility] Influenza Virus Vaccine Quad .5 mL IM 6+ MO 2020-01-10 00:00:00 Completed [facility] Influenza Virus Vaccine Quad .5 mL IM 6+ MO 2020-01-10 00:00:00 Completed [facility] Influenza Virus Vaccine Quad .5 mL IM 6+ MO 2020-01-10 00:00:00 Completed [facility] Influenza Virus Vaccine Quad .5 mL IM 6+ MO 2020-01-10 00:00:00 Completed [facility] Influenza Virus Vaccine Quad .5 mL IM 6+ MO 2020-01-10 00:00:00 Completed [facility] Influenza Virus Vaccine Quad .5 mL IM 6+ MO 2020-01-10 00:00:00 Completed [facility] Influenza Virus Vaccine Quad .5 mL IM 6+ MO 2020-01-10 00:00:00 Completed [facility] Influenza Virus Vaccine Quad .5 mL IM 6+ MO 2020-01-10 00:00:00 Completed [facility] Influenza Virus Vaccine Quad .5 mL IM 6+ MO (FLUZONE/FLULAVAL/F LUARIX) 2020-01-10 00:00:00 Completed [facility] Influenza Virus Vaccine Quad .5 mL IM 6+ MO (FLUZONE/FLULAVAL/F LUARIX) 2020-01-10 00:00:00 Completed [facility] Influenza Virus Vaccine Quad .5 mL IM 6+ MO (FLUZONE/FLULAVAL/F LUARIX) 2020-01-10 00:00:00 Completed [facility] Influenza Virus Vaccine Quad .5 mL IM 6+ MO 2020-01-10 00:00:00 Completed [facility] Influenza Virus Vaccine Quad .5 mL IM 6+ MO 2020-01-10 00:00:00 Completed [facility] Influenza Virus Vaccine Quad .5 mL IM 6+ MO 2020-01-10 00:00:00 Completed [facility] Influenza Virus Vaccine Quad .5 mL IM 6+ MO 2020-01-10 00:00:00 Completed [facility] Influenza Virus Vaccine Quad .5 mL IM 6+ MO 2020-01-10 00:00:00 Completed [facility] Influenza Virus Vaccine Quad .5 mL IM 6+ MO 2020-01-10 00:00:00 Completed [facility] Influenza Virus Vaccine Quad .5 mL IM 6+ MO 2020-01-10 00:00:00 Completed [facility] Influenza Virus Vaccine Quad .5 mL IM 6+ MO 2020-01-10 00:00:00 Completed [facility] Influenza Virus Vaccine Quad .5 mL IM 6+ MO 2020-01-10 00:00:00 Completed [facility] Influenza Virus Vaccine Quad .5 mL IM 6+ MO 2020-01-10 00:00:00 Completed [facility] Influenza Virus Vaccine Quad .5 mL IM 6+ MO 2020-01-10 00:00:00 Completed [facility] Influenza Virus Vaccine Quad .5 mL IM 6+ MO 2020-01-10 00:00:00 Completed [facility] Influenza Virus Vaccine Quad .5 mL IM 6+ MO 2020-01-10 00:00:00 Completed [facility] Influenza Virus Vaccine Quad .5 mL IM 6+ MO (FLUZONE/FLULAVAL/F LUARIX) Unknown Completed [facility] Influenza Virus Vaccine Quad IM, Preserv and ABX Free 6 MO-64 YRS (FLUCELVAX) Unknown Completed [facility] TDAP Unknown Completed [facility] Vital Signs Vital Name Observation Time Observation Value Comments S ource Systolic blood pressure 2022-12-04 18:39:00 136 mm[Hg] [place] [facility] Diastolic blood pressure 2022-12-04 18:39:00 89 mm[Hg] [facility] Heart rate 2022-12-04 18:38:00 96 /min [facility] Respiratory rate 2022-12-04 18:38:00 18 /min [facility] Body height 2022-12-04 18:38:00 162.6 cm [facility] Body weight 2022-12-04 18:38:00 81.557 kg [facility] BMI 2022-12-04 18:38:00 30.86 kg/m2 [facility] Oxygen saturation in Arterial blood by Pulse oximetry 2022-12-04 18:38:00 98 /min [facility] Systolic blood pressure 2022-09-02 18:26:00 121 mm[Hg] [facility] Diastolic blood pressure 2022-09-02 18:26:00 84 mm[Hg] [facility] Heart rate 2022-09-02 18:26:00 85 /min [facility] Body temperature 2022-09-02 18:26:00 36.72 Ally [facility] Respiratory rate 2022-09-02 18:26:00 16 /min [facility] Body height 2022-09-02 18:26:00 162.6 cm [facility] Body weight 2022-09-02 18:26:00 84.052 kg [facility] BMI 2022-09-02 18:26:00 31.81 kg/m2 [facility] Oxygen saturation in Arterial blood by Pulse oximetry 2022-09-02 18:26:00 99 /min [facility] Systolic blood pressure 2022-08-20 20:35:00 120 mm[Hg] [facility] Diastolic blood pressure 2022-08-20 20:35:00 81 mm[Hg] [facility] Heart rate 2022-08-20 20:33:00 108 /min [facility] Respiratory rate 2022-08-20 20:33:00 18 /min [facility] Body height 2022-08-20 20:33:00 162.6 cm [facility] Body weight 2022-08-20 20:33:00 84.369 kg [facility] BMI 2022-08-20 20:33:00 31.93 kg/m2 [facility] Systolic blood pressure 2022-08-12 21:02:00 135 mm[Hg] [facility] Diastolic blood pressure 2022-08-12 21:02:00 95 mm[Hg] [facility] Heart rate 2022-08-12 20:52:00 93 /min [facility] Body temperature 2022-08-12 20:52:00 36.94 Ally [facility] Respiratory rate 2022-08-12 20:52:00 18 /min [facility] Body height 2022-08-12 20:52:00 162.6 cm [facility] Body weight 2022-08-12 20:52:00 84.823 kg [facility] BMI 2022-08-12 20:52:00 32.10 kg/m2 [facility] Systolic blood pressure 2022-07-16 21:45:00 123 mm[Hg] [facility] Diastolic blood pressure 2022-07-16 21:45:00 83 mm[Hg] [facility] Heart rate 2022-07-16 21:32:00 82 /min [facility] Body temperature 2022-07-16 21:32:00 36.83 Ally [facility] Respiratory rate 2022-07-16 21:32:00 18 /min [facility] Body height 2022-07-16 21:32:00 162.6 cm [facility] Body weight 2022-07-16 21:32:00 86.183 kg [facility] BMI 2022-07-16 21:32:00 32.61 kg/m2 [facility] Systolic blood pressure 2022-06-28 13:20:00 132 mm[Hg] [facility] Diastolic blood pressure 2022-06-28 13:20:00 73 mm[Hg] [facility] Heart rate 2022-06-28 13:20:00 82 /min [facility] Body temperature 2022-06-28 13:20:00 36.39 Ally [facility] Respiratory rate 2022-06-28 13:20:00 18 /min [facility] Oxygen saturation in Arterial blood by Pulse oximetry 2022-06-28 04:37:00 100 /min [facility] Body height 2022-06-26 06:39:00 162.6 cm [facility] Body weight 2022-06-26 06:39:00 98.612 kg [facility] BMI 2022-06-26 06:39:00 37.32 kg/m2 [facility] Respiratory rate 2022-06-27 01:11:00 23 /min [facility] Heart rate 2022-06-27 03:30:00 88 /min [facility] Oxygen saturation in Arterial blood by Pulse oximetry 2022-06-27 03:30:00 99 /min [facility] Systolic blood pressure 2022-06-27 03:15:00 132 mm[Hg] [facility] Diastolic blood pressure 2022-06-27 03:15:00 76 mm[Hg] [facility] Body temperature 2022-06-26 22:00:00 37 Ally [facility] Respiratory rate 2022-06-26 22:00:00 18 /min [facility] Body height 2022-06-26 06:39:00 162.6 cm [facility] Body weight 2022-06-26 06:39:00 98.612 kg [facility] BMI 2022-06-26 06:39:00 37.32 kg/m2 [facility] Systolic blood pressure 2022-06-24 14:00:00 130 mm[Hg] [facility] Diastolic blood pressure 2022-06-24 14:00:00 85 mm[Hg] [facility] Heart rate 2022-06-24 14:00:00 98 /min [facility] Respiratory rate 2022-06-24 14:00:00 18 /min [facility] Body height 2022-06-24 14:00:00 160 cm [facility] Body weight 2022-06-24 14:00:00 98.431 kg [facility] BMI 2022-06-24 14:00:00 38.44 kg/m2 [facility] Body temperature 2022-06-20 15:45:00 36.5 Ally [facility] Respiratory rate 2022-06-20 15:45:00 18 /min [facility] Body height 2022-06-20 15:45:00 162.6 cm [facility] Body weight 2022-06-20 15:45:00 97.07 kg [facility] BMI 2022-06-20 15:45:00 36.73 kg/m2 [facility] Systolic blood pressure 2022-06-20 15:45:00 134 mm[Hg] [facility] Diastolic blood pressure 2022-06-20 15:45:00 80 mm[Hg] [facility] Heart rate 2022-06-20 15:45:00 89 /min [facility] Systolic blood pressure 2022-06-17 14:04:00 114 mm[Hg] [facility] Diastolic blood pressure 2022-06-17 14:04:00 74 mm[Hg] [facility] Heart rate 2022-06-17 14:04:00 81 /min [facility] Body temperature 2022-06-17 14:04:00 36.72 Ally [facility] Respiratory rate 2022-06-17 14:04:00 16 /min [facility] Body height 2022-06-17 14:04:00 162.6 cm [facility] Body weight 2022-06-17 14:04:00 97.433 kg [facility] BMI 2022-06-17 14:04:00 36.87 kg/m2 [facility] Systolic blood pressure 2022-06-13 15:20:00 131 mm[Hg] [facility] Diastolic blood pressure 2022-06-13 15:20:00 88 mm[Hg] [facility] Heart rate 2022-06-13 15:20:00 84 /min [facility] Body temperature 2022-06-13 15:20:00 36.44 Ally [facility] Respiratory rate 2022-06-13 15:20:00 18 /min [facility] Body height 2022-06-13 15:20:00 162.6 cm [facility] Body weight 2022-06-13 15:20:00 95.709 kg [facility] BMI 2022-06-13 15:20:00 36.22 kg/m2 [facility] Systolic blood pressure 2022-06-10 15:16:00 113 mm[Hg] [facility] Diastolic blood pressure 2022-06-10 15:16:00 75 mm[Hg] [facility] Heart rate 2022-06-10 15:16:00 85 /min [facility] Body temperature 2022-06-10 15:16:00 36.72 Ally [facility] Respiratory rate 2022-06-10 15:16:00 16 /min [facility] Body height 2022-06-10 15:16:00 162.6 cm [facility] Body weight 2022-06-10 15:16:00 96.163 kg [facility] BMI 2022-06-10 15:16:00 36.39 kg/m2 [facility] Systolic blood pressure 2022-06-06 22:38:00 115 mm[Hg] [facility] Diastolic blood pressure 2022-06-06 22:38:00 75 mm[Hg] [facility] Heart rate 2022-06-06 22:37:00 102 /min [facility] Body temperature 2022-06-06 22:37:00 36.61 Ally [facility] Body height 2022-06-06 22:37:00 162.6 cm [facility] Body weight 2022-06-06 22:37:00 96.435 kg [facility] BMI 2022-06-06 22:37:00 36.49 kg/m2 [facility] Systolic blood pressure 2022-05-27 19:17:00 118 mm[Hg] [facility] Diastolic blood pressure 2022-05-27 19:17:00 79 mm[Hg] [facility] Heart rate 2022-05-27 19:17:00 88 /min [facility] Body temperature 2022-05-27 19:17:00 36.56 Ally [facility] Respiratory rate 2022-05-27 19:17:00 16 /min [facility] Body height 2022-05-27 19:17:00 162.6 cm [facility] Body weight 2022-05-27 19:17:00 94.802 kg [facility] BMI 2022-05-27 19:17:00 35.87 kg/m2 [facility] Systolic blood pressure 2022-05-23 20:38:00 123 mm[Hg] [facility] [facility] Diastolic blood pressure 2022-05-23 20:38:00 76 mm[Hg] [facility] Heart rate 2022-05-23 20:38:00 93 /min Unive [facility] Body temperature 2022-05-23 20:38:00 36.67 Ally [facility] Respiratory rate 2022-05-23 20:38:00 18 /min [facility] Body height 2022-05-23 20:38:00 162.6 cm [facility] Body weight 2022-05-23 20:38:00 94.802 kg [facility] BMI 2022-05-23 20:38:00 35.87 kg/m2 [facility] Systolic blood pressure 2022-05-20 19:25:00 127 mm[Hg] [facility] Diastolic blood pressure 2022-05-20 19:25:00 79 mm[Hg] [facility] Heart rate 2022-05-20 19:25:00 78 /min Unive [facility] Body temperature 2022-05-20 19:25:00 36.61 Ally [facility] Respiratory rate 2022-05-20 19:25:00 16 /min [facility] Body height 2022-05-20 19:25:00 162.6 cm [facility] Body weight 2022-05-20 19:25:00 95.255 kg [facility] BMI 2022-05-20 19:25:00 36.05 kg/m2 [facility] Systolic blood pressure 2022-05-16 20:39:00 117 mm[Hg] [facility] Diastolic blood pressure 2022-05-16 20:39:00 76 mm[Hg] [facility] Heart rate 2022-05-16 20:39:00 81 /min Unive [facility] Body temperature 2022-05-16 20:39:00 36.67 Ally [facility] Respiratory rate 2022-05-16 20:39:00 18 /min [facility] Body height 2022-05-16 20:39:00 162.6 cm [facility] Body weight 2022-05-16 20:39:00 94.53 kg [facility] BMI 2022-05-16 20:39:00 35.77 kg/m2 [facility] Systolic blood pressure 2022-05-06 19:43:00 124 mm[Hg] [facility] Diastolic blood pressure 2022-05-06 19:43:00 84 mm[Hg] [facility] Heart rate 2022-05-06 19:43:00 105 /min Unive [facility] Body temperature 2022-05-06 19:43:00 36.78 Ally [facility] Respiratory rate 2022-05-06 19:43:00 18 /min [facility] Body height 2022-05-06 19:43:00 162.6 cm [facility] Body weight 2022-05-06 19:43:00 94.802 kg [facility] BMI 2022-05-06 19:43:00 35.87 kg/m2 [facility] Systolic blood pressure 2022-05-02 22:27:00 122 mm[Hg] [facility] Diastolic blood pressure 2022-05-02 22:27:00 81 mm[Hg] [facility] Heart rate 2022-05-02 22:27:00 94 /min Unive [facility] Body height 2022-05-02 22:27:00 162.6 cm [facility] Body weight 2022-05-02 22:27:00 93.441 kg Univ [facility] BMI 2022-05-02 22:27:00 35.36 kg/m2 [facility] Systolic blood pressure 2022-04-18 22:02:00 113 mm[Hg] [facility] Diastolic blood pressure 2022-04-18 22:02:00 77 mm[Hg] [facility] Heart rate 2022-04-18 22:02:00 67 /min [facility] Body temperature 2022-04-18 22:02:00 36.67 Ally [facility] Respiratory rate 2022-04-18 22:02:00 18 /min [facility] Body height 2022-04-18 22:02:00 162.6 cm [facility] Body weight 2022-04-18 22:02:00 93.985 kg [facility] BMI 2022-04-18 22:02:00 35.57 kg/m2 [facility] Systolic blood pressure 2022-04-04 21:50:00 126 mm[Hg] [facility] Diastolic blood pressure 2022-04-04 21:50:00 84 mm[Hg] [facility] Heart rate 2022-04-04 21:50:00 88 /min [facility] Body temperature 2022-04-04 21:50:00 36.78 Ally [facility] Respiratory rate 2022-04-04 21:50:00 18 /min [facility] Body height 2022-04-04 21:50:00 162.6 cm [facility] Body weight 2022-04-04 21:50:00 91.354 kg [facility] BMI 2022-04-04 21:50:00 34.57 kg/m2 [facility] Systolic blood pressure 2022-03-07 21:52:00 125 mm[Hg] [facility] Diastolic blood pressure 2022-03-07 21:52:00 82 mm[Hg] [facility] Heart rate 2022-03-07 21:52:00 99 /min Unive [facility] Body temperature 2022-03-07 21:52:00 36.72 Ally [facility] Respiratory rate 2022-03-07 21:52:00 18 /min [facility] Body height 2022-03-07 21:52:00 162.6 cm [facility] Body weight 2022-03-07 21:52:00 87.544 kg [facility] BMI 2022-03-07 21:52:00 33.13 kg/m2 [facility] Systolic blood pressure 2022-02-07 21:16:00 120 mm[Hg] [facility] Diastolic blood pressure 2022-02-07 21:16:00 80 mm[Hg] [facility] Heart rate 2022-02-07 21:16:00 86 /min Unive [facility] Body temperature 2022-02-07 21:16:00 36.72 Ally [facility] Respiratory rate 2022-02-07 21:16:00 18 /min [facility] Body height 2022-02-07 21:16:00 162.6 cm [facility] Body weight 2022-02-07 21:16:00 84.369 kg [facility] BMI 2022-02-07 21:16:00 31.93 kg/m2 [facility] Systolic blood pressure 2022-01-11 04:12:59 122 mm[Hg] [facility] Diastolic blood pressure 2022-01-11 04:12:59 81 mm[Hg] [facility] Heart rate 2022-01-11 04:12:59 90 /min Unive [facility] Body temperature 2022-01-11 04:12:59 36.72 [facility] Respiratory rate 2022-01-11 04:12:59 16 /min [facility] Oxygen saturation in Arterial blood by Pulse oximetry 2022-01-11 04:12:59 99 /min [facility] Body height 2022-01-11 01:36:00 162.6 cm [facility] Body weight 2022-01-11 01:36:00 80.287 kg [facility] BMI 2022-01-11 01:36:00 30.38 kg/m2 [facility] Systolic blood pressure 2022-01-10 21:32:00 136 mm[Hg] [facility] Diastolic blood pressure 2022-01-10 21:32:00 86 mm[Hg] [facility] Heart rate 2022-01-10 21:32:00 94 /min Unive [facility] Body temperature 2022-01-10 21:32:00 37.33 Ally [facility] Body height 2022-01-10 21:32:00 160 cm [facility] Body weight 2022-01-10 21:32:00 80.65 kg [facility] BMI 2022-01-10 21:32:00 31.50 kg/m2 [facility] Systolic blood pressure 2021-12-17 21:24:00 136 mm[Hg] [facility] Diastolic blood pressure 2021-12-17 21:24:00 88 mm[Hg] [facility] Heart rate 2021-12-17 21:24:00 106 /min [facility] Body temperature 2021-12-17 21:24:00 36.83 Ally [facility] Body height 2021-12-17 21:24:00 160 cm [facility] Body weight 2021-12-17 21:24:00 80.377 kg [facility] BMI 2021-12-17 21:24:00 31.39 kg/m2 [facility] Procedures Procedure Date / Time Performed Performing Clinician Source DISCLOSURE AND CONSENT MEDICAL & SURGICAL PROCEDURES - COUNTS INCLUDE 234 [facility] AT [facility] 2022-12-04 05:01:00 Doctor Unassigned, Irwin [facility] POCT TEST 2022-12-04 00:00:00 Concepcion Aldana [facility] DISCLOSURE AND CONSENT MEDICAL & SURGICAL PROCEDURES - COUNTS INCLUDE 234 BEDS AT THE [facility] 2022-08-20 05:01:00 Doctor Unassigned, Irwin [facility] POCT TEST 2022-08-20 00:00:00 Adum, Concepcion Justin [facility] URINE CULTURE 2022-08-12 21:34:00 Adum, Concepcionjohann Chaves [facility] CBC WITH DIFF 2022-06-27 09:14:00 Adum, Concepcionjohann Chaves [facility] CBC WITH DIFF 2022-06-27 09:14:00 Adum, Concepcionjohann Chaves [facility] POCT GLUCOSE (AUTOMATED) 2022-06-26 22:14:00 Adum, Mariaelena whiteimani Anderson [facility] POCT GLUCOSE (AUTOMATED) 2022-06-26 22:14:00 Adum, Mariaelena johann Anderson [facility] POCT GLUCOSE (AUTOMATED) 2022-06-26 18:06:00 Adum, Mariaelena johann Anderson [facility] POCT GLUCOSE (AUTOMATED) 2022-06-26 18:06:00 Adum, Mariaelena johann Anderson [facility] SGOT (ASPARTATE AMINO TRANSFER) 2022-06-26 16:11:00 Adum, Concepcion L [facility] CREATININE 2022-06-26 16:11:00 Adum, Concepcion L [facility] ALANINE AMINO TRANSFERASE(SGPT 2022-06-26 16:11:00 Adum, Concepcion Justin [facility] URIC ACID 2022-06-26 16:11:00 Adum, Concepcion L [facility] CBC WITH DIFF 2022-06-26 16:11:00 Adum, Concepcionjohann Chaves [facility] SGOT (ASPARTATE AMINO TRANSFER) 2022-06-26 16:11:00 Adum, Concepcion Justin [facility] CREATININE 2022-06-26 16:11:00 Adum, Concepcion L [facility] ALANINE AMINO TRANSFERASE(SGPT 2022-06-26 16:11:00 Adum, Concepcion Justin [facility] URIC ACID 2022-06-26 16:11:00 Adum, Concepcion L [facility] CBC WITH DIFF 2022-06-26 16:11:00 Adum, Concepcion Chaves [facility] CENTRAL NEURAXIAL BLOCK 2022-06-26 15:34:00 Tianna Estes [facility] POCT GLUCOSE (AUTOMATED) 2022-06-26 14:01:00 Adum, Mariaelena Anderson [facility] POCT GLUCOSE (AUTOMATED) 2022-06-26 14:01:00 Adum, Mariaelena Anderson [facility] POCT GLUCOSE (AUTOMATED) 2022-06-26 10:09:00 Adum, Mariaelena johann Anderson [facility] POCT GLUCOSE (AUTOMATED) 2022-06-26 10:09:00 Adum, Mariaelena johann Anderson [facility] CBC WITH DIFF 2022-06-26 06:01:00 Adum, Concepcion Chaves [facility] HEPATITIS B SURFACE ANTIGEN 2022-06-26 06:01:00 Adum, Concepcion Anderson [facility] HB ABO GROUPING 2022-06-26 06:01:00 Adum, Concepcion Anderson [facility] OR FARSHAD ONLY - RPR 2022-06-26 06:01:00 Adum, Sandrita Anderson [facility] CBC WITH DIFF 2022-06-26 06:01:00 Adum, Concepcionjohann Chaves [facility] HEPATITIS B SURFACE ANTIGEN 2022-06-26 06:01:00 Adum, Concepcion Justin [facility] HB ABO GROUPING 2022-06-26 06:01:00 Adum, Concepcion Jimenez [facility] OR FARSHAD ONLY - RPR 2022-06-26 06:01:00 Adum, Sandrita Anderson [facility] POCT GLUCOSE (AUTOMATED) 2022-06-26 05:53:00 Adum, Mariaelena Anderson [facility] POCT GLUCOSE (AUTOMATED) 2022-06-26 05:53:00 Adum, Mariaelena Anderson [facility] NOTICE OF PRIVACY PRACTICES 2022-06-25 20:34:43 Doctor Unassigned, Irwin [facility] NOTICE OF PRIVACY PRACTICES 2022-06-25 20:34:43 Doctor Unassigned, Irwin [facility] CONSENT/REFUSAL FOR DIAGNOSIS AND TREATMENT 2022-06-25 20:34:01 Doctor Unassigned, Irwin [facility] CONSENT/REFUSAL FOR DIAGNOSIS AND TREATMENT 2022-06-25 20:34:01 Doctor Unassigned, Irwin [facility] ASSIGNMENT OF BENEFITS 2022-06-25 20:33:40 Docto r Unassigned, Irwin [facility] ASSIGNMENT OF BENEFITS 2022-06-25 20:33:40 Docto r Unassigned, Irwin [facility] NON-STRESS TEST 2022-06-24 15:04:27 Adum, Concepcion Anderson [facility] POCT URINALYSIS W/O SPECIFIC GRAVITY 2022-06-24 00:00:00 Adum, Concepcion Anderson [facility] NON-STRESS TEST 2022-06-20 17:20:28 Hari Hoffman [facility] <14 WEEKS US LIMITED 2022-06-20 17:19:35 Roland [facility] <14 WEEKS US LIMITED 2022-06-20 17:19:03 Roland [facility] POCT URINALYSIS W/O SPECIFIC GRAVITY 2022-06-20 00:00:00 Roland [facility] NON-STRESS TEST 2022-06-17 14:42:03 [facility] 2022-06-14 05:25:08 Adum, Concepcion Anderson [facility] POCT URINALYSIS W/O SPECIFIC GRAVITY 2022-06-13 00:00:00 Adum, Concepcion Anderson [facility] SECOND AND THIRD TRIMESTER ULTRASOUND 2022-06-11 19:52:00 Adum, Concepcion Anderson [facility] NON-STRESS TEST 2022-06-10 16:00:31 Lio [facility] NON-STRESS TEST 2022-06-09 01:58:29 Lio [facility] NON-STRESS TEST 2022-06-06 23:29:33 Adum, Concepcion Anderson [facility] DSU PRE-OP 2022-06-06 06:01:00 Doctor Unass igned, Irwin [facility] POCT URINALYSIS W/O SPECIFIC GRAVITY 2022-06-06 00:00:00 Adum, Concepcion Anderson [facility] NON-STRESS TEST 2022-05-23 22:16:26 Adum, Concepcion Anderson [facility] POCT URINALYSIS W/O SPECIFIC GRAVITY 2022-05-23 00:00:00 Adum, Concepcion Anderson [facility] NON-STRESS TEST 2022-05-21 00:26:00 Adum, Concepcion Anderson [facility] ASSIGNMENT OF BENEFITS 2022-05-20 19:01:27 Docto r Unassigned, Irwin [facility] POCT URINALYSIS W/O SPECIFIC GRAVITY 2022-05-16 20:54:00 Adum, Concepcion Anderson [facility] POCT URINALYSIS 2022-05-02 22:29:00 Adum, Concepcion Anderson [facility] 2 HR GLUCOSE TOLERANCE TEST 2022-05-01 18:33:00 Adum, Concepcion Anderson [facility] 1 HR GLUCOSE TOLERANCE TEST 2022-05-01 17:41:00 Adum, Concepcion Anderson [facility] GLUCOSE FASTING 2022-05-01 16:36:00 Adum, Concepcion Anderson [facility] CBC WITH DIFF 2022-05-01 16:36:00 Adum, Concepcion Anderson [facility] HIV 1/2 AG-AB WITH REFLEX 2022-05-01 16:36:00 Adum, Sandrita Anderson [facility] TDAP VACCINE, >11 YRS, IM 2022-04-18 22:13:55 Adum, Sandrita Anderson [facility] POCT URINALYSIS W/O SPECIFIC GRAVITY 2022-04-18 22:07:00 Adum, Concepcion Anderson [facility] POCT URINALYSIS W/O SPECIFIC GRAVITY 2022-04-04 22:05:00 Adum, Concepcion Anderson [facility] POCT URINALYSIS W/O SPECIFIC GRAVITY 2022-03-07 00:00:00 Adum, Concepcion Anderson [facility] NOTICE OF RESEARCH PARTICIPATION 2022-02-20 06:01:00 Doctor Unassigned, Irwin [facility] FLU VACC (), 6 MO-64 YRS, .5ML, IM, QUAD (FLUCELVAX) 2022-02-07 21:27:41 Adum, Concepcion Anderson [facility] POCT URINALYSIS W/O SPECIFIC GRAVITY 2022-02-07 21:19:00 Adum, Concepcion Anderson [facility] US PELVIS > 14 WEEKS 2022-01-11 03:10:29 Nohemi Canales [facility] BASIC METABOLIC PANEL (NA, K, CL, CO2, GLUCOSE, BUN, CREATININE, CA) 2022-01-11 02:32:00 Nohemi Canales [facility] CBC WITH DIFF 2022-01-11 02:32:00 Nohemi Canalese [facility] URINALYSIS 2022-01-11 02:32:[address] [facility] [place] [facility]REFUS[facility] FOR [facility]AG[facility]IS AND TREATMENT 2022-01-11 01:16:35 Doctor Unassigned, Irwin [facility] POCT URINALYSIS W/O SPECIFIC GRAVITY 2022-01-10 00:00:00 Adum, Concepcion Anderson [facility] INSURANCE CORRESPONDENCE 2022-01-02 05:01:00 Doc tor Unassigned, Irwin [facility] 1 HR GLUCOSE TOLERANCE TEST 2021-12-20 16:26:00 Adum, Concepcion Anderson [facility] GLUCOSE FASTING 2021-12-20 15:16:00 Adum, Concepcion Jimenez [facility] CBC WITH DIFF 2021-12-20 15:16:00 Adum, Concepcion Chaves [facility] SCANNED LAB RESULTS 2021-12-20 05:01:00 Doctor U nassigned, Irwin [facility] POCT URINALYSIS W/O SPECIFIC GRAVITY 2021-12-17 00:00:00 Adum, Concepcion Anderson [facility] URINE DRUG (IMMUNOASSAY) - COMPREHENSIVE DRUG SCREEN 2021-11-22 16:15:00 Adum, Concepcion Anderson [facility] URINE CULTURE 2021-11-22 16:15:00 Adum, Concepcion L [facility] GLUCOSE 1 HOUR POST PRANDIAL 2021-11-22 15:58:00 Adum, Concepcion Justin [facility] LACTATE DEHYDROGENASE 2021-11-22 15:58:00 Adum, Concepcion Justin [facility] URIC ACID 2021-11-22 15:58:00 Adum, Concepcion L [facility] COMP. METABOLIC PANEL ([id number]) 2021-11-22 15:58:00 Adum, Concepcion L [facility] TOTAL BETA HCG ASSAY 2021-11-22 15:58:00 Adum, Concepcion L [facility] RUBELLA SCREEN IGG 2021-11-22 15:58:00 Adum, Concepcion L [facility] VZV ANTIBODY SCREEN 2021-11-22 15:58:00 Adum, Concepcion L [facility] HEPATITIS B SURFACE ANTIGEN 2021-11-22 15:58:00 Adum, Concepcion Anderson [facility] HCV ANTIBODY 2021-11-22 15:58:00 Adum, Concepcion L [facility] HB ABO GROUPING 2021-11-22 15:58:00 Adum, Concepcion L [facility] ADC OR FARSHAD ONLY - RPR 2021-11-22 15:58:00 Adum, Sandrita Anderson [facility] HIV 1/2 AG-AB WITH REFLEX 2021-11-22 15:58:00 Adum, Sandrita Anderson [facility] CREATININE U 24 HR 2021-11-22 10:00:00 Adum, Concepcion Anderson [facility] PROTEIN QUANT U/24H 2021-11-22 10:00:00 Adum, Concepcion Anderson [facility] ULTRASOUND 2021-11-19 05:01:00 Doc tor Unassigned, Irwin [facility] ULTRASOUND 2021-11-06 05:01:00 Doc tor Unassigned, Irwin [facility] [id number] 2020-06-15 00:00:00 MONMA.05 [facility] [id number] 2020-06-15 00:00:00 MONMA.05 [facility] [id number] 2020-06-15 00:00:00 MONMA.05 [facility] SECTION Adum Concepcion Justin [facility] SECTION Adum Concepcion Justin [facility] Encounters Start Date/Time End Date/Time Encounter Type Admission Type Attending [facility] Care Facility Care Department Encounter ID Source 2021-02-01 18:43:19 Emergency [facility] [id number] [facility] 2024-02-09 14:30:00 2024-02-09 14:30:00 Outpatient R ADUMCONCEPCION VIVIAN [facility] [id number] [facility] 2024-01-25 13:00:00 2024-01-25 13:00:00 Outpatient R AKINSIPEDIANKASSIDY [facility] [id number] [facility] 2023-03-05 13:46:24 2023-03-05 13:46:[address] [facility] [id number] Aj Borjas 2022-12-12 13:15:00 2022-12-12 13:15:00 Outpatient R ADCONCEPCION VALLE [facility] [id number] [facility] 2022-12-11 13:15:00 2022-12-11 13:15:00 Outpatient R ADCONCEPCION VALLE [facility] [id number] [facility] 2022-12-04 14:15:00 2022-12-04 14:30:00 Inward Toll Operator Visit 2, Adc Lab AdtoriConcepcion [facility] 1.2.840.114 350.1.13.10 4.2.7.2.686 [id number] [facility] 2022-12-04 13:30:00 2022-12-04 14:06:43 Outpatient R CONCEPCION ALDANA [facility] [id number] [facility] 2022-12-04 13:30:00 2022-12-04 14:06:43 Office Visit Katya Concepcion L [facility] 1.2840.114 350.1.13.10 4.2.7.2.686 [id number] [facility] 2022-12-04 00:00:00 2022-12-04 00:00:00 Orders Only Doctor Unassigned, Irwin [facility] 1.840.114 350.1.13.10 4.2.7.2.686 [id number] [facility] 2022-10-21 15:30:00 2022-10-21 15:30:00 Outpatient R CONCEPCION ALDANA [facility] [id number] [facility] 2022-10-09 00:00:00 2022-10-09 00:00:00 Outpatient R JEANCARLOS ROQUE CHERYAL [facility] [id number] [facility] 2022-09-29 14:30:00 2022-09-29 14:30:00 Outpatient R JEANCARLOS ROQUE CHERYAL [facility] [id number] [facility] 2022-09-02 13:15:00 2022-09-02 13:51:11 Outpatient R JEANCARLOS ROQUE CHERYAL [facility] [id number] [facility] 2022-09-02 13:15:00 2022-09-02 13:51:11 Office Visit Jeancarlos Roque [facility] 1.840.114 350.1.13.10 4.2.7.2.686 [id number] [facility] 2022-08-20 15:00:00 2022-08-20 16:37:58 Outpatient R CONCEPCION ALDANA [facility] [id number] [facility] 2022-08-20 15:00:00 2022-08-20 16:37:58 Office Visit Concepcion Aldana [facility] 1.114 350.1.13.10 4.2.7.2.686 [id number] [facility] 2022-08-20 00:00:00 2022-08-20 00:00:00 Orders Only Doctor Unassigned, Irwin [facility] 1.2840.114 350.1.13.10 4.2.7.2.686 [id number] [facility] 2022-08-12 15:45:00 2022-08-12 16:43:18 Outpatient R ADUM, [facility] [id number] [facility] 2022-08-12 15:45:00 2022-08-12 16:43:18 Routine Visit Adum, [facility] 1.114 350.1.13.10 4.2.7.2.686 [id number] [facility] 2022-07-16 15:45:00 2022-07-16 16:52:08 Outpatient R ADUM, [facility] [id number] [facility] 2022-07-16 15:45:00 2022-07-16 16:52:08 Routine Visit Adum, [facility] 1..114 350.1.13.10 4.2.7.2.686 [id number] [facility] 2022-07-16 15:45:00 2022-07-16 15:45:00 Outpatient R ADUM, [facility] [id number] [facility] 2022-07-09 00:00:00 2022-07-09 00:00:00 Patient Secure Msg Doctor Unassigned, Irwin [facility] 1.0.114 350.1.13.10 4.2.7.2.686 [id number] [facility] 2022-06-25 23:58:00 2022-06-28 14:00:00 Inpatient P ADCONCEPCION VALLE [facility] SRIKANTH [id number] [facility] 2022-06-25 23:58:00 2022-06-28 14:00:00 Hospital Encounter AdConcepcion valle [facility] 1.2.840.114 350.1.13.10 4.2.7.2.686 [id number] [facility] 2022-06-26 09:50:00 2022-06-26 20:17:00 Anesthesia Event Jose Angel Aragon [facility] 1.2.840.114 350.1.13.10 4.2.7.2.686 [id number] [facility] 2022-06-26 00:00:00 2022-06-26 00:00:00 Surgery Adum, Concepcion Anderson [facility] 1.2.840.114 350.1.13.10 4.2.7.2.686 [id number] [facility] 2022-06-24 09:00:00 2022-06-24 10:03:27 Outpatient R KATYA [facility] [id number] [facility] 2022-06-24 09:00:00 2022-06-24 10:03:27 Routine Visit 1, Lkj Nst Room AdConcepcion valle [facility] 1.2.840.114 350.1.13.10 4.2.7.2.686 [id number] [facility] 2022-06-20 10:00:00 2022-06-20 11:51:17 Outpatient R HARI-JOSLYN S, MARILU TOMASA S, MARILU [facility] [id number] [facility] 2022-06-20 10:00:00 2022-06-20 11:51:17 Routine Visit Room, [facility] Marilu Roach [facility] 1.2.840.114 350.1.13.10 4.2.7.2.686 [id number] [facility] 2022-06-17 09:00:00 2022-06-17 09:39:39 Outpatient R ADUM, [facility] [id number] [facility] 2022-06-17 09:00:00 2022-06-17 09:39:39 Routine Visit 1, [facility] Room Ad [facility] 1..114 350.1.13.10 4.2.7.2.686 [id number] [facility] 2022-06-13 09:00:00 2022-06-13 10:18:04 Outpatient R ADUM, [facility] [id number] [facility] [facility] 09:00:00 2022-06-13 10:18:04 Routine Visit Room, [facility] 1.2.84.114 350.1.13.10 4.2.7.2.686 [id number] 134 [id number] [facility] 2022-06-11 13:00:00 2022-06-11 14:03:29 Inward Toll Operator Visit 3, [facility] Room [facility] 1..114 350.1.13.10 4.2.7.2.686 [id number] [facility] 2022-06-11 13:00:00 2022-06-11 13:00:00 Outpatient P [facility]ID [facility] [id number] [facility] 2022-06-10 09:00:00 2022-06-10 09:15:00 Routine Visit 1, Lkj Nst Room Adum, Concepcion Anderson [facility] 1.2840.114 350.1.13.10 4.2.7.2.686 [id number] 134 [id number] [facility] 2022-06-10 09:00:00 2022-06-10 09:00:00 Outpatient R ADTORI, [facility] [id number] [facility] 2022-06-06 15:45:00 2022-06-06 17:17:10 Outpatient R ADTORI [facility] [id number] [facility] 2022-06-06 15:45:00 2022-06-06 17:17:10 Routine Visit Adum, Concepcion Anderson [facility] 1.2840.114 350.1.13.10 4.2.7.2.686 [id number] 134 [id number] [facility] 2022-06-06 00:00:00 2022-06-06 00:00:00 Orders Only Doctor Unassigned, Irwin [facility] 1.2840.114 350.1.13.10 4.2.7.2.686 [id number] [facility] 2022-06-03 13:00:00 2022-06-03 13:00:00 Outpatient R KATYA [facility] [id number] [facility] 2022-06-02 14:00:00 2022-06-02 14:00:00 Outpatient P [facility] [id number] [facility] 2022-05-30 14:30:00 2022-05-30 14:30:00 Outpatient R KATYA [facility] [id number] [facility] 2022-05-30 14:00:00 2022-05-30 14:00:00 Outpatient R [facility] [id number] [facility] 2022-05-27 13:00:00 2022-05-27 13:39:43 Outpatient R ADUM, [facility] [id number] [facility] 2022-05-27 13:00:00 2022-05-27 13:39:43 Routine Visit 1, [facility] Room Adum, [facility] 1.0.114 350.1.13.10 4.2.7.2.686 [id number] [facility] 2022-05-23 14:00:00 2022-05-23 15:51:47 Outpatient R ADUM, [facility] [id number] [facility] 2022-05-23 14:00:00 2022-05-23 15:51:47 Routine Visit Room, [facility] Ad, [facility] 1..114 350.1.13.10 4.2.7.2.686 [id number] 134 [id number] [facility] 2022-05-23 14:30:00 2022-05-23 14:30:00 Outpatient R ADUM, [facility] [id number] [facility] 2022-05-20 13:00:00 2022-05-20 14:05:14 Outpatient R ADUM, [facility] [id number] [facility] 2022-05-20 13:00:00 2022-05-20 14:05:14 Routine Visit 1, [facility] Room Ad, [facility] 1..114 350.1.13.10 4.2.7.2.686 [id number] [facility] 2022-05-20 00:00:00 2022-05-20 00:00:00 Orders Only Doctor Unassigned, Irwin [facility] 1.0.114 350.1.13.10 4.2.7.2.686 [id number] [id number] [facility] 2022-05-16 14:30:00 2022-05-16 15:21:03 Outpatient R ADUM, [facility] [id number] [facility] 2022-05-16 14:30:00 2022-05-16 15:21:03 Routine Visit Adum, [facility] 1..840.114 350.1.13.10 4.2.7.2.686 [id number] [facility] 2022-05-06 14:00:00 2022-05-06 14:20:40 Nurse Visit Nurse, [facility] Adum, [facility] 1..840.114 350.1.13.10 4.2.7.2.686 [id number] 134 [id number] [facility] 2022-05-06 14:00:00 2022-05-06 14:00:00 Outpatient R ADUM, [facility] [id number] [facility] 2022-05-05 11:45:00 2022-05-05 12:15:00 Inward Toll Operator Visit Ultrasound, Umberto Poole [facility] 1..840.114 350.1.13.10 4.2.7.2.686 [id number] [facility] 2022-05-05 11:45:00 2022-05-05 11:45:00 Outpatient P UMBERTO FINK [facility] [id number] [facility] 2022-05-02 16:00:00 2022-05-02 16:46:42 Outpatient R ADUM [facility] [id number] [facility] 2022-05-02 16:00:00 2022-05-02 16:46:42 Routine Visit Adum, [facility] 1.2.840.114 350.1.13.10 4.2.7.2.686 [id number] [facility] 2022-05-01 10:45:00 2022-05-01 11:00:00 Inward Toll Operator Visit Pob, Adc Lab Main Adum, Concepcion Anderson [facility] 1.2.840.114 350.1.13.10 4.2.7.2.686 [id number] [facility] 2022-05-01 10:45:00 2022-05-01 10:45:00 Outpatient R ADCONCEPCION VALLE [facility] [id number] [facility] 2022-04-28 00:00:00 2022-04-28 00:00:00 Telephone Adum, Concepcion Anderson [facility] 1.2.840.114 350.1.13.10 4.2.7.2.686 [id number] 134 [id number] [facility] 2022-04-24 00:00:00 2022-04-24 00:00:00 Telephone Adum, Concepcion Anderson [facility] 1.2.840.114 350.1.13.10 4.2.7.2.686 [id number] 134 [id number] [facility] 2022-04-18 15:45:00 2022-04-18 16:32:07 Outpatient R ADUM, CONCEPCION [facility] [id number] [facility] 2022-04-18 15:45:00 2022-04-18 16:32:07 Routine Visit Adum, Concepcion Anderson [facility] 1.2.840.114 350.1.13.10 4.2.7.2.686 [id number] 134 [id number] [facility] 2022-04-09 10:30:00 2022-04-09 10:30:00 Outpatient R [facility] [id number] [facility] 2022-04-04 16:00:00 2022-04-04 16:39:37 Outpatient R ADUM, [facility] [id number] [facility] 2022-04-04 16:00:00 2022-04-04 16:39:37 Routine Visit Adum, Concepcion [facility] 1.2840.114 350.1.13.10 4.2.7.2.686 [id number] 134 [id number] [facility] 2022-03-07 15:45:00 2022-03-07 16:31:34 Outpatient R ADUM, [facility] [id number] [facility] 2022-03-07 15:45:00 2022-03-07 16:31:34 Routine Visit Adum, [facility] BUILDING 1.2840.114 350.1.13.10 4.2.7.2.686 [id number] 134 [id number] [facility] 2022-03-01 00:00:00 2022-03-01 00:00:00 Patient Secure Msg Zoila Henry [facility] 1.2.840.114 350.1.13.10 4.2.7.2.686 [id number] 134 [id number] [facility] 2022-02-28 00:00:00 2022-02-28 00:00:00 Nurse Triage Shania Hayes [facility] 1.2.840.114 350.1.13.10 4.2.7.2.686 [id number] [id number] [facility] 2022-02-20 09:30:00 2022-02-20 10:45:00 Inward Toll Operator Visit 1, Ashok Room Jayesh Larios [facility] 1.2.840.114 350.1.13.10 4.2.7.2.686 [id number] [facility] 2022-02-20 09:30:00 2022-02-20 09:30:00 Outpatient P JAYESH LARIOS [facility] [id number] [facility] 2022-02-20 00:00:00 2022-02-20 00:00:00 Orders Only Doctor Unassigned, Irwin [facility] 1..840.114 350.1.13.10 4.2.7.2.686 [id number] [id number] [facility] 2022-02-18 12:00:00 2022-02-18 12:00:00 Outpatient P KATYA CONCEPCION [facility] [id number] [facility] 2022-02-07 17:00:00 2022-02-07 17:15:00 Inward Toll Operator Visit Pob, Adc Lab Main Adum, Concepcion [facility] 1..840.114 350.1.13.10 4.2.7.2.686 [id number] [facility] 2022-02-07 16:00:00 2022-02-07 16:50:21 Outpatient R KATYA CONCEPCION [facility] [id number] [facility] 2022-02-07 16:00:00 2022-02-07 16:50:21 Routine Visit Adtori, Concepcion [facility] 1..840.114 350.1.13.10 4.2.7.2.686 [id number] 134 [id number] [facility] 2022-02-07 00:00:00 2022-02-07 00:00:00 Telephone Adum, Concepcion Anderson [facility] 1..840.114 350.1.13.10 4.2.7.2.686 [id number] 134 [id number] [facility] 2022-01-10 21:11:00 2022-01-10 23:15:00 Emergency X ZENA CANALESIO [facility] ERT [id number] [facility] 2022-01-10 21:11:00 2022-01-10 23:15:00 Emergency Nohemi Canales C [facility] 1.2840.114 350.1.13.10 4.2.7.2.686 [id number] [facility] 2022-01-10 16:15:00 2022-01-10 16:51:40 Outpatient R ADTORI [facility] [id number] [facility] 2022-01-10 16:15:00 2022-01-10 16:51:40 Routine Visit Adtori [facility] BUILDING 1.2840.114 350.1.13.10 4.2.7.2.686 [id number] 134 [id number] [facility] 2022-01-10 00:00:00 2022-01-10 00:00:00 Nurse Triage GavinMaame [facility] 1.2840.114 350.1.13.10 4.2.7.2.686 [id number] 019 [id number] [facility] 2022-01-02 00:00:00 2022-01-02 00:00:00 Orders Only Doctor Unassigned, Irwin [facility] 1.2840.114 350.1.13.10 4.2.7.2.686 [id number] [id number] [facility] 2021-12-31 00:00:00 2021-12-31 00:00:00 Telephone AdumMariaelenaConcepcion [facility] 1.2840.114 350.1.13.10 4.2.7.2.686 [id number] 134 [id number] [facility] 2021-12-20 10:00:00 2021-12-20 10:00:00 Outpatient R ADUM, [facility] [id number] [facility] 2021-12-20 09:45:00 2021-12-20 10:00:00 Inward Toll Operator Visit Pob, Adc Lab Main AdConcepcion valle [facility] 1.84.114 350.1.13.10 4.2.7.2.686 [id number] 353 [id number] [facility] 2021-12-20 09:45:00 2021-12-20 09:45:00 Outpatient R ADUM, [facility] [id number] [facility] 2021-12-20 00:00:00 2021-12-20 00:00:00 Orders Only Doctor Unassigned, Irwin [facility] 1..114 350.1.13.10 4.2.7.2.686 [id number] [id number] [facility] 2021-12-17 16:00:00 2021-12-17 16:45:18 Outpatient R ADUM, [facility] [id number] [facility] 2021-12-17 16:00:00 2021-12-17 16:45:18 [facility] 1.840.114 350.1.13.10 4.2.7.2.686 [id number] 134 [id number] [facility] 2021-12-17 16:00:00 2021-12-17 16:00:00 Outpatient R ADUM, [facility] [id number] [facility] 2021-12-02 13:30:00 2021-12-02 14:00:00 Telemedici ne Visit Faculty, Emmanuel Barnes [facility] 1..114 350.1.13.10 4.2.7.2.686 [id number] [facility] 2021-12-02 13:30:00 2021-12-02 13:30:00 Outpatient R [facility] [id number] [facility] 2021-12-02 13:30:00 2021-12-02 13:30:00 Outpatient R EMMANUEL PALACIO [facility] [id number] [facility] 2021-11-23 00:00:00 2021-11-23 00:00:00 Case Management Adum, Concepcion [facility] 1.2.840.114 350.1.13.10 4.2.7.2.686 [id number] 134 [id number] [facility] 2021-11-22 11:15:00 2021-11-22 11:30:00 Inward Toll Operator Visit Pob, Adc Lab Main Adum, Concepcion [facility] 1.2.840.114 350.1.13.10 4.2.7.2.686 [id number] [facility] 2021-11-22 11:15:00 2021-11-22 11:30:00 Inward Toll Operator Visit Pob, Adc Lab Main Adum, Concepcion Anderson [facility] 1.2.840.114 350.1.13.10 4.2.7.2.686 [id number] 353 [id number] [facility] 2021-11-22 11:15:00 2021-11-22 11:15:00 Outpatient R ADTORI, CONCEPCION [facility] [id number] [facility] 2021-11-19 10:00:00 2021-11-19 11:44:24 Outpatient R ADTORI [facility] [id number] [facility] 2021-11-19 10:00:00 2021-11-19 11:44:24 Routine Visit Adtori, Concepcion [facility] 1.2.840.114 350.1.13.10 4.2.7.2.686 [id number] 134 [id number] [facility] 2021-11-19 00:00:00 2021-11-19 00:00:00 Orders Only Doctor Unassigned, Irwin [facility] 1..114 350.1.13.10 4.2.7.2.686 [id number] [id number] [facility] 2021-11-06 14:30:00 2021-11-06 16:20:42 Outpatient R CONCEPCION ALDANA [facility] [id number] [facility] 2021-11-06 14:30:00 2021-11-06 16:20:42 Initial Visit AdConcepcion valle [facility] 1.114 350.1.13.10 4.2.7.2.686 [id number] 134 [id number] [facility] 2021-11-06 00:00:00 2021-11-06 00:00:00 Orders Only Doctor Unassigned, Irwin [facility] 1..114 350.1.13.10 4.2.7.2.686 [id number] [id number] [facility] 2021-11-04 11:30:00 2021-11-04 11:30:00 Outpatient R JOSHUA LEWIS [facility] [id number] [facility] 2021-10-30 00:00:00 2021-10-30 00:00:00 Outpatient FORTINO KNOWLES [facility] [id number] Tari [facility] 2021-07-11 15:30:00 2021-07-11 15:30:00 Outpatient R [facility] [id number] [facility] 2021-06-27 00:00:00 2021-06-27 00:00:00 Telephone AdConcepcion valle [facility] 1..114 350.1.13.10 4.2.7.2.686 [id number] 134 [id number] [facility] 2021-06-26 16:30:00 2021-06-26 16:45:00 Inward Toll Operator Visit Pob, Adc Lab Main Concepcion lAdana [facility] 1.2.840.114 350.1.13.10 4.2.7.2.686 [id number] [facility] 2021-06-26 15:30:00 2021-06-26 16:19:38 Outpatient R AKTYA [facility] [id number] [facility] 2021-06-26 15:30:00 2021-06-26 16:19:38 Office Visit Katya Concepcion [facility] 1.2.840.114 350.1.13.10 4.2.7.2.686 [id number] 134 [id number] [facility] 2021-06-26 15:30:00 2021-06-26 15:30:00 Outpatient R ADTORI [facility] [id number] [facility] 2021-06-26 00:00:00 2021-06-26 00:00:00 Orders Only Doctor Unassigned, Irwin [facility] 1..840.114 350.1.13.10 4.2.7.2.686 [id number] [id number] [facility] 2021-06-18 13:00:00 2021-06-18 15:02:59 Outpatient R KATYA [facility] [id number] [facility] 2021-06-18 13:00:00 2021-06-18 15:02:59 Office Visit [facility] 1..840.114 350.1.13.10 4.2.7.2.686 [id number] [facility] 2021-06-18 00:00:00 2021-06-18 00:00:00 Orders Only Doctor Unassigned, Irwin [facility] 1.2.840.114 350.1.13.10 4.2.7.2.686 [id number] [id number] [facility] 2021-06-06 00:00:00 2021-06-06 00:00:00 Case Management Adum, Concepcion Anderson [facility] 1.2.840.114 350.1.13.10 4.2.7.2.686 [id number] 134 [id number] [facility] 2021-06-04 10:30:00 2021-06-04 10:30:00 Inward Toll Operator Visit 2, Adc Lab Adum, Concepcion Anderson [facility] 1.2.840.114 350.1.13.10 4.2.7.2.686 [id number] 353 [id number] [facility] 2021-06-04 08:45:00 2021-06-04 10:08:01 Outpatient R ADUM, CONCEPCION [facility] [id number] [facility] 2021-06-04 08:45:00 2021-06-04 10:08:01 Routine Visit Adum, Concepcion Anderson [facility] 1.2.840.114 350.1.13.10 4.2.7.2.686 [id number] 134 [id number] [facility] 2021-06-03 00:00:00 2021-06-03 00:00:00 Telephone Adum, Concepcion Anderson [facility] 1.2.840.114 350.1.13.10 4.2.7.2.686 [id number] 134 [id number] [facility] 2021-05-31 17:58:00 2021-05-31 19:44:00 Emergency X PETRONA ALBA [facility] ERT [id number] [facility] 2021-05-31 17:58:00 2021-05-31 19:44:00 Emergency Petrona Alba [facility] 1.2.840.114 350.1.13.10 4.2.7.2.686 [id number] [facility] 2021-05-29 00:00:00 2021-05-29 00:00:[address] [facility] 1.2.840.114 350.1.13.10 4.2.7.2.686 [id number] 134 [id number] [facility] 2021-05-25 09:30:00 2021-05-25 09:45:00 Inward Toll Operator Visit Pob, Adc Lab Main Adum, Concepcion [facility] 1.2.840.114 350.1.13.10 4.2.7.2.686 [id number] [facility] 2021-05-25 09:30:00 2021-05-25 09:30:00 Outpatient R ADUM, [facility] [id number] [facility] 2021-05-24 00:00:00 2021-05-24 00:00:00 Telephone Adum, Concepcion Anderson [facility] 1.2.840.114 350.1.13.10 4.2.7.2.686 [id number] 134 [id number] [facility] 2021-05-23 09:45:00 2021-05-23 10:00:00 Inward Toll Operator Visit Pob, Adc Lab Main Adum, Concepcion Anderson [facility] 1.2.840.114 350.1.13.10 4.2.7.2.686 [id number] [facility] 2021-05-23 09:45:00 2021-05-23 09:45:00 Outpatient R ADUM [facility] [id number] [facility] 2021-05-22 00:00:00 2021-05-22 00:00:00 Case Management Adum, Concepcion [facility] 1.2.840.114 350.1.13.10 4.2.7.2.686 [id number] 134 [id number] [facility] 2021-05-22 00:00:00 2021-05-22 00:00:00 Telephone Adum, Concepcion Anderson [facility] 1.2.840.114 350.1.13.10 4.2.7.2.686 [id number] 134 [id number] [facility] 2021-05-21 15:00:00 2021-05-21 15:04:20 Inward Toll Operator Visit 2, Adc Lab Adum, [facility] 1.2.840.114 350.1.13.10 4.2.7.2.686 [id number] 353 [id number] [facility] 2021-05-21 14:00:00 2021-05-21 14:59:27 Outpatient R ADUM, CONCEPCION [facility] [id number] [facility] 2021-05-21 14:00:00 2021-05-21 14:59:27 Initial Visit Adum, Concepcion Anderson HIJOSE DE J[facility]US [facility] 1.2.840.114 350.1.13.10 4.2.7.2.686 [id number] 134 [id number] [facility] 2021-05-21 00:00:00 2021-05-21 00:00:00 Orders Only Doctor Unassigned, Irwin [facility] 1.2.840.114 350.1.13.10 4.2.7.2.686 [id number] [id number] [facility] 2020-08-29 03:43:00 2020-08-29 03:43:00 Outpatient Tony FRYE [facility] [id number] Tari [facility] 2020-08-24 10:05:00 2020-08-24 10:05:00 Outpatient Matty_W [facility] [id number] [facility] 2020-06-15 12:04:17 2020-06-15 12:04:17 Inpatient [facility] [id number] [facility] 2020-03-06 13:00:00 2020-03-06 13:00:00 Outpatient R ALEXA FINE [facility] [id number] [facility] 2020-02-29 00:00:00 2020-02-29 00:00:00 Orders Only Doctor Unassigned, Irwin [facility] 1.20.114 350.1.13.10 4.2.7.2.686 [id number] 009 [id number] [facility] 2020-02-29 00:00:00 2020-02-29 00:00:00 Orders Only Doctor Unassigned, Irwin [facility] 1.20.114 350.1.13.10 4.2.7.2.686 [id number] [id number] 2020-02-15 00:00:00 2020-02-15 00:00:00 Orders Only Doctor Unassigned, Irwin [place] [address].2840.114 350.1.13.10 4.2.7.2.686 [id number] [id number] 2020-02-15 00:00:00 2020-02-15 00:00:00 Orders Only Doctor Unassigned, Irwin [facility] 1.2840.114 350.1.13.10 4.2.7.2.686 [id number] [id number] [facility] 2020-02-14 00:00:00 2020-02-14 00:00:00 Telephone Alexa Fine [facility] 1.2840.114 350.1.13.10 4.2.7.2.686 [id number] 134 [id number] 2020-02-14 00:00:2020-02-14 00:00:00 Telephone Fine, Alexa [facility] 1.2.840.114 350.1.13.10 4.2.7.2.686 [id number] 134 [id number] [facility] 2020-02-13 00:00:00 2020-02-13 00:00:00 Telephone Alexa Fine [facility] 1.2.840.114 350.1.13.10 4.2.7.2.686 [id number] 134 [id number] 2020-02-13 00:00:00 2020-02-13 00:00:00 Telephone Alexa Fine [facility] 1.2.840.114 350.1.13.10 4.2.7.2.686 [id number] 134 [id number] [facility] 2020-02-07 13:00:00 2020-02-07 13:00:00 Outpatient R ALEXA FINE [facility] [id number] [facility] 2020-02-07 08:38:18 2020-02-07 08:53:18 Telemedici ne Visit Alexa Fine [facility] 1.2.840.114 350.1.13.10 4.2.7.2.686 [id number] 134 [id number] 2020-02-07 08:38:18 2020-02-07 08:53:18 Telemedici ne Visit Alexa Fine [facility] Building 1.2.840.114 350.1.13.10 4.2.7.2.686 [id number] 134 [id number] [facility] 2020-02-03 14:19:52 2020-02-03 15:50:17 Urgent Care Provider, [facility] 1.2.840.114 350.1.13.10 4.2.7.2.686 [id number] [facility] [id number] 2020-02-03 14:19:52 2020-02-03 15:50:17 Urgent Care Provider, [facility] Keily Olivier [facility] 1.2840.114 350.1.13.10 4.2.7.2.686 [id number] [facility] 2020-02-03 14:20:00 2020-02-03 14:20:00 [id number] 2020-02-03 00:00:00 2020-02-03 00:00:00 Letter (Out) Doctor Unassigned, [facility] 1.2840.114 350.1.13.10 4.2.7.2.686 [id number] 2020-02-03 00:00:00 2020-02-03 00:00:00 Letter (Out) Doctor Unassigned, Irwin [facility] 1.2840.114 350.1.13.10 4.2.7.2.686 [id number] [facility] 2020-02-01 00:00:00 2020-02-01 00:00:00 Case Management Alexa Fine [facility] 1.2840.114 350.1.13.10 4.2.7.2.686 [id number] 134 [id number] 2020-02-01 00:00:00 2020-02-01 00:00:00 Case Management Alexa Fine [facility] 1.2840.114 350.1.13.10 4.2.7.2.686 [id number] 134 [id number] [facility] 2020-01-24 14:40:20 2020-01-24 14:58:57 Nurse Visit Nurse, [facility] 1.2840.114 350.1.13.10 4.2.7.2.686 [id number] 134 [id number] 2020-01-24 14:40:20 2020-01-24 14:58:57 Nurse Visit Nurse, [facility] Alexa Fine [facility] 1.2.840.114 350.1.13.10 4.2.7.2.686 [id number] 134 [id number] [facility] 2020-01-24 14:30:00 2020-01-24 14:30:00 Outpatient R [facility] [id number] [facility] 2020-01-12 15:45:00 2020-01-12 15:45:00 Outpatient R ALEXA FINE [facility] [id number] [facility] 2020-01-10 16:01:52 2020-01-10 17:19:54 Routine Visit Joshua Lewis [facility] Building 1.2840.114 350.1.13.10 4.2.7.2.686 [id number] 134 [id number] 2020-01-10 16:01:52 2020-01-10 17:19:54 Routine Visit Joshua Lewis [facility] 1.2840.114 350.1.13.10 4.2.7.2.686 [id number] 134 [id number] [facility] 2020-01-10 16:00:00 2020-01-10 16:00:00 Outpatient R ALEXA FINE [facility] [id number] [facility] 2020-01-06 00:00:00 2020-01-06 00:00:00 Orders Only Doctor Unassigned, Irwin [facility] 1.2.840.114 350.1.13.10 4.2.7.2.686 [id number] [facility] 2020-01-04 18:00:00 2020-01-04 23:59:00 Hospital Encounter Alexa Fine [facility] 1.2.840.114 350.1.13.10 4.2.7.2.686 [id number] [facility] 2020-01-04 00:00:00 2020-01-04 00:00:00 Outpatient R ALEXA FINE [facility] [id number] [facility] 2020-01-04 00:00:00 2020-01-04 00:00:00 Orders Only Doctor Unassigned, Irwin [facility] 1.2.840.114 350.1.13.10 4.2.7.2.686 [id number] [facility] 2019-12-30 08:49:17 2019-12-30 09:04:17 Inward Toll Operator Visit Pob, Adc Lab Main Alexa Fine [facility] Building 1.2.840.114 350.1.13.10 4.2.7.2.686 [id number] [facility] 2019-12-30 08:45:00 2019-12-30 08:45:00 Outpatient R [facility] [id number] [facility] 2019-12-30 00:00:00 2019-12-30 00:00:00 Telephone Alexa Fine [facility] Building 1.2.840.114 350.1.13.10 4.2.7.2.686 [id number] [facility] 2019-12-29 00:00:00 2019-12-29 00:00:00 Telephone Alexa Fine [facility] Building 1.2.840.114 350.1.13.10 4.2.7.2.686 [id number] [facility] 2019-12-28 14:18:28 2019-12-28 15:29:09 Routine Visit Alexa Fine [facility] nal Building 1.2.84.114 350.1.13.10 4.2.7.2.686 [id number] [facility] 2019-12-28 09:58:55 2019-12-28 10:13:55 Inward Toll Operator Visit 2, Adc Lab Alexa Fine [facility] Profess[facility] nal Building 1.2.840.114 350.1.13.10 4.2.7.2.686 [id number] [facility] 2019-12-28 09:30:00 2019-12-28 09:30:00 [id number] 2019-12-28 00:00:00 2019-12-28 00:00:00 [facility] 1.2.840.114 350.1.13.10 4.2.7.2.686 [id number] [facility] 2019-12-27 03:49:00 2019-12-27 06:51:00 Emergency Nohemi Canales [facility] 1.2.840.114 350.1.13.10 4.2.7.2.686 [id number] [facility] 2019-12-27 00:00:00 2019-12-27 00:00:00 Telephone [facility] 1.2.840.114 350.1.13.10 4.2.7.2.686 [id number] [facility] 2019-12-24 10:06:18 2019-12-24 10:21:18 Inward Toll Operator Visit Pob, Adc Lab Main Alexa Fine [facility] Profess[facility] nal Building 1.2.840.114 350.1.13.10 4.2.7.2.686 [id number] [facility] 2019-12-24 10:15:00 2019-12-24 10:15:00 [facility] [id number] [facility] 2019-12-22 15:15:00 2019-12-22 15:15:00 Outpatient R ALEXA FINE [facility] [id number] [facility] 2019-12-22 14:26:08 2019-12-22 14:41:08 Inward Toll Operator Visit Pobrian, Adc Lab Main [facility] Fine [facility] 1.2.840.114 350.1.13.10 4.2.7.2.686 [id number] [facility] 2019-12-21 08:00:00 2019-12-21 08:00:00 Outpatient JOSEFA MANCILLA [facility] [id number] [facility] 2019-12-21 00:00:00 2019-12-21 00:00:00 Case Management Joshua Lewis [facility] nal Building 1.2.840.114 350.1.13.10 4.2.7.2.686 [id number] [facility] 2019-12-21 00:00:00 2019-12-21 00:00:00 Telephone Alexa Fine [facility] Building 1.2.840.114 350.1.13.10 4.2.7.2.686 [id number] [facility] 2019-12-20 12:25:25 2019-12-20 12:40:25 Inward Toll Operator Visit Gayle, Adc [facility] 1.2.840.114 350.1.13.10 4.2.7.2.686 [id number] [facility] 2019-12-20 09:56:19 2019-12-20 12:05:25 Initial Visit Alexa Fine [facility] nal Building 1.2.840.114 350.1.13.10 4.2.7.2.686 [id number] [facility] 2019-12-20 10:00:00 2019-12-20 10:00:00 [facility] [id number] [facility] 2019-12-20 00:00:00 2019-12-20 00:00:00 Orders Only Doctor Unassigned, Irwin [facility] 1.2.840.114 350.1.13.10 4.2.7.2.686 [id number] [facility] Results Test Description Test Time Test Comments Results Result Co mments Source [facility] [id number] 18:33:00* Test Item Value Reference Range Interpretation Comme nts POCT PREG (test code = 1605) Negative On board controls acceptable with C Line (test code = 3574) Yes POCT PREG LOT # (test code = 3575) POCT PREG TEST DATE ( test code = 3576) [facility] [id number] 21:42:00* Test Item Value Reference Range Interpretation Comme nts POCT PREG (test code = 1605) Negative On board controls acceptable with C Line (test code = 3574) Yes POCT PREG LOT # (test code = 3575) POCT PREG TEST DATE ( test code = 3576) [facility] [id number] 21:42:00* Test Item Value Reference Range Interpretation Comme nts POCT PREG (test code = 1605) Negative On board controls acceptable with C Line (test code = 3574) Yes POCT PREG LOT # (test code = 3575) POCT PREG TEST DATE ( test code = 3576) [facility] [id number] 21:42:00* Test Item Value Reference Range Interpretation Comme nts POCT PREG (test code = 1605) Negative On board controls acceptable with C Line (test code = 3574) Yes POCT PREG LOT # (test code = 3575) POCT PREG TEST DATE ( test code = 3576) [facility] GLUCOSE (AUTOMATED)2022-06-26 22:16:56* Test Item Value Reference Range Interpretation Comme nts POCT GLU (test code = 0416858155) 85 mg/dL 70-110 Lab Interpretation (test cod e = 40730-1) Normal [facility] GLUCOSE (AUTOMATED)2022-06-26 22:16:56* Test Item Value Reference Range Interpretation Comme nts POCT GLU (test code = 8570391458) 85 mg/dL 70-110 Lab Interpretation (test cod e = 77722-7) Normal [facility] GLUCOSE (AUTOMATED)2022-06-26 18:08:00* Test Item Value Reference Range Interpretation Comme nts POCT GLU (test code = 7212293774) 80 mg/dL 70-110 Lab Interpretation (test cod e = 71112-6) Normal [facility] GLUCOSE (AUTOMATED)2022-06-26 18:08:00* Test Item Value Reference Range Interpretation Comme nts POCT GLU (test code = 8513567295) 80 mg/dL 70-110 Lab Interpretation (test cod e = 27165-4) Normal [facility] GLUCOSE (AUTOMATED)2022-06-26 14:17:40* Test Item Value Reference Range Interpretation Comme nts POCT GLU (test code = 9940159130) 78 mg/dL 70-110 Lab Interpretation (test cod e = 04635-2) Normal [facility] GLUCOSE (AUTOMATED)2022-06-26 14:17:40* Test Item Value Reference Range Interpretation Comme nts POCT GLU (test code = 9253700769) 78 mg/dL 70-110 Lab Interpretation (test cod e = 26553-5) Normal [facility] GLUCOSE (AUTOMATED)2022-06-26 10:10:45* Test Item Value Reference Range Interpretation Comme nts POCT GLU (test code = 2853252225) 83 mg/dL 70-110 Lab Interpretation (test cod e = 05023-0) Normal [facility] GLUCOSE (AUTOMATED)2022-06-26 10:10:45* Test Item Value Reference Range Interpretation Comme nts POCT GLU (test code = 1956303480) 83 mg/dL 70-110 Lab Interpretation (test cod e = 50262-3) Normal [facility] GLUCOSE (AUTOMATED)2022-06-26 05:55:36* Test Item Value Reference Range Interpretation Comme nts POCT GLU (test code = 9061864825) 112 mg/dL 70-110 H Lab Interpretation (test cod e = 51329-8) Abnormal [facility] GLUCOSE (AUTOMATED)2022-06-26 05:55:36* Test Item Value Reference Range Interpretation Comme nts POCT GLU (test code = 8462553981) 112 mg/dL 70-110 H Lab Interpretation (test cod e = 53182-4) Abnormal [facility] URINALYSIS W/O SPECIFIC [id number] 15:01:00* Test Item Value Reference Range Interpretation [...] = 3257) N/A Negative - Negati ve [facility] URINALYSIS W/O SPECIFIC [id number] 15:44:00* Test Item Value Reference Range Interpretation [...] = 3257) n/a Negative - Negati ve [facility] URINALYSIS W/O SPECIFIC [id number] 16:26:00* Test Item Value Reference Range Interpretation [...] = 3257) n/a Negative - Negati ve [facility] URINALYSIS W/O SPECIFIC [id number] 22:47:00* Test Item Value Reference Range Interpretation [...] = 3257) Negative Negative - Negati ve [facility] URINALYSIS W/O SPECIFIC [id number] 21:16:00* Test Item Value Reference Range Interpretation [...] = 3257) n/a Negative - Negati ve [facility] URINALYSIS W/O SPECIFIC [id number] 20:54:00* Test Item Value Reference Range Interpretation [...] = 3257) n/a Negative - Negati ve [facility]CIFIC [id number] 22:30:00* Test Item Value Reference Range Interpretation [...] U APPEAR (test code = 3267) clear [facility] HR GLUCOSE TOLERANCE [id number] 18:24:28 * Test Item Value Reference Range Interpretation Comme nts GLUC 1 HR (test code = 3352697756) 187 mg/dL 120-170 H Lab Interpretation (test cod e = 35157-1) [facility]normal [facility]-AB WITH [id number] 18:06:44* Test Item Value Reference Range Interpretation Comme nts HIV Semi-quantitative (test code = 17383-2) Negative Negative ABDULLAHI (test code = ABDULLAHI) Non-reactive for HIV-1 antigen and HIV-1/HIV-2 antibodies. ?No laboratory evidence of HIV infection. ?Repeat in 2-4 weeks if acute HIV infection is suspected. [facility] [id number] 17:25:16* Test Item Value Reference Range Interpretation Comme nts GLU FASTNG (test code = 5159348675) 97 mg/dL 70-110 Lab Interpretation (test cod e = 53698-0) Normal [facility] WITH [id number] 16:41:31* Test Item Value Reference Range Interpretation [...] 32.1 g/dL 31.6-35.1 RDW-SD (test code = 80078-6) 43.2 fL 39.0-49.9 RDW-CV (test code = 788-0) 15.4 % 12.0-15.5 PLT (test code = 777-3) See_Comment H [Automated messa ge] The system which generated this result transmitted reference range: 166 - 358 10*3/?L. The reference range was not used to interpret this result as normal/abnormal. MPV (test code = 05921-1) 9.6 fL 9.5-12.9 NRBC/100 WBC (test code = 7439155692) See_Comment [Automated me ssage] The system which generated this result transmitted reference range: 0.0 - 10.0 /100 WBCs. The reference range was not used to interpret this result as normal/abnormal. NRBC x10^3 (test code = 7159322893) See_Comment [Automated messa ge] The system which generated this result transmitted reference range: 10*3/?L. The reference range was not used to interpret this result as normal/abnormal. GRAN MAT (NEUT) % (test code = 770-8) 69.4 % IMM GRAN % (test code = 3368959922) 0.90 % LYMPH % (test code = 736-9) 22.9 % MONO % (test code = 5905-5) 5.7 % EOS % (test code = 713-8) 0.7 % BASO % (test code = 706-2) 0.4 % GRAN MAT x10^3(ANC) (test code = 3055871155) 9.69 10*3/uL 1.88-7.09 H IMM GRAN x10^3 (test code = 1545117398) 0.12 10*3/uL 0.00-0.06 H LYMPH x10^3 (test code = 731-0) 3.20 10*3/uL 1.32-3.29 MONO x10^3 (test code = 742-7) 0.80 10*3/uL 0.33-0.92 EOS x10^3 (test code = 711-2) 0.10 10*3/uL 0.03-0.39 BASO x10^3 (test code = 704-7) 0.05 10*3/uL 0.01-0.07 Lab Interpretation (test code = 52783-4) Abnormal [facility] URINALYSIS W/O SPECIFIC [id number] 22:07:00* Test Item Value Reference Range Interpretation [...] = 3257) n/a Negative - Negati ve [facility] URINALYSIS W/O SPECIFIC [id number] 22:05:00* Test Item Value Reference Range Interpretation [...] = 3257) n/a Negative - Negati ve [facility] URINALYSIS W/O SPECIFIC [id number] 22:09:00* Test Item Value Reference Range Interpretation [...] = 3257) n/a Negative - Negati ve [facility] URINALYSIS W/O SPECIFIC [id number] 21:19:00* Test Item Value Reference Range Interpretation [...] = 3257) n/a Negative - Negati ve [facility] URINALYSIS W/O SPECIFIC [id number] 21:35:00* Test Item Value Reference Range Interpretation [...] = 3257) n/a Negative - Negati ve [facility] [id number] 16:55:19* Test Item Value Reference Range Interpretation Comme nts GLU FASTNG (test code = 6530459245) 82 mg/dL 70-110 Lab Interpretation (test cod e = 12275-7) Normal [facility] WITH [id number] 15:32:10* Test Item Value Reference Range Interpretation Comme nts WBC (test code = 6690-2) See_Comment H [Automated messa ge] The system which generated this result transmitted reference range: 4.30 - 11.10 10*3/?L. The reference range was not used to interpret this result as normal/abnormal. RBC (test code = 789-8) See_Comment [Automated messa ge] The system which [...] 33.6 g/dL 31.6-35.1 RDW-SD (test code = 37632-5) 39.7 fL 39-49.9 RDW-CV (test code = 788-0) 12.9 % 12-15.5 PLT (test code = 777-3) See_Comment [Automated messa ge] The system which generated this result transmitted reference range: 166 - 358 10*3/?L. The reference range was not used to interpret this result as normal/abnormal. MPV (test code = 60534-5) 9.3 fL 9.5-12.9 L NRBC/100 WBC (test code = 6191180585) See_Comment [Automated Zazom ssage] The system which generated this result transmitted reference range: 0.0 - 10.0 /100 WBCs. The reference range was not used to interpret this result as normal/abnormal. NRBC x10^3 (test code = 7804665884) See_Comment [Automated messa ge] The system which generated this result transmitted reference range: 10*3/?L. The reference range was not used to interpret this result as normal/abnormal. GRAN MAT (NEUT) % (test code = 770-8) 72.8 % IMM GRAN % (test code = 3136926537) 0.30 % LYMPH % (test code = 736-9) 21.4 % MONO % (test code = 5905-5) 4.4 % EOS % (test code = 713-8) 0.7 % BASO % (test code = 706-2) 0.4 % GRAN MAT x10^3(ANC) (test code = 9792639488) 8.83 10*3/uL 1.88-7.09 H IMM GRAN x10^3 (test code = 7975887651) 0.04 10*3/uL 0-0.06 LYMPH x10^3 (test code = 731-0) 2.59 10*3/uL 1.32-3.29 MONO x10^3 (test code = 742-7) 0.53 10*3/uL 0.33-0.92 EOS x10^3 (test code = 711-2) 0.09 10*3/uL 0.03-0.39 BASO x10^3 (test code = 704-7) 0.05 10*3/uL 0.01-0.07 Lab Interpretation (test code = 09679-2) Abnormal [facility] URINALYSIS W/O SPECIFIC [id number] 21:22:00* Test Item Value Reference Range Interpretation [...] = 3257) n/a Negative - Negati ve [facility] HospitalURINE [id number] 17:20:14* Test Item Value Reference Range Interpretation Comme nts URINE CULTURE (test code = 630-4) 10,000 - 100,000 CFU/mL mixed aerobic organisms - suggests endogenous microbial contamination [facility] HospitalVZV ANTIBODY [id number] 15:36:55* Test Item Value Reference Range Interpretation Comme [facility] VZV IgG antibody (test code = 75606-4) Equivocal Negative ABDULLAHI (test code = ABDULLAHI) Positive - Indicat es the patient was exposed to VZV through infection or vaccination.Negative - Indicates the patient could be susceptible to VZV infection.Equivocal - A second specimen should be sent for testing. [facility] HospitalRUBELLA SCREEN [id number] 15:36:55* Test Item Value Reference Range Interpretation Comme [facility] Rubella screen IgG (test code = 7146276183) Positive Negative ABDULLAHI (test code = ABDULLAHI) Positive - Indicat es the patient was exposed to Rubella through infection or vaccination.Negative - Indicates the patient could be susceptible to Rubella infection.Equivocal - A second specimen should be sent. [facility] HospitalADC OR FARSHAD ONLY - [id number] 04:45:51* Test Item Value Reference Range Interpretation Comme nts RPR (Qualitative) (test code = 22014-3) Nonreactive Nonreactive Lab Interpretation (test cod e = 45754-8) Normal [facility] HospitalHCV [id number] 21:13:42* Test Item Value Reference Range Interpretation Comme nts HCV Ab (test code = 56538-6) Negative HCV Semi-Quantitative (test code = 02253-5) [facility] HospitalHEPATITIS B SURFACE [id number] 20:57:38 * Test Item Value Reference Range Interpretation Comme nts HBsAg Semi-Quantitative (alyssa t code = 5195-3) Negative Negative [facility] HospitalPRENATAL WORKUP, BLOOD [id number] 20:44:39 * Test Item Value Reference Range Interpretation Comme nts ABO & RH (test code = 20) A POSITIVE Performed at [facility] Laboratory Services - [facility] Blood [address] Free: [phone] No. [id number] IAT (test code = 1185) Negative Performed at [facility] Laboratory Services [facility] Blood [address] Free: [phone] No. [id number] [facility] HospitalHCG, QUANTITATIVE, [id number] 18:56:20* Test Item Value Reference Range Interpretation Comme nts BETA HCG (test code = 3963457758) See_Comment [Automated messa ge] The system which generated this result transmitted reference range: Non- female and male patients: <5 mIU/mL. The reference range was not used to interpret this result as normal/abnormal. ABDULLAHI (test code = ABDULLAHI) Gestational Age ?Range (mIU/mL) 1-10 ?Weeks ?81-91600032-69 Weeks ?48587-33936043-19 Weeks ?3645-00774436-51 Weeks ?5926-501324 Biotin has been reported to cause a negative bias, interpret results relative to patient's use of biotin. [facility] HospitalCOMP. METABOLIC PANEL (11049)2021-11-22 18:19:45* Test Item Value Reference Range Interpretation Comme nts NA (test code = 8923677569) 136 mmol/L 135-145 K (test code = 7667099211) 3.7 mmol/L 3.5-5 CL (test code = 7653189953) 106 mmol/L 98-108 CO2 TOTAL (test code = 2828713890) 22 mmol/L 23-31 L AGAP (test code = 0389220869) 2-16 BUN (test code = 6818854711) 5 mg/dL 7-23 L GLUCOSE (test code = 3982820248) 131 mg/dL 70-110 H CREATININE (test code = 2186655457) 0.52 mg/dL 0.5-1.04 TOTAL BILI (test code = 5657190795) 0.1-1.1 L CALCIUM (test code = 2055536738) 8.6 mg/dL 8.6-10.6 T PROTEIN (test code = 5252197509) 6.6 g/dL 6.3-8.2 ALBUMIN (test code = 1252245020) 4.1 g/dL 3.5-5 ALK PHOS (test code = 0194089012) 80 U/L 34-122 ALTv (test code = 1742-6) 38 U/L 5-35 H AST(SGOT) (test code = 2038488626) 28 U/L 13-40 eGFR (test code = 4609949660) mL/min/1.73m2 ABDULLAHI (test code = ABDULLAHI) Association [...] imaging tests). Lab Interpretation (test code = 18149-0) Abnormal [facility]/2 AG-AB WITH [id number] 18:13:21* Test Item Value Reference Range Interpretation Comme [facility] HIV Semi-quantitative (test code = 58059-7) Negative Negative ABDULLAHI (test code = ABDULLAHI) Non-reactive for HIV-1 antigen and HIV-1/HIV-2 antibodies. ?No laboratory evidence of HIV infection. ?Repeat in 2-4 weeks if acute HIV infection is suspected. [facility] HospitalURIC [id number] 17:33:00* Test Item Value Reference Range Interpretation Comme [facility] URIC ACID (test code = 0677287564) 2.5 mg/dL 2.9-6 L Lab Interpretation (test cod e = 26669-9) Abnormal [facility] HospitalGLUCOSE 1 HOUR POST [id number] 17:31:38* Test Item Value Reference Range Interpretation Comme nts GLUC 1 HR (test code = 5634378821) 136 mg/dL 120-170 Lab Interpretation (test cod e = 87218-1) Normal [facility] HospitalLACTATE [id number] 17:23:34* Test Item Value Reference Range Interpretation Comme [facility] LDH (test code = 2092776413) 152 U/L 120-246 Lab Interpretation (test cod e = 95673-0) Normal [facility] HospitalURINE DRUG (IMMUNOASSAY) - COMPREHENSIVE DRUG [id number] 16:53:41* Test Item Value Reference Range Interpretation Comme nts AMPHET (test code = 1350913904) Negative Negative HUBERT U (test code = 9786867650) Negative Negative BENZO U (test code = 2274515968) Negative Negative Cocaine Metabolite (test code = 5961919508) Negative Negative METHADONE (test code = 9462333960) Negative Negative OPIATES (test code = 4762731162) Negative Negative PCP (test code = 0256698223) Negative Negative THC (test code = 9501675843) Negative Negative ABDULLAHI (test code = ABDULLAHI) [...] legal testing). Lab Interpretation (test code = 40893-2) Normal [facility] HospitalPLACENTA THIRD [id number] 10:11:00* Test Item Value Reference Range Interpretation Comme nts PLACENTA THIRD TRIMESTER (test code = PLACIII) RUN DATE: 06/25/20 [facility] PAGE 1 RUN TIME: 1825 Specimen Inquiry RUN USER: INTERFACE PATIENT: MINE BAÑUELOS LOC: F.APU2 U #: [id number] AGE/SX: 20/F [facility] RE06[facility]20REG DR: Wan Dorado DO : 02 BED: A DIS: 06/17/20 STATUS: DIS IN TLOC: SPEC #: [id number] RECD: 06/15/20 STATUS: VANITA ANGELES #: [id number] SINDY: 06/14/20- SUBM DR: Wan Dorado DO ENTERED: 06/15/20 SP TYPE: PLACIII OTHR DR: ORDERED: LEVEL V SURGICA CODES: [id number] - PLACENTA, NOS PROCEDURES: LEVEL V SURGICA [...] gms/expected mean 269 gms (25-50th percentile) CPT: 11181 [facility]/dori GROSS DESCRIPTION The specimen was received in a container, labeled with the patient's name, unit number and designated "placenta". The following attributes are observed: Cord insertion: 2 cm from margin Cord length: 40 cm Number of vessels: 3 Cord color: [place]-white Other cord findings: None surface findings: [place]-purple, wrinkled, glistening with focal subchorionic fibrin deposition Vasculature: Unremarkable vasculature Membranes rupture site: 1 cm to margin Membrane color: [place]-pink to gale[place] Other membrane findings: Focally opaque and circummarginate The trimmed placental weight: 250 gm CONTINUED ON NEXT PAGE RUN DATE: 06/25/20 [facility] PAGE 2 RUN TIME: 1825 Specimen Inquiry RUN USER: INTERFACE SPEC #: [id number] PATIENT: MINE BAÑUELOS #[id number] (Continued) GROSS DESCRIPTION (Continued) Disk measurement: 14 [...] total cut surface Cassettes: A1 through A4 brown 06/15/20 Signed Jag Frey 06/25/20 1011 END OF REPORT [id number] 10:36:00* Test Item Value Reference Range Interpretation Comme nts GLUBED (test code = GLUBED) 115 mg/dL 65-110 H CBC W/AUTO [id number] 05:26:00* Test Item Value Reference Range Interpretation [...] REQUIRED (test code = PLTMR) NORMAL NORMAL [id number] 05:15:00* Test Item Value Reference Range Interpretation Comme nts FIBRINOGEN (test code = FIB) 424 mg/dL 309-518 N PROTHROMBIN [id number] 05:15:00* Test Item Value Reference Range Interpretation Comme nts PROTHROMBIN TIME PATIENT (te st code = PTP) 10.1 secs 10.4-12.4 L THROMBOPLASTIN TIME [id number] 05:15:00* Test Item Value Reference Range Interpretation Comme nts THROMBOPLASTIN TIME PARTIAL (test code = PTT) 25.8 secs 22-38 N PIH [id number] 05:14:00* Test Item Value Reference Range Interpretation Comme nts CREATININE (test code = CREAT) 1.0 mg/dL 0.5-1.0 N SGOT/AST (test code = AST) 39 units/L 15-37 H SGPT/ALT (test code = ALT) 30 units/L 12-78 N LACTIC DEHYDROGENASE(LDH) (t est code = LDH) 390 units/L 81-234 H COMPREHENSIVE METABOLIC [id number] 05:14:00* Test Item Value Reference Range Interpretation [...] ALKP) 104 units/L 46-116 N CBC W/AUTO [id number] 05:08:00* Test Item Value Reference Range Interpretation Comme nts WHITE BLOOD CELL (test code = WBC) 20.6 K/mm3 6.5-12.3 HH RESULTS CALLED T O JEN.READ BACK & CONFIRMED? YES.BY MarianoLAB.[email or web address] 06/16/20 0504.Results verified by repeat analysis RED BLOOD CELL [...] REQUIRED (test code = PLTMR) NORMAL NORMAL [id number] 21:53:00* Test Item Value Reference Range Interpretation Comme nts MAGNESIUM (test code = MAG) 4.7 mg/dL 1.8-2.4 H DRUGS OF ABUSE [id number] 07:49:00* Test Item Value Reference Range Interpretation [...] DETECTION C UT OFF: 25 ng/mL LACTIC [id number] 00:27:00* Test Item Value Reference Range Interpretation Comme nts LACTIC ACID (test code = LACT) 1.4 MMOL/L 0.5-2.2 N COMPREHENSIVE METABOLIC [id number] 23:11:00* Test Item Value Reference Range Interpretation [...] LDH) 607 units/L 81-234 H COMPREHENSIVE METABOLIC [id number] 22:15:00* Test Item Value Reference Range Interpretation [...] = ALKP) 127 units/L 46-116 H LACTIC [id number] 22:09:00* Test Item Value Reference Range Interpretation Comme nts LACTIC ACID (test code = LACT) 2.1 MMOL/L 0.5-2.2 N RESULTS CALLED T O COULD NOT GET A HOLD OF NURSE.READ BACK & CONFIRMED? NO.BY [id number] 06/14/202206. PROTHROMBIN [id number] 22:02:00* Test Item Value Reference Range Interpretation Comme nts PROTHROMBIN TIME PATIENT (te st code = PTP) 10.5 secs 10.4-12.4 N IS PATIENT ON ANTICOAGULANTS ? NINTERNATIONAL NORMAL [id number] 22:02:00* Test Item Value Reference Range Interpretation [...] IS PATIENT ON ANTICOAGULANTS ? NTHROMBOPLASTIN TIME [id number] 22:02:00* Test Item Value Reference Range Interpretation Comme nts THROMBOPLASTIN TIME PARTIAL (test code = PTT) 27.4 secs 22-38 N IS PATIENT ON ANTICOAGULANTS ? NUA RFLX MICR CULT IF [id number] 22:00:00* Test Item Value Reference Range Interpretation [...] Temperature > 100.4 FSpecimen Description: CATHETERCBC W/AUTO [id number] 21:51:00* Test Item Value Reference Range Interpretation [...] code = PLTMR) NORMAL NORMAL URINALYSIS W/O [id number] 16:39:00* Test Item Value Reference Range Interpretation Comme nts UA GLUCOSE DIPSTICK (test co de = DGLUU) NEGATIVE NEGATIVE UA KETONE DIPSTICK (test cod e = KETU) NEGATIVE NEGATIVE UA PROTEIN DIPSTICK (test co de = PROU) 3+ NEGATIVE Comments to Global Recruiter: IN ROOM IS NURSE PERFORMING TEST? ANA PROTEIN/CREATININE [id number] 16:34:00* Test Item Value Reference Range Interpretation Comme nts UR PROTEIN RANDOM (test code = PROTU) 1847.1 mg/dL UR CREATININE RANDOM (test code = CREATU) 205.5 mg/dL PROTEIN/CREATININE RATIO (test code = P/CRATIO) 8988.3 mg/gcrea <200 H UR PROTEIN/CREATININE [id number] 16:25:00* Test Item Value Reference Range Interpretation Comme nts UR PROTEIN RANDOM (test code = PROTU) mg/dL UR CREATININE RANDOM (test c ode = CREATU) 205.5 mg/dL PROTEIN/CREATININE RATIO (te st code = P/CRATIO) mg/gcrea <200 AG HEPATITIS B [id number] 13:41:00* Test Item Value Reference Range Interpretation Comme nts AG HEPATITIS B SURFACE (test code = HBSAG) NONREACTIVE NONREACTIVE Comments to Global Recruiter: IN ROOM IS CONSENT FORM SIGNED FOR HIV TESTING? NAB HEPATITIS C [id number] 13:41:00* Test Item Value Reference Range Interpretation Comme nts AB HEPATITIS C (test code = HCVAB) NONREACTIVE NONREACTIVE SIGNAL TO CUTOFF (test code = CUTOFF) <0.02 <0.80 N Comments to Global Rec[employer]iter: IN ROOM IS CONSENT FORM SIGNED FOR HIV TESTING? NAB [id number] 13:41:00* Test Item Value Reference Range Interpretation Comme nts AB TREPONEMA (test code = TREPAB) NONREACTIVE NONREACTIVE Comments to Global Recruiter: IN ROOM IS CONSENT FORM SIGNED FOR HIV TESTING? NAB HIV 1 13:41:00* Test Item Value Reference Range Interpretation Comme nts AB HIV 1 2 (test code = SUR85MP) NONREACTIVE NONREACTIVE Done by [employer] 4th Gen HIV Ag/Ab Combo Screen Comments to Global Recruiter: IN ROOM IS CONSENT FORM SIGNED FOR HIV TESTING? NAG HEPATITIS B [id number] 13:16:00* Test Item Value Reference Range Interpretation Comme nts AG HEPATITIS B SURFACE (test code = HBSAG) NONREACTIVE NONREACTIVE Comments to Global Recruiter: IN ROOM IS CONSENT FORM SIGNED FOR HIV TESTING? NAB HEPATITIS C [id number] 13:16:00* Test Item Value Reference Range Interpretation Comme nts AB HEPATITIS C (test code = HCVAB) NONREACTIVE SIGNAL TO CUTOFF (test code = CUTOFF) <0.80 Comments to Global Recruiter: IN ROOM IS CONSENT FORM SIGNED FOR HIV TESTING? NAB [id number] 13:16:00* Test Item Value Reference Range Interpretation Comme nts AB TREPONEMA (test code = TREPAB) NONREACTIVE NONREACTIVE Comments to Global Recruiter: IN ROOM IS CONSENT FORM SIGNED FOR HIV TESTING? NAB HIV 1 13:16:00* Test Item Value Reference Range Interpretation Comme nts AB HIV 1 2 (test code = MYG82FA) NONREACTIVE Comments to Global Recruiter: IN ROOM IS CONSENT FORM SIGNED FOR HIV TESTING? NPIH [id number] 12:47:00* Test Item Value Reference Range Interpretation Comme nts CREATININE (test code = CREAT) 1.0 mg/dL 0.5-1.0 N SGOT/AST (test code = AST) 120 units/L 15-37 H SGPT/ALT (test code = ALT) 75 units/L 12-78 N LACTIC DEHYDROGENASE(LDH) (t est code = LDH) 517 units/L 81-234 H : *Comments to Global Recruiter: IN ROOMCBC W/AUTO [id number] 12:28:00* Test Item Value Reference Range Interpretation [...] PLTMR) NORMAL NORMAL COVID 19 Asymptomatic IH [id number] 11:52:00* Test Item Value Reference Range Interpretation [...] testsfor detection and/or diagnosis of COVID-19 under Qubvyof778(b)(1) of the Act, 21 U.S.C. 360bbb-3(b)(1), unless theauthorization is terminated or revoked sooner. Comments to Global Recruiter: IN ROOM Notes Date/Time Note Provider Source [...] processed according to instructions and sent to [facility] laboratories per lab order on 12/04/2022 : LT BLUE SST 1 RED LAV PPT DK GREEN (LiHep) DK GREEN (SodH) GALEANA DK BLUE (K2) DK BLUE (S) ACD Blood Culture NIPT/NTD Only hcg to be done per pt [facility] - Health 2020-06-17 09:50:00 [facility] ([facility]) OB Postpart Progr Note REPORT#:[id number] REPORT STATUS: Signed DATE:06/17/20 TIME: 949 PATIENT: MINE BAÑUELOS UNIT #: [id number] ROOM/BED: [facility]72 : 02 AGE: 20 SEX: [...] healing well and intact. Laboratory Tests: 06/17 0515 Hematology WBC (6.5 - 12.3 K/mm3) 14.5 [...] % (Auto) (14.5 - 29.7 %) 19.2 [place] % (Auto) (3.6 - 10.2 %) 5.8 Eos % (Auto) (0.0 - 3.0 %) 0.8 Baso % (Auto) (0.1 - 0.9 %) 0.2 Neut # (Auto) (K/mm3) 10.5 Lymph # (Auto) (K/mm3) 2.8 [place] # (Auto) (K/mm3) 0.8 Eos # (Auto) [...] Plan discussed with: patient at 0954 RPT #:[id number] END OF REPORT [facility] 2020-06-16 21:43:00 [facility] [facility]) OB Postpart Progr Note REPORT#:[id number] REPORT STATUS: Signed DATE:06/16/20 TIME: 2142 PATIENT: MINE BAÑUELOS UNIT #: [id number] ROOM/BED: [address] : 02 AGE: 20 SEX: F [...] repeat CBC in AM. at 2146 RPT #:[id number] END OF REPORT [facility] 2020-06-16 07:46:00 [facility] ([facility]) OB Postpart Progr Note REPORT#:[id number] REPORT STATUS: Signed DATE:06/16/20 TIME: 07 PATIENT: MINE BAÑUELOS UNIT #: [id number] ROOM/BED: [address] : 02 AGE: 20 SEX: F ATTEND: Wan Dorado DO ADM AUTHOR: hSeyla Hua MD * ALL edits or amendments [...] 414 99.8 109 18 128/73 06/168 92.0 06/16 137 100 18 127/70 06/16 0030 111.0 06/160 94 151/82 06/16 0008 123.0 06/16 0008 [...] (10.4 - 12.4 secs) 10.1 L PTT ([place]) (22 - 38 secs) 25.8 Fibrinogen (309 [...] (Auto) (14.5 - 29.7 %) 9.[address] [place] % (Auto) (3.6 - 10.2 %) 4.5 Eos % (Auto) (0.0 - 3.0 %) 0.2 Baso % (Auto) (0.1 - 0.9 %) 0.1 Neut # (Auto) (K/mm3) 17.5 Lymph # (Auto) (K/mm3) 2.0 [place] # (Auto) (K/mm3) 0.9 Eos # (Auto) [...] Plan discussed with: patient at 0750 RPT #:[id number] END OF REPORT [facility] 2020-06-15 13:04:00 [facility] [facility] ([facility]) OB Postpart Progr Note REPORT#:[id number] REPORT STATUS: Signed DATE:06/15/20 TIME: 1304 PATIENT: MINE BAÑUELOS UNIT #: [id number] ROOM/BED: [facility]72 : 02 AGE: 20 SEX: [...] 0032 88 95 03/12 0027 87 96 0312 0022 87 97 03/12 0020 98.0 03/12 [...] 03/11 2202 97 99 03/11 2200 115.0 03/11 2200 91 154/88 03/11 2057 99 99 03/11 2052 95 98 03/11 2051 104.0 03/11 2051 93 142/78 03/11 2047 97 99 03/11 2042 101.4 97 98 03/ 204 107.0 / 204 96 140/92 06/14 2036 92 99 03/2031 97 98 03/11 2028 111.0 03/2028 93 154/80 03/2026 95 99 03/11 202 94 99 / 2017 95 98 03/ 2015 117.0 / 2015 93 168/87 06/14 2012 92 98 / 2007 95 98 / 2002 94 98 03/ 2000 115.0 03/ 2000 93 167/80 03/11 195 95 98 03/ 1952 96 100 03/ 1947 93 98 03/ 1944 121.0 06/14 1944 167/88 03/ 1942 89 98 03/ 1937 92 98 03/11 1932 112.0 03/ 1932 91 162/78 98 03/ 1931 125.0 06/14 1931 91 157/104 03/ 1927 91 98 03/ 1922 90 98 03/11 1917 87 98 03/11 1914 98.8 18 03 1914 102.0 03/ 1914 87 138/76 03/11 1912 89 98 03/11 1907 91 99 03/11 1902 89 99 03/11 1859 111.0 06/14 1859 85 147/88 03/ 1857 87 99 03/11 1852 87 99 03/11 1847 84 99 03/11 1843 110.0 03/ 1843 83 151/83 03/ 1842 83 98 03/11 1830 102.0 03/11 1830 98.2 90 18 146/74 03/11 1813 96.0 03/11 1813 84 148/63 03/11 1758 105.0 03/11 1758 83 159/73 /11 1743 105.0 03/11 1743 78 154/72 03/11 1729 105.0 03/11 1729 83 149/75 03/11 1713 98.0 18 03/ 1713 105.0 03/11 1713 85 138/83 03/11 1658 111.0 03/11 1658 83 148/85 03/11 1644 110.0 03/11 1644 82 146/84 03/11 1629 107.0 03/ 1629 82 142/84 06/14 1614 103.0 06/14 [...] pH (5 - 9) 6.0 Ur Specific [place] (1.001 - 1.035) 1.031 Urine Protein (NEG) [...] - 12.4 secs) 10.5 INR 0.95 PTT ([place]) (22 - 38 secs) 27.4 Hematology WBC [...] % (Auto) (14.5 - 29.7 %) 14.5 [place] % (Auto) (3.6 - 10.2 %) 4.5 Eos % (Auto) (0.0 - 3.0 %) 0.1 Baso % (Auto) (0.1 - 0.9 %) 0.3 Neut # (Auto) (K/mm3) 13.8 Lymph # (Auto) (K/mm3) 2.5 [place] # (Auto) (K/mm3) 0.8 Eos # (Auto) [...] to pre-eclampsia Plan: routine care, Continue Magnesium [id number] Labetalol 300 TID Will monitor bps at this time at 1308 RPT #:[id number] END OF REPORT [facility] 2020-06-15 02:29:00 [facility] ([facility]) OB Delivery Note REPORT#:[id number] REPORT STATUS: Signed DATE:06/15/20 TIME: 228 PATIENT: MINE BAÑUELOS UNIT #: [id number] ROOM/BED: [address] : 02 AGE: 20 SEX: F [...] Steroids prior to arrival: Antibiotic prophylaxis given: [place] evaluation at delivery: Post hemorrhage risk score: Low Risk for Hemorrhage. Delivery date infant A: Delivery time infant A: Birthweight (gm) infant A: Weight (lb) infant A: Weight (oz) A: Gender A: Female 1 minute infant A: 5 minutes infant A: 10 minutes infant A: Cord pH obtained A: Vacuum time A: Vacuum # pulls A: Vacuum # [...] at delivery (ml's): 300 at 0231 RPT #:[id number] END OF REPORT [facility] 2020-06-14 21:56:00 [facility] ([facility]) Clinical Note REPORT#:[id number] REPORT STATUS: Signed DATE:06/14/20 TIME: 2155 PATIENT: MINE BAÑUELOS UNIT #: [id number] ROOM/BED: [address] : 02 AGE: 20 SEX: F [...] Imp: Sepsis screen is indicated and Attending as ordered Amp and Gent to start. Labs are drawn awaiting results.WBC was 17.3, AST is 120 but ALT is 75, platelets normal. Lactic acid pending. Plan: I am available for any further bedside attendance as needed. at 2208 RPT #:[id number] END OF REPORT [facility] 2020-06-14 14:38:00 [facility] ([facility]) OB Admission / H P REPORT#:[id number] REPORT STATUS: Signed DATE:06/14/20 TIME: 1438 PATIENT: MINE BAÑUELOS UNIT #: [id number] ROOM/BED: [address] : 02 AGE: 20 SEX: F [...] blood pressure HPI: @ 29w3d transfer from [facility]. Patient presented to [facility] with complaint of back pain and abdominal [...] 1051 75 182/104 06/14 1047 138.0 06/14 104 76 179/101 06/14 1042 137.0 06/14 1042 75 177/110 06/14 1035 138.0 06/14 103 75 176/112 Physical Exam Abdomen: gravid, no [...] (Auto) (14.5 - 29.7 %) 10.[address] [place] % (Auto) (3.6 - 10.2 %) 3.5 L Eos % (Auto) (0.0 - 3.0 %) 0.0 Baso % (Auto) (0.1 - 0.9 %) 0.2 Neut # (Auto) (K/mm3) 13.0 Lymph # (Auto) (K/mm3) 1.6 [place] # (Auto) (K/mm3) 0.5 Eos # (Auto) [...] induction: pre-eclampsia (PE), stillbirth at 1444 RPT #:[id number] END OF REPORT [facility]
[2024-02-05 11:44] LABS: Sqamous Epithelial <5 /HPF (None Seen); Urine Bacteria <20 /HPF (<20); Urine Bilirubin NEGATIVE (Negative); Urine Blood Negative (Negative); Urine Clarity Turbid (Clear); Urine Color Yellow (Yellow); Urine Culture Reflex Order NOT NEEDED; Urine Glucose NEGATIVE (Negative); Urine Ketones TRACE (Negative); Urine Micro Reflex YN NO BILL MICROSCOPIC; Urine Mucus Slight /HPF (None Seen); Urine Nitrite NEGATIVE (Negative); Urine Protein TRACE (Negative); Urine RBC <5 /HPF (None Seen); Urine Urobilinogen Normal (Normal); Urine WBC <5 /HPF (<5)
[2024-02-05 12:11] LABS: Hematocrit 30.7 % (36.0-45.0); Hemoglobin 10.1 g/dL (12.0-15.0); MCH 28.3 pg (27.0-35.0); MCHC 32.8 g/dL (32.0-36.0); MCV 86.4 fL (80-100); Platelets 315 thou/uL (152-406); RBC Red Blood Cell Count 3.56 M/uL (3.86-4.86); Red Cell Distribution Width 14.9 % (12.1-15.2)
[2024-02-05 12:33] LABS: Anion Gap 9.5 mEq/L (5.0-15.0); Potassium 3.5 mEq/L (3.5-5.1)
[2024-02-05] MEDS ORDERED: NA CHLORIDE 0.9% 1,000 ML ONE (12:44)
--- NOTE | 2024-02-05 14:08 | ER ---
Nurse's Notes [facility] Name: Jana Cloeman Age: 24 yrs Sex: Female : 2000 Arrival Date: 02/05/2024 Time: 10:35 Bed 20 Private MD: Diagnosis: Syncope Near;24 weeks gestation of Presentation: 02/04 11:09 Chief complaint: Patient states: "I was taking my son trick and treating and all of a aa5 sudden I just felt sweaty and dizzy like I was going to pass out". Pt reports she did not eat brekfast and just ate some crackers in the ER waiting room prior to triage. Pt states symptoms have improved. Reports being 23 weeks 5 days and reports positive movement. Reports she is schedules for 1st OB appointment 02/09/2024. 11:09 Coronavirus screen: At this time, the client does not indicate any symptoms associated aa5 with coronavirus-19. Ebola Screen: Patient denies travel to an Ebola-affected area in the 21 days before illness onset. Initial Sepsis Screen: Does the patient meet any 2 criteria? No. Patient's initial sepsis screen is negative. Does the patient have a suspected source of infection? No. Patient's initial sepsis screen is negative. Risk Assessment: Do you want to hurt yourself or someone else? Patient reports no desire to harm self or others. Onset of symptoms was February 05, 2024. 11:09 Acuity: LEDA 3 aa5 11:09 Method Of Arrival: Ambulatory aa5 INTERMISSION COORDINATOR: 12:51 unknown, 22 weeks ll1 Historical: - Allergies: 11:11 Bactrim; aa5 11:11 Ceclor; aa5 - PMHx: 11:11 Bipolar disorder; Pre- eclampsia; aa5 - PSHx: 11:11 section; Cholecystectomy; aa5 - Immunization history:: Adult Immunizations unknown. - Infectious Disease History:: Denies. - Social history:: Smoking status: Patient denies any tobacco usage or history of. Screenin:50 [facility] ED Fall Risk Assessment (Adult) History of falling in the last 3 months, ll1 including since admission No falls in past 3 months (0 pts) Confusion or Disorientation No (0 pts) Intoxicated or Sedated No (0 pts) Impaired Gait No (0 pts) Mobility Assist Device Used No (0 pt) Altered Elimination No (0 pt) Score/Fall Risk Level 0 - 2 = Low Risk Maintained a safe environment, Hourly rounding (assess needs \\T\\ fall precautionary measures) done. Abuse screen: Denies threats or abuse. Nutritional screening: No deficits noted. Tuberculosis screening: No symptoms or risk factors identified. Assessment: 12:06 General: Appears in no apparent distress. Behavior is calm, cooperative, appropriate ll1 for age. General: Reports having a episode of near syncope. Pain: Denies pain. Neuro: Reports dizziness, weakness. 12:49 Reassessment: No changes from previously documented assessment. Patient and/or family ll1 updated on plan of care and expected duration. Pain level reassessed. Patient is alert, oriented x 3, equal unlabored respirations, skin warm/dry/pink. Vital Signs: 11:09 BP 132 / 80; Pulse 83; Resp 18 S; Temp 97.8(TE); Pulse Ox 100% on R/A; Weight 81.65 kg aa5 (R); Height 5 ft. 4 in. (R); 14:24 BP 132 / 78; Pulse 81; Resp 17; Pulse Ox 100% ; Pain 0/10; ll1 11:09 Body Mass Index 30.90 (81.65 kg, 162.56 cm) aa5 14:24 Pain Scale: Adult ll1 Vitals: 12:10 Heart Tones FHT 140 found just below umbilicus. . ll1 ED Course: 10:41 Patient arrived in ED. mg5 10:55 Helen Rowland MD is Attending Physician. gb1 11:11 Arm band placed on. aa5 11:13 Triage completed. aa5 11:15 Provided Education on: ER procedure and process. ll1 11:44 UAM Sent. ll1 12:05 Initial lab(s) drawn, by pa, sent to lab. Inserted saline lock: 22 gauge in right ll1 antecubital area, using aseptic technique. Blood collected. Flushed with 10 mL NS. 12:51 Patient has correct armband on for positive identification. Bed in low position. Client ll1 placed on continuous cardiac and pulse oximetry monitoring. NIBP monitoring applied. 14:24 No provider procedures requiring assistance completed. IV discontinued, intact, ll1 bleeding controlled, No redness/swelling at site. Pressure dressing applied. Administered Medications: 12:49 Drug: NS 0.9% IV 1000 ml IV at 1000 ml once; to be given as a bolus over 60 minutes ll1 Route: IV; Rate: 1000 ml; Site: right antecubital; 14:23 Follow up: Response: No adverse reaction; IV Status: Completed infusion; IV Intake: ll1 1000ml Medication: 12:52 VIS not applicable for this client. ll1 Intake: 14:23 IV: 1000ml; Total: 1000ml. ll1 Outcome: 14:07 Discharge ordered by . dl 14:24 Patient left the ED. ll1 14:24 Discharged to home ambulatory, ll1 14:24 Condition: stable 14:24 Discharge instructions given to patient, Instructed on discharge instructions, follow up and referral plans. Demonstrated understanding of instructions, follow-up care, Signatures: Carine Camacho, RN RN aa5 Jerry Torres RN RN ll1 Enriqueta Maza mg5 Helen Rowland MD MD gb1 Corrections: (The following items were deleted from the chart) 11:14 11:09 Chief complaint: Patient states: "I was taking my son trick and treating and all aa5 of a sudden I just felt sweaty and dizzy like I was going to pass out". Pt reports she did not eat brekfast and just ate some crackers in the ER waiting room prior to triage. Pt states symptoms have improved. Reports being 23 weeks 5 days and reports positive movement. aa5
--- NOTE | 2024-02-05 14:08 | EDPHYS ---
Physician Documentation [facility] Name: Jana Coleman Age: 24 yrs Sex: Female : 2000 Arrival Date: 02/05/2024 Time: 10:35 Bed 20 Private MD: ED Physician Helen Rowland HPI: 02/04 13:12 This 24 yrs old Female presents to ER via Ambulatory with complaints of Preg gb1 24wks, Near Syncope. 13:12 24-year-old female G2, P1 at approximately 24 weeks gestation comes as she was gb1 feeling dizzy last night when she was nocxs-og-bfgninax with her child. She states that she felt her eyes saw some spots and she felt very weak. She denies any vaginal bleeding or discharge. She has a history of preeclampsia and currently takes a baby aspirin every day. She has a history of bipolar disorder as well. She states that she still feels baby move around but denies any other signs or symptoms of fever, cough chills, shortness of breath or chest pain.. CHIEF INVESTIGATOR: 12:51 unknown, 22 weeks ll1 Historical: - Allergies: 11:11 Bactrim; aa5 11:11 Ceclor; aa5 - PMHx: 11:11 Bipolar disorder; Pre- eclampsia; aa5 - PSHx: 11:11 section; Cholecystectomy; aa5 - Immunization history:: Adult Immunizations unknown. - Infectious Disease History:: Denies. - Social history:: Smoking status: Patient denies any tobacco usage or history of. Exam: 13:12 Constitutional: This is a well developed, well nourished patient who is awake, alert, gb1 and in no acute distress. Head/Face: Normocephalic, atraumatic. Eyes: Pupils equal round and reactive to light, extra-ocular motions intact. Lids and lashes normal. Conjunctiva and sclera are non-icteric and not injected. Cornea within normal limits. Periorbital areas with no swelling, redness, or edema. ENT: Nares patent. No nasal discharge, no septal abnormalities noted. Tympanic membranes are normal and external auditory canals are clear. Oropharynx with no redness, swelling, or masses, exudates, or evidence of obstruction, uvula midline. Mucous membranes moist. Neck: Trachea midline, no thyromegaly or masses palpated, and no cervical lymphadenopathy. Supple, full range of motion without nuchal rigidity, or vertebral point tenderness. No Meningismus. Chest/axilla: Normal chest wall appearance and motion. Nontender with no deformity. No lesions are appreciated. Cardiovascular: Regular rate and rhythm with a normal S1 and S2. No gallops, murmurs, or rubs. Normal PMI, no JVD. No pulse deficits. Respiratory: Lungs have equal breath sounds bilaterally, clear to auscultation and percussion. No rales, rhonchi or wheezes noted. No increased work of breathing, no retractions or nasal flaring. Abdomen/GI: Gravid uterus 4 cm above the umbilicus, with normal bowel sounds. No distension or tympany. No guarding or rebound. No evidence of tenderness throughout. Back: No spinal tenderness. No costovertebral tenderness. Full range of motion. Skin: Warm, dry with normal turgor. Normal color with no rashes, no lesions, and no evidence of cellulitis. MS/ Extremity: Pulses equal, no cyanosis. Neurovascular intact. Full, normal range of motion. Neuro: Awake and alert, GCS 15, oriented to person, place, time, and situation. Cranial nerves II-XII grossly intact. Motor strength 5/5 in all extremities. Sensory grossly intact. Cerebellar exam normal. Normal gait. Vital Signs: 11:09 BP 132 / 80; Pulse 83; Resp 18 S; Temp 97.8(TE); Pulse Ox 100% on R/A; Weight 81.65 kg aa5 (R); Height 5 ft. 4 in. (R); 14:24 BP 132 / 78; Pulse 81; Resp 17; Pulse Ox 100% ; Pain 0/10; ll1 11:09 Body Mass Index 30.90 (81.65 kg, 162.56 cm) aa5 14:24 Pain Scale: Adult ll1 MDM: 11:12 Medical Screening Exam initiated gb1 13:12 ED course: 24-year-old G2, P1 at approximately 24 weeks gestation with heart gb1 tones of 140 here today with a near syncope episode. Patient's blood pressure is 132/80 and she is currently have a history of preeclampsia and she is on a baby aspirin. There is no proteinuria or any signs of clinical blurred vision or diplopia. I doubt acute papilledema. Patient is under the care of her oncologist satellite instruction facilitator of record which she has appoint with on Thursday. At this time I will rehydrate her with IV fluids and educate her to increase p.o. fluids as well at home. She is not having any vaginal discharge or bleeding either. Discharge home with return precautions which she is compliant with prior to leaving the ER today.. 14:08 Data reviewed: vital signs, nurses notes, lab test result(s), CBC, electrolytes. [facility] 02/04 11:15 Order name: CBC w/o diff; Complete Time: 12:36 [facility] 02/04 11:15 Order name: BMP; Complete Time: 12:36 [facility] 02/04 11:15 Order name: UAM; Complete Time: 12:36 [facility] 02/04 11:15 Order name: Heart Tones; Complete Time: 12:05 [facility] 02/04 11:44 Order name: IV Saline Lock; Complete Time: 12:05 ll1 Administered Medications: 12:49 Drug: NS 0.9% IV 1000 ml IV at 1000 ml once; to be given as a bolus over 60 minutes ll1 Route: IV; Rate: 1000 ml; Site: right antecubital; 14:23 Follow up: Response: No adverse reaction; IV Status: Completed infusion; IV Intake: ll1 1000ml Disposition Summary: 02/05/24 14:07 Discharge Ordered Notes: Location: Home gb1 Condition: Stable gb1 Diagnosis - Syncope Near gb1 - 24 weeks gestation of gb1 Followup: gb1 - With: Private Physician - When: - Reason: Recheck today's complaints Discharge Instructions: - Discharge Summary Sheet gb1 - Near-Syncope gb1 - Care gb1 Forms: - Medication Reconciliation Form gb1 - Antibiotic Education gb1 - Prescription Opioid Use gb1 - Patient Portal Instructions gb1 - Leadership Thank You Letter gb1 Signatures: Dispatcher [employer] Carine Paris RN RN aa5 Jerry Torres RN RN ll1 Helen Rowland MD MD gb1
[2024-02-05 14:42] VITALS: BP 132/80; TEMP 97.8; O2SAT 100
== END 2024-02-05 14:24 | disposition home or self-care (01) ==
LOC: ER 10:35
DX: O26.892 Other specified pregnancy related conditions, second trimester (principal); R55 Syncope and collapse; Z3A.24 24 weeks gestation of pregnancy
CPT/HCPCS: 96361; 81001; 80048; 36415; 85027; 96360; 99284; J7030